=== PATIENT | female | born 1955 | race Caucasian/White ===

== ENCOUNTER 2016-09-23 19:33 | Emergency (ER) | payer MEDICARE, MEDICAID ==
--- NOTE | 2016-09-23 20:00 | RAD ---
INDICATION: Right shoulder pain COMPARISON: None TECHNIQUE: Routine frontal and Y views were obtained. FINDINGS: There is osteopenia. There is AC joint osteoarthritis. The glenohumeral joint is intact. The soft tissues are normal. IMPRESSION: OSTEOPENIA. AC JOINT OSTEOARTHRITIS
--- NOTE | 2016-09-23 20:23 | ED ---
I, Oh,Fabio, scribed for Ajay Garcia MD on 09/23/16 at 1954 . Upper Extremity Pain - HPI Summary HPI Summary: This 61 y/o female presents to ED via ambulance for acute on chronic right shoulder pain since today. She states that she has been over-exerting herself doing "push-ups". Pt states that palpation makes it worse and brings pain up to 10/10. PMHx is significant for PE, morbid obesity, JUAN with CPAP use, COPD, hypothyroidism, HTN, HLD, asthma, restless legs syndrome, and goiter. She is wheelchair bound and supports herself in her household with help from her daughter. - History of Current Complaint Chief Complaint: EDShouldJennifer Stated Complaint: R SHOULDER PAIN Time Seen by Provider: 09/23/16 19:36 Hx Obtained From: Patient, Medical Records Mechanism Of Injury: Unknown Onset/Duration: Started Hours Ago, Still Present Timing: Constant Severity Initially: Moderate Severity Currently: Moderate Pain Location: Shoulder - right Aggravating Factor(s): Movement, Other - palpation Alleviating Factor(s): Nothing Associated Signs & Symptoms: Positive: Negative - Allergies/Home Medications Allergies/Adverse Reactions: Allergies Allergy/AdvReac Type Severity Reaction Status Date / Time Erythromycin Allergy Rash Verified 08/26/14 14:21 Penicillins [PCN] Allergy Rash Verified 08/26/14 14:21 PMH/Surg Hx/FS Hx/Imm Hx Endocrine/Hematology History: Reports: Hx Thyroid Disease Respiratory History: Reports: Hx Asthma Infectious Disease History: Denies: Traveled Outside the [place] in Last 30 Days - Family History Known Family History: Positive: Other - Positive for RA. Father of PNA. - Social History Alcohol Use: Occasionally Hx Substance Use: No Substance Use Type: Reports: None Hx Tobacco Use: Yes Smoking Status (MU): Current Some Day Smoker Review of Systems Positive: Cough - productive cough with white sputum production Positive: Other - right shoulder pain All Other Systems Reviewed And Are Negative: Yes Physical Exam Triage Information Reviewed: Yes Vital Signs Reviewed: Yes Appearance: Positive: Pain Distress - MINIMAL DISCOMFORT, Obese - MORBIDLY OBESE Skin: Positive: Warm ENT: Positive: Hearing grossly normal Respiratory/Lung Sounds: Positive: Breath Sounds Present Musculoskeletal: Positive: Strength/ROM Intact - PAIN WITH MOVEMENT Neurological: Positive: Sensory/Motor Intact Psychiatric: Positive: Affect/Mood Appropriate Diagnostics - Laboratory Lab Statement: Any lab studies that have been ordered have been reviewed, and results considered in the medical decision making process. - Radiology Right Shoulder Xray Interpretation: Positive (See Comments) - OSTEOPENIA. AC JOINT OSTEOARTHRITIS Radiology Interpretation Completed By: Radiologist Re-Evaluation - Re-Evaluation First Eval Re-Evaluation Time: 20:22 Comment: MD in room to update pt on X-ray imaging results and plan of care involving discharge. Pt states that she is wheelchair bound and would need [employer] transportation in order to reach her home. Course/Dx - Diagnoses Provider Diagnoses: Shoulder sprain Discharge - Discharge Plan Condition: Stable Disposition: HOME Patient Education Materials: Shoulder Pain (ED) Referrals: [facility] [place] [facility]FERR[facility] [Outside] - 2 Days The documentation as recorded by the Robert hernandez Soohyun accurately reflects the service I personally performed and the decisions made by me, Ajay Garcia MD.
[2016-09-23 22:53] VITALS: BP 113/64
== END 2016-09-23 22:57 | disposition home or self-care (01) ==
LOC: ED 19:33
DX: S43.401A Unspecified sprain of right shoulder joint, initial encounter (principal); F17.200 Nicotine dependence, unspecified, uncomplicated; X50.3XXA Overexertion from repetitive movements, initial encounter; Y93.B2 Activity, push-ups, pull-ups, sit-ups; Y92.9 Unspecified place or not applicable; E66.01 Morbid (severe) obesity due to excess calories; Z86.711 Personal history of pulmonary embolism; J44.9 Chronic obstructive pulmonary disease, unspecified; I10 Essential (primary) hypertension; E78.5 Hyperlipidemia, unspecified; J45.909 Unspecified asthma, uncomplicated; G25.81 Restless legs syndrome; Z99.3 Dependence on wheelchair; M85.80 Other specified disorders of bone density and structure, unspecified site; Z68.43 Body mass index [BMI] 50.0-59.9, adult

== ENCOUNTER 2016-10-29 22:27 | Observation (INO) | payer MEDICARE, MEDICAID ==
--- NOTE | 2016-10-29 23:06 | ED ---
oBwen Mays Benjamin, scribed for Ajay Garcia MD on 10/29/16 at 2246 . Dizziness - HPI Summary HPI Summary: 61yo female c/o feeling dizzy, weak, and SOB tonight. Pt was unable to get up after using the toilet. Pt uses Oxygen at home. Current everyday smoker. Hx includes thyroid problems and asthma. - History Of Current Complaint Chief Complaint: EDWeakness Stated Complaint: WEAKNESS/LEG PAIN Time Seen by Provider: 10/29/16 22:35 Hx Obtained From: Patient Onset/Duration: Resolved Timing: Constant Severity Initially: Mild Severity Currently: None Character: Dizzy Aggravating Factor(s): Nothing Alleviating Factor(s): Nothing Associated Signs And Symptoms: Positive: SOB, Other: - weakness - Allergies/Home Medications Allergies/Adverse Reactions: Allergies Allergy/AdvReac Type Severity Reaction Status Date / Time Erythromycin Allergy Rash Verified 10/30/16 00:12 Penicillins [PCN] Allergy Rash Verified 10/30/16 00:12 Home Medications: Home Medications Albuterol HFA INHALER* [Ventolin HFA Inhaler*] 1 puff INH BID 10/30/16 [History Confirmed 10/30/16] Benzonatate CAP* [Tessalon 100 MG CAP*] 100 mg PO TID PRN 10/30/16 [History Confirmed 10/30/16] Levothyroxine TAB* [Synthroid TAB*] 100 mcg PO DAILY 10/30/16 [History Confirmed 10/30/16] Loperamide CAP* [Imodium CAP*] 2 mg PO Q8HR PRN 10/30/16 [History Confirmed ] Potassium Chlor TAB* [Klor Con ER TAB*] 20 meq PO BID 10/30/16 [History Confirmed 10/30/16] Sertraline HCl [Zoloft] 75 mg PO DAILY 10/30/16 [History Confirmed 10/30/16] oxyCODONE/Acetamin 5/325 MG* [Percocet 5/325 TAB*] 1 tab PO Q4H PRN 10/30/16 [ History Confirmed 10/30/16] PMH/Surg Hx/FS Hx/Imm Hx Endocrine/Hematology History: Reports: Hx Thyroid Disease Respiratory History: Reports: Hx Asthma Infectious Disease History: Denies: Traveled Outside the [place] in Last 30 Days - Family History Known Family History: Positive: Other - Positive for RA. Father of PNA. - Social History Occupation: Disabled Lives: [facility] Alcohol Use: Occasionally Hx Substance Use: No Substance Use Type: Reports: None Hx Tobacco Use: Yes Smoking Status (MU): Current Some Day Smoker Review of Systems Constitutional: Negative Eyes: Negative ENT: Negative Cardiovascular: Negative Positive: Shortness Of Breath Gastrointestinal: Negative Genitourinary: Negative Musculoskeletal: Negative Skin: Negative Neurological: Other - dizziness Positive: Weakness Psychological: Normal All Other Systems Reviewed And Are Negative: Yes Physical Exam Triage Information Reviewed: Yes Vital Signs On Initial Exam: Initial Vitals Temp Pulse Resp BP Pulse Ox 97 F 91 16 122/55 100 10/29/16 22:35 10/29/16 22:35 10/29/16 22:35 10/29/16 22:35 10/29/16 22:35 Vital Signs Reviewed: Yes Appearance: Positive: No Pain Distress, Obese - morbidlyt Skin: Positive: Warm Eyes: Positive: LA ENT: Positive: Hearing grossly normal Neck: Positive: Supple Respiratory/Lung Sounds: Positive: Breath Sounds Present, Decreased Breath Sounds Cardiovascular: Positive: RRR Abdomen Description: Positive: Nontender, Soft Bowel Sounds: Positive: Present Neurological: Positive: Alert, Oriented to Person Place, Time Psychiatric: Positive: Affect/Mood Appropriate Diagnostics - Vital Signs Vital Signs Temp Pulse Resp BP Pulse Ox 10/29/16 22:35 97 F 91 16 122/55 100 - Laboratory Result Diagrams: 10/29/16 23:24 10/29/16 23:24 Lab Statement: Any lab studies that have been ordered have been reviewed, and results considered in the medical decision making process. Dizzy Course/Dx - Diagnoses Provider Diagnoses: UTI (urinary tract infection) - Provider Notifications Discussed Care Of Patient with: Dr. Davis (hospitalist) @0002 Instructed by Provider To: Admit As Inpatient Discharge - Discharge Plan Condition: Fair Disposition: ADMITTED TO [facility] documentation as recorded by the Bowen hernandez Benjamin accurately reflects the service I personally performed and the decisions made by me, Ajay Garcia MD.
--- NOTE | 2016-10-29 23:26 | RAD ---
INDICATION: Shortness of breath. COMPARISON: Chest x-ray dated August 17, 2012 TECHNIQUE: Single AP portable view of the chest was obtained. FINDINGS: Image quality is compromised due to the relative inferiority of a portable chest x-ray. Similar the previous chest x-ray there is mild to moderate cardiomegaly. The pulmonary vasculature is indistinct and engorged. There are patchy densities overlying the bilateral central lungs. There is bilateral costophrenic angle blunting. Visualized bones are normal for the patient's age. IMPRESSION: Radiographic findings are most consistent with exacerbation of congestive heart failure resulting in pulmonary edema and small pleural effusions..
[2016-10-29 23:36] LABS: Hematocrit 34 % (35-47); Hemoglobin 10.6 g/dl (12.0-16.0); Mean Corpuscular HGB Conc 32 g/dl (31-36); Mean Corpuscular Hemoglobin 29 pg (27-31); Mean Corpuscular Volume 91 fL (80-97); Mean Platelet Volume 8 um3 (7.4-10.4); Red Blood Count 3.69 10^6/ul (4.0-5.4); Red Cell Distribution Width 17 % (10.5-15); White Blood Count 16.3 10^3/ul (3.5-10.8)
[2016-10-29 23:37] LABS: Urine Bacteria 1+ (Absent); Urine Bilirubin Negative (Negative); Urine Glucose Negative (Negative); Urine Nitrite Positive (Negative)
[2016-10-29 23:54] LABS: Albumin 2.9 g/dL (3.2-5.2); BUN/Creatinine Ratio 9.3 (8-20); Calcium 8.7 mg/dL (8.6-10.3); EGFR African American 85.7 (>60); EGFR Non-African American 66.6 (>60); Globulin 5.4 g/dL (2-4); Potassium 3.5 mmol/L (3.5-5.0); Total Bilirubin 0.6 mg/dL (0.2-1.0); Total Protein 8.3 g/dL (6.4-8.9)
[2016-10-30] MEDS ORDERED: Levofloxacin 500 MG IVPREMIX(* 500 MG/100 ML BAG IVPB ONE (00:02)
--- NOTE | 2016-10-30 00:43 | HP ---
H&P (Free Text) History and Physical: PCP: Raeann Payton MD Date/Time of Evaluation: 0045 CC: generalized weakness HPI: Mrs Harris is a 61YO super morbidly obese female HX COPD, HTN, hypothyroidism who presents reporting dry cough over the last few days without F /C, phlegm production, or SOB. Today she did have some N/V x1. She went to the restroom for a BM and while there developed N/T in B legs associated with generalized weakness and an inability to stand for which she activated her Life Alert. Vitals are stable, WBCs 16k 85% neutrophils. UA is positive for UTI. CXR is read as most consistent w/ CHF. PMedHx HX pulmonary embolism IBS, diarrhea dominant COPD asthma, mild intermittent mild intellectual disability HTN HLD hypothyroidism chronic anemia JUAN not on CPAP restless leg syndrome OA depression Ambulatory Orders Albuterol HFA INHALER* [Ventolin HFA Inhaler*] 1 puff INH BID 10/30/16 Benzonatate CAP* [Tessalon 100 MG CAP*] 100 mg PO TID PRN 10/30/16 Levothyroxine TAB* [Synthroid TAB*] 100 mcg PO DAILY 10/30/16 Loperamide CAP* [Imodium CAP*] 2 mg PO Q8HR PRN 10/30/16 Potassium Chlor TAB* [Klor Con ER TAB*] 20 meq PO BID 10/30/16 Sertraline HCl [Zoloft] 75 mg PO DAILY 10/30/16 oxyCODONE/Acetamin 5/325 MG* [Percocet 5/325 TAB*] 1 tab PO Q4H PRN 10/30/16 Allergies Erythromycin Allergy (Verified 10/30/16 00:12) Rash Penicillins [PCN] Allergy (Verified 10/30/16 00:12) Rash PSurgHx denies SocHx: former smoker, minimal alcohol, no recreational drugs; lives with her daughter; full code status FamHx: negative for CAD, CVA, & cancer ROS: as above, otherwise reviewed and all were negative Constitutional: NAD, normally developed, super morbidly obese white female vitals: Vital Signs Temp 36.1 C 10/29/16 22:35 Pulse 81 10/29/16 23:59 Resp 22 10/29/16 23:59 BP 122/55 10/29/16 22:35 Pulse Ox 98 10/29/16 23:59 Intake & Output 10/29/16 10/29/16 10/30/16 11:59 23:59 11:59 Weight 170.097 kg HEENM: atraumatic; sclera/conjunctiva: non-icteric/clear; hearing: clinically intact; oropharynx: clear, mucosa Neck: soft tissue: non-tender; thyroid: normal Pulmonary: clear to auscultation bilaterally, good aeration, no accessory muscle use CV: RR/RR, normal S1S2, no carotid bruit, no jugular venous distention, 2+ B DP/ PT, 3+ edema Abdominal: soft, non-distended, non-tender, no rebound/guarding/rigidity, normoactive bowel sounds, no hepatosplenomegaly or masses, no costovertebral angle tenderness Musculoskeletal: general: grossly intact; gait: non-ambulatory Integumental: mild erythema (chronic appearing) BLE without warmth, tenderness, or open wound Psychiatric orientation: AA&O to PPS affect: calm mood: cooperative eye contact: fair to good content: reliable responses: simple insight: fair Testing: Lab Results 10/29/16 10/29/16 10/29/16 Range/Units 23:14 23:24 23:24 WBC 16.3 H (3.5-10.8) 10^3/ul RBC 3.69 L (4.0-5.4) 10^6/ul Hgb 10.6 L (12.0-16.0) g/dl Hct 34 L (35-47) % MCV 91 (80-97) fL MCH 29 (27-31) pg MCHC 32 (31-36) g/dl RDW 17 H (10.5-15) % Plt Count 294 (150-450) 10^3/ul MPV 8 (7.4-10.4) um3 Neut % (Auto) 85.8 H (38-83) % Lymph % (Auto) 7.2 L (25-47) % [place] % (Auto) 5.5 (1-9) % Eos % (Auto) 1.0 (0-6) % Baso % (Auto) 0.5 (0-2) % Absolute Neuts (auto) 14.0 H (1.5-7.7) 10^3/ul Absolute Lymphs (auto) 1.2 (1.0-4.8) 10^3/ul Absolute Monos (auto) 0.9 H (0-0.8) 10^3/ul Absolute Eos (auto) 0.2 (0-0.6) 10^3/ul Absolute Basos (auto) 0.1 (0-0.2) 10^3/ul Absolute Nucleated RBC 0.01 10^3/ul Nucleated RBC % 0.1 Sodium 134 (133-145) mmol/L Potassium 3.5 (3.5-5.0) mmol/L Chloride 102 (101-111) mmol/L Carbon Dioxide 26 (22-32) mmol/L Anion Gap 6 (2-11) mmol/L BUN 8 (6-24) mg/dL Creatinine 0.86 (0.51-0.95) mg/dL Est GFR ( Amer) 85.7 (>60) Est GFR (Non-Af Amer) 66.6 (>60) BUN/Creatinine Ratio 9.3 (8-20) Glucose 120 H (70-100) mg/dL Calcium 8.7 (8.6-10.3) mg/dL Total Bilirubin 0.60 (0.2-1.0) mg/dL AST 21 (13-39) U/L ALT 7 (7-52) U/L Alkaline Phosphatase 81 (34-104) U/L B-Natriuretic Peptide ( - 100) pg/mL Total Protein 8.3 (6.4-8.9) g/dL Albumin 2.9 L (3.2-5.2) g/dL Globulin 5.4 H (2-4) g/dL Albumin/Globulin Ratio 0.5 L (1-3) Urine Color Yellow Urine Appearance Cloudy Urine pH 7.0 (5-9) Ur Specific [place] 1.011 (1.010-1.030) Urine Protein 1+(30 mg/dl) H (Negative) Urine Ketones Negative (Negative) Urine Blood 1+ H (Negative) Urine Nitrate Positive H (Negative) Urine Bilirubin Negative (Negative) Urine Urobilinogen Negative (Negative) Ur Leukocyte Esterase Trace H (Negative) Urine WBC (Auto) 1+(6-10/hpf) H (Absent) Urine RBC (Auto) 1+(3-5/hpf) H (Absent) Ur Squamous Epith Cells Present H (Absent) Amorphous Crystals Present H (Absent) Urine Bacteria 1+ H (Absent) Urine Glucose Negative (Negative) 10/29/16 Range/Units 23:24 WBC (3.5-10.8) 10^3/ul RBC (4.0-5.4) 10^6/ul Hgb (12.0-16.0) g/dl Hct (35-47) % MCV (80-97) fL MCH (27-31) pg MCHC (31-36) g/dl RDW (10.5-15) % Plt Count (150-450) 10^3/ul MPV (7.4-10.4) um3 Neut % (Auto) (38-83) % Lymph % (Auto) (25-47) % [place] % (Auto) (1-9) % Eos % (Auto) (0-6) % Baso % (Auto) (0-2) % Absolute Neuts (auto) (1.5-7.7) 10^3/ul Absolute Lymphs (auto) (1.0-4.8) 10^3/ul Absolute Monos (auto) (0-0.8) 10^3/ul Absolute Eos (auto) (0-0.6) 10^3/ul Absolute Basos (auto) (0-0.2) 10^3/ul Absolute Nucleated RBC 10^3/ul Nucleated RBC % Sodium (133-145) mmol/L Potassium (3.5-5.0) mmol/L Chloride (101-111) mmol/L Carbon Dioxide (22-32) mmol/L Anion Gap (2-11) mmol/L BUN (6-24) mg/dL Creatinine (0.51-0.95) mg/dL Est GFR ( Amer) (>60) Est GFR (Non-Af Amer) (>60) BUN/Creatinine Ratio (8-20) Glucose (70-100) mg/dL Calcium (8.6-10.3) mg/dL Total Bilirubin (0.2-1.0) mg/dL AST (13-39) U/L ALT (7-52) U/L Alkaline Phosphatase (34-104) U/L B-Natriuretic Peptide 77 ( - 100) pg/mL Total Protein (6.4-8.9) g/dL Albumin (3.2-5.2) g/dL Globulin (2-4) g/dL Albumin/Globulin Ratio (1-3) Urine Color Urine Appearance Urine pH (5-9) Ur Specific [place] (1.010-1.030) Urine Protein (Negative) Urine Ketones (Negative) Urine Blood (Negative) Urine Nitrate (Negative) Urine Bilirubin (Negative) Urine Urobilinogen (Negative) Ur Leukocyte Esterase (Negative) Urine WBC (Auto) (Absent) Urine RBC (Auto) (Absent) Ur Squamous Epith Cells (Absent) Amorphous Crystals (Absent) Urine Bacteria (Absent) Urine Glucose (Negative) CXR, personally reviewed: IMPRESSION: Radiographic findings are most consistent with exacerbation of congestive heart failure resulting in pulmonary edema and small pleural effusions. Impression: 61F presenting with generalized weakness & finding of UTI w/ leukocytosis DIAGNOSIS & PLAN Primary UTI w/ generalized weakness : PT evaluation : IV levofloxacin : blood & urine CX : supportive care Secondary HX pulmonary embolism : SCDs & heparin SQ IBS, diarrhea dominant : continue loperamide PRN COPD : albuterol nebs PRN : mometasone/formoterol : tiotropium : incentive spirometry asthma, mild intermittent : albuterol nebs PRN HTN : heart healthy diet, monitor HLD : heart healthy diet hypothyroidism : continue levothyroxine JUAN : previously on CPAP, attempt to restart w/ auto : will need follow up outpatient sleep study : consider pulmonology consult in AM depression : continue sertraline Admission Rational: observation for initiation of ABX for UTI DVTp: SCDs & heparin SQ Code Status: full HCP: daughter,
[2016-10-30] MEDS ORDERED: Albuterol 2.5 MG/3 ML NEB.SOL* (0.083%) INH PRN (01:10)
[2016-10-30] MEDS ORDERED: Acetaminophen TAB* 325 MG PO PRN (01:10)
[2016-10-30] MEDS ORDERED: CMCS - Melatonin (NF) 3 MG TAB PO PRN (01:11)
[2016-10-30] MEDS ORDERED: Ondansetron INJ* 2 MG/ML VIAL IV PRN (01:11)
[2016-10-30] MEDS ORDERED: Loperamide CAP* 2 MG PO PRN (01:12)
[2016-10-30] MEDS ORDERED: NS 0.9% 1000 ML* 1,000 ML IV SCH (01:15)
[2016-10-30 04:10] LABS: Hematocrit 32 % (35-47); Hemoglobin 10.3 g/dl (12.0-16.0); Mean Corpuscular HGB Conc 32 g/dl (31-36); Mean Corpuscular Hemoglobin 29 pg (27-31); Mean Corpuscular Volume 90 fL (80-97); Mean Platelet Volume 8 um3 (7.4-10.4); Red Blood Count 3.59 10^6/ul (4.0-5.4); Red Cell Distribution Width 18 % (10.5-15); White Blood Count 13.4 10^3/ul (3.5-10.8)
[2016-10-30] MEDS ORDERED: Omeprazole CAP* 20 MG PO SCH (06:00)
[2016-10-30] MEDS ORDERED: Levothyroxine TAB* 100 MCG TAB PO SCH (06:00)
[2016-10-30] MEDS ORDERED: Spiriva Inhaler DEVICE* 1 EACH DEVICE ONE (09:00)
[2016-10-30] MEDS ORDERED: Mometasone/Formoter 200/5 MDI INH SCH (09:00)
[2016-10-30] MEDS ORDERED: Sertraline* 50 MG TAB PO SCH (09:00)
[2016-10-30] MEDS ORDERED: Tiotropium CAP.INH* CAP.INH/18 MCG INH SCH (09:00)
[2016-10-30 12:22] VITALS: BP 122/67
[2016-10-31] MEDS ORDERED: Levofloxacin 500 MG IVPREMIX(* 500 MG/100 ML BAG IVPB SCH
--- NOTE | 2016-10-31 02:32 | DS ---
DISCHARGE SUMMARY: DATE OF ADMISSION: 10/30/16 DATE OF DISCHARGE: 10/30/16 PRIMARY CARE PROVIDER: Dr. Fabiana Payton. DISCHARGING PROVIDER: JAZMYNE Blum SUPERVISING PHYSICIAN: Dr. Kina Barros* (dictated by JAZMYNE Blum). PRIMARY DISCHARGE DIAGNOSES: 1. Urinary tract infection. 2. Weakness. 3. Nonproductive cough - perhaps related to chronic obstructive pulmonary disease. SECONDARY DISCHARGE DIAGNOSES: 1. Morbid obesity with a BMI of 67. 2. Chronic obstructive pulmonary disease. 3. Hypertension. 4. Hypothyroidism. 5. History of pulmonary embolism. 6. Irritable bowel syndrome, diarrheal type. 7. Obstructive sleep apnea, noncompliant with CPAP. DISCHARGE MEDICATIONS: 1. Albuterol inhaler 1 puff inhaled twice daily as needed for cough or shortness of breath. 2. Flovent 2 puffs inhaled twice daily. 3. Gabapentin 300 mg capsule, 1 to 2 capsules p.o. at bedtime. 4. Levothyroxine 100 mcg p.o. daily. 5. Imodium 2 mg p.o. q.8 hours as needed for diarrhea. 6. Topical nystatin applied 3 times daily to affected area. 7. Potassium chloride 20 mEq p.o. twice daily. 8. Zoloft 75 mg p.o. daily. 9. Bactrim DS 1 tablet p.o. twice daily x3 days. 10. Spiriva 1 puff inhaled daily. 11. Percocet 1 tablet 5/325 one tablet p.o. q.4 hours as needed for pain. Medication changes: 1. Start nystatin powder. 2. Bactrim x3 days. HOSPITAL IMAGING: Chest x-ray shows perhaps some mild interstitial edema and small pleural effusions, but appears to be improved when compared to prior films and is somewhat limited due to her body habitus. HOSPITAL COURSE: This is a 61-year-old female with morbid obesity, COPD, hypertension, hypothyroidism, irritable bowel syndrome, and obstructive sleep apnea, who presented to the emergency department with complaints of weakness. She states that she was in her usual state of health up until last night when she was preparing to go bed, she subsequently transferred into the bathroom and while sitting on the toilet, suddenly became shaky and weak and felt somewhat short of breath. The ambulance was called and she was transported to the emergency room for evaluation. The patient was afebrile upon reaching the emergency department, remainder of vitals was within normal limits. Initial labs demonstrated leukocytosis with a white blood cell count of 16,300. The remainder of labs was unremarkable. Urinalysis was suggestive of a urinary tract infection, positive for nitrites, leuk esterase, and white blood cells. The patient was subsequently admitted and empirically started on Levaquin for urinary tract infection. Following morning, the patient reported feeling significantly better and was back to her baseline in terms of strength. She denied abdominal pain, dysuria, hematuria, or frequency. At baseline, she spends majority of her time in a wheelchair and is able to transfer independently and the patient was able to demonstrate those skills and felt quite confident in her transfer prior to discharge. The patient has been complaining of a nonproductive cough for the last couple of weeks and has been started on inhaler therapies by her primary care provider. Review of pharmacy records indicate that she has been started on Flovent and Spiriva. She denies any significant improvement with her cough, but denies associated shortness of breath or other advancing symptoms. She does have chronic lower extremity edema, but states that this does not appear to be worse than usual. DISPOSITION AND FOLLOWUP PLAN: The patient is being discharged to home where she lives with her daughter and boyfriend. Recommend 3 days of oral antibiotics for treatments of uncomplicated urinary tract infection. The patient is encouraged to resume her usual home medications including her inhaled therapies. Recommend following up with her primary care provider in approximately 1 week. JAZMYNE BLUM CC: Dr. Fabiana Payton* [id number]/[facility] #: [id number] HUMAIRA
[2016-10-31] MEDS ORDERED: Heparin VIAL(*) 5000 UNITS/ML VIAL (FIVE THOUSAND) SUBCUT SCH (06:00)
== END 2016-10-30 12:20 | disposition home or self-care (01) ==
LOC: ED 22:27 → MEDTELE 10-30 00:26
PROVIDERS: ADMIT Hospitalist; ATTEND Internal Medicine
DX: N39.0 Urinary tract infection, site not specified (principal); R53.1 Weakness; R05 Cough; G47.33 Obstructive sleep apnea (adult) (pediatric); E66.01 Morbid (severe) obesity due to excess calories; Z68.44 Body mass index [BMI] 60.0-69.9, adult; J44.9 Chronic obstructive pulmonary disease, unspecified; I10 Essential (primary) hypertension; E03.9 Hypothyroidism, unspecified; K58.0 Irritable bowel syndrome with diarrhea; Z86.711 Personal history of pulmonary embolism; Z79.899 Other long term (current) drug therapy; G25.81 Restless legs syndrome; F70 Mild intellectual disabilities; F32.9 Major depressive disorder, single episode, unspecified; Z87.891 Personal history of nicotine dependence; I45.10 Unspecified right bundle-branch block; R06.02 Shortness of breath
CPT/HCPCS: 36415; 71010; 80053; 81003; 81015; 83880; 85025; 85027; 87040; 87077; 87086; 87186; 87641; 94640; 96360; 96361; 99284; A9270-GY; G0378; G8978-GP-CN; G8979-GP-CN; G8980-GP-CN; J1956

== ENCOUNTER 2016-12-29 09:49 | Emergency (ER) | payer MEDICARE, MEDICAID ==
[2016-12-29] MEDS ORDERED: NS 0.9% 1000 ML* 1,000 ML IV ONE (10:19)
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
[2016-12-29 16:06] VITALS: BP 125/59
== END 2016-12-29 16:07 | disposition home or self-care (01) ==
LOC: ED 09:49
DX: R53.1 Weakness (principal); E07.9 Disorder of thyroid, unspecified; J44.9 Chronic obstructive pulmonary disease, unspecified; M25.569 Pain in unspecified knee; G89.29 Other chronic pain; Z88.0 Allergy status to penicillin; Z87.891 Personal history of nicotine dependence
CPT/HCPCS: 99282

== ENCOUNTER → 2016-12-30 08:55 | Emergency (ER) | payer MEDICARE, MEDICAID ==
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
[2016-12-30 18:07] VITALS: BP 125/51
[2016-12-30 18:16] LABS: Urine Bacteria 1+ (Absent); Urine Bilirubin Negative (Negative); Urine Glucose Negative (Negative); Urine Nitrite Negative (Negative)
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
== END | disposition home or self-care (01) ==
LOC: ED 08:55
DX: R53.1 Weakness (principal); Z91.81 History of falling; E07.9 Disorder of thyroid, unspecified; J44.9 Chronic obstructive pulmonary disease, unspecified; Z90.49 Acquired absence of other specified parts of digestive tract; G47.30 Sleep apnea, unspecified; Z87.891 Personal history of nicotine dependence; Z88.1 Allergy status to other antibiotic agents; Z88.0 Allergy status to penicillin
CPT/HCPCS: 81003; 81015; 87077; 87086; 87186; 99283

== ENCOUNTER 2017-07-09 18:37 | Inpatient (IN) | payer MEDICARE, MEDICAID ==
--- NOTE | 2017-07-09 20:02 | RAD ---
INDICATION: Sepsis. COMPARISON: Comparison is made with prior chest x-ray studies from June 21, 2011 and October 29, 2016. TECHNIQUE: A portable view of the chest was obtained. FINDINGS: The heart appears mildly enlarged and unchanged. There is prominence of the interstitial markings with more ill-defined densities in both mid and lower lung palomo. This is in a similar distribution to the prior study although appears more prominent. No pleural effusion is seen. IMPRESSION: BILATERAL INFILTRATES SOME OF WHICH APPEARS CHRONIC WITH POSSIBLE SUPERIMPOSED ACUTE PROCESS.
[2017-07-09 20:08] LABS: ABS Basophils 0 10^3/ul (0-0.2); ABS Eosinophils 0 10^3/ul (0-0.6); ABS Lymphocytes 0.4 10^3/ul (1.0-4.8); ABS Monocytes 0.8 10^3/ul (0-0.8); ABS Neutrophils 19.8 10^3/ul (1.5-7.7); ABS Nucleated RBC 0 10^3/ul; Eosinophil % 0.1 % (0-6); Hematocrit 27 % (35-47); Hemoglobin 8.7 g/dl (12.0-16.0); Lymphocyte % 1.8 % (25-47); Mean Corpuscular HGB Conc 32 g/dl (31-36); Mean Corpuscular Hemoglobin 28 pg (27-31); Mean Corpuscular Volume 87 fL (80-97); Mean Platelet Volume 8 um3 (7.4-10.4); Nucleated Red Blood Cells % 0.2; Platelet Count 256 10^3/ul (150-450); Red Blood Count 3.13 10^6/ul (4.0-5.4); Red Cell Distribution Width 19 % (10.5-15)
[2017-07-09 20:21] LABS: EGFR Non-African American 39.5 (>60)
[2017-07-09 20:28] LABS: INR 1.25 (0.77-1.02)
[2017-07-09] MEDS ORDERED: Levofloxacin 750 MG IVPREMIX(* 750 MG/150 ML BAG IVPB ONE (21:00)
[2017-07-09] MEDS ORDERED: Furosemide IV* 10 MG/ML 2 ML VIAL (20 MG) IV ONE (21:53)
[2017-07-09] MEDS ORDERED: NS 0.9% 500 ML* 500 ML IV ONE (23:24)
[2017-07-10 00:09] LABS: Urine Appearance Cloudy; Urine Blood 3+ (Negative); Urine Ketones Negative (Negative); Urine Protein 2+(100 mg/dL) (Negative); Urine Specific Gravity 1.012 (1.010-1.030); Urine Urobilinogen Negative (Negative)
[2017-07-10] MEDS: Heparin VIAL(*) 5000 UNITS/ML VIAL (FIVE THOUSAND) SUBCUT SCH ×4 (00:15→21:47)
--- NOTE | 2017-07-10 00:20 | HP ---
ADMISSION HISTORY AND PHYSICAL: DATE OF ADMISSION: 07/09/17 PRIMARY CARE PHYSICIAN: Dr. Fabiana Payton. ADMITTING AND ATTENDING PHYSICIAN: Dr. Elizabeth Moore.* (DICTATED BY FAWN JAIN NP) CHIEF COMPLAINT: Shortness of breath. HISTORY OF PRESENT ILLNESS: This is a 62-year-old female with a chief complaint of shortness of breath that started yesterday. The patient states she has had increasing cough, chills, and diarrhea but denies any sore throat. Has chronic bilateral leg edema with wounds at baseline. Had VNS in the home at one point but no longer. Has not been in to see Dr. Payton in "a while".The patient states that she has had some bouts of incontinence and rectal bleeding that Dr. Payton wanted to send her for a colonoscopy, she has history of IBS with diarrhea. She did have chills, but no fever. Denies any nasal congestion and denies any productive sputum. The patient denies that she was around any sick contacts or travel. She is primarily wheelchair bound due to morbid obesity. PAST MEDICAL HISTORY: Significant for: 1. Asthma. 2. COPD. 3. Hypothyroidism. 4. Morbid obesity. 5. Sleep apnea. 6. Also per the record, it states there was a history of suspected MRSA infection, although it does not have a location of that infection. 7. IBS PAST SURGICAL HISTORY: Significant for and cholecystectomy. FAMILY HISTORY: Significant for father dying of pneumonia, otherwise no further family history is noted. SOCIAL HISTORY: The patient lives at home with her daughter, granddaughter, and multiple other family members. She is retired. REVIEW OF SYSTEMS: The patient is alert, no acute distress. The patient states she is clinically short of breath. She does have a cough which is unproductive. She has diarrhea, but she also states that she has had IBS in the past and she has not had chronic diarrhea for some time. She has bilateral lower extremity edema, which she said is worse. She denies any chest pain. Denies any nausea or vomiting. She does have chills. Denies any further constitutional complaints. PHYSICAL EXAMINATION GENERAL: The patient is morbidly obese, but she is lying in bed with no acute pain or distress noted. VITAL SIGNS: Currently, blood pressure 102/52, heart rate 95, temperature 100.4 , oxygen saturation 97% on 5 L nasal cannula, respiratory rate is 22. HEENT: The patient is atraumatic, normocephalic. PERRLA. Anicteric sclerae. She is edentulous with very dry oral mucosa. NECK: Supple. No thyromegaly appreciated. LUNGS: There is a bilateral inspiratory and expiratory wheeze; however, due to body habitus, I cannot discern if she actually has crackles or rales at the bases. CARDIOVASCULAR: S1, S2 are present. No murmurs, gallops, or rubs noted. ABDOMEN: Morbidly obese. She has multiple wounds in between the large body folds, which are being treated with nystatin. MUSCULOSKELETAL: She has very weak pulses, difficult to palpate on the lower extremities secondary to her edema and venous stasis. She does have sensory intact per her own report. She is wheelchair bound. NEUROLOGIC: She is intact. She is alert and oriented x3. There is a report in the chart that she is somewhat developmentally delayed; however, she is appropriate and answers all questions appropriately. DIAGNOSTIC STUDIES/LAB DATA: WBCs 21.0, RBCs 3.13, hemoglobin 8.7, hematocrit 27, platelets 256. Sodium 138, potassium 3.7, chloride 104, CO2 27, BUN 13, creatinine 1.35, GFR 39.5, glucose 122, lactic acid 3.5, calcium 8.2. AST 45, ALT 15, alk phos 83. Troponin 0.05. CRP 52.12. BNP 353. Albumin 2.5. Rapid flu A and B are both negative. EKG shows a right bundle-branch block, not much difference from her last EKG reported. Chest x-ray shows bilateral pleural effusions; however, it appears that the pleural effusions are chronic. She does appear to have pulmonary congestion. IMPRESSION: This is a 62-year-old female patient, morbidly obese with a history of chronic obstructive pulmonary disease and likely from previous report some diastolic heart failure that may be undiagnosed, who presented to the emergency department with complaint of shortness of breath, found to have bilateral pleural effusions and cellulitis bilaterally of the lower extremities with some nonhealing wounds likely related to venous stasis and obesity. PLAN: The patient has been admitted to telemetry service. She has received one dose of Levaquin in the ER. She has allergies to ERYTHROMYCIN and PENICILLIN. She has been placed on clindamycin to cover her for her soft tissue infection. I am thinking that her leukocytosis and chills and other symptoms are more related to the cellulitis of her legs rather than an overt pneumonia at this time. However, she will be treated for both. Clinically, she does appear dry. She has gotten some IV fluids even though she is slightly fluid overloaded. I did give her one small dose of Lasix to assist with her breathing. Ordered a Taylor catheter. We will recheck her lactic acid in the morning. Recheck another troponin to see if that is trending down, although I suspect that is demand ischemia in the setting of her shortness of breath. We will continue her inhalers from home and her medications from home, currently her albuterol, her vitamin B12, fluticasone inhaler, gabapentin 300 mg at bedtime, levothyroxine 100 mcg daily, her nystatin cream 2 times a day as needed , and her Spiriva and tramadol as needed. I have also added Tylenol for fever, her Levaquin, her clindamycin, and DuoNebs q.6 hours. DVT prophylaxis, she will be placed on heparin subcu. She is a full code. Her healthcare proxy is her daughter, whose name is also Lyndsay. We tried to call Lyndsay, she did not answer the phone, but she states that Lyndsay is her decision maker in the event that she does not have capacity. The rest of the patient's course will be determined by further diagnostics, laboratories and any other input from other providers as warranted during this admission. We will continue to watch patient closely. We expect her admission to be longer than 2 days. FAWN JAIN, DORINDA [id number]/[facility] #: [id number] HUMAIRA
[2017-07-10 00:42] LABS: Urine Color Red
[2017-07-10] MEDS: Clindamycin 600 MG IVPREMIX(* 600 MG/50 ML SDV IV SCH ×3 (01:49→17:52)
--- NOTE | 2017-07-10 03:24 | PN ---
Progress Note - Progress Note Date of Service: 07/10/17 Note: Nurse spoke with patient about goals of care and patient is requesting a palliative care consult.
[2017-07-10] MEDS: Albuterol/Ipratropium NEB.SOL* Albuterol 2.5 MG/Ipratropium 0.5 MG 3 ML INH SCH ×5 (04:01→19:30)
[2017-07-10 06:03] LABS: ABS Basophils 0.1 10^3/ul (0-0.2); ABS Eosinophils 0.1 10^3/ul (0-0.6); ABS Lymphocytes 1.5 10^3/ul (1.0-4.8); ABS Monocytes 1.5 10^3/ul (0-0.8); ABS Neutrophils 18.5 10^3/ul (1.5-7.7); ABS Nucleated RBC 0 10^3/ul; Eosinophil % 0.3 % (0-6); Hematocrit 26 % (35-47); Lymphocyte % 6.8 % (25-47); Mean Corpuscular HGB Conc 32 g/dl (31-36); Mean Corpuscular Hemoglobin 28 pg (27-31); Mean Corpuscular Volume 89 fL (80-97); Mean Platelet Volume 8 um3 (7.4-10.4); Nucleated Red Blood Cells % 0; Platelet Count 207 10^3/ul (150-450); Red Blood Count 2.88 10^6/ul (4.0-5.4); Red Cell Distribution Width 20 % (10.5-15); White Blood Count 21.7 10^3/ul (3.5-10.8)
[2017-07-10] MEDS: Tiotropium CAP.INH* CAP.INH/18 MCG (USE ORDER SET !) INH SCH (07:35)
[2017-07-10] MEDS: Levothyroxine TAB* 100 MCG TAB PO SCH (07:47)
[2017-07-10] MEDS ORDERED: Spiriva Inhaler DEVICE* 1 EACH DEVICE INH ONE ×2 (09:00)
[2017-07-10] MEDS: Lactobacillus Acidophilu (GG)* 1 CAP CAP PO SCH (09:29)
[2017-07-10] MEDS: Cyanocobalamin TAB* 500 MCG PO SCH (09:29)
[2017-07-10] MEDS: Nystatin CREAM* 15 GM TUBE TOPICAL SCH ×2 (09:29→20:05)
[2017-07-10] MEDS: traMADol TAB* 50 MG PO SCH ×2 (09:30→20:04)
[2017-07-10] MEDS: Triamcinolone 0.025% OINT * 15 GM TUBE TOPICAL SCH ×2 (09:30→20:04)
[2017-07-10] MEDS ORDERED: Atropine SYRINGE* 0.1 MG/ML 10 ML SYRINGE (1 MG) ONE (10:04)
--- NOTE | 2017-07-10 16:36 | PN ---
Subjective Date of Service: 07/10/17 Interval History: Patient seen and examined at bedside. Denies fever, chills, shortness of breath , chest discomfort, N/V/D. Pt states that she has LE edema and redness at baseline. She also reports baseline yeast rash to her skin. Pt states that she is feeling better and would like to go home. Tele: Sinus rhythm, rate 70-80's. Family History: Unchanged from Admission Social History: Unchanged from Admission Past Medical History: Unchanged from Admission Objective Active Medications: Albuterol (Ventolin Hfa Inhaler*) 1 puff INH BID PRN Reason: SHORTNESS OF BREATH Albuterol/Ipratropium (Duoneb (Albuterol 2.5 Mg/Ipratropium 0.5 Mg)) 1 neb INH RT.[id number] AWAKE [facility] Cyanocobalamin (Vitamin B12 Tab*) 1,000 mcg PO DAILY [facility] Gabapentin (Neurontin Cap(*)) 300 mg PO BEDTIME [facility] Heparin Sodium (Porcine) (Heparin Vial(*)) 5,000 units SUBCUT Q8HR [facility] Clindamycin HCl/Dextrose (Cleocin 600 Mg Ivpremix(*) Sdv) 600 mg in 50 mls @ 100 mls/hr IV Q8H [facility] Lactobacillus Rhamnosus (Culturelle*) 1 cap PO DAILY [facility] Levothyroxine Sodium (Synthroid Tab*) 100 mcg PO 0600 [facility] Mometasone Furoate (Asmanex 220 Mcg Mdi *) 2 puff INH BEDTIME [facility] Nystatin (Nystatin Cream*) 1 applic TOPICAL BID [facility] Tiotropium Tiona (Spiriva Cap.Inh*) 1 cap INH 0900 [facility] Tramadol HCl (Ultram*) 50 mg PO BID [facility] Triamcinolone Acetonide (Triamcinolone 0.025% Oint *) 1 applic TOPICAL BID [facility] Vital Signs - 8 hr 07/10/17 07/10/17 07/10/17 09:30 11:41 11:50 Temperature 98.1 F Pulse Rate 76 Respiratory 18 16 24 Rate Blood Pressure 80/41 (mmHg) O2 Sat by Pulse 100 Oximetry 07/10/17 07/10/17 07/10/17 13:08 13:50 15:02 Temperature 98.4 F Pulse Rate 80 79 Respiratory 18 18 Rate Blood Pressure 90/60 91/44 (mmHg) O2 Sat by Pulse 98 96 Oximetry Oxygen Devices in Use Now: Nasal Cannula - 3L Appearance: NAD, laying in bed Ears/Nose/Mouth/Throat: Mucous Membranes Moist Respiratory: Symmetrical Chest Expansion and Respiratory Effort, Clear to Auscultation - , diminished Cardiovascular: NL Sounds; No Murmurs; No JVD, RRR Abdominal: NL Sounds; No Tenderness; No Distention - Abdomen morbidly obese Extremities: - - Bilateral LE edema Skin: - - Wounds to bilateral LE. Erythema to left LE. Pt also notes to have redness in abdominal folds Neurological: Alert and Oriented x 3 Lines/Tubes/Other Access: Clean, Dry and Intact Peripheral IV - site benign Nutrition: Taking PO's Result Diagrams: 07/11/17 06:54 07/11/17 06:54 Microbiology and Other Data: Microbiology 07/10/17 01:30 Skin and Soft Tissue MRSA/MSSA (PCR - Final Leg Left Mrsa Negative S.aureus Positive Gram Stain - Final Wound Culture - Preliminary Staphylococcus Aureus 07/10/17 01:30 Stool Gross Appearance - Final Stool 07/10/17 01:30 Skin and Soft Tissue MRSA/MSSA (PCR - Final Leg Right Mrsa Negative S.aureus Positive Gram Stain - Final 07/10/17 01:30 Skin and Soft Tissue MRSA/MSSA (PCR - Final Abdomen Mrsa Negative S.aureus Positive Gram Stain - Final Assess/Plan/Problems-Billing Assessment: Ms. Harris is a 62 yo female with PMH asthma, COPD, hypothyroidism, morbid obesity, sleep apnea, possible DHF who presented to the emergency room with complaints of shortness of breath. - Patient Problems (1) Cellulitis Code(s): L03.90 - CELLULITIS, UNSPECIFIED SNOMED Code(s): 703481754 Comment: - Leukocytosis and low grade fever - With lactic acidosis on admission, now resolved - Wound cultures with Staph aureus (both legs and ABD) - ID consult, pending - Continue clindamycin (2) Hypotension Comment: - Asymptomatic - SBP 80-100's - Will give gentle IVFs overnight (3) Shortness of breath Code(s): R06.02 - SHORTNESS OF BREATH SNOMED Code(s): 824829563 Comment: - Resolved - Suspect she may have a componet of diastolic HF - Pleural effusions appear chronic - Unable to recieve lasix due to hypotension (4) KATHERINE (acute kidney injury) Code(s): N17.9 - ACUTE KIDNEY FAILURE, UNSPECIFIED SNOMED Code(s): 24627132 Comment: - Creatinine continues to elevate - Will check FeNA - Will give gentle hydration overnight (5) Elevated troponin Code(s): R74.8 - ABNORMAL LEVELS OF OTHER SERUM ENZYMES SNOMED Code(s): 919713241 Comment: - Denies chest pain - Troponin flat at 0.05 - Suspect secondary to demand ischemia (6) Non-healing wound of lower extremity Current Visit: Yes Code(s): S81.809A - UNSPECIFIED OPEN WOUND, UNSPECIFIED LOWER LEG, INIT ENCNTR SNOMED Code(s): 83786420 Comment: - Multiple wounds - Wound cultures with Staph aureus (both legs and ABD) - Wound clinic consult, input appreciated (7) COPD (chronic obstructive pulmonary disease) Code(s): J44.9 - CHRONIC OBSTRUCTIVE PULMONARY DISEASE, UNSPECIFIED SNOMED Code(s): 31653142 Comment: - No signs of acute exacerbation at this time - Continue spiriva, asmanex and albuterol PRN (8) Hypothyroidism Code(s): E03.9 - HYPOTHYROIDISM, UNSPECIFIED SNOMED Code(s): 93070605 Comment: - TSH 9.82 03/2017 - Will recheck TSH - Continue levothyroxine (9) Sleep apnea Code(s): G47.30 - SLEEP APNEA, UNSPECIFIED SNOMED Code(s): 67858738 (10) Morbid obesity Code(s): E66.01 - MORBID (SEVERE) OBESITY DUE TO EXCESS CALORIES SNOMED Code(s ): 118485828 Comment: - BMI ~ 69 (11) DVT prophylaxis Code(s): YYT5880 - SNOMED Code(s): 467320443 Comment: - Heparin SQ (12) Full code status Code(s): Z78.9 - OTHER SPECIFIED HEALTH STATUS SNOMED Code(s): 543170312 Status and Disposition: Inpatient. Discharge to home when medically stable.
[2017-07-10] MEDS: Mometasone 220 MCG MDI INH SCH (19:25)
[2017-07-10] MEDS: Albuterol HFA INHALER* 8 gm MDI INH PRN (19:29)
[2017-07-10] MEDS: Gabapentin CAP(*) 300 MG PO SCH (20:03)
[2017-07-10] MEDS: guaiFENesin LIQ* 100 MG/5 ML UDC PO PRN (21:46)
[2017-07-10] MEDS: NS 0.9% 1000 ML* 1,000 ML IV SCH (23:04)
[2017-07-11] MEDS: Albuterol/Ipratropium NEB.SOL* Albuterol 2.5 MG/Ipratropium 0.5 MG 3 ML INH SCH ×2 (01:10→07:17)
[2017-07-11] MEDS: Clindamycin 600 MG IVPREMIX(* 600 MG/50 ML SDV IV SCH (01:43)
[2017-07-11] MEDS: Levothyroxine TAB* 100 MCG TAB PO SCH (05:51)
[2017-07-11] MEDS: Heparin VIAL(*) 5000 UNITS/ML VIAL (FIVE THOUSAND) SUBCUT SCH ×3 (05:51→20:32)
[2017-07-11] MEDS: guaiFENesin LIQ* 100 MG/5 ML UDC PO PRN ×3 (06:29→21:24)
[2017-07-11 07:12] LABS: ABS Basophils 0.1 10^3/ul (0-0.2); ABS Eosinophils 0.4 10^3/ul (0-0.6); ABS Lymphocytes 1.3 10^3/ul (1.0-4.8); ABS Monocytes 1.4 10^3/ul (0-0.8); ABS Nucleated RBC 0 10^3/ul; Eosinophil % 2.5 % (0-6); Hematocrit 25 % (35-47); Hemoglobin 8.1 g/dl (12.0-16.0); Lymphocyte % 8.2 % (25-47); Mean Corpuscular HGB Conc 32 g/dl (31-36); Mean Corpuscular Hemoglobin 28 pg (27-31); Mean Corpuscular Volume 89 fL (80-97); Mean Platelet Volume 8 um3 (7.4-10.4); Nucleated Red Blood Cells % 0; Platelet Count 190 10^3/ul (150-450); Red Blood Count 2.86 10^6/ul (4.0-5.4); Red Cell Distribution Width 19 % (10.5-15); White Blood Count 16.2 10^3/ul (3.5-10.8)
[2017-07-11] MEDS: Tiotropium CAP.INH* CAP.INH/18 MCG (USE ORDER SET !) INH SCH (07:16)
[2017-07-11 07:20] LABS: EGFR Non-African American 31.5 (>60)
[2017-07-11] MEDS: Lactobacillus Acidophilu (GG)* 1 CAP CAP PO SCH (10:13)
[2017-07-11] MEDS: traMADol TAB* 50 MG PO SCH ×2 (10:13→20:31)
[2017-07-11] MEDS: Nystatin CREAM* 15 GM TUBE TOPICAL SCH ×2 (10:13→20:30)
[2017-07-11] MEDS: Cyanocobalamin TAB* 500 MCG PO SCH (10:13)
[2017-07-11] MEDS: Clindamycin CAP* 150 MG PO SCH ×3 (10:13→20:26)
[2017-07-11] MEDS: Triamcinolone 0.025% OINT * 15 GM TUBE TOPICAL SCH ×2 (10:14→20:32)
--- NOTE | 2017-07-11 10:43 | CONS ---
CONSULTATION REPORT: DATE OF CONSULT: 07/11/17 REQUESTING PROVIDER: Enid López NP CONSULTING SERVICE: Infectious Disease. REASON FOR CONSULT: Acute hypoxemic respiratory failure, lower extremity edema. IMPRESSION: 1. Acute hypoxemic respiratory failure. The x-ray looks like pulmonary edema. It is read as bilateral infiltrates. She has rales on exam. I do not think there is a pneumonia. 2. Bilateral venous stasis changes. She does have some eschar and culture of the eschar grew Staphylococcus aureus. Her erythema is much improved since being here, which may be just from keeping her legs elevated, edema treatment, or antibiotics. 3. Leukocytosis, improving. 4. Morbid obesity. RECOMMENDATION: Stop IV clindamycin. We will change it to oral clindamycin to complete a 7-day course. HISTORY OF PRESENT ILLNESS: This is a 62-year-old woman with morbid obesity, sleep apnea, venous insufficiency, admitted with acute hypoxemic respiratory failure. She was sent by her family by ambulance. She refused to come the first time around. By the time she finally came, her oxygen saturation was apparently in the 80s in the ambulance, had improved with supplementation up into the high 90s. She is on 4 L now, down from 4.5 by the time she got here. She had a chest x-ray that was reported as bilateral infiltrates. She has had no fever here. CRP is slightly elevated at 50. Her procalcitonin was 60. Her TSH was 6. Her lactate was 3.5, it is down to 1.1 now. Blood cultures are negative. Urinalysis showed blood and leukocyte esterase. Influenza PCR negative. She has had some diarrhea for a couple days and that culture is pending. She had swabs of both legs and abdomen, which are both growing Staph aureus. PAST MEDICAL HISTORY: 1. Morbid obesity. 2. Obstructive sleep apnea. 3. COPD. 4. Hypothyroidism. 5. Irritable bowel syndrome. 6. Status post . 7. Status post cholecystectomy. MEDICATIONS: 1. Albuterol. 2. Clindamycin 600 mg every 8 hours. 3. Vitamin B12. 4. Gabapentin. 5. Guaifenesin. 6. Heparin subcutaneous injection. 7. Lactobacillus. 8. Levothyroxine. 9. Spiriva. 10. Triamcinolone topical treatment. ALLERGIES: PENICILLIN and ERYTHROMYCIN, cause unknown reaction. FAMILY HISTORY: Father of pneumonia. SOCIAL HISTORY: She lives with her daughter. She is retired. REVIEW OF SYSTEMS: A 14-point review of systems was negative except as noted above. PHYSICAL EXAM: Vital Signs: Temperature is 37, heart rate 80, respiratory rate 20, blood pressure 125/60, oxygen saturation 96% on 4 L. In general, she is awake, not in distress. Neurologic: She is oriented x3. Follows all commands. HEENT: There is no conjunctival hemorrhage. Oropharynx is without lesions. Neck is supple without nuchal rigidity. Lymph Nodes: There is no inguinal, axillary, or epitrochlear lymphadenopathy. Heart has regular rate and rhythm with-out murmurs, rubs, or gallops. Lungs have rales at the bases bilaterally without wheeze or rhonchi. Abdomen is obese. Bowel sounds present. Skin: There is no rash or erythema including the lower extremities where there is nonpitting edema. The pannus and anterior lower extremities have eschar with excoriation. Musculoskeletal: There is no spine tenderness to palpation. LABORATORY DATA: White blood cell count is 16, hemoglobin 8, platelets 190. Creatinine 1.6. Please see impressions and recommendations as outlined above. Thanks for asking me to see Ms. Harris in consultation. [id number]/[facility] #: [id number] HUMAIRA
--- NOTE | 2017-07-11 11:17 | RAD ---
Indication: Acute kidney injury. Real-time sonography of the kidneys was performed. The right kidney measures 12.5 x 5.7 x 6.8 cm. Left kidney measures 13 x 6.2 x 5.2 cm. No hydronephrosis is noted in either kidney. Doppler interrogation demonstrates blood flow in the kidneys bilaterally. The study is limited due to body habitus. IMPRESSION: No hydronephrosis of either kidney.
[2017-07-11] MEDS ORDERED: Albuterol/Ipratropium NEB.SOL* Albuterol 2.5 MG/Ipratropium 0.5 MG 3 ML INH PRN (12:14)
--- NOTE | 2017-07-11 14:34 | PN ---
Subjective Date of Service: 07/11/17 Interval History: Pt is feeling well. She states repetitively that she wants to go home. She has not gotten out of bed. She has not had a BM since arriving to the hospital. Family History: Unchanged from Admission Social History: Unchanged from Admission Past Medical History: Unchanged from Admission Objective Active Medications: Albuterol (Ventolin Hfa Inhaler*) 1 puff INH BID PRN PRN Reason: SHORTNESS OF BREATH Last Admin: 07/10/17 19:29 Dose: 1 puff Albuterol/Ipratropium (Duoneb (Albuterol 2.5 Mg/Ipratropium 0.5 Mg)) 1 neb INH Q4H PRN PRN Reason: SOB/WHEEZING Clindamycin HCl (Cleocin Cap*) 300 mg PO TID [facility] Last Admin: 07/11/17 14:01 Dose: 300 mg Cyanocobalamin (Vitamin B12 Tab*) 1,000 mcg PO DAILY [facility] Last Admin: 07/11/17 10:13 Dose: 1,000 mcg Gabapentin (Neurontin Cap(*)) 300 mg PO BEDTIME [facility] Last Admin: 07/10/17 20:03 Dose: 300 mg Guaifenesin (Robitussin*) 5 ml PO Q6H PRN PRN Reason: COUGH Last Admin: 07/11/17 06:29 Dose: 5 ml Heparin Sodium (Porcine) (Heparin Vial(*)) 5,000 units SUBCUT Q8HR [facility] Last Admin: 07/11/17 14:00 Dose: Not Given Sodium Chloride (Ns 0.9% 1000 Ml*) 1,000 mls @ 75 mls/hr IV PER RATE [facility] Last Admin: 07/10/17 23:04 Dose: 75 mls/hr Lactobacillus Rhamnosus (Culturelle*) 1 cap PO DAILY [facility] Last Admin: 07/11/17 10:13 Dose: 1 cap Levothyroxine Sodium (Synthroid Tab*) 112 mcg PO DAILY@0600 [facility] Mometasone Furoate (Asmanex 220 Mcg Mdi *) 2 puff INH BEDTIME [facility] Last Admin: 07/10/17 19:25 Dose: 2 puff Nystatin (Nystatin Cream*) 1 applic TOPICAL BID [facility] Last Admin: 07/11/17 10:13 Dose: 1 applic Tiotropium Warner (Spiriva Cap.Inh*) 1 cap INH 0900 [facility] Last Admin: 07/11/17 07:16 Dose: 1 cap Tramadol HCl (Ultram*) 50 mg PO BID [facility] Last Admin: 07/11/17 10:13 Dose: 50 mg Triamcinolone Acetonide (Triamcinolone 0.025% Oint *) 1 applic TOPICAL BID [facility] Last Admin: 07/11/17 10:14 Dose: 1 applic Vital Signs - 8 hr 07/11/17 07/11/17 07/11/17 07:36 08:00 10:13 Temperature 99.1 F Pulse Rate 83 Respiratory 20 20 20 Rate Blood Pressure 124/59 (mmHg) O2 Sat by Pulse 97 96 Oximetry 07/11/17 07/11/17 11:43 13:05 Temperature 98.4 F Pulse Rate 75 Respiratory 20 20 Rate Blood Pressure 127/52 (mmHg) O2 Sat by Pulse 98 Oximetry Oxygen Devices in Use Now: Nasal Cannula - 3L-98% Appearance: Middle aged super morbidly obese female lying in bed, NAD Eyes: No Scleral Icterus Ears/Nose/Mouth/Throat: Mucous Membranes Moist Respiratory: Symmetrical Chest Expansion and Respiratory Effort, Clear to Auscultation - anteriorly Cardiovascular: NL Sounds; No Murmurs; No JVD, RRR, - - marked edema to B/L LE Abdominal: NL Sounds; No Tenderness; No Distention Extremities: No Clubbing, Cyanosis Skin: No Nodules or Sclerosis Neurological: Alert and Oriented x 3 Result Diagrams: 07/11/17 06:54 07/11/17 06:54 Microbiology and Other Data: Microbiology 07/10/17 01:30 Skin and Soft Tissue MRSA/MSSA (PCR - Final Leg Left Mrsa Negative S.aureus Positive Gram Stain - Final Wound Culture - Preliminary Staphylococcus Aureus 07/10/17 01:30 Stool Gross Appearance - Final Stool 07/10/17 01:30 Skin and Soft Tissue MRSA/MSSA (PCR - Final Leg Right Mrsa Negative S.aureus Positive Gram Stain - Final 07/10/17 01:30 Skin and Soft Tissue MRSA/MSSA (PCR - Final Abdomen Mrsa Negative S.aureus Positive Gram Stain - Final Assess/Plan/Problems-Billing Ms. Harris is a 62 yo female with PMH asthma, COPD, hypothyroidism, morbid obesity, sleep apnea, possible DHF who presented to the emergency room with complaints of shortness of breath. - Patient Problems (1) Shortness of breath Current Visit: Yes Status: Acute Code(s): R06.02 - SHORTNESS OF BREATH SNOMED Code(s): 843550358 Comment: Dyspnea has resolved. She remains on O2 but her saturations are quite good. Will try to wean off O2 and use only with sleep. (2) Elevated serum creatinine Current Visit: Yes Status: Acute Code(s): R79.89 - OTHER SPECIFIED ABNORMAL FINDINGS OF BLOOD CHEMISTRY SNOMED Code(s): 337504551 Comment: The patient's creatinine has been increasing during this hospitalization. ? secondary to hypotension and poor perfusion. Continue IVF through tonight. Repeat labs tomorrow. No hydronephrosis on US. (3) Cellulitis Current Visit: Yes Status: Acute Code(s): L03.90 - CELLULITIS, UNSPECIFIED SNOMED Code(s): 995181440 Comment: There is no significant erythema to either LE. Will continue clindamycin. Wound culture is grown MSSA. No further treatment recommended by ID outside of continuing clindamycin for 7 more days. (4) Elevated troponin Current Visit: Yes Status: Acute Code(s): R74.8 - ABNORMAL LEVELS OF OTHER SERUM ENZYMES SNOMED Code(s): 804837065 Comment: Likely secondary to demand ischemia. No further work up at this time. (5) COPD (chronic obstructive pulmonary disease) Current Visit: No Status: Chronic Code(s): J44.9 - CHRONIC OBSTRUCTIVE PULMONARY DISEASE, UNSPECIFIED SNOMED Code(s): 77912477 Comment: No signs of acute exacerbation at this time. Continue spiriva, asmanex and albuterol PRN. (6) Hypothyroidism Current Visit: Yes Status: Chronic Code(s): E03.9 - HYPOTHYROIDISM, UNSPECIFIED SNOMED Code(s): 19600633 Comment: TSH improved some since last check. Increase synthroid to 112mcg daily. (7) Morbid obesity Current Visit: Yes Status: Chronic Code(s): E66.01 - MORBID (SEVERE) OBESITY DUE TO EXCESS CALORIES SNOMED Code(s): 226722136 Comment: Recommend diet changes. (8) DVT prophylaxis Current Visit: Yes Status: Acute Code(s): HBN5230 - SNOMED Code(s): 692723502 Comment: Heparin SQ (9) Full code status Current Visit: Yes Status: Acute Code(s): Z78.9 - OTHER SPECIFIED HEALTH STATUS SNOMED Code(s): 124498358 Status and Disposition: Inpatient. Discharge to home when medically stable.
--- NOTE | 2017-07-11 16:04 | ED ---
Michael Mays Gabriel, scribed for Ac Zarate MD on 07/09/17 at 1908 . Shortness of Breath - HPI Summary HPI Summary: This patient is a 62 year old F BIBA to [facility] with a chief complaint of SOB that began yesterday. Patient reports cough, chills, diarrhea, intermittent vaginal bleeding, and LE edema. Patient denies nasal congestion, urinary symptoms, rhinorrhea, and sore throat. - History of Current Complaint Chief Complaint: EDShortnessOfBreath Time Seen by Provider: 07/09/17 18:54 Hx Obtained From: Patient Onset/Duration: Lasting Days - 1, Still Present Timing: Constant Current Severity: Moderate Dyspnea At: Rest Associated Signs & Symptoms: Cough (Nonproductive), Chills, Edema - Allergy/Home Medications Allergies/Adverse Reactions: Allergies Allergy/AdvReac Type Severity Reaction Status Date / Time erythromycin base Allergy Mild Rash Verified 07/11/17 11:32 Penicillins Allergy Mild Rash Verified 07/11/17 11:32 PMH/Surg Hx/FS Hx/Imm Hx Endocrine/Hematology History: Reports: Hx Thyroid Disease Respiratory History: Reports: Hx Asthma, Hx Chronic Obstructive Pulmonary Disease (COPD), Hx Sleep Apnea Sensory History: Denies: Hx Contacts or Glasses, Hx Hearing Aid Opthamlomology History: Denies: Hx Contacts or Glasses EENT History: Denies: Hx Deafness, Hx Hearing Problem - Surgical History Surgery Procedure, Year, and Place: Gallbladder, C sections Infectious Disease History: Yes Infectious Disease History: Reports: Hx of Known/Suspected MRSA Denies: Traveled Outside the [place] in Last 30 Days - Family History Known Family History: Positive: Other - Positive for RA. Father of PNA. Negative: Renal Disease, Respiratory Disease, Seizure Disorder - Social History Occupation: Unemployed Lives: Dormitory/Roommates Alcohol Use: Rare Hx Substance Use: No Substance Use Type: Reports: None Hx Tobacco Use: Yes Smoking Status (MU): Former Smoker Review of Systems Positive: Chills ENT: Negative - nasal congestion Negative: Sore Throat, Nasal Discharge Positive: Shortness Of Breath, Cough Positive: Diarrhea Positive: other - vaginal bleeding . Negative: no symptoms reported Positive: Edema All Other Systems Reviewed And Are Negative: Yes Physical Exam - Summary Physical Exam Summary: Appearance: The patient is morbidly obese in no acute distress and in no acute pain. Skin: The skin is warm and dry and skin color reflects adequate perfusion. HEENT: The head is normocephalic and atraumatic. The pupils are equal and reactive. The conjunctivae are clear and without drainage. Nares are patent and without drainage. Mouth reveals moist mucous membranes and the throat is without erythema and exudate. The external ears are intact. The ear canals are patent and without drainage. The tympanic membranes are intact. Neck: the neck is supple with full range of motion and non-tender. There are no carotid bruits. There is no neck vein distension. Respiratory: Chest is non-tender. Lungs are clear to auscultation and breath sounds are symmetrical and equal. Cardiovascular: Heart is regular rate and rhythm. There is no murmur or rub auscultated. Abdomen: The abdomen is soft and non-tender. There are normal bowel sounds heard in all four quadrants and there is no organomegaly palpated. Musculoskeletal: There is no back tenderness noted. Extremities are non-tender with full range of motion. There is good capillary refill. There is peripheral edema with chronic venous stasis changes in bilateral LE Neurological: Patient is alert and oriented to person, place and time. The patient has symmetrical motor strength in all four extremities. Cranial nerves are grossly intact. Deep tendon reflexes are symmetrical and equal in all four extremities. Psychiatric: The patient has an appropriate affect and does not exhibit any anxiety or depression. Triage Information Reviewed: Yes Vital Signs On Initial Exam: Initial Vitals Temp Pulse Resp BP Pulse Ox 99.7 F 96 26 99/54 98 07/09/17 18:38 07/09/17 18:38 07/09/17 18:38 07/09/17 18:38 07/09/17 18:38 Vital Signs Reviewed: Yes Diagnostics - Vital Signs Vital Signs Temp Pulse Resp BP Pulse Ox 07/09/17 18:43 96 24 98 07/09/17 18:38 99.7 F 96 26 99/54 98 - Laboratory Lab Results: Lab Results 07/09/17 07/09/17 07/09/17 Range/Units 19:40 19:48 19:48 WBC 21.0 H (3.5-10.8) 10^3/ul RBC 3.13 L (4.0-5.4) 10^6/ul Hgb 8.7 L (12.0-16.0) g/dl Hct 27 L (35-47) % MCV 87 (80-97) fL MCH 28 (27-31) pg MCHC 32 (31-36) g/dl RDW 19 H (10.5-15) % Plt Count 256 (150-450) 10^3/ul MPV 8 (7.4-10.4) um3 Neut % (Auto) 94.2 H (38-83) % Lymph % (Auto) 1.8 L (25-47) % [place] % (Auto) 3.8 (1-9) % Eos % (Auto) 0.1 (0-6) % Baso % (Auto) 0.1 (0-2) % Absolute Neuts (auto) 19.8 H (1.5-7.7) 10^3/ul Absolute Lymphs (auto) 0.4 L (1.0-4.8) 10^3/ul Absolute Monos (auto) 0.8 (0-0.8) 10^3/ul Absolute Eos (auto) 0 (0-0.6) 10^3/ul Absolute Basos (auto) 0 (0-0.2) 10^3/ul Absolute Nucleated RBC 0 10^3/ul Nucleated RBC % 0.2 INR (Anticoag Therapy) 1.25 H (0.77-1.02) APTT 32.4 (26.0-36.3) seconds Sodium (133-145) mmol/L Potassium (3.5-5.0) mmol/L Chloride (101-111) mmol/L Carbon Dioxide (22-32) mmol/L Anion Gap (2-11) mmol/L BUN (6-24) mg/dL Creatinine (0.51-0.95) mg/dL Est GFR ( Amer) (>60) Est GFR (Non-Af Amer) (>60) BUN/Creatinine Ratio (8-20) Glucose (70-100) mg/dL Lactic Acid (0.5-2.0) mmol/L Calcium (8.6-10.3) mg/dL Total Bilirubin (0.2-1.0) mg/dL AST (13-39) U/L ALT (7-52) U/L Alkaline Phosphatase (34-104) U/L Troponin I (<0.04) ng/mL C-Reactive Protein (< 5.00) mg/L B-Natriuretic Peptide ( - 100) pg/mL Total Protein (6.4-8.9) g/dL Albumin (3.2-5.2) g/dL Globulin (2-4) g/dL Albumin/Globulin Ratio (1-3) Influenza A (Rapid) Negative (Negative) Influenza B (Rapid) Negative (Negative) 07/09/17 07/09/17 07/09/17 Range/Units 19:48 19:48 19:48 WBC (3.5-10.8) 10^3/ul RBC (4.0-5.4) 10^6/ul Hgb (12.0-16.0) g/dl Hct (35-47) % MCV (80-97) fL MCH (27-31) pg MCHC (31-36) g/dl RDW (10.5-15) % Plt Count (150-450) 10^3/ul MPV (7.4-10.4) um3 Neut % (Auto) (38-83) % Lymph % (Auto) (25-47) % [place] % (Auto) (1-9) % Eos % (Auto) (0-6) % Baso % (Auto) (0-2) % Absolute Neuts (auto) (1.5-7.7) 10^3/ul Absolute Lymphs (auto) (1.0-4.8) 10^3/ul Absolute Monos (auto) (0-0.8) 10^3/ul Absolute Eos (auto) (0-0.6) 10^3/ul Absolute Basos (auto) (0-0.2) 10^3/ul Absolute Nucleated RBC 10^3/ul Nucleated RBC % INR (Anticoag Therapy) (0.77-1.02) APTT (26.0-36.3) seconds Sodium 138 (133-145) mmol/L Potassium 3.7 (3.5-5.0) mmol/L Chloride 104 (101-111) mmol/L Carbon Dioxide 27 (22-32) mmol/L Anion Gap 7 (2-11) mmol/L BUN 13 (6-24) mg/dL Creatinine 1.35 H (0.51-0.95) mg/dL Est GFR ( Amer) 50.8 (>60) Est GFR (Non-Af Amer) 39.5 (>60) BUN/Creatinine Ratio 9.6 (8-20) Glucose 122 H (70-100) mg/dL Lactic Acid 3.5 H* (0.5-2.0) mmol/L Calcium 8.2 L (8.6-10.3) mg/dL Total Bilirubin 0.60 (0.2-1.0) mg/dL AST 45 H (13-39) U/L ALT 15 (7-52) U/L Alkaline Phosphatase 83 (34-104) U/L Troponin I 0.05 H* (<0.04) ng/mL C-Reactive Protein 52.12 H (< 5.00) mg/L B-Natriuretic Peptide 353 H ( - 100) pg/mL Total Protein 7.9 (6.4-8.9) g/dL Albumin 2.5 L (3.2-5.2) g/dL Globulin 5.4 H (2-4) g/dL Albumin/Globulin Ratio 0.5 L (1-3) Influenza A (Rapid) (Negative) Influenza B (Rapid) (Negative) Result Diagrams: 07/11/17 06:54 07/11/17 06:54 Lab Statement: Any lab studies that have been ordered have been reviewed, and results considered in the medical decision making process. - Radiology CXR Radiology Interpretation Completed By: Radiologist - BILATERAL INFILTRATES SOME OF WHICH APPEARS CHRONIC WITH POSSIBLE SUPERIMPOSED ACUTE PROCESS. ED physician has reviewed this radiology report. - EKG 191 Cardiac Rate: NL EKG Rhythm: Sinus Rhythm - at 95 BPM EKG Interpretation: RBBB. non specific lateral changes Course/Dx - Course Course Of Treatment: Ms. Harris is a morbidly obese woman who came in for fatigue and cough and fever. She was found to have pneumonia and will need to be admitted. She has extreme morbidity and multiple areas of skin breakdown. - Diagnoses Provider Diagnoses: PNA (pneumonia), Sepsis - Physician Notifications Discussed Care of Patient With: Elizabeth Moore Time Discussed With Above Provider: 21:10 Instructed by Provider To: Admit As Inpatient Discharge - Discharge Plan Condition: Fair Disposition: ADMITTED TO [facility] The documentation as recorded by the Michael hernandez Gabriel accurately reflects the service I personally performed and the decisions made by me, Ac Zarate MD.
[2017-07-11] MEDS: NS 0.9% 1000 ML* 1,000 ML IV SCH (17:50)
[2017-07-11] MEDS: Mometasone 220 MCG MDI INH SCH (20:14)
[2017-07-11] MEDS: Gabapentin CAP(*) 300 MG PO SCH (20:27)
[2017-07-12] MEDS: guaiFENesin LIQ* 100 MG/5 ML UDC PO PRN ×3 (03:30→20:52)
[2017-07-12] MEDS: Levothyroxine TAB* 112 MCG TAB PO SCH (05:02)
[2017-07-12] MEDS: Heparin VIAL(*) 5000 UNITS/ML VIAL (FIVE THOUSAND) SUBCUT SCH ×3 (05:04→20:21)
[2017-07-12 07:36] LABS: EGFR Non-African American 32.5 (>60)
[2017-07-12 07:39] LABS: Hematocrit 26 % (35-47); Hemoglobin 8.2 g/dl (12.0-16.0); Mean Corpuscular HGB Conc 31 g/dl (31-36); Mean Corpuscular Hemoglobin 28 pg (27-31); Mean Corpuscular Volume 89 fL (80-97); Mean Platelet Volume 8 um3 (7.4-10.4); Platelet Count 183 10^3/ul (150-450); Red Blood Count 2.96 10^6/ul (4.0-5.4); Red Cell Distribution Width 19 % (10.5-15); White Blood Count 12.1 10^3/ul (3.5-10.8)
[2017-07-12] MEDS: Lactobacillus Acidophilu (GG)* 1 CAP CAP PO SCH (08:07)
[2017-07-12] MEDS: Cyanocobalamin TAB* 500 MCG PO SCH (08:08)
[2017-07-12] MEDS: traMADol TAB* 50 MG PO SCH ×2 (08:08→20:21)
[2017-07-12] MEDS: Triamcinolone 0.025% OINT * 15 GM TUBE TOPICAL SCH ×2 (08:08→20:22)
[2017-07-12] MEDS: Clindamycin CAP* 150 MG PO SCH ×3 (08:08→20:20)
[2017-07-12] MEDS: Nystatin CREAM* 15 GM TUBE TOPICAL SCH ×2 (08:09→20:22)
[2017-07-12] MEDS: Albuterol HFA INHALER* 8 gm MDI INH PRN ×2 (11:19→21:28)
[2017-07-12] MEDS: Tiotropium CAP.INH* CAP.INH/18 MCG (USE ORDER SET !) INH SCH (11:19)
--- NOTE | 2017-07-12 15:39 | PN ---
Subjective Date of Service: 07/12/17 Interval History: "I want to go home." She can't reasonably discuss the difficulties she would face if she went home today. Family History: Unchanged from Admission Social History: Unchanged from Admission Past Medical History: Unchanged from Admission Objective Active Medications: Albuterol (Ventolin Hfa Inhaler*) 1 puff INH BID PRN PRN Reason: SHORTNESS OF BREATH Last Admin: 07/12/17 11:19 Dose: 1 puff Albuterol/Ipratropium (Duoneb (Albuterol 2.5 Mg/Ipratropium 0.5 Mg)) 1 neb INH Q4H PRN PRN Reason: SOB/WHEEZING Clindamycin HCl (Cleocin Cap*) 300 mg PO TID [facility] Last Admin: 07/12/17 14:27 Dose: 300 mg Cyanocobalamin (Vitamin B12 Tab*) 1,000 mcg PO DAILY [facility] Last Admin: 07/12/17 08:08 Dose: 1,000 mcg Gabapentin (Neurontin Cap(*)) 300 mg PO BEDTIME [facility] Last Admin: 07/11/17 20:27 Dose: 300 mg Guaifenesin (Robitussin*) 5 ml PO Q6H PRN PRN Reason: COUGH Last Admin: 07/12/17 11:52 Dose: 5 ml Heparin Sodium (Porcine) (Heparin Vial(*)) 5,000 units SUBCUT Q8HR [facility] Last Admin: 07/12/17 14:27 Dose: 5,000 units Lactobacillus Rhamnosus (Culturelle*) 1 cap PO DAILY [facility] Last Admin: 07/12/17 08:07 Dose: 1 cap Levothyroxine Sodium (Synthroid Tab*) 112 mcg PO DAILY@0600 [facility] Last Admin: 07/12/17 05:02 Dose: 112 mcg Mometasone Furoate (Asmanex 220 Mcg Mdi *) 2 puff INH BEDTIME [facility] Last Admin: 07/11/17 20:14 Dose: 2 puff Nystatin (Nystatin Cream*) 1 applic TOPICAL BID [facility] Last Admin: 07/12/17 08:09 Dose: 1 applic Tiotropium [place] (Spiriva Cap.Inh*) 1 cap INH 0900 [facility] Last Admin: 07/12/17 11:19 Dose: 1 cap Tramadol HCl (Ultram*) 50 mg PO BID [facility] Last Admin: 07/12/17 08:08 Dose: 50 mg Triamcinolone Acetonide (Triamcinolone 0.025% Oint *) 1 applic TOPICAL BID DIMITRIOS Last Admin: 07/12/17 08:08 Dose: 1 applic Vital Signs - 8 hr 07/12/17 07/12/17 07/12/17 08:00 08:08 08:15 Temperature 99.0 F Pulse Rate 72 Respiratory 20 20 16 Rate Blood Pressure 117/64 (mmHg) O2 Sat by Pulse 97 Oximetry 07/12/17 10:53 Temperature Pulse Rate Respiratory 20 Rate Blood Pressure (mmHg) O2 Sat by Pulse Oximetry Oxygen Devices in Use Now: Nasal Cannula Appearance: Alert, partly up in bed. In fair spirits. Looks comfortable. Eyes: No Scleral Icterus Neck: NL Appearance and Movements; NL JVP, No Thyroid Enlargement, Masses Respiratory: Symmetrical Chest Expansion and Respiratory Effort, Clear to Auscultation, Clear to Percussion Cardiovascular: NL Sounds; No Murmurs; No JVD, RRR, No Edema, - Extremities: No Clubbing, Cyanosis, - - TR to 1+ edema BL. Mild residual cellulitis, nearly resolved. Neurological: Alert and Oriented x 3, NL Sensation Result Diagrams: 07/12/17 07:07 07/12/17 07:07 Additional Lab and Data: Lab Results 07/09/17 07/09/17 07/09/17 Range/Units 19:40 19:48 19:48 WBC 21.0 H (3.5-10.8) 10^3/ul RBC 3.13 L (4.0-5.4) 10^6/ul Hgb 8.7 L (12.0-16.0) g/dl Hct 27 L (35-47) % MCV 87 (80-97) fL MCH 28 (27-31) pg MCHC 32 (31-36) g/dl RDW 19 H (10.5-15) % Plt Count 256 (150-450) 10^3/ul MPV 8 (7.4-10.4) um3 Neut % (Auto) 94.2 H (38-83) % Lymph % (Auto) 1.8 L (25-47) % [place] % (Auto) 3.8 (1-9) % Eos % (Auto) 0.1 (0-6) % Baso % (Auto) 0.1 (0-2) % Absolute Neuts (auto) 19.8 H (1.5-7.7) 10^3/ul Absolute Lymphs (auto) 0.4 L (1.0-4.8) 10^3/ul Absolute Monos (auto) 0.8 (0-0.8) 10^3/ul Absolute Eos (auto) 0 (0-0.6) 10^3/ul Absolute Basos (auto) 0 (0-0.2) 10^3/ul Absolute Nucleated RBC 0 10^3/ul Nucleated RBC % 0.2 INR (Anticoag Therapy) 1.25 H (0.77-1.02) APTT 32.4 (26.0-36.3) seconds Sodium (133-145) mmol/L Potassium (3.5-5.0) mmol/L Chloride (101-111) mmol/L Carbon Dioxide (22-32) mmol/L Anion Gap (2-11) mmol/L BUN (6-24) mg/dL Creatinine (0.51-0.95) mg/dL Est GFR ( Amer) (>60) Est GFR (Non-Af Amer) (>60) BUN/Creatinine Ratio (8-20) Glucose (70-100) mg/dL Lactic Acid (0.5-2.0) mmol/L Calcium (8.6-10.3) mg/dL Total Bilirubin (0.2-1.0) mg/dL AST (13-39) U/L ALT (7-52) U/L Alkaline Phosphatase (34-104) U/L Troponin I (<0.04) ng/mL C-Reactive Protein (< 5.00) mg/L B-Natriuretic Peptide ( - 100) pg/mL Total Protein (6.4-8.9) g/dL Albumin (3.2-5.2) g/dL Globulin (2-4) g/dL Albumin/Globulin Ratio (1-3) Influenza A (Rapid) Negative (Negative) Influenza B (Rapid) Negative (Negative) 07/09/17 07/09/17 07/09/17 Range/Units 19:48 19:48 19:48 WBC (3.5-10.8) 10^3/ul RBC (4.0-5.4) 10^6/ul Hgb (12.0-16.0) g/dl Hct (35-47) % MCV (80-97) fL MCH (27-31) pg MCHC (31-36) g/dl RDW (10.5-15) % Plt Count (150-450) 10^3/ul MPV (7.4-10.4) um3 Neut % (Auto) (38-83) % Lymph % (Auto) (25-47) % [place] % (Auto) (1-9) % Eos % (Auto) (0-6) % Baso % (Auto) (0-2) % Absolute Neuts (auto) (1.5-7.7) 10^3/ul Absolute Lymphs (auto) (1.0-4.8) 10^3/ul Absolute Monos (auto) (0-0.8) 10^3/ul Absolute Eos (auto) (0-0.6) 10^3/ul Absolute Basos (auto) (0-0.2) 10^3/ul Absolute Nucleated RBC 10^3/ul Nucleated RBC % INR (Anticoag Therapy) (0.77-1.02) APTT (26.0-36.3) seconds Sodium 138 (133-145) mmol/L Potassium 3.7 (3.5-5.0) mmol/L Chloride 104 (101-111) mmol/L Carbon Dioxide 27 (22-32) mmol/L Anion Gap 7 (2-11) mmol/L BUN 13 (6-24) mg/dL Creatinine 1.35 H (0.51-0.95) mg/dL Est GFR ( Amer) 50.8 (>60) Est GFR (Non-Af Amer) 39.5 (>60) BUN/Creatinine Ratio 9.6 (8-20) Glucose 122 H (70-100) mg/dL Lactic Acid 3.5 H* (0.5-2.0) mmol/L Calcium 8.2 L (8.6-10.3) mg/dL Total Bilirubin 0.60 (0.2-1.0) mg/dL AST 45 H (13-39) U/L ALT 15 (7-52) U/L Alkaline Phosphatase 83 (34-104) U/L Troponin I 0.05 H* (<0.04) ng/mL C-Reactive Protein 52.12 H (< 5.00) mg/L B-Natriuretic Peptide 353 H ( - 100) pg/mL Total Protein 7.9 (6.4-8.9) g/dL Albumin 2.5 L (3.2-5.2) g/dL Globulin 5.4 H (2-4) g/dL Albumin/Globulin Ratio 0.5 L (1-3) Influenza A (Rapid) (Negative) Influenza B (Rapid) (Negative) Microbiology and Other Data: Microbiology 07/10/17 01:30 Skin and Soft Tissue MRSA/MSSA (PCR - Final Leg Left Mrsa Negative S.aureus Positive Gram Stain - Final Wound Culture - Preliminary Staphylococcus Aureus 07/10/17 01:30 Stool Gross Appearance - Final Stool 07/10/17 01:30 Skin and Soft Tissue MRSA/MSSA (PCR - Final Leg Right Mrsa Negative S.aureus Positive Gram Stain - Final 07/10/17 01:30 Skin and Soft Tissue MRSA/MSSA (PCR - Final Abdomen Mrsa Negative S.aureus Positive Gram Stain - Final Assess/Plan/Problems-Billing Ms. Harris is a 62 yo female with PMH asthma, COPD, hypothyroidism, morbid obesity, sleep apnea, possible DHF who presented to the emergency room with complaints of shortness of breath. - Patient Problems (1) KATHERINE (acute kidney injury) Current Visit: Yes Status: Acute Code(s): N17.9 - ACUTE KIDNEY FAILURE, UNSPECIFIED SNOMED Code(s): 65937401 Comment: Stable. (2) Hypothyroidism Current Visit: Yes Status: Chronic Code(s): E03.9 - HYPOTHYROIDISM, UNSPECIFIED SNOMED Code(s): 93976868 Comment: Continue ncreased dose of synthroid 112mcg daily. (3) Cellulitis Current Visit: Yes Status: Acute Code(s): L03.90 - CELLULITIS, UNSPECIFIED SNOMED Code(s): 288628933 Comment: Last day of clindamycin is 07/16/17. (4) Morbid obesity Current Visit: Yes Status: Chronic Code(s): E66.01 - MORBID (SEVERE) OBESITY DUE TO EXCESS CALORIES SNOMED Code(s): 150399459 Comment: BMI 63.5. (5) COPD (chronic obstructive pulmonary disease) Current Visit: No Status: Chronic Code(s): J44.9 - CHRONIC OBSTRUCTIVE PULMONARY DISEASE, UNSPECIFIED SNOMED Code(s): 65139353 Comment: No signs of acute exacerbation at this time. Continue spiriva, asmanex and albuterol PRN. Status and Disposition: Inpatient. Discharge to home when medically stable.
[2017-07-12] MEDS: Gabapentin CAP(*) 300 MG PO SCH (20:20)
[2017-07-12] MEDS: Mometasone 220 MCG MDI INH SCH (21:29)
[2017-07-13] MEDS: Heparin VIAL(*) 5000 UNITS/ML VIAL (FIVE THOUSAND) SUBCUT SCH ×3 (04:57→20:05)
[2017-07-13] MEDS: Levothyroxine TAB* 112 MCG TAB PO SCH (04:58)
[2017-07-13] MEDS: Tiotropium CAP.INH* CAP.INH/18 MCG (USE ORDER SET !) INH SCH (07:42)
[2017-07-13] MEDS: Albuterol HFA INHALER* 8 gm MDI INH PRN (07:42)
[2017-07-13] MEDS: Lactobacillus Acidophilu (GG)* 1 CAP CAP PO SCH (09:26)
[2017-07-13] MEDS: Nystatin CREAM* 15 GM TUBE TOPICAL SCH ×2 (09:26→20:05)
[2017-07-13] MEDS: Triamcinolone 0.025% OINT * 15 GM TUBE TOPICAL SCH ×2 (09:26→20:05)
[2017-07-13] MEDS: traMADol TAB* 50 MG PO SCH ×2 (09:26→19:58)
[2017-07-13] MEDS: Cyanocobalamin TAB* 500 MCG PO SCH (09:26)
[2017-07-13] MEDS: Clindamycin CAP* 150 MG PO SCH ×3 (09:26→19:58)
--- NOTE | 2017-07-13 09:31 | PN ---
Subjective Date of Service: 07/13/17 Interval History: "I want to go home." No medical c/o. Family History: Unchanged from Admission Social History: Unchanged from Admission Past Medical History: Unchanged from Admission Objective Active Medications: Albuterol (Ventolin Hfa Inhaler*) 1 puff INH BID PRN PRN Reason: SHORTNESS OF BREATH Last Admin: 07/13/17 07:42 Dose: 1 puff Albuterol/Ipratropium (Duoneb (Albuterol 2.5 Mg/Ipratropium 0.5 Mg)) 1 neb INH Q4H PRN PRN Reason: SOB/WHEEZING Clindamycin HCl (Cleocin Cap*) 300 mg PO TID [facility] Last Admin: 07/12/17 20:20 Dose: 300 mg Cyanocobalamin (Vitamin B12 Tab*) 1,000 mcg PO DAILY [facility] Last Admin: 07/12/17 08:08 Dose: 1,000 mcg Gabapentin (Neurontin Cap(*)) 300 mg PO BEDTIME [facility] Last Admin: 07/12/17 20:20 Dose: 300 mg Guaifenesin (Robitussin*) 5 ml PO Q6H PRN PRN Reason: COUGH Last Admin: 07/12/17 20:52 Dose: 5 ml Heparin Sodium (Porcine) (Heparin Vial(*)) 5,000 units SUBCUT Q8HR [facility] Last Admin: 07/13/17 04:57 Dose: 5,000 units Lactobacillus Rhamnosus (Culturelle*) 1 cap PO DAILY [facility] Last Admin: 07/12/17 08:07 Dose: 1 cap Levothyroxine Sodium (Synthroid Tab*) 112 mcg PO DAILY@0600 [facility] Last Admin: 07/13/17 04:58 Dose: 112 mcg Mometasone Furoate (Asmanex 220 Mcg Mdi *) 2 puff INH BEDTIME [facility] Last Admin: 07/12/17 21:29 Dose: 2 puff Nystatin (Nystatin Cream*) 1 applic TOPICAL BID [facility] Last Admin: 07/12/17 20:22 Dose: 1 applic Tiotropium [place] (Spiriva Cap.Inh*) 1 cap INH 0900 [facility] Last Admin: 07/13/17 07:42 Dose: 1 cap Tramadol HCl (Ultram*) 50 mg PO BID [facility] Last Admin: 07/12/17 20:21 Dose: 50 mg Triamcinolone Acetonide (Triamcinolone 0.025% Oint *) 1 applic TOPICAL BID [facility] Last Admin: 07/12/17 20:22 Dose: 1 applic Vital Signs - 8 hr 07/13/17 07:44 Pulse Rate 82 Respiratory 18 Rate O2 Sat by Pulse 98 Oximetry Oxygen Devices in Use Now: Nasal Cannula Appearance: Alert, supine in bed. In fair spirits. Looks comfortable. Eyes: No Scleral Icterus Extremities: No Clubbing, Cyanosis, - - Tr edema BL Skin: No Nodules or Sclerosis, - - Superficial 2 x 4 cm ulcer L upper medial thigh Neurological: NL Sensation - COYLE. No tremor. Poor insight. Result Diagrams: 07/12/17 07:07 07/12/17 07:07 Additional Lab and Data: Lab Results 07/09/17 07/09/17 07/09/17 Range/Units 19:40 19:48 19:48 WBC 21.0 H (3.5-10.8) 10^3/ul RBC 3.13 L (4.0-5.4) 10^6/ul Hgb 8.7 L (12.0-16.0) g/dl Hct 27 L (35-47) % MCV 87 (80-97) fL MCH 28 (27-31) pg MCHC 32 (31-36) g/dl RDW 19 H (10.5-15) % Plt Count 256 (150-450) 10^3/ul MPV 8 (7.4-10.4) um3 Neut % (Auto) 94.2 H (38-83) % Lymph % (Auto) 1.8 L (25-47) % [place] % (Auto) 3.8 (1-9) % Eos % (Auto) 0.1 (0-6) % Baso % (Auto) 0.1 (0-2) % Absolute Neuts (auto) 19.8 H (1.5-7.7) 10^3/ul Absolute Lymphs (auto) 0.4 L (1.0-4.8) 10^3/ul Absolute Monos (auto) 0.8 (0-0.8) 10^3/ul Absolute Eos (auto) 0 (0-0.6) 10^3/ul Absolute Basos (auto) 0 (0-0.2) 10^3/ul Absolute Nucleated RBC 0 10^3/ul Nucleated RBC % 0.2 INR (Anticoag Therapy) 1.25 H (0.77-1.02) APTT 32.4 (26.0-36.3) seconds Sodium (133-145) mmol/L Potassium (3.5-5.0) mmol/L Chloride (101-111) mmol/L Carbon Dioxide (22-32) mmol/L Anion Gap (2-11) mmol/L BUN (6-24) mg/dL Creatinine (0.51-0.95) mg/dL Est GFR ( Amer) (>60) Est GFR (Non-Af Amer) (>60) BUN/Creatinine Ratio (8-20) Glucose (70-100) mg/dL Lactic Acid (0.5-2.0) mmol/L Calcium (8.6-10.3) mg/dL Total Bilirubin (0.2-1.0) mg/dL AST (13-39) U/L ALT (7-52) U/L Alkaline Phosphatase (34-104) U/L Troponin I (<0.04) ng/mL C-Reactive Protein (< 5.00) mg/L B-Natriuretic Peptide ( - 100) pg/mL Total Protein (6.4-8.9) g/dL Albumin (3.2-5.2) g/dL Globulin (2-4) g/dL Albumin/Globulin Ratio (1-3) Influenza A (Rapid) Negative (Negative) Influenza B (Rapid) Negative (Negative) 07/09/17 07/09/17 07/09/17 Range/Units 19:48 19:48 19:48 WBC (3.5-10.8) 10^3/ul RBC (4.0-5.4) 10^6/ul Hgb (12.0-16.0) g/dl Hct (35-47) % MCV (80-97) fL MCH (27-31) pg MCHC (31-36) g/dl RDW (10.5-15) % Plt Count (150-450) 10^3/ul MPV (7.4-10.4) um3 Neut % (Auto) (38-83) % Lymph % (Auto) (25-47) % [place] % (Auto) (1-9) % Eos % (Auto) (0-6) % Baso % (Auto) (0-2) % Absolute Neuts (auto) (1.5-7.7) 10^3/ul Absolute Lymphs (auto) (1.0-4.8) 10^3/ul Absolute Monos (auto) (0-0.8) 10^3/ul Absolute Eos (auto) (0-0.6) 10^3/ul Absolute Basos (auto) (0-0.2) 10^3/ul Absolute Nucleated RBC 10^3/ul Nucleated RBC % INR (Anticoag Therapy) (0.77-1.02) APTT (26.0-36.3) seconds Sodium 138 (133-145) mmol/L Potassium 3.7 (3.5-5.0) mmol/L Chloride 104 (101-111) mmol/L Carbon Dioxide 27 (22-32) mmol/L Anion Gap 7 (2-11) mmol/L BUN 13 (6-24) mg/dL Creatinine 1.35 H (0.51-0.95) mg/dL Est GFR ( Amer) 50.8 (>60) Est GFR (Non-Af Amer) 39.5 (>60) BUN/Creatinine Ratio 9.6 (8-20) Glucose 122 H (70-100) mg/dL Lactic Acid 3.5 H* (0.5-2.0) mmol/L Calcium 8.2 L (8.6-10.3) mg/dL Total Bilirubin 0.60 (0.2-1.0) mg/dL AST 45 H (13-39) U/L ALT 15 (7-52) U/L Alkaline Phosphatase 83 (34-104) U/L Troponin I 0.05 H* (<0.04) ng/mL C-Reactive Protein 52.12 H (< 5.00) mg/L B-Natriuretic Peptide 353 H ( - 100) pg/mL Total Protein 7.9 (6.4-8.9) g/dL Albumin 2.5 L (3.2-5.2) g/dL Globulin 5.4 H (2-4) g/dL Albumin/Globulin Ratio 0.5 L (1-3) Influenza A (Rapid) (Negative) Influenza B (Rapid) (Negative) Microbiology and Other Data: Microbiology 07/10/17 01:30 Skin and Soft Tissue MRSA/MSSA (PCR - Final Leg Left Mrsa Negative S.aureus Positive Gram Stain - Final Wound Culture - Preliminary Staphylococcus Aureus 07/10/17 01:30 Stool Gross Appearance - Final Stool 07/10/17 01:30 Skin and Soft Tissue MRSA/MSSA (PCR - Final Leg Right Mrsa Negative S.aureus Positive Gram Stain - Final 07/10/17 01:30 Skin and Soft Tissue MRSA/MSSA (PCR - Final Abdomen Mrsa Negative S.aureus Positive Gram Stain - Final Assess/Plan/Problems-Billing Ms. Harris is a 62 yo female with PMH asthma, COPD, hypothyroidism, morbid obesity, sleep apnea, possible DHF who presented to the emergency room with complaints of shortness of breath. - Patient Problems (1) KATHERINE (acute kidney injury) Current Visit: Yes Status: Acute Code(s): N17.9 - ACUTE KIDNEY FAILURE, UNSPECIFIED SNOMED Code(s): 40777016 Comment: Stable. (2) Hypothyroidism Current Visit: Yes Status: Chronic Code(s): E03.9 - HYPOTHYROIDISM, UNSPECIFIED SNOMED Code(s): 38012737 Comment: Continue increased dose of synthroid 112 mcg daily. (3) Cellulitis Current Visit: Yes Status: Acute Code(s): L03.90 - CELLULITIS, UNSPECIFIED SNOMED Code(s): 241373031 Comment: Last day of clindamycin is 07/16/17. (4) Morbid obesity Current Visit: Yes Status: Chronic Code(s): E66.01 - MORBID (SEVERE) OBESITY DUE TO EXCESS CALORIES SNOMED Code(s): 068966469 Comment: BMI 63.5. (5) COPD (chronic obstructive pulmonary disease) Current Visit: No Status: Chronic Code(s): J44.9 - CHRONIC OBSTRUCTIVE PULMONARY DISEASE, UNSPECIFIED SNOMED Code(s): 14148590 Comment: No signs of acute exacerbation at this time. Continue spiriva, asmanex and albuterol PRN. I spoke with her daughter Lyndsay on the phone 2/-- the patient uses an O2 concentrator while sleeping. (6) Skin breakdown Current Visit: Yes Status: Acute Code(s): L90.9 - ATROPHIC DISORDER OF SKIN , UNSPECIFIED SNOMED Code(s): 890795873 Comment: Due to or exacerbated by urinary incontinence. Pt requires 2-3 people to transfer her in a Jose E, 3 people to turn her in bed. Taylor ordered as I don't think that in practice her skin will heal without it. Status and Disposition: Inpatient. Discharge to home when medically stable.
[2017-07-13] MEDS: guaiFENesin LIQ* 100 MG/5 ML UDC PO PRN (12:53)
[2017-07-13] MEDS: Gabapentin CAP(*) 300 MG PO SCH (19:58)
[2017-07-13] MEDS: Mometasone 220 MCG MDI INH SCH (21:21)
[2017-07-14] MEDS: Levothyroxine TAB* 112 MCG TAB PO SCH (05:23)
[2017-07-14] MEDS: Heparin VIAL(*) 5000 UNITS/ML VIAL (FIVE THOUSAND) SUBCUT SCH ×3 (05:23→21:12)
[2017-07-14 06:38] LABS: EGFR Non-African American 37.9 (>60)
[2017-07-14 06:56] LABS: ABS Basophils 0.1 10^3/ul (0-0.2); ABS Eosinophils 0.5 10^3/ul (0-0.6); ABS Lymphocytes 1.3 10^3/ul (1.0-4.8); ABS Monocytes 0.9 10^3/ul (0-0.8); ABS Neutrophils 7.7 10^3/ul (1.5-7.7); ABS Nucleated RBC 0 10^3/ul; Eosinophil % 4.7 % (0-6); Hematocrit 27 % (35-47); Hemoglobin 8.6 g/dl (12.0-16.0); Lymphocyte % 12.5 % (25-47); Mean Corpuscular HGB Conc 32 g/dl (31-36); Mean Corpuscular Hemoglobin 29 pg (27-31); Mean Corpuscular Volume 88 fL (80-97); Mean Platelet Volume 9 um3 (7.4-10.4); Nucleated Red Blood Cells % 0; Platelet Count 179 10^3/ul (150-450); Red Blood Count 3.02 10^6/ul (4.0-5.4); Red Cell Distribution Width 19 % (10.5-15); White Blood Count 10.5 10^3/ul (3.5-10.8)
[2017-07-14] MEDS: traMADol TAB* 50 MG PO SCH ×2 (08:18→21:12)
[2017-07-14] MEDS: Lactobacillus Acidophilu (GG)* 1 CAP CAP PO SCH (08:18)
[2017-07-14] MEDS: Triamcinolone 0.025% OINT * 15 GM TUBE TOPICAL SCH ×2 (08:19→21:14)
[2017-07-14] MEDS: Cyanocobalamin TAB* 500 MCG PO SCH (08:19)
[2017-07-14] MEDS: Nystatin CREAM* 15 GM TUBE TOPICAL SCH ×2 (08:19→21:14)
[2017-07-14] MEDS: Clindamycin CAP* 150 MG PO SCH ×3 (08:19→21:12)
[2017-07-14] MEDS: guaiFENesin LIQ* 100 MG/5 ML UDC PO PRN (10:30)
[2017-07-14] MEDS: Tiotropium CAP.INH* CAP.INH/18 MCG (USE ORDER SET !) INH SCH (10:48)
--- NOTE | 2017-07-14 15:14 | CONSULT ---
Identification - Patient Identification Reason for Psychiatric Consultation: Other - [place] to make informed medical decisions -: Patient is a 62 year old, F admitted on 07/09/17. - MHU Identification Employment Status: Disabled Hx Psychiatric Hospitalization: No Prior Psychiatric Diagnosis: None Arrived to Hospital Via: Seen in Hospitalist Service History - Objective HPI: 62 year-old female with no psychiatric antecedents who is seen in consultation to assess her capacity to make informed medical decisions, including refusing SNF placement despite frequent frequent health crises that have led to hospital admissions (falls, pneumonia etc). The patient is morbidly obese, she reports using a wheelchair at home. She minimizes her difficulties at home, asserts that she "takes care" of her granddaughter at home. I spoke to the patient's 57 -year-old son's Suhas Hudson (with the patient permission). He relates that her mother's condition is progressively deteriorating and that he has moved in to help her sister care for her, but that her daily needs are more they can handle. ROS: Patient denies symptoms of depression, radha, psychosis, anxiety. she denies previous suicide attempt, passive wish or current suicidal ideation. FAMILY HISTORY: Significant for father dying of pneumonia, otherwise no further family history is noted. SOCIAL HISTORY: The patient lives at home with her adult daughter, daughter's BF, granddaughter, and adult son recently moving in to help. She attended school until 7th grade when she had to drop out to take care siblings. She had 3 children, one daughter is . She has worked in the distant past, cleaning in a cafeteria. She is medically disabled. Past Medical History: PAST MEDICAL HISTORY: Significant for: 1. Asthma. 2. COPD. 3. Hypothyroidism. 4. Morbid obesity. 5. Sleep apnea. 6. Also per the record, it states there was a history of suspected MRSA infection, although it does not have a location of that infection. 7. IBS. . PAST SURGICAL HISTORY: Significant for and cholecystectomy. Lab Results: Laboratory Tests 07/09/17 07/10/17 07/10/17 23:20 00:29 00:29 WBC RBC Hgb Hct MCV MCH MCHC RDW Plt Count MPV Neut % (Auto) Lymph % (Auto) [place] % (Auto) Eos % (Auto) Baso % (Auto) Absolute Neuts (auto) Absolute Lymphs (auto) Absolute Monos (auto) Absolute Eos (auto) Absolute Basos (auto) Absolute Nucleated RBC Nucleated RBC % Sodium Potassium Chloride Carbon Dioxide Anion Gap BUN Creatinine Est GFR ( Amer) Est GFR (Non-Af Amer) BUN/Creatinine Ratio Glucose Lactic Acid 2.4 H* Calcium Total Bilirubin AST ALT Alkaline Phosphatase Troponin I 0.05 H* C-Reactive Protein B-Natriuretic Peptide Total Protein Albumin Globulin Albumin/Globulin Ratio Procalcitonin TSH Urine Color Red A Urine Appearance Cloudy Urine pH 6.0 Ur Specific [place] 1.012 Urine Protein 2+(100 mg/dl) H Urine Ketones Negative Urine Blood 3+ H Urine Nitrate Negative Urine Bilirubin Negative Urine Urobilinogen Negative Ur Leukocyte Esterase 1+ H Urine WBC (Auto) 3+(>20/hpf) H Urine RBC (Auto) 3+(>10/hpf) H Urine Bacteria Absent Ur Random Creatinine Ur Random Sodium Urine Glucose Negative 07/10/17 07/10/17 07/10/17 00:31 05:53 05:53 WBC 21.7 H RBC 2.88 L Hgb 8.0 L Hct 26 L MCV 89 MCH 28 MCHC 32 RDW 20 H Plt Count 207 MPV 8 Neut % (Auto) 85.4 H Lymph % (Auto) 6.8 L [place] % (Auto) 7.0 Eos % (Auto) 0.3 Baso % (Auto) 0.5 Absolute Neuts (auto) 18.5 H Absolute Lymphs (auto) 1.5 Absolute Monos (auto) 1.5 H Absolute Eos (auto) 0.1 Absolute Basos (auto) 0.1 Absolute Nucleated RBC 0 Nucleated RBC % 0 Sodium 137 Potassium 4.2 Chloride 106 Carbon Dioxide 29 Anion Gap 2 BUN 17 Creatinine 1.50 H Est GFR ( Amer) 45.0 Est GFR (Non-Af Amer) 35.0 BUN/Creatinine Ratio 11.3 Glucose 88 Lactic Acid Calcium 7.9 L Total Bilirubin 0.60 AST 42 H ALT 14 Alkaline Phosphatase 70 Troponin I 0.05 H* C-Reactive Protein B-Natriuretic Peptide Total Protein 7.6 Albumin 2.4 L Globulin 5.2 H Albumin/Globulin Ratio 0.5 L Procalcitonin 59.8 H TSH Urine Color Urine Appearance Urine pH Ur Specific [place] Urine Protein Urine Ketones Urine Blood Urine Nitrate Urine Bilirubin Urine Urobilinogen Ur Leukocyte Esterase Urine WBC (Auto) Urine RBC (Auto) Urine Bacteria Ur Random Creatinine Ur Random Sodium Urine Glucose 07/10/17 07/10/17 07/11/17 05:53 05:53 00:57 WBC RBC Hgb Hct MCV MCH MCHC RDW Plt Count MPV Neut % (Auto) Lymph % (Auto) [place] % (Auto) Eos % (Auto) Baso % (Auto) Absolute Neuts (auto) Absolute Lymphs (auto) Absolute Monos (auto) Absolute Eos (auto) Absolute Basos (auto) Absolute Nucleated RBC Nucleated RBC % Sodium Potassium Chloride Carbon Dioxide Anion Gap BUN Creatinine Est GFR ( Amer) Est GFR (Non-Af Amer) BUN/Creatinine Ratio Glucose Lactic Acid 1.1 Calcium Total Bilirubin AST ALT Alkaline Phosphatase Troponin I C-Reactive Protein B-Natriuretic Peptide 461 H Total Protein Albumin Globulin Albumin/Globulin Ratio Procalcitonin TSH Urine Color Urine Appearance Urine pH Ur Specific [place] Urine Protein Urine Ketones Urine Blood Urine Nitrate Urine Bilirubin Urine Urobilinogen Ur Leukocyte Esterase Urine WBC (Auto) Urine RBC (Auto) Urine Bacteria Ur Random Creatinine 107.80 Ur Random Sodium 62 Urine Glucose 07/11/17 07/11/17 07/12/17 06:54 06:54 07:07 WBC 16.2 H 12.1 H RBC 2.86 L 2.96 L Hgb 8.1 L 8.2 L Hct 25 L 26 L MCV 89 89 MCH 28 28 MCHC 32 31 RDW 19 H 19 H Plt Count 190 183 MPV 8 8 Neut % (Auto) 79.9 Lymph % (Auto) 8.2 L [place] % (Auto) 8.8 Eos % (Auto) 2.5 Baso % (Auto) 0.6 Absolute Neuts (auto) 13.0 H Absolute Lymphs (auto) 1.3 Absolute Monos (auto) 1.4 H Absolute Eos (auto) 0.4 Absolute Basos (auto) 0.1 Absolute Nucleated RBC 0 Nucleated RBC % 0 Sodium 134 Potassium 4.6 Chloride 103 Carbon Dioxide 29 Anion Gap 2 BUN 21 Creatinine 1.64 H Est GFR ( Amer) 40.6 Est GFR (Non-Af Amer) 31.5 BUN/Creatinine Ratio 12.8 Glucose 103 H Lactic Acid Calcium 8.1 L Total Bilirubin AST ALT Alkaline Phosphatase Troponin I C-Reactive Protein B-Natriuretic Peptide Total Protein Albumin Globulin Albumin/Globulin Ratio Procalcitonin TSH 6.65 H Urine Color Urine Appearance Urine pH Ur Specific [place] Urine Protein Urine Ketones Urine Blood Urine Nitrate Urine Bilirubin Urine Urobilinogen Ur Leukocyte Esterase Urine WBC (Auto) Urine RBC (Auto) Urine Bacteria Ur Random Creatinine Ur Random Sodium Urine Glucose 07/12/17 07/14/17 07/14/17 07:07 06:12 06:13 WBC 10.5 RBC 3.02 L Hgb 8.6 L Hct 27 L MCV 88 MCH 29 MCHC 32 RDW 19 H Plt Count 179 MPV 9 Neut % (Auto) 73.4 Lymph % (Auto) 12.5 L [place] % (Auto) 8.5 Eos % (Auto) 4.7 Baso % (Auto) 0.9 Absolute Neuts (auto) 7.7 Absolute Lymphs (auto) 1.3 Absolute Monos (auto) 0.9 H Absolute Eos (auto) 0.5 Absolute Basos (auto) 0.1 Absolute Nucleated RBC 0 Nucleated RBC % 0 Sodium 133 134 Potassium 4.8 4.4 Chloride 103 101 Carbon Dioxide 31 34 H Anion Gap BUN 20 20 Creatinine 1.60 H 1.40 H Est GFR ( Amer) 41.7 48.7 Est GFR (Non-Af Amer) 32.5 37.9 BUN/Creatinine Ratio 12.5 14.3 Glucose 104 H 87 Lactic Acid Calcium 8.4 L 8.5 L Total Bilirubin AST ALT Alkaline Phosphatase Troponin I C-Reactive Protein 52.54 H B-Natriuretic Peptide Total Protein Albumin Globulin Albumin/Globulin Ratio Procalcitonin TSH Urine Color Urine Appearance Urine pH Ur Specific [place] Urine Protein Urine Ketones Urine Blood Urine Nitrate Urine Bilirubin Urine Urobilinogen Ur Leukocyte Esterase Urine WBC (Auto) Urine RBC (Auto) Urine Bacteria Ur Random Creatinine Ur Random Sodium Urine Glucose Exam Appearance: Other - Morbildly obese, bed-bound Hygiene: Normal Grooming: Disheveled Psychomotor Activities: Normal Exhibits Abnormal Movement: No Attitude and Relatedness: Superficially Cooperative Eye Contact: Fair - Speech Quality: Unpressured Latencies: Normal Quantity: Appropriate Patient's Decription of Mood: "Okay" Observed Affect: Non-labile Affect Consistent with: Euthymia Patient's Thought Process: Coherent, Goal Directed Thought Content: No Passive Wish, No Suicidal Planning, No Homicidal Ideation, No Paranoid Ideation Experiencing Hallucinations: No, Sensorium is Clear Level of Consciousness: Alert Orientation: Yes Intact Impulse Control: Intact Insight and Judgement: Poor Impression - Impression Clinical Impression: This patient does not impress as having mental capacity to make informed medical decisions, including refusing SNF placement. She shows poor understanding of her health issues and probable outcomes if she does not get more care that her family can provide. Inpatient DSM-IV Dx: None Merits Inpatient Hospitalization: No Plan - Treatment Plan Treatment Plan: Case discussed with Dr. Bazzi. I thanked him for the opportunity to consult. 60 min. of clinical time spent on this consult. Continued Medication Management: Continue Outpt Medication Medications: Current Medications Albuterol (Ventolin Hfa Inhaler*) 1 puff INH BID PRN PRN Reason: SHORTNESS OF BREATH Last Admin: 07/13/17 07:42 Dose: 1 puff Albuterol/Ipratropium (Duoneb (Albuterol 2.5 Mg/Ipratropium 0.5 Mg)) 1 neb INH Q4H PRN PRN Reason: SOB/WHEEZING Clindamycin HCl (Cleocin Cap*) 300 mg PO TID [facility] Last Admin: 07/14/17 13:56 Dose: 300 mg Cyanocobalamin (Vitamin B12 Tab*) 1,000 mcg PO DAILY [facility] Last Admin: 07/14/17 08:19 Dose: 1,000 mcg Gabapentin (Neurontin Cap(*)) 300 mg PO BEDTIME [facility] Last Admin: 07/13/17 19:58 Dose: 300 mg Guaifenesin (Robitussin*) 5 ml PO Q6H PRN PRN Reason: COUGH Last Admin: 07/14/17 10:30 Dose: 5 ml Heparin Sodium (Porcine) (Heparin Vial(*)) 5,000 units SUBCUT Q8HR [facility] Last Admin: 07/14/17 13:57 Dose: 5,000 units Lactobacillus Rhamnosus (Culturelle*) 1 cap PO DAILY [facility] Last Admin: 07/14/17 08:18 Dose: 1 cap Levothyroxine Sodium (Synthroid Tab*) 112 mcg PO DAILY@0600 [facility] Last Admin: 07/14/17 05:23 Dose: 112 mcg Mometasone Furoate (Asmanex 220 Mcg Mdi *) 2 puff INH BEDTIME [facility] Last Admin: 07/13/17 21:21 Dose: Not Given Nystatin (Nystatin Cream*) 1 applic TOPICAL BID [facility] Last Admin: 07/14/17 08:19 Dose: 1 applic Tiotropium [place] (Spiriva Cap.Inh*) 1 cap INH 0900 [facility] Last Admin: 07/14/17 10:48 Dose: Not Given Tramadol HCl (Ultram*) 50 mg PO BID [facility] Last Admin: 07/14/17 08:18 Dose: 50 mg Triamcinolone Acetonide (Triamcinolone 0.025% Oint *) 1 applic TOPICAL BID [facility] Last Admin: 07/14/17 08:19 Dose: 1 applic - Discharge Plan Discharge Plan: Consider Longer Term Tx Outpatient Program: SNF
--- NOTE | 2017-07-14 16:18 | PN ---
Subjective Date of Service: 07/14/17 Interval History: C/O pain R lateral thigh where she says the Jose E pressed on her. Family History: Unchanged from Admission Social History: Unchanged from Admission Past Medical History: Unchanged from Admission Objective Active Medications: Albuterol (Ventolin Hfa Inhaler*) 1 puff INH BID PRN PRN Reason: SHORTNESS OF BREATH Last Admin: 07/13/17 07:42 Dose: 1 puff Albuterol/Ipratropium (Duoneb (Albuterol 2.5 Mg/Ipratropium 0.5 Mg)) 1 neb INH Q4H PRN PRN Reason: SOB/WHEEZING Clindamycin HCl (Cleocin Cap*) 300 mg PO TID [facility] Last Admin: 07/14/17 13:56 Dose: 300 mg Cyanocobalamin (Vitamin B12 Tab*) 1,000 mcg PO DAILY [facility] Last Admin: 07/14/17 08:19 Dose: 1,000 mcg Gabapentin (Neurontin Cap(*)) 300 mg PO BEDTIME [facility] Last Admin: 07/13/17 19:58 Dose: 300 mg Guaifenesin (Robitussin*) 5 ml PO Q6H PRN PRN Reason: COUGH Last Admin: 07/14/17 10:30 Dose: 5 ml Heparin Sodium (Porcine) (Heparin Vial(*)) 5,000 units SUBCUT Q8HR [facility] Last Admin: 07/14/17 13:57 Dose: 5,000 units Lactobacillus Rhamnosus (Culturelle*) 1 cap PO DAILY [facility] Last Admin: 07/14/17 08:18 Dose: 1 cap Levothyroxine Sodium (Synthroid Tab*) 112 mcg PO DAILY@0600 [facility] Last Admin: 07/14/17 05:23 Dose: 112 mcg Mometasone Furoate (Asmanex 220 Mcg Mdi *) 2 puff INH BEDTIME [facility] Last Admin: 07/13/17 21:21 Dose: Not Given Nystatin (Nystatin Cream*) 1 applic TOPICAL BID [facility] Last Admin: 07/14/17 08:19 Dose: 1 applic Tiotropium [place] (Spiriva Cap.Inh*) 1 cap INH 0900 [facility] Last Admin: 07/14/17 10:48 Dose: Not Given Tramadol HCl (Ultram*) 50 mg PO BID [facility] Last Admin: 07/14/17 08:18 Dose: 50 mg Triamcinolone Acetonide (Triamcinolone 0.025% Oint *) 1 applic TOPICAL BID [facility] Last Admin: 07/14/17 08:19 Dose: 1 applic Vital Signs - 8 hr 07/14/17 07/14/17 07/14/17 08:18 08:56 13:52 Temperature 98.3 F Pulse Rate 72 Respiratory 20 20 20 Rate Blood Pressure 143/58 (mmHg) O2 Sat by Pulse 94 Oximetry Oxygen Devices in Use Now: Nasal Cannula Appearance: Alert, partly up in bed. Neutral affect, looks comfortable. Eyes: No Scleral Icterus Skin: No Nodules or Sclerosis, - - R lateral thigh several punctate red areas, sl pink around them, consistent with minor trauma. Neurological: NL Sensation - States "I'm going home". Poor insight. Result Diagrams: 07/14/17 06:12 07/14/17 06:13 Additional Lab and Data: Lab Results 07/09/17 07/09/17 07/09/17 Range/Units 19:40 19:48 19:48 WBC 21.0 H (3.5-10.8) 10^3/ul RBC 3.13 L (4.0-5.4) 10^6/ul Hgb 8.7 L (12.0-16.0) g/dl Hct 27 L (35-47) % MCV 87 (80-97) fL MCH 28 (27-31) pg MCHC 32 (31-36) g/dl RDW 19 H (10.5-15) % Plt Count 256 (150-450) 10^3/ul MPV 8 (7.4-10.4) um3 Neut % (Auto) 94.2 H (38-83) % Lymph % (Auto) 1.8 L (25-47) % [place] % (Auto) 3.8 (1-9) % Eos % (Auto) 0.1 (0-6) % Baso % (Auto) 0.1 (0-2) % Absolute Neuts (auto) 19.8 H (1.5-7.7) 10^3/ul Absolute Lymphs (auto) 0.4 L (1.0-4.8) 10^3/ul Absolute Monos (auto) 0.8 (0-0.8) 10^3/ul Absolute Eos (auto) 0 (0-0.6) 10^3/ul Absolute Basos (auto) 0 (0-0.2) 10^3/ul Absolute Nucleated RBC 0 10^3/ul Nucleated RBC % 0.2 INR (Anticoag Therapy) 1.25 H (0.77-1.02) APTT 32.4 (26.0-36.3) seconds Sodium (133-145) mmol/L Potassium (3.5-5.0) mmol/L Chloride (101-111) mmol/L Carbon Dioxide (22-32) mmol/L Anion Gap (2-11) mmol/L BUN (6-24) mg/dL Creatinine (0.51-0.95) mg/dL Est GFR ( Amer) (>60) Est GFR (Non-Af Amer) (>60) BUN/Creatinine Ratio (8-20) Glucose (70-100) mg/dL Lactic Acid (0.5-2.0) mmol/L Calcium (8.6-10.3) mg/dL Total Bilirubin (0.2-1.0) mg/dL AST (13-39) U/L ALT (7-52) U/L Alkaline Phosphatase (34-104) U/L Troponin I (<0.04) ng/mL C-Reactive Protein (< 5.00) mg/L B-Natriuretic Peptide ( - 100) pg/mL Total Protein (6.4-8.9) g/dL Albumin (3.2-5.2) g/dL Globulin (2-4) g/dL Albumin/Globulin Ratio (1-3) Influenza A (Rapid) Negative (Negative) Influenza B (Rapid) Negative (Negative) 07/09/17 07/09/17 07/09/17 Range/Units 19:48 19:48 19:48 WBC (3.5-10.8) 10^3/ul RBC (4.0-5.4) 10^6/ul Hgb (12.0-16.0) g/dl Hct (35-47) % MCV (80-97) fL MCH (27-31) pg MCHC (31-36) g/dl RDW (10.5-15) % Plt Count (150-450) 10^3/ul MPV (7.4-10.4) um3 Neut % (Auto) (38-83) % Lymph % (Auto) (25-47) % [place] % (Auto) (1-9) % Eos % (Auto) (0-6) % Baso % (Auto) (0-2) % Absolute Neuts (auto) (1.5-7.7) 10^3/ul Absolute Lymphs (auto) (1.0-4.8) 10^3/ul Absolute Monos (auto) (0-0.8) 10^3/ul Absolute Eos (auto) (0-0.6) 10^3/ul Absolute Basos (auto) (0-0.2) 10^3/ul Absolute Nucleated RBC 10^3/ul Nucleated RBC % INR (Anticoag Therapy) (0.77-1.02) APTT (26.0-36.3) seconds Sodium 138 (133-145) mmol/L Potassium 3.7 (3.5-5.0) mmol/L Chloride 104 (101-111) mmol/L Carbon Dioxide 27 (22-32) mmol/L Anion Gap 7 (2-11) mmol/L BUN 13 (6-24) mg/dL Creatinine 1.35 H (0.51-0.95) mg/dL Est GFR ( Amer) 50.8 (>60) Est GFR (Non-Af Amer) 39.5 (>60) BUN/Creatinine Ratio 9.6 (8-20) Glucose 122 H (70-100) mg/dL Lactic Acid 3.5 H* (0.5-2.0) mmol/L Calcium 8.2 L (8.6-10.3) mg/dL Total Bilirubin 0.60 (0.2-1.0) mg/dL AST 45 H (13-39) U/L ALT 15 (7-52) U/L Alkaline Phosphatase 83 (34-104) U/L Troponin I 0.05 H* (<0.04) ng/mL C-Reactive Protein 52.12 H (< 5.00) mg/L B-Natriuretic Peptide 353 H ( - 100) pg/mL Total Protein 7.9 (6.4-8.9) g/dL Albumin 2.5 L (3.2-5.2) g/dL Globulin 5.4 H (2-4) g/dL Albumin/Globulin Ratio 0.5 L (1-3) Influenza A (Rapid) (Negative) Influenza B (Rapid) (Negative) Microbiology and Other Data: Microbiology 07/10/17 01:30 Skin and Soft Tissue MRSA/MSSA (PCR - Final Leg Left Mrsa Negative S.aureus Positive Gram Stain - Final Wound Culture - Preliminary Staphylococcus Aureus 07/10/17 01:30 Stool Gross Appearance - Final Stool 07/10/17 01:30 Skin and Soft Tissue MRSA/MSSA (PCR - Final Leg Right Mrsa Negative S.aureus Positive Gram Stain - Final 07/10/17 01:30 Skin and Soft Tissue MRSA/MSSA (PCR - Final Abdomen Mrsa Negative S.aureus Positive Gram Stain - Final Assess/Plan/Problems-Billing Ms. Harris is a 62 yo female with PMH asthma, COPD, hypothyroidism, morbid obesity, sleep apnea, possible DHF who presented to the emergency room with complaints of shortness of breath. - Patient Problems (1) KATHERINE (acute kidney injury) Current Visit: Yes Status: Acute Code(s): N17.9 - ACUTE KIDNEY FAILURE, UNSPECIFIED SNOMED Code(s): 57607914 Comment: Creatinine 1.40 on 07/14/17. (2) Hypothyroidism Current Visit: Yes Status: Chronic Code(s): E03.9 - HYPOTHYROIDISM, UNSPECIFIED SNOMED Code(s): 02426125 Comment: Continue increased dose of synthroid 112 mcg daily. Repeat TSH in 2 -3 weeks. (3) Cellulitis Current Visit: Yes Status: Acute Code(s): L03.90 - CELLULITIS, UNSPECIFIED SNOMED Code(s): 458979541 Comment: Last day of clindamycin is 07/16/17. (4) Morbid obesity Current Visit: Yes Status: Chronic Code(s): E66.01 - MORBID (SEVERE) OBESITY DUE TO EXCESS CALORIES SNOMED Code(s): 084742576 Comment: BMI 63.5. (5) COPD (chronic obstructive pulmonary disease) Current Visit: No Status: Chronic Code(s): J44.9 - CHRONIC OBSTRUCTIVE PULMONARY DISEASE, UNSPECIFIED SNOMED Code(s): 75651872 Comment: No signs of acute exacerbation at this time. Continue spiriva, asmanex and albuterol PRN. I spoke with her daughter Lyndsay on the phone 2/4-- the patient uses an O2 concentrator while sleeping. (6) Skin breakdown Current Visit: Yes Status: Acute Code(s): L90.9 - ATROPHIC DISORDER OF SKIN , UNSPECIFIED SNOMED Code(s): 075457111 Comment: Due to or exacerbated by urinary incontinence. Pt requires 2-3 people to transfer her in a Jose E, 3 people to turn her in bed. Taylor ordered as I don't think that in practice her skin will heal without it. (7) Anemia Current Visit: Yes Status: Acute Code(s): D64.9 - ANEMIA, UNSPECIFIED SNOMED Code(s): 499222087 Comment: H&H stable during this admission, may be her new baseline. Likely ACD. Status and Disposition: Inpatient. Discharge to home when medically stable.
[2017-07-14] MEDS: Mometasone 220 MCG MDI INH SCH (19:48)
[2017-07-14] MEDS: Gabapentin CAP(*) 300 MG PO SCH (21:11)
[2017-07-15] MEDS: Levothyroxine TAB* 112 MCG TAB PO SCH (05:47)
[2017-07-15] MEDS: Heparin VIAL(*) 5000 UNITS/ML VIAL (FIVE THOUSAND) SUBCUT SCH ×3 (05:47→20:38)
[2017-07-15] MEDS: Cyanocobalamin TAB* 500 MCG PO SCH (08:53)
[2017-07-15] MEDS: Clindamycin CAP* 150 MG PO SCH ×3 (08:53→20:29)
[2017-07-15] MEDS: Lactobacillus Acidophilu (GG)* 1 CAP CAP PO SCH (08:53)
[2017-07-15] MEDS: traMADol TAB* 50 MG PO SCH ×2 (08:53→20:30)
[2017-07-15] MEDS: Triamcinolone 0.025% OINT * 15 GM TUBE TOPICAL SCH ×2 (08:54→20:34)
[2017-07-15] MEDS: Tiotropium CAP.INH* CAP.INH/18 MCG (USE ORDER SET !) INH SCH (08:54)
[2017-07-15] MEDS: Nystatin CREAM* 15 GM TUBE TOPICAL SCH ×2 (08:54→20:34)
--- NOTE | 2017-07-15 10:10 | CONSULT ---
Palliative / Hospice Consult Ordering Provider: Elizabeth Moore - Subjective Code Status: DNR Advance Directives Location: In Chart MOLST Part A Completed: Yes - DNR MOLST Part E Completed:: Yes - DNI, DNH, CC only - History or Present Illness History or Present Illness: This 62 year old woman presented to the ED after a day of dyspnea, with WBC 21K , elevated troponins, anemia, and KATHERINE. She says she has "had emphysema since age 17" and also has JUAN, using O2 only at night, and has not seen a boiler repair supervisor or had PFTs done, and has never used CPAP. She has had one prior hospitlaization this past year (2016), in September, after a fall, although she has had ER visits.She has probably diastolic CHF along with her RAD and COPD, and has LE cellulitis that warranted IV antibiotics. She also has hypothyroidism and urinary incontinence. Her TSH was elevated on this admission. She has been living at home with her daughter, who is employed by [employer] as an aid for her mother, and that is her only employment. The patient herself has been medically disabled for many years. She has been wheelchair bound for some time now, although she says she is able to transfer independently to a wheelchair from her bed. She wants to be discharged to home, but yesterday had a psychiatric evaluation that deemed her incompetent to understand her medical situation adequately to make the decision to return home instead of being discharged to a SNF. She continues to have some renal compromise, with BUN/Creatinine 20/1.4, and eGFR of 37.9. She tells me she would not want dialysis of her kidneys were to worsen. She denies complaints of p[ain or SOB at present, and her only complaint is that she has not yet been discharged to home. Her last day of IV Clindamycin is today. She has a normochromic normocytic anemia that appears to be chronic, and her nutritional status is poor with an albumin of 2.5. Lab Values: Laboratory Last Values WBC 10.5 10^3/ul (3.5-10.8) 07/14/17 06:12 RBC 3.02 10^6/ul (4.0-5.4) L 07/14/17 06:12 Hgb 8.6 g/dl (12.0-16.0) L 07/14/17 06:12 Hct 27 % (35-47) L 07/14/17 06:12 MCV 88 fL (80-97) 07/14/17 06:12 MCH 29 pg (27-31) 07/14/17 06:12 MCHC 32 g/dl (31-36) 07/14/17 06:12 RDW 19 % (10.5-15) H 07/14/17 06:12 Plt Count 179 10^3/ul (150-450) 07/14/17 06:12 MPV 9 um3 (7.4-10.4) 07/14/17 06:12 Neut % (Auto) 73.4 % (38-83) 07/14/17 06:12 Lymph % (Auto) 12.5 % (25-47) L 07/14/17 06:12 [place] % (Auto) 8.5 % (1-9) 07/14/17 06:12 Eos % (Auto) 4.7 % (0-6) 07/14/17 06:12 Baso % (Auto) 0.9 % (0-2) 07/14/17 06:12 Absolute Neuts (auto) 7.7 10^3/ul (1.5-7.7) 07/14/17 06:12 Absolute Lymphs (auto) 1.3 10^3/ul (1.0-4.8) 07/14/17 06:12 Absolute Monos (auto) 0.9 10^3/ul (0-0.8) H 07/14/17 06:12 Absolute Eos (auto) 0.5 10^3/ul (0-0.6) 07/14/17 06:12 Absolute Basos (auto) 0.1 10^3/ul (0-0.2) 07/14/17 06:12 Absolute Nucleated RBC 0 10^3/ul 07/14/17 06:12 Nucleated RBC % 0 07/14/17 06:12 INR (Anticoag Therapy) 1.25 (0.77-1.02) H 07/09/17 19:48 APTT 32.4 seconds (26.0-36.3) 07/09/17 19:48 Sodium 134 mmol/L (133-145) 07/14/17 06:13 Potassium 4.4 mmol/L (3.5-5.0) 07/14/17 06:13 Chloride 101 mmol/L (101-111) 07/14/17 06:13 Carbon Dioxide 34 mmol/L (22-32) H 07/14/17 06:13 Anion Gap 2 mmol/L (2-11) 07/11/17 06:54 BUN 20 mg/dL (6-24) 07/14/17 06:13 Creatinine 1.40 mg/dL (0.51-0.95) H 07/14/17 06:13 Est GFR ( Amer) 48.7 (>60) 07/14/17 06:13 Est GFR (Non-Af Amer) 37.9 (>60) 07/14/17 06:13 BUN/Creatinine Ratio 14.3 (8-20) 07/14/17 06:13 Glucose 87 mg/dL (70-100) 07/14/17 06:13 Lactic Acid 1.1 mmol/L (0.5-2.0) 07/10/17 05:53 Calcium 8.5 mg/dL (8.6-10.3) L 07/14/17 06:13 Total Bilirubin 0.60 mg/dL (0.2-1.0) 07/10/17 05:53 AST 42 U/L (13-39) H 07/10/17 05:53 ALT 14 U/L (7-52) 07/10/17 05:53 Alkaline Phosphatase 70 U/L (34-104) 07/10/17 05:53 Troponin I 0.05 ng/mL (<0.04) H* 07/10/17 05:53 C-Reactive Protein 52.54 mg/L (< 5.00) H 07/14/17 06:13 B-Natriuretic Peptide 461 pg/mL (-100) H 07/10/17 05:53 Total Protein 7.6 g/dL (6.4-8.9) 07/10/17 05:53 Albumin 2.4 g/dL (3.2-5.2) L 07/10/17 05:53 Globulin 5.2 g/dL (2-4) H 07/10/17 05:53 Albumin/Globulin Ratio 0.5 (1-3) L 07/10/17 05:53 Procalcitonin 59.8 ng/mL (<0.6) H 07/10/17 00:31 TSH 6.65 mcIU/mL (0.34-5.60) H 07/11/17 06:54 Urine Color Red A 07/09/17 23:20 Urine Appearance Cloudy 07/09/17 23:20 Urine pH 6.0 (5-9) 07/09/17 23:20 Ur Specific [place] 1.012 (1.010-1.030) 07/09/17 23:20 Urine Protein 2+(100 mg/dl) (Negative) H 07/09/17 23:20 Urine Ketones Negative (Negative) 07/09/17 23:20 Urine Blood 3+ (Negative) H 07/09/17 23:20 Urine Nitrate Negative (Negative) 07/09/17 23:20 Urine Bilirubin Negative (Negative) 07/09/17 23:20 Urine Urobilinogen Negative (Negative) 07/09/17 23:20 Ur Leukocyte Esterase 1+ (Negative) H 07/09/17 23:20 Urine WBC (Auto) 3+(>20/hpf) (Absent) H 07/09/17 23:20 Urine RBC (Auto) 3+(>10/hpf) (Absent) H 07/09/17 23:20 Urine Bacteria Absent (Absent) 07/09/17 23:20 Ur Random Creatinine 107.80 mg/dL 07/11/17 00:57 Ur Random Sodium 62 mmol/L 07/11/17 00:57 Urine Glucose Negative (Negative) 07/09/17 23:20 Influenza A (Rapid) Negative (Negative) 07/09/17 19:40 Influenza B (Rapid) Negative (Negative) 07/09/17 19:40 - Objective Active Medications: Albuterol (Ventolin Hfa Inhaler*) 1 puff INH BID PRN PRN Reason: SHORTNESS OF BREATH Last Admin: 07/13/17 07:42 Dose: 1 puff Albuterol/Ipratropium (Duoneb (Albuterol 2.5 Mg/Ipratropium 0.5 Mg)) 1 neb INH Q4H PRN PRN Reason: SOB/WHEEZING Clindamycin HCl (Cleocin Cap*) 300 mg PO TID DIMITRIOS Last Admin: 07/15/17 08:53 Dose: 300 mg Cyanocobalamin (Vitamin B12 Tab*) 1,000 mcg PO DAILY [facility] Last Admin: 07/15/17 08:53 Dose: 1,000 mcg Gabapentin (Neurontin Cap(*)) 300 mg PO BEDTIME [facility] Last Admin: 07/14/17 21:11 Dose: 300 mg Guaifenesin (Robitussin*) 5 ml PO Q6H PRN PRN Reason: COUGH Last Admin: 07/14/17 10:30 Dose: 5 ml Heparin Sodium (Porcine) (Heparin Vial(*)) 5,000 units SUBCUT Q8HR [facility] Last Admin: 07/15/17 05:47 Dose: 5,000 units Lactobacillus Rhamnosus (Culturelle*) 1 cap PO DAILY [facility] Last Admin: 07/15/17 08:53 Dose: 1 cap Levothyroxine Sodium (Synthroid Tab*) 112 mcg PO DAILY@0600 [facility] Last Admin: 07/15/17 05:47 Dose: 112 mcg Mometasone Furoate (Asmanex 220 Mcg Mdi *) 2 puff INH BEDTIME [facility] Last Admin: 07/14/17 19:48 Dose: 2 puff Nystatin (Nystatin Cream*) 1 applic TOPICAL BID [facility] Last Admin: 07/15/17 08:54 Dose: 1 applic Tiotropium [place] (Spiriva Cap.Inh*) 1 cap INH 0900 [facility] Last Admin: 07/15/17 08:54 Dose: Not Given Tramadol HCl (Ultram*) 50 mg PO BID [facility] Last Admin: 07/15/17 08:53 Dose: 50 mg Triamcinolone Acetonide (Triamcinolone 0.025% Oint *) 1 applic TOPICAL BID [facility] Last Admin: 07/15/17 08:54 Dose: 1 applic Vital Signs: Vital Signs: Temp Pulse Resp BP Pulse Ox 99.0 F 69 18 127/68 98 07/15/17 08:46 07/15/17 08:46 07/15/17 08:59 07/15/17 08:46 07/15/17 08:46 Patient Weight: Weight 355 lb 14.4 oz Intake and Output: Intake & Output 07/13/17 07/14/17 07/15/17 07/16/17 06:59 06:59 06:59 06:59 Intake Total 700 540 90 120 Output Total 1025 1575 Balance 700 485 -1485 120 Weight 362 lb 12.8 oz 375 lb 9.6 oz 355 lb 14.4 oz Intake: Oral 700 540 90 120 Output: Urine 0 0 [place] 1025 1575 Other: Estimated Void Medium # Bowel Movements 1 0 0 Estimated Stool Amount Small # Voids 2 0 ADLs: Meal Record Start: 07/09/17 22: 13 Freq: DAILY@0900,1400,1800 Status: Active Protocol: Document 07/10/17 09:11 [id number] (Rec: 07/10/17 09:12 [id number] TELE-C07) Document 07/10/17 14:00 IPM1732 (Rec: 07/10/17 14:20 MEV0117 TELE-C01) Document 07/10/17 18:00 BEF1165 (Rec: 07/10/17 22:49 VSN0835 TELE-C06) Document 07/11/17 09:00 [id number] (Rec: 07/11/17 15:32 [id number] TELE-C03) Document 07/11/17 14:00 JBK6047 (Rec: 07/11/17 15:31 DGN0584 TELE-C03) Document 07/11/17 18:00 GCF6390 (Rec: 07/11/17 23:13 ZBT2193 TELE-C03) Document 07/12/17 09:00 [id number] (Rec: 07/12/17 14:40 RBI6588 HOSP-C11) Document 07/12/17 14:00 KJC5868 (Rec: 07/12/17 16:40 ZTU9524 TELE-C08) Document 07/12/17 18:00 SRK9429 (Rec: 07/12/17 22:41 DQT5692 TELE-C08) Document 07/13/17 09:00 EOH4785 (Rec: 07/13/17 14:36 DYT5640 TELE-C01) Document 07/13/17 14:00 DSC2423 (Rec: 07/13/17 14:38 XRB3366 TELE-C01) Document 07/13/17 18:00 IPH8045 (Rec: 07/13/17 18:34 EJI1594 TELE-C08) Document 07/14/17 09:00 GBI3083 (Rec: 07/14/17 15:27 TOH5105 TELE-C01) Document 07/14/17 14:00 IJP4930 (Rec: 07/14/17 15:28 EJY8594 TELE-C01) Document 07/14/17 18:00 HDL2837 (Rec: 07/14/17 19:27 DPG8725 MED-C09) Document 07/15/17 09:00 EVY4745 (Rec: 07/15/17 09:40 [id number] MED-C11) Intake and Output Start: 07/09/17 22: 13 Freq: DAILY@0600,1400,2200 Status: Active Protocol: Document 07/10/17 05:49 [id number] (Rec: 07/10/17 05:50 [id number] TELE-C33) Document 07/10/17 22:00 OQX5575 (Rec: 07/10/17 22:51 HLW5436 TELE-C06) Document 07/11/17 05:43 ZNK6324 (Rec: 07/11/17 05:44 TNN1289 TELE-C33) Document 07/11/17 14:00 ZLD2929 (Rec: 07/11/17 15:31 FYZ7487 TELE-C03) Document 07/11/17 22:00 VOD8217 (Rec: 07/11/17 23:14 WZY7151 TELE-C03) Document 07/12/17 05:20 OKT4179 (Rec: 07/12/17 05:21 WUQ5275 TELE-C13) Document 07/12/17 14:00 PWM1481 (Rec: 07/12/17 15:11 XMH1299 TELE-C08) Document 07/12/17 22:00 UAO9015 (Rec: 07/12/17 22:43 SKJ4527 TELE-C08) Document 07/13/17 05:51 HMZ4320 (Rec: 07/13/17 05:53 GBP2221 TELE-C34) Document 07/13/17 05:53 UAV0169 (Rec: 07/13/17 05:53 [id number] TELE-C13) Document 07/13/17 14:00 QVP8314 (Rec: 07/13/17 14:38 EMW6470 TELE-C01) Document 07/13/17 22:00 WFN6829 (Rec: 07/13/17 22:36 PXK8880 TELE-C08) Document 07/14/17 06:00 PUF2878 (Rec: 07/14/17 06:56 YAI5573 TELE-C03) Document 07/14/17 14:00 WJC6671 (Rec: 07/14/17 15:28 [id number] TELE-C01) Document 07/14/17 22:00 JSL4104 (Rec: 07/14/17 22:52 SOC2706 MED-C09) Document 07/15/17 05:09 KPH6143 (Rec: 07/15/17 05:10 [id number] MEDL-C01) General Impression: Morbidly obese woman in NAD supine in bed. Head: Symmetrical Eyes: No Scleral Icterus Ears/Nose/Mouth/Throat: Mucous Membranes Moist Neck: NL Appearance and Movements; NL JVP, No Thyroid Enlargement, Masses Cardiovascular: NL Sounds; No Murmurs; No JVD, RRR, No Edema Respiratory: Symmetrical Chest Expansion and Respiratory Effort Abdominal: NL Sounds; No Tenderness; No Distention Extremities: No Clubbing, Cyanosis, - - Tr edema BL Neurological: Alert and Oriented x 3, NL Sensation - Assessment Assessment: This 62 year old woman has multiple comorbidities on top of malnutrition, but she wants to live at home where her daughter is employed as a Medicaid aid to care for her. I see from the chart that the patient's children have expressed difficulty with the care burden, and I wanted to speak with them directly about their wishes, since the patient is so determined to return home. Unfortunately the daughter Lyndsay's number ([phone]) is persistently busy, and the ptaient can not remember her son's cell phone number. If they are willing to care for their mother at home, she would be eligible for hospice services at home in light of her MOLST wishes specifying comfort measures only, her multiple medical problems associated with morbid obesity, and her poor nutritional status. I will continue to try to contact the patient's daughter for further discharge planning efforts. Thanks for requesting the consult. - Plan Consult Plan (MU): Hospice - Time On Unit Date of Evaluation: 07/15/17 Hospice Consult Time in: 09:15 Hospice Consult Time Out: 10:15 Hospice Consult Time Total: 60 > 50% of Time Spend In Counseling or Coordinating Care: Yes
--- NOTE | 2017-07-15 17:02 | PN ---
Subjective Date of Service: 07/15/17 Interval History: No overnight events. Feels fine today, wants to go home. No chest pain, sob, leg pain, fevers. Family History: Unchanged from Admission Social History: Unchanged from Admission Past Medical History: Unchanged from Admission Objective Active Medications: Albuterol (Ventolin Hfa Inhaler*) 1 puff INH BID PRN PRN Reason: SHORTNESS OF BREATH Last Admin: 07/13/17 07:42 Dose: 1 puff Albuterol/Ipratropium (Duoneb (Albuterol 2.5 Mg/Ipratropium 0.5 Mg)) 1 neb INH Q4H PRN PRN Reason: SOB/WHEEZING Clindamycin HCl (Cleocin Cap*) 300 mg PO TID [facility] Last Admin: 07/15/17 13:08 Dose: 300 mg Cyanocobalamin (Vitamin B12 Tab*) 1,000 mcg PO DAILY [facility] Last Admin: 07/15/17 08:53 Dose: 1,000 mcg Gabapentin (Neurontin Cap(*)) 300 mg PO BEDTIME [facility] Last Admin: 07/14/17 21:11 Dose: 300 mg Guaifenesin (Robitussin*) 5 ml PO Q6H PRN PRN Reason: COUGH Last Admin: 07/14/17 10:30 Dose: 5 ml Heparin Sodium (Porcine) (Heparin Vial(*)) 5,000 units SUBCUT Q8HR [facility] Last Admin: 07/15/17 13:08 Dose: Not Given Lactobacillus Rhamnosus (Culturelle*) 1 cap PO DAILY [facility] Last Admin: 07/15/17 08:53 Dose: 1 cap Levothyroxine Sodium (Synthroid Tab*) 112 mcg PO DAILY@0600 [facility] Last Admin: 07/15/17 05:47 Dose: 112 mcg Mometasone Furoate (Asmanex 220 Mcg Mdi *) 2 puff INH BEDTIME [facility] Last Admin: 07/14/17 19:48 Dose: 2 puff Nystatin (Nystatin Cream*) 1 applic TOPICAL BID [facility] Last Admin: 07/15/17 08:54 Dose: 1 applic Tiotropium [place] (Spiriva Cap.Inh*) 1 cap INH 0900 [facility] Last Admin: 07/15/17 08:54 Dose: Not Given Tramadol HCl (Ultram*) 50 mg PO BID [facility] Last Admin: 07/15/17 08:53 Dose: 50 mg Triamcinolone Acetonide (Triamcinolone 0.025% Oint *) 1 applic TOPICAL BID [facility] Last Admin: 07/15/17 08:54 Dose: 1 applic Vital Signs - 8 hr 07/15/17 07/15/17 07/15/17 08:59 10:06 11:40 Temperature 98.1 F Pulse Rate 69 Respiratory 18 18 16 Rate Blood Pressure 118/47 (mmHg) O2 Sat by Pulse 97 Oximetry 07/15/17 15:08 Temperature 98.8 F Pulse Rate 73 Respiratory 20 Rate Blood Pressure 155/62 (mmHg) O2 Sat by Pulse 98 Oximetry Oxygen Devices in Use Now: Nasal Cannula Appearance: obese, lying in bed Eyes: No Scleral Icterus Ears/Nose/Mouth/Throat: NL Teeth, Lips, Gums Neck: NL Appearance and Movements; NL JVP Respiratory: Symmetrical Chest Expansion and Respiratory Effort, - - distant breath sounds, unable to sit forward for me to listen posteriorly Cardiovascular: NL Sounds; No Murmurs; No JVD Abdominal: NL Sounds; No Tenderness; No Distention Lymphatic: No Cervical Adenopathy Extremities: - - nonpitting edema Skin: - - chronic venous stasis changes Result Diagrams: 07/14/17 06:12 07/14/17 06:13 Additional Lab and Data: Lab Results 07/09/17 07/09/17 07/09/17 Range/Units 19:40 19:48 19:48 WBC 21.0 H (3.5-10.8) 10^3/ul RBC 3.13 L (4.0-5.4) 10^6/ul Hgb 8.7 L (12.0-16.0) g/dl Hct 27 L (35-47) % MCV 87 (80-97) fL MCH 28 (27-31) pg MCHC 32 (31-36) g/dl RDW 19 H (10.5-15) % Plt Count 256 (150-450) 10^3/ul MPV 8 (7.4-10.4) um3 Neut % (Auto) 94.2 H (38-83) % Lymph % (Auto) 1.8 L (25-47) % [place] % (Auto) 3.8 (1-9) % Eos % (Auto) 0.1 (0-6) % Baso % (Auto) 0.1 (0-2) % Absolute Neuts (auto) 19.8 H (1.5-7.7) 10^3/ul Absolute Lymphs (auto) 0.4 L (1.0-4.8) 10^3/ul Absolute Monos (auto) 0.8 (0-0.8) 10^3/ul Absolute Eos (auto) 0 (0-0.6) 10^3/ul Absolute Basos (auto) 0 (0-0.2) 10^3/ul Absolute Nucleated RBC 0 10^3/ul Nucleated RBC % 0.2 INR (Anticoag Therapy) 1.25 H (0.77-1.02) APTT 32.4 (26.0-36.3) seconds Sodium (133-145) mmol/L Potassium (3.5-5.0) mmol/L Chloride (101-111) mmol/L Carbon Dioxide (22-32) mmol/L Anion Gap (2-11) mmol/L BUN (6-24) mg/dL Creatinine (0.51-0.95) mg/dL Est GFR ( Amer) (>60) Est GFR (Non-Af Amer) (>60) BUN/Creatinine Ratio (8-20) Glucose (70-100) mg/dL Lactic Acid (0.5-2.0) mmol/L Calcium (8.6-10.3) mg/dL Total Bilirubin (0.2-1.0) mg/dL AST (13-39) U/L ALT (7-52) U/L Alkaline Phosphatase (34-104) U/L Troponin I (<0.04) ng/mL C-Reactive Protein (< 5.00) mg/L B-Natriuretic Peptide ( - 100) pg/mL Total Protein (6.4-8.9) g/dL Albumin (3.2-5.2) g/dL Globulin (2-4) g/dL Albumin/Globulin Ratio (1-3) Influenza A (Rapid) Negative (Negative) Influenza B (Rapid) Negative (Negative) 07/09/17 07/09/17 07/09/17 Range/Units 19:48 19:48 19:48 WBC (3.5-10.8) 10^3/ul RBC (4.0-5.4) 10^6/ul Hgb (12.0-16.0) g/dl Hct (35-47) % MCV (80-97) fL MCH (27-31) pg MCHC (31-36) g/dl RDW (10.5-15) % Plt Count (150-450) 10^3/ul MPV (7.4-10.4) um3 Neut % (Auto) (38-83) % Lymph % (Auto) (25-47) % [place] % (Auto) (1-9) % Eos % (Auto) (0-6) % Baso % (Auto) (0-2) % Absolute Neuts (auto) (1.5-7.7) 10^3/ul Absolute Lymphs (auto) (1.0-4.8) 10^3/ul Absolute Monos (auto) (0-0.8) 10^3/ul Absolute Eos (auto) (0-0.6) 10^3/ul Absolute Basos (auto) (0-0.2) 10^3/ul Absolute Nucleated RBC 10^3/ul Nucleated RBC % INR (Anticoag Therapy) (0.77-1.02) APTT (26.0-36.3) seconds Sodium 138 (133-145) mmol/L Potassium 3.7 (3.5-5.0) mmol/L Chloride 104 (101-111) mmol/L Carbon Dioxide 27 (22-32) mmol/L Anion Gap 7 (2-11) mmol/L BUN 13 (6-24) mg/dL Creatinine 1.35 H (0.51-0.95) mg/dL Est GFR ( Amer) 50.8 (>60) Est GFR (Non-Af Amer) 39.5 (>60) BUN/Creatinine Ratio 9.6 (8-20) Glucose 122 H (70-100) mg/dL Lactic Acid 3.5 H* (0.5-2.0) mmol/L Calcium 8.2 L (8.6-10.3) mg/dL Total Bilirubin 0.60 (0.2-1.0) mg/dL AST 45 H (13-39) U/L ALT 15 (7-52) U/L Alkaline Phosphatase 83 (34-104) U/L Troponin I 0.05 H* (<0.04) ng/mL C-Reactive Protein 52.12 H (< 5.00) mg/L B-Natriuretic Peptide 353 H ( - 100) pg/mL Total Protein 7.9 (6.4-8.9) g/dL Albumin 2.5 L (3.2-5.2) g/dL Globulin 5.4 H (2-4) g/dL Albumin/Globulin Ratio 0.5 L (1-3) Influenza A (Rapid) (Negative) Influenza B (Rapid) (Negative) Microbiology and Other Data: Microbiology 07/10/17 01:30 Skin and Soft Tissue MRSA/MSSA (PCR - Final Leg Left Mrsa Negative S.aureus Positive Gram Stain - Final Wound Culture - Preliminary Staphylococcus Aureus 07/10/17 01:30 Stool Gross Appearance - Final Stool 07/10/17 01:30 Skin and Soft Tissue MRSA/MSSA (PCR - Final Leg Right Mrsa Negative S.aureus Positive Gram Stain - Final 07/10/17 01:30 Skin and Soft Tissue MRSA/MSSA (PCR - Final Abdomen Mrsa Negative S.aureus Positive Gram Stain - Final Assess/Plan/Problems-Billing Ms. Harris is a 62 yo female with PMH asthma, COPD, hypothyroidism, morbid obesity, sleep apnea, possible DHF who presented to the emergency room with complaints of shortness of breath. - Patient Problems (1) Acute diastolic (congestive) heart failure Current Visit: Yes Status: Acute Code(s): I50.31 - ACUTE DIASTOLIC ( CONGESTIVE) HEART FAILURE SNOMED Code(s): 282856027 Comment: She is now off diuretics and appears euvolemic. Need to reassess need for diuretics upon discharge. (2) KATHERINE (acute kidney injury) Current Visit: Yes Status: Acute Code(s): N17.9 - ACUTE KIDNEY FAILURE, UNSPECIFIED SNOMED Code(s): 41582680 Comment: resolving off diuresis. (3) Cellulitis Current Visit: Yes Status: Acute Code(s): L03.90 - CELLULITIS, UNSPECIFIED SNOMED Code(s): 548998845 Comment: Last day of clindamycin is 07/16/17. (4) Morbid obesity Current Visit: Yes Status: Chronic Code(s): E66.01 - MORBID (SEVERE) OBESITY DUE TO EXCESS CALORIES SNOMED Code(s): 573538451 Comment: BMI 63.5. (5) COPD (chronic obstructive pulmonary disease) Current Visit: No Status: Chronic Code(s): J44.9 - CHRONIC OBSTRUCTIVE PULMONARY DISEASE, UNSPECIFIED SNOMED Code(s): 35286382 Comment: No signs of acute exacerbation at this time. Continue spiriva, asmanex and albuterol PRN. Status and Disposition: plan for home hospice tomorrow
[2017-07-15] MEDS: Mometasone 220 MCG MDI INH SCH (20:11)
[2017-07-15] MEDS: Gabapentin CAP(*) 300 MG PO SCH (20:30)
[2017-07-16] MEDS: Heparin VIAL(*) 5000 UNITS/ML VIAL (FIVE THOUSAND) SUBCUT SCH ×3 (06:03→22:08)
[2017-07-16] MEDS: Levothyroxine TAB* 112 MCG TAB PO SCH (06:03)
[2017-07-16] MEDS: Lactobacillus Acidophilu (GG)* 1 CAP CAP PO SCH (09:28)
[2017-07-16] MEDS: traMADol TAB* 50 MG PO SCH ×2 (09:28→22:09)
[2017-07-16] MEDS: Cyanocobalamin TAB* 500 MCG PO SCH (09:29)
[2017-07-16] MEDS: Clindamycin CAP* 150 MG PO SCH ×3 (09:29→22:08)
[2017-07-16] MEDS: Triamcinolone 0.025% OINT * 15 GM TUBE TOPICAL SCH ×2 (09:29→22:10)
[2017-07-16] MEDS: Nystatin CREAM* 15 GM TUBE TOPICAL SCH ×2 (09:29→22:10)
[2017-07-16] MEDS: Tiotropium CAP.INH* CAP.INH/18 MCG (USE ORDER SET !) INH SCH (14:14)
--- NOTE | 2017-07-16 15:13 | PN ---
Subjective Date of Service: 07/16/17 Interval History: feels good, anxious to go home. no complaints. Family History: Unchanged from Admission Social History: Unchanged from Admission Past Medical History: Unchanged from Admission Objective Active Medications: Albuterol (Ventolin Hfa Inhaler*) 1 puff INH BID PRN PRN Reason: SHORTNESS OF BREATH Last Admin: 07/13/17 07:42 Dose: 1 puff Albuterol/Ipratropium (Duoneb (Albuterol 2.5 Mg/Ipratropium 0.5 Mg)) 1 neb INH Q4H PRN PRN Reason: SOB/WHEEZING Clindamycin HCl (Cleocin Cap*) 300 mg PO TID [facility] Last Admin: 07/16/17 09:29 Dose: 300 mg Cyanocobalamin (Vitamin B12 Tab*) 1,000 mcg PO DAILY [facility] Last Admin: 07/16/17 09:29 Dose: 1,000 mcg Gabapentin (Neurontin Cap(*)) 300 mg PO BEDTIME [facility] Last Admin: 07/15/17 20:30 Dose: 300 mg Guaifenesin (Robitussin*) 5 ml PO Q6H PRN PRN Reason: COUGH Last Admin: 07/14/17 10:30 Dose: 5 ml Heparin Sodium (Porcine) (Heparin Vial(*)) 5,000 units SUBCUT Q8HR [facility] Last Admin: 07/16/17 06:03 Dose: 5,000 units Lactobacillus Rhamnosus (Culturelle*) 1 cap PO DAILY [facility] Last Admin: 07/16/17 09:28 Dose: 1 cap Levothyroxine Sodium (Synthroid Tab*) 112 mcg PO DAILY@0600 [facility] Last Admin: 07/16/17 06:03 Dose: 112 mcg Mometasone Furoate (Asmanex 220 Mcg Mdi *) 2 puff INH BEDTIME [facility] Last Admin: 07/15/17 20:11 Dose: 2 puff Nystatin (Nystatin Cream*) 1 applic TOPICAL BID [facility] Last Admin: 07/16/17 09:29 Dose: 1 applic Tiotropium Perry (Spiriva Cap.Inh*) 1 cap INH 0900 [facility] Last Admin: 07/16/17 14:14 Dose: Not Given Tramadol HCl (Ultram*) 50 mg PO BID [facility] Last Admin: 07/16/17 09:28 Dose: 50 mg Triamcinolone Acetonide (Triamcinolone 0.025% Oint *) 1 applic TOPICAL BID D[facility]OS Last Admin: 07/16/17 09:29 Dose: 1 applic Vital Signs - 8 hr 07/16/17 07/16/17 07/16/17 08:00 08:32 08:51 Temperature 98.5 F Pulse Rate Respiratory 18 16 Rate Blood Pressure 140/63 (mmHg) O2 Sat by Pulse 96 97 96 Oximetry 07/16/17 07/16/17 09:28 11:13 Temperature 99.0 F Pulse Rate 73 Respiratory 18 16 Rate Blood Pressure 131/63 (mmHg) O2 Sat by Pulse 94 Oximetry Oxygen Devices in Use Now: Nasal Cannula Appearance: obese, comfortable Eyes: No Scleral Icterus Ears/Nose/Mouth/Throat: NL Teeth, Lips, Gums Neck: NL Appearance and Movements; NL JVP Respiratory: Symmetrical Chest Expansion and Respiratory Effort Cardiovascular: NL Sounds; No Murmurs; No JVD Abdominal: NL Sounds; No Tenderness; No Distention Lymphatic: No Cervical Adenopathy Extremities: - - chronic venous stasis skin changes, some erythema L>R, improving Neurological: Alert and Oriented x 3 Result Diagrams: 07/14/17 06:12 07/14/17 06:13 Additional Lab and Data: Lab Results 07/09/17 07/09/17 07/09/17 Range/Units 19:40 19:48 19:48 WBC 21.0 H (3.5-10.8) 10^3/ul RBC 3.13 L (4.0-5.4) 10^6/ul Hgb 8.7 L (12.0-16.0) g/dl Hct 27 L (35-47) % MCV 87 (80-97) fL MCH 28 (27-31) pg MCHC 32 (31-36) g/dl RDW 19 H (10.5-15) % Plt Count 256 (150-450) 10^3/ul MPV 8 (7.4-10.4) um3 Neut % (Auto) 94.2 H (38-83) % Lymph % (Auto) 1.8 L (25-47) % Roosevelt % (Auto) 3.8 (1-9) % Eos % (Auto) 0.1 (0-6) % Baso % (Auto) 0.1 (0-2) % Absolute Neuts (auto) 19.8 H (1.5-7.7) 10^3/ul Absolute Lymphs (auto) 0.4 L (1.0-4.8) 10^3/ul Absolute Monos (auto) 0.8 (0-0.8) 10^3/ul Absolute Eos (auto) 0 (0-0.6) 10^3/ul Absolute Basos (auto) 0 (0-0.2) 10^3/ul Absolute Nucleated RBC 0 10^3/ul Nucleated RBC % 0.2 INR (Anticoag Therapy) 1.25 H (0.77-1.02) APTT 32.4 (26.0-36.3) seconds Sodium (133-145) mmol/L Potassium (3.5-5.0) mmol/L Chloride (101-111) mmol/L Carbon Dioxide (22-32) mmol/L Anion Gap (2-11) mmol/L BUN (6-24) mg/dL Creatinine (0.51-0.95) mg/dL Est GFR ( Amer) (>60) Est GFR (Non-Af Amer) (>60) BUN/Creatinine Ratio (8-20) Glucose (70-100) mg/dL Lactic Acid (0.5-2.0) mmol/L Calcium (8.6-10.3) mg/dL Total Bilirubin (0.2-1.0) mg/dL AST (13-39) U/L ALT (7-52) U/L Alkaline Phosphatase (34-104) U/L Troponin I (<0.04) ng/mL C-Reactive Protein (< 5.00) mg/L B-Natriuretic Peptide ( - 100) pg/mL Total Protein (6.4-8.9) g/dL Albumin (3.2-5.2) g/dL Globulin (2-4) g/dL Albumin/Globulin Ratio (1-3) Influenza A (Rapid) Negative (Negative) Influenza B (Rapid) Negative (Negative) 07/09/17 07/09/17 07/09/17 Range/Units 19:48 19:48 19:48 WBC (3.5-10.8) 10^3/ul RBC (4.0-5.4) 10^6/ul Hgb (12.0-16.0) g/dl Hct (35-47) % MCV (80-97) fL MCH (27-31) pg MCHC (31-36) g/dl RDW (10.5-15) % Plt Count (150-450) 10^3/ul MPV (7.4-10.4) um3 Neut % (Auto) (38-83) % Lymph % (Auto) (25-47) % Roosevelt % (Auto) (1-9) % Eos % (Auto) (0-6) % Baso % (Auto) (0-2) % Absolute Neuts (auto) (1.5-7.7) 10^3/ul Absolute Lymphs (auto) (1.0-4.8) 10^3/ul Absolute Monos (auto) (0-0.8) 10^3/ul Absolute Eos (auto) (0-0.6) 10^3/ul Absolute Basos (auto) (0-0.2) 10^3/ul Absolute Nucleated RBC 10^3/ul Nucleated RBC % INR (Anticoag Therapy) (0.77-1.02) APTT (26.0-36.3) seconds Sodium 138 (133-145) mmol/L Potassium 3.7 (3.5-5.0) mmol/L Chloride 104 (101-111) mmol/L Carbon Dioxide 27 (22-32) mmol/L Anion Gap 7 (2-11) mmol/L BUN 13 (6-24) mg/dL Creatinine 1.35 H (0.51-0.95) mg/dL Est GFR ( Amer) 50.8 (>60) Est GFR (Non-Af Amer) 39.5 (>60) BUN/Creatinine Ratio 9.6 (8-20) Glucose 122 H (70-100) mg/dL Lactic Acid 3.5 H* (0.5-2.0) mmol/L Calcium 8.2 L (8.6-10.3) mg/dL Total Bilirubin 0.60 (0.2-1.0) mg/dL AST 45 H (13-39) U/L ALT 15 (7-52) U/L Alkaline Phosphatase 83 (34-104) U/L Troponin I 0.05 H* (<0.04) ng/mL C-Reactive Protein 52.12 H (< 5.00) mg/L B-Natriuretic Peptide 353 H ( - 100) pg/mL Total Protein 7.9 (6.4-8.9) g/dL Albumin 2.5 L (3.2-5.2) g/dL Globulin 5.4 H (2-4) g/dL Albumin/Globulin Ratio 0.5 L (1-3) Influenza A (Rapid) (Negative) Influenza B (Rapid) (Negative) Microbiology and Other Data: Microbiology 07/10/17 01:30 Skin and Soft Tissue MRSA/MSSA (PCR - Final Leg Left Mrsa Negative S.aureus Positive Gram Stain - Final Wound Culture - Preliminary Staphylococcus Aureus 07/10/17 01:30 Stool Gross Appearance - Final Stool 07/10/17 01:30 Skin and Soft Tissue MRSA/MSSA (PCR - Final Leg Right Mrsa Negative S.aureus Positive Gram Stain - Final 07/10/17 01:30 Skin and Soft Tissue MRSA/MSSA (PCR - Final Abdomen Mrsa Negative S.aureus Positive Gram Stain - Final Assess/Plan/Problems-Billing Ms. Harris is a 62 yo female with PMH asthma, COPD, hypothyroidism, morbid obesity, sleep apnea, possible DHF who presented to the emergency room with complaints of shortness of breath. - Patient Problems (1) Acute diastolic (congestive) heart failure Current Visit: Yes Status: Acute Code(s): I50.31 - ACUTE DIASTOLIC ( CONGESTIVE) HEART FAILURE SNOMED Code(s): 719812972 Comment: She is euvolemic after iv diuresis. Plan to start home dose of lasix tomorrow. (2) KATHERINE (acute kidney injury) Current Visit: Yes Status: Acute Code(s): N17.9 - ACUTE KIDNEY FAILURE, UNSPECIFIED SNOMED Code(s): 90613699 Comment: resolved. (3) Cellulitis Current Visit: Yes Status: Acute Code(s): L03.90 - CELLULITIS, UNSPECIFIED SNOMED Code(s): 146055673 Comment: Tomorrow is the last day of clindamycin (07/17/17) for 7 days total. (4) Morbid obesity Current Visit: Yes Status: Chronic Code(s): E66.01 - MORBID (SEVERE) OBESITY DUE TO EXCESS CALORIES SNOMED Code(s): 846479749 Comment: BMI 63.5. (5) COPD (chronic obstructive pulmonary disease) Current Visit: No Status: Chronic Code(s): J44.9 - CHRONIC OBSTRUCTIVE PULMONARY DISEASE, UNSPECIFIED SNOMED Code(s): 56333857 Comment: No signs of acute exacerbation at this time. Continue spiriva, asmanex and albuterol PRN. Status and Disposition: plan for home hospice tomorrow--was unable to go today due to weather conditions
[2017-07-16] MEDS: Mometasone 220 MCG MDI INH SCH (20:14)
[2017-07-16] MEDS: Gabapentin CAP(*) 300 MG PO SCH (22:09)
[2017-07-17] MEDS: Heparin VIAL(*) 5000 UNITS/ML VIAL (FIVE THOUSAND) SUBCUT SCH (04:40)
[2017-07-17 04:52] VITALS: BP 122/58
[2017-07-17] MEDS: Levothyroxine TAB* 112 MCG TAB PO SCH (05:42)
[2017-07-17] MEDS: Lactobacillus Acidophilu (GG)* 1 CAP CAP PO SCH (08:00)
[2017-07-17] MEDS: guaiFENesin LIQ* 100 MG/5 ML UDC PO PRN (08:00)
[2017-07-17] MEDS: Nystatin CREAM* 15 GM TUBE TOPICAL SCH (08:00)
[2017-07-17] MEDS: Clindamycin CAP* 150 MG PO SCH (08:00)
[2017-07-17] MEDS: Cyanocobalamin TAB* 500 MCG PO SCH (08:00)
[2017-07-17] MEDS: traMADol TAB* 50 MG PO SCH (08:01)
[2017-07-17] MEDS: Triamcinolone 0.025% OINT * 15 GM TUBE TOPICAL SCH (08:01)
[2017-07-17] MEDS ORDERED: Furosemide TAB* 20 MG PO SCH (09:00)
--- NOTE | 2017-07-19 05:59 | DS ---
DISCHARGE SUMMARY: DATE OF ADMISSION: 07/09/17 DATE OF DISCHARGE: 07/17/17 PRINCIPAL DISCHARGE DIAGNOSIS: Acute decompensated heart failure and left lower extremity cellulitis. SECONDARY DISCHARGE DIAGNOSES: 1. Obstructive sleep apnea/obesity hypoventilation syndrome. 2. Morbid obesity. 3. Chronic obstructive pulmonary disease. 4. Hypothyroidism. 5. Irritable bowel syndrome. DISCHARGE MEDICATIONS: 1. Vitamin B12 1000 mcg daily. 2. Tramadol 60 mg b.i.d. 3. Spiriva 1 cap inhale daily. 4. Gabapentin 300 mg q.h.s. 5. Flovent 1 puff b.i.d. 6. Levothyroxine 100 mcg daily. 7. Albuterol 1 puff b.i.d. p.r.n. HOSPITAL COURSE: 1. Left lower extremity cellulitis. She has severe bilateral lower extremity chronic venous stasis changes, however, at admission, her left lower extremity was noted to be erythematous with warmth and she has leukocytosis to 21,000 at admission. This was thought to be the etiology of her SIRS criteria. She was started on clindamycin at admission and was continued with marked improvement in her left lower extremity. She completed a 7-day course of clindamycin and at the time of discharge, her left lower extremity erythema has resolved. 2. Acute on chronic hypoxic respiratory failure, likely secondary to volume overload. She had been on a low-dose diuretic, but expressed dietary nonadherence. Her chest x-ray showed pulmonary edema, so she received IV diuresis during this admission with improvement in her baseline oxygen requirement which is 2 L nocturnally. 3. COPD. There was no evidence of exacerbation on this admission. She was continued on Spiriva, Flovent, and p.r.n. albuterol. 4. Disposition: During this admission, discussion was held about her decision making capacity, so she was evaluated by Psychiatry who believed her not to have capacity to refuse assisted facility at discharge. However, she was also evaluated by Dr. Marin, who discussed hospice with her to which she was agreeable. She spoke with her daughter, Lyndsay with her primary cold meat cook who is currently employed as a planning specialist cold meat cook for [employer]. She agreed that she could take her back home with hospice services and provide for her there instead of her going to a assisted facility. This was agreed upon by all parties. So, Ms. Harris was discharged to home with hospice on 07/17/17. [id number]/[facility] #: [id number] HUMAIRA
== END 2017-07-17 08:45 | disposition hospice, home (50) | DRG 602 ==
LOC: ED 18:37 → MEDTELE 21:48 → MED 07-14 17:11
PROVIDERS: ADMIT Nurse Practitioner Adult Health; ATTEND Internal Medicine
DX: L03.116 Cellulitis of left lower limb (principal); J96.01 Acute respiratory failure with hypoxia; J96.21 Acute and chronic respiratory failure with hypoxia; I50.33 Acute on chronic diastolic (congestive) heart failure; I95.9 Hypotension, unspecified; E87.2 Acidosis; E46 Unspecified protein-calorie malnutrition; E66.2 Morbid (severe) obesity with alveolar hypoventilation; Z68.44 Body mass index [BMI] 60.0-69.9, adult; Z99.81 Dependence on supplemental oxygen; B95.61 Methicillin susceptible Staphylococcus aureus infection as the cause of diseases classified elsewhere; D64.9 Anemia, unspecified; Z82.61 Family history of arthritis; E03.9 Hypothyroidism, unspecified; K58.9 Irritable bowel syndrome, unspecified; I87.8 Other specified disorders of veins; I45.10 Unspecified right bundle-branch block; Z66 Do not resuscitate; R32 Unspecified urinary incontinence; R74.8 Abnormal levels of other serum enzymes; N18.9 Chronic kidney disease, unspecified; J43.9 Emphysema, unspecified; Z88.1 Allergy status to other antibiotic agents; Z88.0 Allergy status to penicillin; Z86.14 Personal history of Methicillin resistant Staphylococcus aureus infection; Z56.0 Unemployment, unspecified; Z87.891 Personal history of nicotine dependence; Z99.3 Dependence on wheelchair; Z90.49 Acquired absence of other specified parts of digestive tract; Z91.11 Patient's noncompliance with dietary regimen
CPT/HCPCS: 36415; 71045; 76775; 80048; 80053; 81003; 81015; 82570; 83605; 83880; 84145; 84300; 84443; 84484; 85025; 85027; 85610; 85730; 86140; 87040; 87045; 87046; 87070; 87076; 87077; 87086; 87106; 87186; 87205; 87502; 87640; 87641; 87899; 93005; 94640; 94760; 99285; A9270-GY; J0461; J1644

== ENCOUNTER 2017-09-17 16:55 | Inpatient (IN) | payer MEDICAID, MEDICARE, OTHER ==
[2017-09-17] MEDS ORDERED: Clindamycin 900 MG IVPREMIX(* 900 MG/50 ML SDV IV ONE (17:37)
[2017-09-17] MEDS ORDERED: NS 0.9% 1000 ML* 1,000 ML IV ONE (17:37)
[2017-09-17 18:05] LABS: ABS Basophils 0.1 10^3/ul (0-0.2); ABS Eosinophils 0.3 10^3/ul (0-0.6); ABS Lymphocytes 1.1 10^3/ul (1.0-4.8); ABS Monocytes 0.7 10^3/ul (0-0.8); ABS Neutrophils 12.9 10^3/ul (1.5-7.7); ABS Nucleated RBC 0 10^3/ul; Eosinophil % 2.2 % (0-6); Hematocrit 25 % (35-47); Hemoglobin 7.9 g/dl (12.0-16.0); Lymphocyte % 7.2 % (25-47); Mean Corpuscular HGB Conc 31 g/dl (31-36); Mean Corpuscular Hemoglobin 29 pg (27-31); Mean Corpuscular Volume 93 fL (80-97); Nucleated Red Blood Cells % 0.1; Platelet Count 400 10^3/ul (150-450); Red Blood Count 2.71 10^6/ul (4.0-5.4); Red Cell Distribution Width 20 % (10.5-15); White Blood Count 15.2 10^3/ul (3.5-10.8)
[2017-09-17 18:14] LABS: INR 1.29 (0.77-1.02)
--- NOTE | 2017-09-17 19:01 | RAD ---
INDICATION: Suprapubic pannus cellulitis. COMPARISON: January 09, 2009 TECHNIQUE: Multidetector CT images were obtained from the lung bases to the ischial tuberosities. Evaluation of the viscera is limited without IV contrast. Multiplanar reformation. REPORT: Obese body habitus limits image quality. Visualized inferior thorax is remarkable for cardiomegaly and interstitial pulmonary fibrosis with subpleural honeycombing with worsening compared with the 2009 exam. Negative for pleural effusions. Post cholecystectomy. No gross abnormality of the unenhanced liver. Atrophic pancreas without suspicious finding. 17.5 cm enlarged spleen significantly increased in size over the prior exam. No compelling CT abnormality of the upper GI, small bowel, or infra cecal appendix. Unremarkable colon with moderate retained stool. Trace ascites. Infiltrative edema at the RIGHT upper quadrant abdominal fat including at the postcholecystectomy gallbladder fossa and Morison's pouch. No loculated peritoneal abscess collection evident. Negative for free peritoneal air or significant hernias. Unremarkable adrenal glands. Negative for hydronephrosis, conspicuous stones, or focal renal lesions. Unremarkable nondilated ureters. Catheterized decompressed urinary bladder limiting assessment without gross abnormality. Unremarkable anteverted uterus and adnexal regions. Top normal 1 cm short axis retrocaval lymph node below level of the renal vessels without significant change. Negative for lymphadenopathy. Negative for aortoiliac aneurysm. Largely decompressed IVC indicating lower volume state. Extensive infiltrative edema at the RIGHT mons pubis with associated subcutaneous edema extending to a packed wound at the RIGHT anterior groin. No loculated abscess collection evident. Negative for suspicious osseous lesions. IMPRESSION: 1. Cardiomegaly and pulmonary fibrosis. 2. Infiltrative edema at the RIGHT upper quadrant abdominal fat including at the postcholecystectomy gallbladder fossa and Morison's pouch. No loculated peritoneal abscess collection evident. The edema may be secondary to CT occult duodenitis or pancreatitis. Correlate with clinical and laboratory assessment. 3. Extensive infiltrative edema at the RIGHT mons pubis with associated subcutaneous edema extending to a packed wound at the RIGHT anterior groin. No loculated abscess collection evident.
--- NOTE | 2017-09-17 19:17 | RAD ---
Indication: Suprapubic cellulitis. Comparison: CT abdomen of the same date and July 09, 2017 chest radiograph. Technique: Sitting AP chest 1837 hours Report: Moderately severe coarsened interstitial markings without change with honeycombing evident CT consistent with pulmonary fibrosis. The appearance is without significant change compared with the July 09, 2017 chest radiograph. Negative for pleural effusion or pneumothorax. Cardiomegaly. Ill-defined central pulmonary vasculature. Unremarkable mediastinal contours. IMPRESSION: 1. Interstitial pulmonary fibrosis. 2. Potential pulmonary vascular congestion and interstitial edema.
[2017-09-17 20:34] LABS: Urine Appearance Cloudy; Urine Blood 2+ (Negative); Urine Color Yellow; Urine Ketones Negative (Negative); Urine Protein 1+(30 mg/dL) (Negative); Urine Specific Gravity 1.014 (1.010-1.030); Urine Urobilinogen Negative (Negative)
--- NOTE | 2017-09-17 21:44 | ED ---
Tej Mays Thomas, scribed for Anand Gautam MD on 09/17/17 at 1759 . Skin Complaint - HPI Summary HPI Summary: The patient is a 62 year old female with a history of COPD in hospice care. She presents today because in her suprapubic pannus, there is purulent drainage, erythema, and skin breakdown. - History of Current Complaint Chief Complaint: EDRashSkinAbscess Time Seen by Provider: 09/17/17 17:17 Stated Complaint: POSSIBLE INFECTION Hx Obtained From: Patient Onset/Duration: Still Present Timing: Constant Onset Severity: Severe Pain Intensity: 8 Pain Scale Used: 0-10 Numeric Skin Location: Other: - suprapubic pannus Character: Pain Alleviating Symptom(s): Nothing Associated Signs & Symptoms: Negative - fever Related History: Other: - Hx COPD on hospice care - Additional Pertinent History Primary Care Physician: DANIELLE - Allergy/Home Medications Allergies/Adverse Reactions: Allergies Allergy/AdvReac Type Severity Reaction Status Date / Time erythromycin base Allergy Mild Rash Verified 07/11/17 11:32 Penicillins Allergy Mild Rash Verified 07/11/17 11:32 Home Medications: Home Medications Albuterol HFA INHALER* [Ventolin HFA Inhaler*] 2 puff INH Q4H PRN 09/17/17 [ History Confirmed 09/17/17] Fluconazole 150 MG (NF) [Diflucan 150 mg (NF)] 150 mg PO WEEKLY 09/17/17 [ History Confirmed 09/17/17] Fluticasone HFA 220 mcg(NF) [Flovent HFA 220 Mcg(NF)] 1 puff INH BID 09/17/17 [ History Confirmed 09/17/17] Gabapentin CAP(*) [Neurontin 300 CAP(*)] 600 mg PO DAILY 09/17/17 [History Confirmed 09/17/17] Levothyroxine TAB* [Synthroid TAB*] 100 mcg PO DAILY 09/17/17 [History Confirmed 09/17/17] Loperamide CAP* [Imodium CAP*] 2 mg PO Q4H PRN MDD 4 caps 09/17/17 [History Confirmed 09/17/17] Morphine Sulfate [Morphine Sulfate ER] 15 mg PO BID PRN 09/17/17 [History Confirmed 09/17/17] Sulfamethox/Trimethoprim DS* [Bactrim DS 800/160 TAB*] 1 tab PO BID 09/17/17 [ History Confirmed 09/17/17] PMH/Surg Hx/FS Hx/Imm Hx Endocrine/Hematology History: Reports: Hx Thyroid Disease Respiratory History: Reports: Hx Asthma, Hx Chronic Obstructive Pulmonary Disease (COPD), Hx Sleep Apnea Sensory History: Denies: Hx Contacts or Glasses, Hx Deafness, Hx Hearing Aid, Hx Hearing Problem Opthamlomology History: Denies: Hx Contacts or Glasses - Surgical History Surgery Procedure, Year, and Place: Gallbladder, C sections Infectious Disease History: Yes Infectious Disease History: Reports: Hx of Known/Suspected MRSA Denies: Traveled Outside the [place] in Last 30 Days - Family History Known Family History: Positive: Other - Positive for RA. Father of PNA. Negative: Renal Disease, Respiratory Disease, Seizure Disorder - Social History Alcohol Use: Rare Hx Substance Use: No Substance Use Type: Reports: None Hx Tobacco Use: Yes Smoking Status (MU): Former Smoker Review of Systems Negative: Fever Positive: Other - Drainage, erythema, and skin breakdown to suprapubic pannus All Other Systems Reviewed And Are Negative: Yes Physical Exam - Summary Physical Exam Summary: General: No pain distress. She is quiet but responsive to voice. Skin: In her suprapubic pannus, there is purulent drainage, erythema, and skin breakdown. Head: normal Eyes: EOMI, LA ENT: normal Neck: supple, nontender Respiratory: CTA, breath sounds present Cardiovascular: RRR Abdomen: soft, nontender Bowel: present Musculoskeletal: normal, strength/ROM intact Neurological: normal, sensory/motor intact, A&O x3 Psychological: She is quiet but responsive to voice. Triage Information Reviewed: Yes Vital Signs On Initial Exam: Initial Vitals Temp Pulse Resp BP Pulse Ox 97.9 F 81 14 85/72 94 09/17/17 17:11 09/17/17 17:11 09/17/17 17:11 09/17/17 17:11 09/17/17 17:11 Vital Signs Reviewed: Yes Diagnostics - Vital Signs Vital Signs Temp Pulse Resp BP Pulse Ox 09/17/17 17:11 97.9 F 81 14 85/72 94 - Laboratory Lab Results: Lab Results 09/17/17 09/17/17 09/17/17 Range/Units 17:55 17:55 17:55 WBC 15.2 H (3.5-10.8) 10^3/ul RBC 2.71 L (4.0-5.4) 10^6/ul Hgb 7.9 L (12.0-16.0) g/dl Hct 25 L (35-47) % MCV 93 (80-97) fL MCH 29 (27-31) pg MCHC 31 (31-36) g/dl RDW 20 H (10.5-15) % Plt Count 400 (150-450) 10^3/ul MPV 7.0 L (7.4-10.4) um3 Neut % (Auto) 85.1 H (38-83) % Lymph % (Auto) 7.2 L (25-47) % [place] % (Auto) 4.8 (0-7) % Eos % (Auto) 2.2 (0-6) % Baso % (Auto) 0.7 (0-2) % Absolute Neuts (auto) 12.9 H (1.5-7.7) 10^3/ul Absolute Lymphs (auto) 1.1 (1.0-4.8) 10^3/ul Absolute Monos (auto) 0.7 (0-0.8) 10^3/ul Absolute Eos (auto) 0.3 (0-0.6) 10^3/ul Absolute Basos (auto) 0.1 (0-0.2) 10^3/ul Absolute Nucleated RBC 0 10^3/ul Nucleated RBC % 0.1 INR (Anticoag Therapy) 1.29 H (0.77-1.02) APTT 33.5 (26.0-36.3) seconds Sodium 136 L (139-145) mmol/L Potassium 5.4 H (3.5-5.0) mmol/L Chloride 101 (101-111) mmol/L Carbon Dioxide 33 H (22-32) mmol/L Anion Gap 2 (2-11) mmol/L BUN 37 H (6-24) mg/dL Creatinine 1.10 H (0.51-0.95) mg/dL Est GFR ( Amer) 64.3 (>60) Est GFR (Non-Af Amer) 50.0 (>60) BUN/Creatinine Ratio 33.6 H (8-20) Glucose 95 (70-100) mg/dL Lactic Acid (0.5-2.0) mmol/L Calcium 8.5 L (8.6-10.3) mg/dL Total Bilirubin 0.30 (0.2-1.0) mg/dL AST 44 H (13-39) U/L ALT 19 (7-52) U/L Alkaline Phosphatase 93 (34-104) U/L Troponin I 0.06 H* (<0.04) ng/mL C-Reactive Protein 161.81 H (< 5.00) mg/L B-Natriuretic Peptide ( - 100) pg/mL Total Protein 9.6 H (6.4-8.9) g/dL Albumin 2.1 L (3.2-5.2) g/dL Globulin 7.5 H (2-4) g/dL Albumin/Globulin Ratio 0.3 L (1-3) Lipase 11 (11.0-82.0) U/L Procalcitonin (<0.6) ng/mL Urine Color Urine Appearance Urine pH (5-9) Ur Specific [place] (1.010-1.030) Urine Protein (Negative) Urine Ketones (Negative) Urine Blood (Negative) Urine Nitrate (Negative) Urine Bilirubin (Negative) Urine Urobilinogen (Negative) Ur Leukocyte Esterase (Negative) Urine WBC (Auto) (Absent) Urine RBC (Auto) (Absent) Amorphous Crystals (Absent) Urine Bacteria (Absent) Hyaline Casts (Absent) Granular Casts (Absent) Urine Glucose (Negative) 09/17/17 09/17/17 09/17/17 Range/Units 17:55 17:55 17:55 WBC (3.5-10.8) 10^3/ul RBC (4.0-5.4) 10^6/ul Hgb (12.0-16.0) g/dl Hct (35-47) % MCV (80-97) fL MCH (27-31) pg MCHC (31-36) g/dl RDW (10.5-15) % Plt Count (150-450) 10^3/ul MPV (7.4-10.4) um3 Neut % (Auto) (38-83) % Lymph % (Auto) (25-47) % [place] % (Auto) (0-7) % Eos % (Auto) (0-6) % Baso % (Auto) (0-2) % Absolute Neuts (auto) (1.5-7.7) 10^3/ul Absolute Lymphs (auto) (1.0-4.8) 10^3/ul Absolute Monos (auto) (0-0.8) 10^3/ul Absolute Eos (auto) (0-0.6) 10^3/ul Absolute Basos (auto) (0-0.2) 10^3/ul Absolute Nucleated RBC 10^3/ul Nucleated RBC % INR (Anticoag Therapy) (0.77-1.02) APTT (26.0-36.3) seconds Sodium (139-145) mmol/L Potassium (3.5-5.0) mmol/L Chloride (101-111) mmol/L Carbon Dioxide (22-32) mmol/L Anion Gap (2-11) mmol/L BUN (6-24) mg/dL Creatinine (0.51-0.95) mg/dL Est GFR ( Amer) (>60) Est GFR (Non-Af Amer) (>60) BUN/Creatinine Ratio (8-20) Glucose (70-100) mg/dL Lactic Acid 1.2 (0.5-2.0) mmol/L Calcium (8.6-10.3) mg/dL Total Bilirubin (0.2-1.0) mg/dL AST (13-39) U/L ALT (7-52) U/L Alkaline Phosphatase (34-104) U/L Troponin I (<0.04) ng/mL C-Reactive Protein (< 5.00) mg/L B-Natriuretic Peptide 332 H ( - 100) pg/mL Total Protein (6.4-8.9) g/dL Albumin (3.2-5.2) g/dL Globulin (2-4) g/dL Albumin/Globulin Ratio (1-3) Lipase (11.0-82.0) U/L Procalcitonin 0.4 (<0.6) ng/mL Urine Color Urine Appearance Urine pH (5-9) Ur Specific [place] (1.010-1.030) Urine Protein (Negative) Urine Ketones (Negative) Urine Blood (Negative) Urine Nitrate (Negative) Urine Bilirubin (Negative) Urine Urobilinogen (Negative) Ur Leukocyte Esterase (Negative) Urine WBC (Auto) (Absent) Urine RBC (Auto) (Absent) Amorphous Crystals (Absent) Urine Bacteria (Absent) Hyaline Casts (Absent) Granular Casts (Absent) Urine Glucose (Negative) 09/17/17 Range/Units 19:00 WBC (3.5-10.8) 10^3/ul RBC (4.0-5.4) 10^6/ul Hgb (12.0-16.0) g/dl Hct (35-47) % MCV (80-97) fL MCH (27-31) pg MCHC (31-36) g/dl RDW (10.5-15) % Plt Count (150-450) 10^3/ul MPV (7.4-10.4) um3 Neut % (Auto) (38-83) % Lymph % (Auto) (25-47) % [place] % (Auto) (0-7) % Eos % (Auto) (0-6) % Baso % (Auto) (0-2) % Absolute Neuts (auto) (1.5-7.7) 10^3/ul Absolute Lymphs (auto) (1.0-4.8) 10^3/ul Absolute Monos (auto) (0-0.8) 10^3/ul Absolute Eos (auto) (0-0.6) 10^3/ul Absolute Basos (auto) (0-0.2) 10^3/ul Absolute Nucleated RBC 10^3/ul Nucleated RBC % INR (Anticoag Therapy) (0.77-1.02) APTT (26.0-36.3) seconds Sodium (139-145) mmol/L Potassium (3.5-5.0) mmol/L Chloride (101-111) mmol/L Carbon Dioxide (22-32) mmol/L Anion Gap (2-11) mmol/L BUN (6-24) mg/dL Creatinine (0.51-0.95) mg/dL Est GFR ( Amer) (>60) Est GFR (Non-Af Amer) (>60) BUN/Creatinine Ratio (8-20) Glucose (70-100) mg/dL Lactic Acid (0.5-2.0) mmol/L Calcium (8.6-10.3) mg/dL Total Bilirubin (0.2-1.0) mg/dL AST (13-39) U/L ALT (7-52) U/L Alkaline Phosphatase (34-104) U/L Troponin I (<0.04) ng/mL C-Reactive Protein (< 5.00) mg/L B-Natriuretic Peptide ( - 100) pg/mL Total Protein (6.4-8.9) g/dL Albumin (3.2-5.2) g/dL Globulin (2-4) g/dL Albumin/Globulin Ratio (1-3) Lipase (11.0-82.0) U/L Procalcitonin (<0.6) ng/mL Urine Color Yellow Urine Appearance Cloudy Urine pH 5.0 (5-9) Ur Specific [place] 1.014 (1.010-1.030) Urine Protein 1+(30 mg/dl) A (Negative) Urine Ketones Negative (Negative) Urine Blood 2+ A (Negative) Urine Nitrate Positive A (Negative) Urine Bilirubin Negative (Negative) Urine Urobilinogen Negative (Negative) Ur Leukocyte Esterase Negative (Negative) Urine WBC (Auto) 2+(11-20/hpf) A (Absent) Urine RBC (Auto) 3+(>10/hpf) A (Absent) Amorphous Crystals Present A (Absent) Urine Bacteria 3+ A (Absent) Hyaline Casts Present A (Absent) Granular Casts Present A (Absent) Urine Glucose Negative (Negative) Result Diagrams: 09/17/17 17:55 09/17/17 17:55 Lab Statement: Any lab studies that have been ordered have been reviewed, and results considered in the medical decision making process. - Radiology CXR Xray Interpretation: Positive (See Comments) - IMPRESSION: 1. Interstitial pulmonary fibrosis. 2. Potential pulmonary vascular congestion and interstitial edema. Dr. Gautam has reviewed this report. Radiology Interpretation Completed By: Radiologist - CT CT Abd/Pel W/O CT Interpretation: Positive (See Comments) - IMPRESSION: 1. Cardiomegaly and pulmonary fibrosis. 2. Infiltrative edema at the RIGHT upper quadrant abdominal fat including at the postcholecystectomy gallbladder fossa and Morison 's pouch. No loculated peritoneal abscess collection evident. The edema may be secondary to CT occult duodenitis or pancreatitis. Correlate with clinical and laboratory assessment. 3. Extensive infiltrative edema at the RIGHT mons pubis with associated subcutaneous edema extending to a packed wound at the RIGHT anterior groin. No loculated abscess collection evident. Dr. Gautam has reviewed this report. CT Interpretation Completed By: Radiologist - EKG 17:47 Cardiac Rate: NL EKG Rhythm: Sinus Rhythm - at 83 BPM Ectopy: None EKG Interpretation: RBBB. LAFB. Left ventricular hypertrophy. Course/Dx - Course Course Of Treatment: ADMIT HOSPITALIST GUARDED. Assessment/Plan: Medications reviewed. Allergies noted. - Diagnoses Provider Diagnoses: Sepsis, Panniculitis - Physician Notifications Discussed Care Of Patient With: Raul Davis Time Discussed With Above Provider: 20:04 Instructed by Provider To: Admit As Inpatient - Critical Care Time Critical Care Time: 30-74 min Discharge - Sign-Out/Discharge Documenting (check all that apply): Discharge - Discharge Plan Condition: Guarded Disposition: ADMITTED TO [facility] - Billing Disposition and Condition Condition: GUARDED Disposition: [facility] [place] The documentation as recorded by the Tej hernandez Thomas accurately reflects the service I personally performed and the decisions made by , Anand Gautam MD.
--- NOTE | 2017-09-17 23:54 | HP ---
H&P (Free Text) History and Physical: PCP: Raeann Payton MD Date/Time: 09/17/20172009 CC: lethargy HPI: Mrs Harris is a 62YO super morbidly obese female HX COPD, hypothyroidism & JUAN who per ED nursing is on hospice. Upon my evaluation, Mrs Harris is lethargic and unable to provide much history beyond current status and even for this requires recurrent stimulation. This information is therefore obtained via ED staff and the available medical record. She was brought in by ambulance for reportedly for increased lethargy with work up revealing a large open wound in the RLQ fold of her pannus which appears to have previously undergone I&D/ debridement. It is draining a moderate amount of highly malodorous purulent material. PMedHx CHF chronic hypoxic respiratory failure COPD/asthma hypothyroidism obesity hypoventilation syndrome/JUAN super morbid obesity BLE venous stasis IBS Ambulatory Orders Albuterol HFA INHALER* [Ventolin HFA Inhaler*] 2 puff INH Q4H PRN 09/17/17 Fluconazole 150 MG (NF) [Diflucan 150 mg (NF)] 150 mg PO WEEKLY 09/17/17 Fluticasone HFA 220 mcg(NF) [Flovent HFA 220 Mcg(NF)] 1 puff INH BID 09/17/17 Gabapentin CAP(*) [Neurontin 300 CAP(*)] 600 mg PO DAILY 09/17/17 Levothyroxine TAB* [Synthroid TAB*] 100 mcg PO DAILY 09/17/17 Loperamide CAP* [Imodium CAP*] 2 mg PO Q4H PRN MDD 4 caps 09/17/17 Morphine Sulfate [Morphine Sulfate ER] 15 mg PO BID PRN 09/17/17 Sulfamethox/Trimethoprim DS* [Bactrim DS 800/160 TAB*] 1 tab PO BID 09/17/17 Allergies erythromycin base Allergy (Mild, Verified 07/11/17 11:32) Rash Penicillins Allergy (Mild, Verified 07/11/17 11:32) Rash PSurgHx cholecystectomy section SocHx: former smoker, rare alcohol, no HX recreational drugs; lives with family ; on hospice; DNR/I code status FamHx: unobtainable ROS: as above, otherwise reviewed and all were negative vitals: Vital Signs Temp 36.9 C 09/17/17 23:00 Pulse 76 09/17/17 23:00 Resp 16 09/17/17 23:00 BP 103/45 09/17/17 23:00 Pulse Ox 100 09/17/17 23:00 Intake & Output 09/17/17 09/17/17 09/18/17 11:59 23:59 11:59 Intake Total 2099 Balance 2099 Weight 189.012 kg Intake: IV Fluids 1050 IVPB 1050 Constitutional: NAD, normally developed, super morbidly obese white female appearing much older than her recorded age HEENM: atraumatic; sclera/conjunctiva: anicteric/clear; hearing: unable to reliable assess; oropharynx: clear, mucosa tacky Neck: soft tissue: no nuchal rigidity; thyroid: non-tender Pulmonary: diminished bilaterally, fair to poor aeration, no accessory muscle use CV: RR/RR, normal S1S2, no carotid bruit, no jugular venous distention, 1+ B DP/ PT, 2-3+ BLE edema Abdominal: soft, non-distended, non-tender, no rebound/guarding/rigidity, normoactive bowel sounds, no hepatosplenomegaly or masses, no costovertebral angle tenderness Musculoskeletal: general: grossly intact, non-tender to palpation Integumental: RLQ sub-pannus open wound with mild surrounding erythema and intertrigo draining a moderate amount of malodorous purulence Psychiatric orientation: somnolent, oriented to person only affect: somnolent mood: acquiescent eye contact: poor content: minimal memory: unable to assess responses: slowed insight: poor Testing: Lab Results 09/17/17 09/17/17 09/17/17 Range/Units 17:55 17:55 17:55 WBC 15.2 H (3.5-10.8) 10^3/ul RBC 2.71 L (4.0-5.4) 10^6/ul Hgb 7.9 L (12.0-16.0) g/dl Hct 25 L (35-47) % MCV 93 (80-97) fL MCH 29 (27-31) pg MCHC 31 (31-36) g/dl RDW 20 H (10.5-15) % Plt Count 400 (150-450) 10^3/ul MPV 7.0 L (7.4-10.4) um3 Neut % (Auto) 85.1 H (38-83) % Lymph % (Auto) 7.2 L (25-47) % [place] % (Auto) 4.8 (0-7) % Eos % (Auto) 2.2 (0-6) % Baso % (Auto) 0.7 (0-2) % Absolute Neuts (auto) 12.9 H (1.5-7.7) 10^3/ul Absolute Lymphs (auto) 1.1 (1.0-4.8) 10^3/ul Absolute Monos (auto) 0.7 (0-0.8) 10^3/ul Absolute Eos (auto) 0.3 (0-0.6) 10^3/ul Absolute Basos (auto) 0.1 (0-0.2) 10^3/ul Absolute Nucleated RBC 0 10^3/ul Nucleated RBC % 0.1 INR (Anticoag Therapy) 1.29 H (0.77-1.02) APTT 33.5 (26.0-36.3) seconds Sodium 136 L (139-145) mmol/L Potassium 5.4 H (3.5-5.0) mmol/L Chloride 101 (101-111) mmol/L Carbon Dioxide 33 H (22-32) mmol/L Anion Gap 2 (2-11) mmol/L BUN 37 H (6-24) mg/dL Creatinine 1.10 H (0.51-0.95) mg/dL Est GFR ( Amer) 64.3 (>60) Est GFR (Non-Af Amer) 50.0 (>60) BUN/Creatinine Ratio 33.6 H (8-20) Glucose 95 (70-100) mg/dL Lactic Acid (0.5-2.0) mmol/L Calcium 8.5 L (8.6-10.3) mg/dL Total Bilirubin 0.30 (0.2-1.0) mg/dL AST 44 H (13-39) U/L ALT 19 (7-52) U/L Alkaline Phosphatase 93 (34-104) U/L Troponin I 0.06 H* (<0.04) ng/mL C-Reactive Protein 161.81 H (< 5.00) mg/L B-Natriuretic Peptide ( - 100) pg/mL Total Protein 9.6 H (6.4-8.9) g/dL Albumin 2.1 L (3.2-5.2) g/dL Globulin 7.5 H (2-4) g/dL Albumin/Globulin Ratio 0.3 L (1-3) Lipase 11 (11.0-82.0) U/L Procalcitonin (<0.6) ng/mL Urine Color Urine Appearance Urine pH (5-9) Ur Specific [place] (1.010-1.030) Urine Protein (Negative) Urine Ketones (Negative) Urine Blood (Negative) Urine Nitrate (Negative) Urine Bilirubin (Negative) Urine Urobilinogen (Negative) Ur Leukocyte Esterase (Negative) Urine WBC (Auto) (Absent) Urine RBC (Auto) (Absent) Amorphous Crystals (Absent) Urine Bacteria (Absent) Hyaline Casts (Absent) Granular Casts (Absent) Urine Glucose (Negative) 09/17/17 09/17/17 09/17/17 Range/Units 17:55 17:55 17:55 WBC (3.5-10.8) 10^3/ul RBC (4.0-5.4) 10^6/ul Hgb (12.0-16.0) g/dl Hct (35-47) % MCV (80-97) fL MCH (27-31) pg MCHC (31-36) g/dl RDW (10.5-15) % Plt Count (150-450) 10^3/ul MPV (7.4-10.4) um3 Neut % (Auto) (38-83) % Lymph % (Auto) (25-47) % [place] % (Auto) (0-7) % Eos % (Auto) (0-6) % Baso % (Auto) (0-2) % Absolute Neuts (auto) (1.5-7.7) 10^3/ul Absolute Lymphs (auto) (1.0-4.8) 10^3/ul Absolute Monos (auto) (0-0.8) 10^3/ul Absolute Eos (auto) (0-0.6) 10^3/ul Absolute Basos (auto) (0-0.2) 10^3/ul Absolute Nucleated RBC 10^3/ul Nucleated RBC % INR (Anticoag Therapy) (0.77-1.02) APTT (26.0-36.3) seconds Sodium (139-145) mmol/L Potassium (3.5-5.0) mmol/L Chloride (101-111) mmol/L Carbon Dioxide (22-32) mmol/L Anion Gap (2-11) mmol/L BUN (6-24) mg/dL Creatinine (0.51-0.95) mg/dL Est GFR ( Amer) (>60) Est GFR (Non-Af Amer) (>60) BUN/Creatinine Ratio (8-20) Glucose (70-100) mg/dL Lactic Acid 1.2 (0.5-2.0) mmol/L Calcium (8.6-10.3) mg/dL Total Bilirubin (0.2-1.0) mg/dL AST (13-39) U/L ALT (7-52) U/L Alkaline Phosphatase (34-104) U/L Troponin I (<0.04) ng/mL C-Reactive Protein (< 5.00) mg/L B-Natriuretic Peptide 332 H ( - 100) pg/mL Total Protein (6.4-8.9) g/dL Albumin (3.2-5.2) g/dL Globulin (2-4) g/dL Albumin/Globulin Ratio (1-3) Lipase (11.0-82.0) U/L Procalcitonin 0.4 (<0.6) ng/mL Urine Color Urine Appearance Urine pH (5-9) Ur Specific [place] (1.010-1.030) Urine Protein (Negative) Urine Ketones (Negative) Urine Blood (Negative) Urine Nitrate (Negative) Urine Bilirubin (Negative) Urine Urobilinogen (Negative) Ur Leukocyte Esterase (Negative) Urine WBC (Auto) (Absent) Urine RBC (Auto) (Absent) Amorphous Crystals (Absent) Urine Bacteria (Absent) Hyaline Casts (Absent) Granular Casts (Absent) Urine Glucose (Negative) 09/17/17 Range/Units 19:00 WBC (3.5-10.8) 10^3/ul RBC (4.0-5.4) 10^6/ul Hgb (12.0-16.0) g/dl Hct (35-47) % MCV (80-97) fL MCH (27-31) pg MCHC (31-36) g/dl RDW (10.5-15) % Plt Count (150-450) 10^3/ul MPV (7.4-10.4) um3 Neut % (Auto) (38-83) % Lymph % (Auto) (25-47) % [place] % (Auto) (0-7) % Eos % (Auto) (0-6) % Baso % (Auto) (0-2) % Absolute Neuts (auto) (1.5-7.7) 10^3/ul Absolute Lymphs (auto) (1.0-4.8) 10^3/ul Absolute Monos (auto) (0-0.8) 10^3/ul Absolute Eos (auto) (0-0.6) 10^3/ul Absolute Basos (auto) (0-0.2) 10^3/ul Absolute Nucleated RBC 10^3/ul Nucleated RBC % INR (Anticoag Therapy) (0.77-1.02) APTT (26.0-36.3) seconds Sodium (139-145) mmol/L Potassium (3.5-5.0) mmol/L Chloride (101-111) mmol/L Carbon Dioxide (22-32) mmol/L Anion Gap (2-11) mmol/L BUN (6-24) mg/dL Creatinine (0.51-0.95) mg/dL Est GFR ( Amer) (>60) Est GFR (Non-Af Amer) (>60) BUN/Creatinine Ratio (8-20) Glucose (70-100) mg/dL Lactic Acid (0.5-2.0) mmol/L Calcium (8.6-10.3) mg/dL Total Bilirubin (0.2-1.0) mg/dL AST (13-39) U/L ALT (7-52) U/L Alkaline Phosphatase (34-104) U/L Troponin I (<0.04) ng/mL C-Reactive Protein (< 5.00) mg/L B-Natriuretic Peptide ( - 100) pg/mL Total Protein (6.4-8.9) g/dL Albumin (3.2-5.2) g/dL Globulin (2-4) g/dL Albumin/Globulin Ratio (1-3) Lipase (11.0-82.0) U/L Procalcitonin (<0.6) ng/mL Urine Color Yellow Urine Appearance Cloudy Urine pH 5.0 (5-9) Ur Specific [place] 1.014 (1.010-1.030) Urine Protein 1+(30 mg/dl) A (Negative) Urine Ketones Negative (Negative) Urine Blood 2+ A (Negative) Urine Nitrate Positive A (Negative) Urine Bilirubin Negative (Negative) Urine Urobilinogen Negative (Negative) Ur Leukocyte Esterase Negative (Negative) Urine WBC (Auto) 2+(11-20/hpf) A (Absent) Urine RBC (Auto) 3+(>10/hpf) A (Absent) Amorphous Crystals Present A (Absent) Urine Bacteria 3+ A (Absent) Hyaline Casts Present A (Absent) Granular Casts Present A (Absent) Urine Glucose Negative (Negative) ECG, personally reviewed: sinus RBBB rate 86, no ischemia CXR, personally reviewed: IMPRESSION: 1. Interstitial pulmonary fibrosis. 2. Potential pulmonary vascular congestion and interstitial edema. CT abd/pel WO, personally reviewed: IMPRESSION: 1. Cardiomegaly and pulmonary fibrosis. 2. Infiltrative edema at the RIGHT upper quadrant abdominal fat including at the post- cholecystectomy gallbladder fossa and Morison's pouch. No loculated peritoneal abscess collection evident. The edema may be secondary to CT occult duodenitis or pancreatitis. Correlate with clinical and laboratory assessment. 3. Extensive infiltrative edema at the RIGHT mons pubis with associated subcutaneous edema extending to a packed wound at the RIGHT anterior groin. No loculated abscess collection evident. Impression: 62F Hospice patient HX COPD, CHF, JUAN/obesity hypoventilation syndrome presents via EMS for increased lethargy found to have large malodorous purulent draining wound RLQ sub-pannus DIAGNOSIS & PLAN Primary RLQ sub-pannus cellulitis/draining wound : IV clindamycin : IVFs, cautiously given recent CHF : blood CX : supportive care elevated troponin, likely demand ischemia : telemetry : trend ethics : Hospice patient, palliative consult Secondary CHF : low sodium diet, if able to resume PO chronic hypoxic respiratory failure COPD/asthma : continue albuterol & fluticasone : supplemental oxygen hypothyroidism : continue levothyroxine Admission Rational: inpatient for cellulitis DVTp: SCDs & heparin SQ Code Status: DNR/I HCP: daughterLyndsay
[2017-09-18] MEDS ORDERED: Acetaminophen SUPP* 650 MG SUPP PR PRN (00:36)
[2017-09-18] MEDS ORDERED: Albuterol 2.5 MG/3 ML NEB.SOL* (0.083%) INH PRN (00:36)
[2017-09-18] MEDS ORDERED: Ondansetron INJ* 2 MG/ML VIAL IV PRN (00:56)
[2017-09-18] MEDS: Ciprofloxacin IV(*) 400 MG in D5W 250 ML BAG* 160 ML IVPB SCH ×2 (02:42→13:38)
[2017-09-18] MEDS: NS 0.9% 1000 ML* 1,000 ML IV SCH (02:43)
[2017-09-18] MEDS: Heparin VIAL(*) 5000 UNITS/ML VIAL (FIVE THOUSAND) SUBCUT SCH ×4 (02:51→20:45)
[2017-09-18 03:02] LABS: INR 1.33 (0.77-1.02)
[2017-09-18 03:04] LABS: ABS Basophils 0.1 10^3/ul (0-0.2); ABS Eosinophils 0.3 10^3/ul (0-0.6); ABS Monocytes 0.8 10^3/ul (0-0.8); ABS Neutrophils 11.5 10^3/ul (1.5-7.7); ABS Nucleated RBC 0.1 10^3/ul; Hematocrit 24 % (35-47); Hemoglobin 7.4 g/dl (12.0-16.0); Lymphocyte % 7.6 % (25-47); Mean Corpuscular HGB Conc 31 g/dl (31-36); Mean Corpuscular Hemoglobin 29 pg (27-31); Mean Corpuscular Volume 94 fL (80-97); Mean Platelet Volume 7.1 um3 (7.4-10.4); Nucleated Red Blood Cells % 0.4; Platelet Count 344 10^3/ul (150-450); Red Blood Count 2.55 10^6/ul (4.0-5.4); Red Cell Distribution Width 21 % (10.5-15); White Blood Count 13.7 10^3/ul (3.5-10.8)
[2017-09-18] MEDS: Clindamycin 600 MG IVPREMIX(* 600 MG/50 ML SDV IV SCH ×2 (04:01→12:30)
[2017-09-18] MEDS: Levothyroxine TAB* 100 MCG TAB PO SCH (05:31)
[2017-09-18 05:57] LABS: ABS Basophils 0.1 10^3/ul (0-0.2); ABS Eosinophils 0.2 10^3/ul (0-0.6); ABS Lymphocytes 0.9 10^3/ul (1.0-4.8); ABS Monocytes 0.7 10^3/ul (0-0.8); ABS Neutrophils 11.7 10^3/ul (1.5-7.7); ABS Nucleated RBC 0.1 10^3/ul; Eosinophil % 1.8 % (0-6); Hematocrit 22 % (35-47); Hemoglobin 6.7 g/dl (12.0-16.0); Lymphocyte % 6.3 % (25-47); Mean Corpuscular HGB Conc 31 g/dl (31-36); Mean Corpuscular Hemoglobin 29 pg (27-31); Mean Corpuscular Volume 93 fL (80-97); Nucleated Red Blood Cells % 0.6; Platelet Count 325 10^3/ul (150-450); Red Blood Count 2.32 10^6/ul (4.0-5.4); Red Cell Distribution Width 20 % (10.5-15); White Blood Count 13.7 10^3/ul (3.5-10.8)
[2017-09-18] MEDS ORDERED: Fluconazole 100 MG TAB* TAB PO SCH (09:00)
[2017-09-18] MEDS: Gabapentin CAP(*) 300 MG PO SCH (10:44)
[2017-09-18] MEDS: Pantoprazole IV* 40 MG IV SCH (10:47)
--- NOTE | 2017-09-18 10:52 | PN ---
Progress Note - Progress Note Date of Service: 09/18/17 Note: History on this patient was called in to the ER yesterday twice, by a hospice nurse and by me. The patient was brought at the request of her daughter because of her pubic and inguinal cellulitis with tunneling infection and purulent drainage. Gram stain and culture obtained 09/16/17 revealed gram positive cocci and diplococci as well as gram negatives, and preliminary culture results reveal pseudomonas aeruginosa. The patient has been placed on Bactrim by her PCP , Dr. Payton, the day prior to admission. 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 It is the impression of the hospice staff working with this patient that her daughter is not able to provide adequate care at home for her complex health issues. During her last admission she was deemed to lack capacity to determine her disposition after discharge, because the patient insisted on going home. We recommend that after this admission the patient be placed in a SNF setting, with continued hospice services. Please call if I can be of any further assistance. [phone].
[2017-09-18] MEDS ORDERED: Piperacillin/Tazobac ADVAN(*) 3.375 GM in NS 0.9% 100 ML* 100 ML IVPB SCH (16:00)
[2017-09-18] MEDS ORDERED: ZOSYN 3.375 GM x ONE DOSE over 30 miuntes IVPB ×2 (16:00)
--- NOTE | 2017-09-18 17:46 | PN ---
Subjective Date of Service: 09/18/17 Interval History: Patient was seen and examined at bedside. This is a 62 y/o female who has been bedridden for an extended period of time due to super morbid obesity. She has been under Hospice care at home since July due to end stage COPD. Poor historian, no clear idea when her "belly infection" started. Reports feeling better, denies any c/o. Family History: Unchanged from Admission Social History: Unchanged from Admission Past Medical History: Unchanged from Admission Objective Active Medications: Acetaminophen (Tylenol Supp*) 650 mg MA Q6H PRN PRN Reason: FEVER/PAIN Albuterol (Ventolin 2.5 Mg/3 Ml Neb.Henrietta*) 2.5 mg INH Q2H PRN PRN Reason: SOB/WHEEZING Fluconazole (Diflucan 100 Mg Tab*) 150 mg PO WEEKLY@0900 [facility] Last Admin: 09/18/17 10:47 Dose: 150 mg Gabapentin (Neurontin Cap(*)) 600 mg PO DAILY [facility] Last Admin: 09/18/17 10:44 Dose: 600 mg Heparin Sodium (Porcine) (Heparin Vial(*)) 5,000 units SUBCUT Q8HR [facility] Last Admin: 09/18/17 13:38 Dose: Not Given Sodium Chloride (Ns 0.9% 1000 Ml*) 1,000 mls @ 50 mls/hr IV PER RATE [facility] Last Admin: 09/18/17 02:43 Dose: 50 mls/hr Piperacillin Sod/Tazobactam (Sod 13.5 gm/ Sodium Chloride) 500 mls @ 20.833 mls /hr IVPB Q24H [facility] Levothyroxine Sodium (Synthroid Tab*) 100 mcg PO DAILY@0600 [facility] Last Admin: 09/18/17 05:31 Dose: 100 mcg Mometasone Furoate (Asmanex 220 Mcg Mdi *) 2 puff INH QPM [facility] Morphine Sulfate (Ms Contin(*)) 15 mg PO BID PRN PRN Reason: PAIN Nystatin (Nystatin Top Powder*) 1 applic TOPICAL BID [facility] Ondansetron HCl (Zofran Inj*) 4 mg IV Q6H PRN PRN Reason: NAUSEA Pantoprazole Sodium (Protonix Iv*) 40 mg IV DAILY [facility] Last Admin: 09/18/17 10:47 Dose: 40 mg Vital Signs - 8 hr 09/18/17 09/18/17 10:44 14:26 Temperature 97.6 F Pulse Rate 72 Respiratory 14 14 Rate Blood Pressure 90/53 (mmHg) O2 Sat by Pulse 99 Oximetry Oxygen Devices in Use Now: Nasal Cannula Appearance: Moorbidly obese, laying on her bed, appears comfortable and in NAD. Eyes: No Scleral Icterus, PERRLA Ears/Nose/Mouth/Throat: Mucous Membranes Moist Neck: NL Appearance and Movements; NL JVP, Trachea Midline Respiratory: Symmetrical Chest Expansion and Respiratory Effort, - - Breath sounds are difficult to assess due to body habitus and inability to sit up. Cardiovascular: NL Sounds; No Murmurs; No JVD, RRR Abdominal: - - Exam revealed a massive abdominal pannus with chronic deep pigmentaion and thick skin. Pannus elevated revealing a large open wound with foul smelling purulent discharge from multiple openings over right inguinal line and suprapubic area. Large area of cellulitis noted. Wound measures approx 5x7 cm, with no undermining noted. Wound packed with wet to dry Kerlex, covered with multiple ABDs. Areas under breasts with erythema noted, no open wounds or discharge. Extremities: - - Bilateral lower extermities edema noted Neurological: - - Alert and oriented x3, although somnolent at times Lines/Tubes/Other Access: Clean, Dry and Intact Taylor, Clean, Dry and Intact Peripheral IV Result Diagrams: 09/18/17 05:30 09/18/17 05:30 Additional Lab and Data: Lab Results 09/17/17 09/17/17 09/17/17 Range/Units 17:55 17:55 17:55 WBC 15.2 H (3.5-10.8) 10^3/ul RBC 2.71 L (4.0-5.4) 10^6/ul Hgb 7.9 L (12.0-16.0) g/dl Hct 25 L (35-47) % MCV 93 (80-97) fL MCH 29 (27-31) pg MCHC 31 (31-36) g/dl RDW 20 H (10.5-15) % Plt Count 400 (150-450) 10^3/ul MPV 7.0 L (7.4-10.4) um3 Neut % (Auto) 85.1 H (38-83) % Lymph % (Auto) 7.2 L (25-47) % Wheeler % (Auto) 4.8 (0-7) % Eos % (Auto) 2.2 (0-6) % Baso % (Auto) 0.7 (0-2) % Absolute Neuts (auto) 12.9 H (1.5-7.7) 10^3/ul Absolute Lymphs (auto) 1.1 (1.0-4.8) 10^3/ul Absolute Monos (auto) 0.7 (0-0.8) 10^3/ul Absolute Eos (auto) 0.3 (0-0.6) 10^3/ul Absolute Basos (auto) 0.1 (0-0.2) 10^3/ul Absolute Nucleated RBC 0 10^3/ul Nucleated RBC % 0.1 INR (Anticoag Therapy) 1.29 H (0.77-1.02) APTT 33.5 (26.0-36.3) seconds Sodium 136 L (139-145) mmol/L Potassium 5.4 H (3.5-5.0) mmol/L Chloride 101 (101-111) mmol/L Carbon Dioxide 33 H (22-32) mmol/L Anion Gap 2 (2-11) mmol/L BUN 37 H (6-24) mg/dL Creatinine 1.10 H (0.51-0.95) mg/dL Est GFR ( Amer) 64.3 (>60) Est GFR (Non-Af Amer) 50.0 (>60) BUN/Creatinine Ratio 33.6 H (8-20) Glucose 95 (70-100) mg/dL Lactic Acid (0.5-2.0) mmol/L Calcium 8.5 L (8.6-10.3) mg/dL Total Bilirubin 0.30 (0.2-1.0) mg/dL AST 44 H (13-39) U/L ALT 19 (7-52) U/L Alkaline Phosphatase 93 (34-104) U/L Troponin I 0.06 H* (<0.04) ng/mL C-Reactive Protein 161.81 H (< 5.00) mg/L B-Natriuretic Peptide ( - 100) pg/mL Total Protein 9.6 H (6.4-8.9) g/dL Albumin 2.1 L (3.2-5.2) g/dL Globulin 7.5 H (2-4) g/dL Albumin/Globulin Ratio 0.3 L (1-3) Lipase 11 (11.0-82.0) U/L Procalcitonin (<0.6) ng/mL Urine Color Urine Appearance Urine pH (5-9) Ur Specific Roscoe (1.010-1.030) Urine Protein (Negative) Urine Ketones (Negative) Urine Blood (Negative) Urine Nitrate (Negative) Urine Bilirubin (Negative) Urine Urobilinogen (Negative) Ur Leukocyte Esterase (Negative) Urine WBC (Auto) (Absent) Urine RBC (Auto) (Absent) Amorphous Crystals (Absent) Urine Bacteria (Absent) Hyaline Casts (Absent) Granular Casts (Absent) Urine Glucose (Negative) 09/17/17 09/17/17 09/17/17 Range/Units 17:55 17:55 17:55 WBC (3.5-10.8) 10^3/ul RBC (4.0-5.4) 10^6/ul Hgb (12.0-16.0) g/dl Hct (35-47) % MCV (80-97) fL MCH (27-31) pg MCHC (31-36) g/dl RDW (10.5-15) % Plt Count (150-450) 10^3/ul MPV (7.4-10.4) um3 Neut % (Auto) (38-83) % Lymph % (Auto) (25-47) % Wheeler % (Auto) (0-7) % Eos % (Auto) (0-6) % Baso % (Auto) (0-2) % Absolute Neuts (auto) (1.5-7.7) 10^3/ul Absolute Lymphs (auto) (1.0-4.8) 10^3/ul Absolute Monos (auto) (0-0.8) 10^3/ul Absolute Eos (auto) (0-0.6) 10^3/ul Absolute Basos (auto) (0-0.2) 10^3/ul Absolute Nucleated RBC 10^3/ul Nucleated RBC % INR (Anticoag Therapy) (0.77-1.02) APTT (26.0-36.3) seconds Sodium (139-145) mmol/L Potassium (3.5-5.0) mmol/L Chloride (101-111) mmol/L Carbon Dioxide (22-32) mmol/L Anion Gap (2-11) mmol/L BUN (6-24) mg/dL Creatinine (0.51-0.95) mg/dL Est GFR ( Amer) (>60) Est GFR (Non-Af Amer) (>60) BUN/Creatinine Ratio (8-20) Glucose (70-100) mg/dL Lactic Acid 1.2 (0.5-2.0) mmol/L Calcium (8.6-10.3) mg/dL Total Bilirubin (0.2-1.0) mg/dL AST (13-39) U/L ALT (7-52) U/L Alkaline Phosphatase (34-104) U/L Troponin I (<0.04) ng/mL C-Reactive Protein (< 5.00) mg/L B-Natriuretic Peptide 332 H ( - 100) pg/mL Total Protein (6.4-8.9) g/dL Albumin (3.2-5.2) g/dL Globulin (2-4) g/dL Albumin/Globulin Ratio (1-3) Lipase (11.0-82.0) U/L Procalcitonin 0.4 (<0.6) ng/mL Urine Color Urine Appearance Urine pH (5-9) Ur Specific Roscoe (1.010-1.030) Urine Protein (Negative) Urine Ketones (Negative) Urine Blood (Negative) Urine Nitrate (Negative) Urine Bilirubin (Negative) Urine Urobilinogen (Negative) Ur Leukocyte Esterase (Negative) Urine WBC (Auto) (Absent) Urine RBC (Auto) (Absent) Amorphous Crystals (Absent) Urine Bacteria (Absent) Hyaline Casts (Absent) Granular Casts (Absent) Urine Glucose (Negative) 09/17/17 Range/Units 19:00 WBC (3.5-10.8) 10^3/ul RBC (4.0-5.4) 10^6/ul Hgb (12.0-16.0) g/dl Hct (35-47) % MCV (80-97) fL MCH (27-31) pg MCHC (31-36) g/dl RDW (10.5-15) % Plt Count (150-450) 10^3/ul MPV (7.4-10.4) um3 Neut % (Auto) (38-83) % Lymph % (Auto) (25-47) % Wheeler % (Auto) (0-7) % Eos % (Auto) (0-6) % Baso % (Auto) (0-2) % Absolute Neuts (auto) (1.5-7.7) 10^3/ul Absolute Lymphs (auto) (1.0-4.8) 10^3/ul Absolute Monos (auto) (0-0.8) 10^3/ul Absolute Eos (auto) (0-0.6) 10^3/ul Absolute Basos (auto) (0-0.2) 10^3/ul Absolute Nucleated RBC 10^3/ul Nucleated RBC % INR (Anticoag Therapy) (0.77-1.02) APTT (26.0-36.3) seconds Sodium (139-145) mmol/L Potassium (3.5-5.0) mmol/L Chloride (101-111) mmol/L Carbon Dioxide (22-32) mmol/L Anion Gap (2-11) mmol/L BUN (6-24) mg/dL Creatinine (0.51-0.95) mg/dL Est GFR ( Amer) (>60) Est GFR (Non-Af Amer) (>60) BUN/Creatinine Ratio (8-20) Glucose (70-100) mg/dL Lactic Acid (0.5-2.0) mmol/L Calcium (8.6-10.3) mg/dL Total Bilirubin (0.2-1.0) mg/dL AST (13-39) U/L ALT (7-52) U/L Alkaline Phosphatase (34-104) U/L Troponin I (<0.04) ng/mL C-Reactive Protein (< 5.00) mg/L B-Natriuretic Peptide ( - 100) pg/mL Total Protein (6.4-8.9) g/dL Albumin (3.2-5.2) g/dL Globulin (2-4) g/dL Albumin/Globulin Ratio (1-3) Lipase (11.0-82.0) U/L Procalcitonin (<0.6) ng/mL Urine Color Yellow Urine Appearance Cloudy Urine pH 5.0 (5-9) Ur Specific Roscoe 1.014 (1.010-1.030) Urine Protein 1+(30 mg/dl) A (Negative) Urine Ketones Negative (Negative) Urine Blood 2+ A (Negative) Urine Nitrate Positive A (Negative) Urine Bilirubin Negative (Negative) Urine Urobilinogen Negative (Negative) Ur Leukocyte Esterase Negative (Negative) Urine WBC (Auto) 2+(11-20/hpf) A (Absent) Urine RBC (Auto) 3+(>10/hpf) A (Absent) Amorphous Crystals Present A (Absent) Urine Bacteria 3+ A (Absent) Hyaline Casts Present A (Absent) Granular Casts Present A (Absent) Urine Glucose Negative (Negative) Microbiology and Other Data: Microbiology 09/18/17 01:06 Nasal Screen MRSA (PCR)(PARMJIT) - Final Nasal Mrsa Not Detected Diagnostic Imaging: Patient Name: CHERI WHITMORE Medical Record#: [id number] Ordering Physician: Anand Gautam MD Acct.#: [id number] : 1955 Age: 62 Sex: F Location: EMERGENCY DEPARTMENT Exam Date: 09/17/17 1886 ADM Status: [facility] ER Order Information: CT ABD/PEL W/O Accession Number: [id number] CPT: 02346 INDICATION: Suprapubic pannus cellulitis. COMPARISON: January 09, 2009 IMPRESSION: 1. Cardiomegaly and pulmonary fibrosis. 2. Infiltrative edema at the RIGHT upper quadrant abdominal fat including at the postcholecystectomy gallbladder fossa and Morison's pouch. No loculated peritoneal abscess collection evident. The edema may be secondary to CT occult duodenitis or pancreatitis. Correlate with clinical and laboratory assessment. 3. Extensive infiltrative edema at the RIGHT mons pubis with associated subcutaneous edema extending to a packed wound at the RIGHT anterior groin. No loculated abscess collection evident. Patient Name: CHERI WHITMORE Medical Record#: [id number] Ordering Physician: Anand Gautam MD Acct.#: [id number] : 1955 Age: 62 Sex: F Location: EMERGENCY DEPARTMENT Exam Date: 09/17/17 1735 ADM Status: REG ER Order Information: CHEST AP PORTABLE Accession Number: [id number] CPT: 00364 Indication: Suprapubic cellulitis. IMPRESSION: 1. Interstitial pulmonary fibrosis. 2. Potential pulmonary vascular congestion and interstitial edema. EKG Data: EKG INTERPRETATION ECG Report Patient Name CHERI WHITMORE Birthdate 1955 Sex F Order Number [id number] Date of ECG 09/17/2017 17:47:55 Interpretation Sinus rhythm.normal P axis, V-rate 60- 99 RBBB and LAFB.QRSd >120mS, axis(-40,240) Left ventricular hypertrophy.multiple voltage criteria - ABNORMAL ECG - ECG NEEDS E-SIGNING Please go to [email or web address] website to view the EKG image Assess/Plan/Problems-Billing Assessment: A 62 y/o female with multiple medical issues, including end stage COPD for which she has been on Hospice care at home since 07/2017, who was admitted from ED with RLQ pannus cellulitis and open wound infection. - Patient Problems (1) Abdominal wall cellulitis Current Visit: Yes Status: Acute Comment: - Cultures reviewed from 09/16/17, psuedomonas isolated sensitive to Zosyn - Changed IV antibiotics for adequate coverage - Wound care, will change dressing on a daily basis, or as needed if soiled or saturated. - I suspect possible hydradenitis suppurativa as a predisposing factor to her infection - Infected wound secondary to abscess that spontaneously opened with active purulent draiange. - Patient with end stage COPD, on Hospice care, not a surgical candidate for debridement - Discussed with daughter, will arrange for a meeting with her and social economist. (2) Pannus, abdominal Current Visit: Yes Status: Acute Comment: - Chronic problem, now with cellulitis and infected open wound - Again, not a surgical candidate - Will continue conservative measures (3) Acute diastolic (congestive) heart failure Current Visit: No Status: Chronic Comment: Stable (4) Elevated troponin Current Visit: No Comment: - Likely secondary to demand ischemia. No further work up at this time. (5) COPD (chronic obstructive pulmonary disease) Current Visit: No Comment: - No signs of acute exacerbation at this time. - Continue her inhalers (6) Morbid obesity Current Visit: Yes Comment: BMI 63.5. Supportive care. (7) Sleep apnea Current Visit: No Comment: C-PAP (8) Hypothyroidism Current Visit: No Status: Chronic Code(s): E03.9 - HYPOTHYROIDISM, UNSPECIFIED SNOMED Code(s): 88573276 Comment: Continue Levothyroxine (9) Respiratory failure with hypoxia Current Visit: Yes Status: Acute Code(s): J96.91 - RESPIRATORY FAILURE, UNSPECIFIED WITH HYPOXIA SNOMED Code(s): 03155368300834817 Comment: - End stage COPD, on Hospice care. - Palliative care note reviewed, recommendations appreciated. - Will discusse with social economist - Plan for SNF placement with Hospice care. Patient no longer can be cared for at home. (10) DVT prophylaxis Current Visit: No Status: Acute Code(s): VOP6379 - SNOMED Code(s): 225473466 Comment: Heparin SQ (11) DNR (do not resuscitate) Current Visit: Yes Status: Acute Status and Disposition: Inpatient for antibiotics and wound care. Patient is not a candidate for surgical debridement. Based on her current health status, it will be difficult to achieve complete resolution of her current infection. SNF placement with Hospice care once bed available.
[2017-09-18] MEDS: Mometasone 220 MCG MDI INH SCH (19:44)
[2017-09-18] MEDS: Piperacillin/Tazobactam 13.5 GM IV 24 hour continuous infusion IVPB SCH ×2 (20:43)
[2017-09-18] MEDS: Nystatin TOP POWDER* 15 GM BTL TOPICAL SCH (20:44)
[2017-09-19] MEDS: NS 0.9% 1000 ML* 1,000 ML IV SCH ×2 (00:33→21:19)
[2017-09-19] MEDS ORDERED: Ciprofloxacin 400MG IVPREMIX(* 400 MG/200 ML BAG IVPB SCH (02:00)
[2017-09-19] MEDS: Levothyroxine TAB* 100 MCG TAB PO SCH (05:08)
[2017-09-19] MEDS: Heparin VIAL(*) 5000 UNITS/ML VIAL (FIVE THOUSAND) SUBCUT SCH ×3 (05:19→21:19)
[2017-09-19] MEDS: Gabapentin CAP(*) 300 MG PO SCH (08:23)
[2017-09-19] MEDS: Nystatin TOP POWDER* 15 GM BTL TOPICAL SCH ×2 (08:24→21:26)
[2017-09-19] MEDS: Pantoprazole IV* 40 MG IV SCH (08:24)
[2017-09-19] MEDS: Morphine TAB Extended Release (*) 15 MG TAB.ER PO PRN (16:07)
--- NOTE | 2017-09-19 16:40 | PN ---
Subjective Date of Service: 09/19/17 Interval History: Patient seen and examined at bedside. She is more verbal today, denies any complaints. Daughter was present earlier this morning. Had a long discussion daughter with social and palliative services also present in room. Family History: Unchanged from Admission Social History: Unchanged from Admission Past Medical History: Unchanged from Admission Objective Active Medications: Acetaminophen (Tylenol Supp*) 650 mg [place] Q6H PRN PRN Reason: FEVER/PAIN Albuterol (Ventolin 2.5 Mg/3 Ml Neb.Henrietta*) 2.5 mg INH Q2H PRN PRN Reason: SOB/WHEEZING Fluconazole (Diflucan 100 Mg Tab*) 150 mg PO WEEKLY@0900 [facility] Last Admin: 09/18/17 10:47 Dose: 150 mg Gabapentin (Neurontin Cap(*)) 600 mg PO DAILY [facility] Last Admin: 09/19/17 08:23 Dose: 600 mg Heparin Sodium (Porcine) (Heparin Vial(*)) 5,000 units SUBCUT Q8HR [facility] Last Admin: 09/19/17 13:04 Dose: Not Given Sodium Chloride (Ns 0.9% 1000 Ml*) 1,000 mls @ 50 mls/hr IV PER RATE [facility] Last Admin: 09/19/17 00:33 Dose: 50 mls/hr Piperacillin Sod/Tazobactam (Sod 13.5 gm/ Sodium Chloride) 500 mls @ 20.833 mls /hr IVPB Q24H [facility] Last Admin: 09/18/17 20:43 Dose: 20.833 mls/hr Levothyroxine Sodium (Synthroid Tab*) 100 mcg PO DAILY@0600 [facility] Last Admin: 09/19/17 05:08 Dose: 100 mcg Mometasone Furoate (Asmanex 220 Mcg Mdi *) 2 puff INH QPM [facility] Last Admin: 09/18/17 19:44 Dose: 2 puff Morphine Sulfate (Ms Contin(*)) 15 mg PO BID PRN PRN Reason: PAIN Last Admin: 09/19/17 16:07 Dose: 15 mg Nystatin (Nystatin Top Powder*) 1 applic TOPICAL BID [facility] Last Admin: 09/19/17 08:24 Dose: 1 applic Ondansetron HCl (Zofran Inj*) 4 mg IV Q6H PRN PRN Reason: NAUSEA Pantoprazole Sodium (Protonix Iv*) 40 mg IV DAILY [facility] Last Admin: 09/19/17 08:24 Dose: 40 mg Vital Signs - 8 hr 09/19/17 09/19/17 09/19/17 11:35 11:50 16:07 Temperature 97.4 F Pulse Rate 64 Respiratory 18 16 16 Rate Blood Pressure 98/47 (mmHg) O2 Sat by Pulse 100 Oximetry Oxygen Devices in Use Now: Nasal Cannula Appearance: Appears comfortable, laying in bed, in NAD. Eyes: No Scleral Icterus, PERRLA Ears/Nose/Mouth/Throat: Mucous Membranes Moist Neck: NL Appearance and Movements; NL JVP, Trachea Midline Respiratory: Symmetrical Chest Expansion and Respiratory Effort, Clear to Auscultation Cardiovascular: NL Sounds; No Murmurs; No JVD, RRR Abdominal: - - Exam unchanged from yesterday. Massive pannus elevated revealing a better looking wound, with some early granulation tissue at the base. Still with some malodorus purulent drainage noted. Packing changed, dressing applied. Extremities: - - Marked bilateral lower extremities edema, unchanged. Neurological: - - More alert today, oriented to self only. Lines/Tubes/Other Access: Clean, Dry and Intact [place], Clean, Dry and Intact Peripheral IV Nutrition: Taking PO's Result Diagrams: 09/18/17 05:30 09/18/17 05:30 Additional Lab and Data: Lab Results 09/17/17 09/17/17 09/17/17 Range/Units 17:55 17:55 17:55 WBC 15.2 H (3.5-10.8) 10^3/ul RBC 2.71 L (4.0-5.4) 10^6/ul Hgb 7.9 L (12.0-16.0) g/dl Hct 25 L (35-47) % MCV 93 (80-97) fL MCH 29 (27-31) pg MCHC 31 (31-36) g/dl RDW 20 H (10.5-15) % Plt Count 400 (150-450) 10^3/ul MPV 7.0 L (7.4-10.4) um3 Neut % (Auto) 85.1 H (38-83) % Lymph % (Auto) 7.2 L (25-47) % [place] % (Auto) 4.8 (0-7) % Eos % (Auto) 2.2 (0-6) % Baso % (Auto) 0.7 (0-2) % Absolute Neuts (auto) 12.9 H (1.5-7.7) 10^3/ul Absolute Lymphs (auto) 1.1 (1.0-4.8) 10^3/ul Absolute Monos (auto) 0.7 (0-0.8) 10^3/ul Absolute Eos (auto) 0.3 (0-0.6) 10^3/ul Absolute Basos (auto) 0.1 (0-0.2) 10^3/ul Absolute Nucleated RBC 0 10^3/ul Nucleated RBC % 0.1 INR (Anticoag Therapy) 1.29 H (0.77-1.02) APTT 33.5 (26.0-36.3) seconds Sodium 136 L (139-145) mmol/L Potassium 5.4 H (3.5-5.0) mmol/L Chloride 101 (101-111) mmol/L Carbon Dioxide 33 H (22-32) mmol/L Anion Gap 2 (2-11) mmol/L BUN 37 H (6-24) mg/dL Creatinine 1.10 H (0.51-0.95) mg/dL Est GFR ( Amer) 64.3 (>60) Est GFR (Non-Af Amer) 50.0 (>60) BUN/Creatinine Ratio 33.6 H (8-20) Glucose 95 (70-100) mg/dL Lactic Acid (0.5-2.0) mmol/L Calcium 8.5 L (8.6-10.3) mg/dL Total Bilirubin 0.30 (0.2-1.0) mg/dL AST 44 H (13-39) U/L ALT 19 (7-52) U/L Alkaline Phosphatase 93 (34-104) U/L Troponin I 0.06 H* (<0.04) ng/mL C-Reactive Protein 161.81 H (< 5.00) mg/L B-Natriuretic Peptide ( - 100) pg/mL Total Protein 9.6 H (6.4-8.9) g/dL Albumin 2.1 L (3.2-5.2) g/dL Globulin 7.5 H (2-4) g/dL Albumin/Globulin Ratio 0.3 L (1-3) Lipase 11 (11.0-82.0) U/L Procalcitonin (<0.6) ng/mL Urine Color Urine Appearance Urine pH (5-9) Ur Specific [place] (1.010-1.030) Urine Protein (Negative) Urine Ketones (Negative) Urine Blood (Negative) Urine Nitrate (Negative) Urine Bilirubin (Negative) Urine Urobilinogen (Negative) Ur Leukocyte Esterase (Negative) Urine WBC (Auto) (Absent) Urine RBC (Auto) (Absent) Amorphous Crystals (Absent) Urine Bacteria (Absent) Hyaline Casts (Absent) Granular Casts (Absent) Urine Glucose (Negative) 09/17/17 09/17/17 09/17/17 Range/Units 17:55 17:55 17:55 WBC (3.5-10.8) 10^3/ul RBC (4.0-5.4) 10^6/ul Hgb (12.0-16.0) g/dl Hct (35-47) % MCV (80-97) fL MCH (27-31) pg MCHC (31-36) g/dl RDW (10.5-15) % Plt Count (150-450) 10^3/ul MPV (7.4-10.4) um3 Neut % (Auto) (38-83) % Lymph % (Auto) (25-47) % [place] % (Auto) (0-7) % Eos % (Auto) (0-6) % Baso % (Auto) (0-2) % Absolute Neuts (auto) (1.5-7.7) 10^3/ul Absolute Lymphs (auto) (1.0-4.8) 10^3/ul Absolute Monos (auto) (0-0.8) 10^3/ul Absolute Eos (auto) (0-0.6) 10^3/ul Absolute Basos (auto) (0-0.2) 10^3/ul Absolute Nucleated RBC 10^3/ul Nucleated RBC % INR (Anticoag Therapy) (0.77-1.02) APTT (26.0-36.3) seconds Sodium (139-145) mmol/L Potassium (3.5-5.0) mmol/L Chloride (101-111) mmol/L Carbon Dioxide (22-32) mmol/L Anion Gap (2-11) mmol/L BUN (6-24) mg/dL Creatinine (0.51-0.95) mg/dL Est GFR ( Amer) (>60) Est GFR (Non-Af Amer) (>60) BUN/Creatinine Ratio (8-20) Glucose (70-100) mg/dL Lactic Acid 1.2 (0.5-2.0) mmol/L Calcium (8.6-10.3) mg/dL Total Bilirubin (0.2-1.0) mg/dL AST (13-39) U/L ALT (7-52) U/L Alkaline Phosphatase (34-104) U/L Troponin I (<0.04) ng/mL C-Reactive Protein (< 5.00) mg/L B-Natriuretic Peptide 332 H ( - 100) pg/mL Total Protein (6.4-8.9) g/dL Albumin (3.2-5.2) g/dL Globulin (2-4) g/dL Albumin/Globulin Ratio (1-3) Lipase (11.0-82.0) U/L Procalcitonin 0.4 (<0.6) ng/mL Urine Color Urine Appearance Urine pH (5-9) Ur Specific [place] (1.010-1.030) Urine Protein (Negative) Urine Ketones (Negative) Urine Blood (Negative) Urine Nitrate (Negative) Urine Bilirubin (Negative) Urine Urobilinogen (Negative) Ur Leukocyte Esterase (Negative) Urine WBC (Auto) (Absent) Urine RBC (Auto) (Absent) Amorphous Crystals (Absent) Urine Bacteria (Absent) Hyaline Casts (Absent) Granular Casts (Absent) Urine Glucose (Negative) 09/17/17 Range/Units 19:00 WBC (3.5-10.8) 10^3/ul RBC (4.0-5.4) 10^6/ul Hgb (12.0-16.0) g/dl Hct (35-47) % MCV (80-97) fL MCH (27-31) pg MCHC (31-36) g/dl RDW (10.5-15) % Plt Count (150-450) 10^3/ul MPV (7.4-10.4) um3 Neut % (Auto) (38-83) % Lymph % (Auto) (25-47) % [place] % (Auto) (0-7) % Eos % (Auto) (0-6) % Baso % (Auto) (0-2) % Absolute Neuts (auto) (1.5-7.7) 10^3/ul Absolute Lymphs (auto) (1.0-4.8) 10^3/ul Absolute Monos (auto) (0-0.8) 10^3/ul Absolute Eos (auto) (0-0.6) 10^3/ul Absolute Basos (auto) (0-0.2) 10^3/ul Absolute Nucleated RBC 10^3/ul Nucleated RBC % INR (Anticoag Therapy) (0.77-1.02) APTT (26.0-36.3) seconds Sodium (139-145) mmol/L Potassium (3.5-5.0) mmol/L Chloride (101-111) mmol/L Carbon Dioxide (22-32) mmol/L Anion Gap (2-11) mmol/L BUN (6-24) mg/dL Creatinine (0.51-0.95) mg/dL Est GFR ( Amer) (>60) Est GFR (Non-Af Amer) (>60) BUN/Creatinine Ratio (8-20) Glucose (70-100) mg/dL Lactic Acid (0.5-2.0) mmol/L Calcium (8.6-10.3) mg/dL Total Bilirubin (0.2-1.0) mg/dL AST (13-39) U/L ALT (7-52) U/L Alkaline Phosphatase (34-104) U/L Troponin I (<0.04) ng/mL C-Reactive Protein (< 5.00) mg/L B-Natriuretic Peptide ( - 100) pg/mL Total Protein (6.4-8.9) g/dL Albumin (3.2-5.2) g/dL Globulin (2-4) g/dL Albumin/Globulin Ratio (1-3) Lipase (11.0-82.0) U/L Procalcitonin (<0.6) ng/mL Urine Color Yellow Urine Appearance Cloudy Urine pH 5.0 (5-9) Ur Specific [place] 1.014 (1.010-1.030) Urine Protein 1+(30 mg/dl) A (Negative) Urine Ketones Negative (Negative) Urine Blood 2+ A (Negative) Urine Nitrate Positive A (Negative) Urine Bilirubin Negative (Negative) Urine Urobilinogen Negative (Negative) Ur Leukocyte Esterase Negative (Negative) Urine WBC (Auto) 2+(11-20/hpf) A (Absent) Urine RBC (Auto) 3+(>10/hpf) A (Absent) Amorphous Crystals Present A (Absent) Urine Bacteria 3+ A (Absent) Hyaline Casts Present A (Absent) Granular Casts Present A (Absent) Urine Glucose Negative (Negative) Microbiology and Other Data: Microbiology 09/18/17 01:06 Nasal Screen MRSA (PCR)(PARMJIT) - Final Nasal Mrsa Not Detected Diagnostic Imaging: Patient Name: CHERI WHITMORE Medical Record#: [id number] Ordering Physician: Anand Gautam MD Acct.#: [id number] : 1955 Age: 62 Sex: F Location: EMERGENCY DEPARTMENT Exam Date: 09/17/171736 ADM Status: REG ER Order Information: CT ABD/PEL W/O Accession Number: [id number] CPT: 60302 INDICATION: Suprapubic pannus cellulitis. COMPARISON: January 09, 2009 IMPRESSION: 1. Cardiomegaly and pulmonary fibrosis. 2. Infiltrative edema at the RIGHT upper quadrant abdominal fat including at the postcholecystectomy gallbladder fossa and Morison's pouch. No loculated peritoneal abscess collection evident. The edema may be secondary to CT occult duodenitis or pancreatitis. Correlate with clinical and laboratory assessment. 3. Extensive infiltrative edema at the RIGHT mons pubis with associated subcutaneous edema extending to a packed wound at the RIGHT anterior groin. No loculated abscess collection evident. Patient Name: CHERI WHITMORE Medical Record#: [id number] Ordering Physician: Anand Gautam MD Acct.#: [id number] : 1955 Age: 62 Sex: F Location: EMERGENCY DEPARTMENT Exam Date: 09/17/171734 ADM Status: REG ER Order Information: CHEST AP PORTABLE Accession Number: [id number] CPT: 49070 Indication: Suprapubic cellulitis. IMPRESSION: 1. Interstitial pulmonary fibrosis. 2. Potential pulmonary vascular congestion and interstitial edema. EKG Data: EKG INTERPRETATION ECG Report Patient Name CHERI WHITMORE Birthdate 1955 Sex F Order Number [id number] Date of ECG 09/17/2017 17:47:55 Interpretation Sinus rhythm.normal P axis, V-rate 60- 99 RBBB and LAFB.QRSd >120mS, axis(-40,240) Left ventricular hypertrophy.multiple voltage criteria - ABNORMAL ECG - ECG NEEDS E-SIGNING Please go to [email or web address] [email or web address] website to view the EKG image Assess/Plan/Problems-Billing Assessment: A 62 y/o female with multiple medical issues, including end stage COPD for which she has been on Hospice care at home since 07/2017, who was admitted from ED with RLQ pannus cellulitis and open wound infection. - Patient Problems (1) Abdominal wall cellulitis Current Visit: Yes Status: Acute Comment: - Cultures reviewed from 09/16/17, psuedomonas isolated sensitive to Zosyn - Changed IV antibiotics for adequate coverage - Wound care, will change dressing on a daily basis, some improvement with wound drainage noted today. - I suspect possible hydradenitis suppurativa as a predisposing factor to her infection - Infected wound secondary to abscess that spontaneously opened with active purulent draiange. - Patient with end stage COPD, on Hospice care, not a surgical candidate for debridement - Discussed with daughter, Patient is in need of skilled care for wound dressing changes and positioning in bed. Giving her morbid obesity, no local assisted facility are able to accommodate her. emergency services professional and palliative care team will be searching for placement. (2) Pannus, abdominal Current Visit: Yes Status: Acute Comment: - Chronic problem, now with cellulitis and infected open wound - Again, not a surgical candidate - Will continue conservative measures (3) Acute diastolic (congestive) heart failure Current Visit: No Status: Chronic Comment: Stable (4) Elevated troponin Current Visit: No Comment: - Likely secondary to demand ischemia. No further work up at this time. (5) COPD (chronic obstructive pulmonary disease) Current Visit: No Comment: - No signs of acute exacerbation at this time. - Continue her inhalers (6) Morbid obesity Current Visit: Yes Comment: BMI 63.5. Supportive care. (7) Sleep apnea Current Visit: No Comment: C-PAP (8) Hypothyroidism Current Visit: No Status: Chronic Code(s): E03.9 - HYPOTHYROIDISM, UNSPECIFIED SNOMED Code(s): 56441284 Comment: Continue Levothyroxine (9) Respiratory failure with hypoxia Current Visit: Yes Status: Acute Code(s): J96.91 - RESPIRATORY FAILURE, UNSPECIFIED WITH HYPOXIA SNOMED Code(s): 32992777372279573 Comment: - End stage COPD, on Hospice care. - Palliative care note reviewed, recommendations appreciated. - Will discusse with transition social worker - Plan for SNF placement with Hospice care. Patient no longer can be cared for at home. Now with her excessive body weight, no local SNF can accept patient. Search is under way for placement. Daughter aware and agreed to plans. (10) DVT prophylaxis Current Visit: No Status: Acute Code(s): BUL0018 - SNOMED Code(s): 729986641 Comment: - Heparin SQ - Patient continues to refuse her heparin shots (11) DNR (do not resuscitate) Current Visit: Yes Status: Acute Status and Disposition: Inpatient for antibiotics and wound care. Patient is not a candidate for surgical debridement. Based on her current health status, it will be difficult to achieve complete resolution of her current infection. SNF placement with Hospice care once bed available.
[2017-09-19] MEDS: Mometasone 220 MCG MDI INH SCH (20:14)
[2017-09-19] MEDS ORDERED: diPHENhydraMINE PO* 25 MG PO PRN (21:50)
[2017-09-19] MEDS: Piperacillin/Tazobactam 13.5 GM IV 24 hour continuous infusion IVPB SCH ×2 (21:52)
[2017-09-19] MEDS: oxyCODONE TAB* 5 MG TAB PO PRN (22:00)
[2017-09-20] MEDS: oxyCODONE TAB* 5 MG TAB PO PRN ×5 (02:45→21:05)
[2017-09-20] MEDS: Levothyroxine TAB* 100 MCG TAB PO SCH (05:44)
[2017-09-20] MEDS: Heparin VIAL(*) 5000 UNITS/ML VIAL (FIVE THOUSAND) SUBCUT SCH ×3 (06:03→21:07)
[2017-09-20] MEDS: Gabapentin CAP(*) 300 MG PO SCH (09:42)
[2017-09-20] MEDS: Nystatin TOP POWDER* 15 GM BTL TOPICAL SCH ×2 (09:45→21:07)
[2017-09-20] MEDS: Pantoprazole IV* 40 MG IV SCH (09:45)
--- NOTE | 2017-09-20 11:26 | PN ---
Subjective Date of Service: 09/20/17 Interval History: patient reports she feels better today. she had a BM today for the first time in days. Reports "okay appetite". Denies any pain or discomfort. Denies fever or chills. Offers no complaints. Family History: Unchanged from Admission Social History: Unchanged from Admission Past Medical History: Unchanged from Admission Objective Active Medications: Acetaminophen (Tylenol Supp*) 650 mg [place] Q6H PRN PRN Reason: FEVER/PAIN Albuterol (Ventolin 2.5 Mg/3 Ml Neb.Henrietta*) 2.5 mg INH Q2H PRN PRN Reason: SOB/WHEEZING Diphenhydramine HCl (Benadryl Po*) 25 mg PO Q6H PRN PRN Reason: ITCHING Last Admin: 09/19/17 22:01 Dose: 25 mg Fluconazole (Diflucan 100 Mg Tab*) 150 mg PO WEEKLY@0900 [facility] Last Admin: 09/18/17 10:47 Dose: 150 mg Gabapentin (Neurontin Cap(*)) 600 mg PO DAILY [facility] Last Admin: 09/20/17 09:42 Dose: 600 mg Heparin Sodium (Porcine) (Heparin Vial(*)) 5,000 units SUBCUT Q8HR [facility] Last Admin: 09/20/17 06:03 Dose: Not Given Sodium Chloride (Ns 0.9% 1000 Ml*) 1,000 mls @ 50 mls/hr IV PER RATE [facility] Last Admin: 09/19/17 21:19 Dose: 50 mls/hr Piperacillin Sod/Tazobactam (Sod 13.5 gm/ Sodium Chloride) 500 mls @ 20.833 mls /hr IVPB Q24H [facility] Last Admin: 09/19/17 21:52 Dose: 20.833 mls/hr Levothyroxine Sodium (Synthroid Tab*) 100 mcg PO DAILY@0600 [facility] Last Admin: 09/20/17 05:44 Dose: 100 mcg Mometasone Furoate (Asmanex 220 Mcg Mdi *) 2 puff INH QPM [facility] Last Admin: 09/19/17 20:14 Dose: 2 puff Morphine Sulfate (Ms Contin(*)) 15 mg PO BID PRN PRN Reason: PAIN Last Admin: 09/19/17 16:07 Dose: 15 mg Nystatin (Nystatin Top Powder*) 1 applic TOPICAL BID [facility] Last Admin: 09/20/17 09:45 Dose: Not Given Ondansetron HCl (Zofran Inj*) 4 mg IV Q6H PRN PRN Reason: NAUSEA Oxycodone HCl (Roxycodone Tab*) 2.5 mg PO Q4H PRN PRN Reason: PAIN Last Admin: 09/20/17 11:13 Dose: 2.5 mg Pantoprazole Sodium (Protonix Iv*) 40 mg IV DAILY [facility] Last Admin: 09/20/17 09:45 Dose: 40 mg Vital Signs - 8 hr 09/20/17 09/20/17 09/20/17 03:58 06:52 06:53 Temperature 98.9 F Pulse Rate 73 Respiratory 20 20 20 Rate Blood Pressure 114/52 (mmHg) O2 Sat by Pulse 96 Oximetry 09/20/17 09/20/17 09/20/17 07:19 07:34 07:38 Temperature 97.8 F Pulse Rate 68 Respiratory 20 20 Rate Blood Pressure 93/35 (mmHg) O2 Sat by Pulse 97 96 Oximetry 09/20/17 09/20/17 09:42 11:13 Temperature Pulse Rate Respiratory 14 14 Rate Blood Pressure (mmHg) O2 Sat by Pulse Oximetry Oxygen Devices in Use Now: Nasal Cannula Appearance: morbidly obese female laying in bed A+O x3 in NAD Eyes: No Scleral Icterus, PERRLA Ears/Nose/Mouth/Throat: NL Teeth, Lips, Gums, Mucous Membranes Moist Neck: NL Appearance and Movements; NL JVP Respiratory: Symmetrical Chest Expansion and Respiratory Effort, Clear to Auscultation Cardiovascular: NL Sounds; No Murmurs; No JVD, RRR Abdominal: - - morbidly obese - CD+I dressing under pannus (just changed by nurse) Extremities: No Clubbing, Cyanosis Neurological: Alert and Oriented x 3, NL Sensation Lines/Tubes/Other Access: Clean, Dry and Intact Peripheral IV Nutrition: Taking PO's Result Diagrams: 09/18/17 05:30 09/18/17 05:30 Additional Lab and Data: Lab Results Microbiology and Other Data: Microbiology 09/18/17 01:06 Nasal Screen MRSA (PCR)(PARMJIT) - Final Nasal Mrsa Not Detected Diagnostic Imaging: Patient Name: CHERI WHITMORE Medical Record#: [id number] Ordering Physician: Anand Gautam MD Acct.#: [id number] : 1955 Age: 62 Sex: F Location: EMERGENCY DEPARTMENT Exam Date: 09/17/171736 ADM Status: REG ER Order Information: CT ABD/PEL W/O Accession Number: [id number] CPT: 88579 INDICATION: Suprapubic pannus cellulitis. COMPARISON: January 09, 2009 IMPRESSION: 1. Cardiomegaly and pulmonary fibrosis. 2. Infiltrative edema at the RIGHT upper quadrant abdominal fat including at the postcholecystectomy gallbladder fossa and Morison's pouch. No loculated peritoneal abscess collection evident. The edema may be secondary to CT occult duodenitis or pancreatitis. Correlate with clinical and laboratory assessment. 3. Extensive infiltrative edema at the RIGHT mons pubis with associated subcutaneous edema extending to a packed wound at the RIGHT anterior groin. No loculated abscess collection evident. Patient Name: CHERI WHITMORE Medical Record#: [id number] Ordering Physician: Anand Gautam MD Acct.#: [id number] : 1955 Age: 62 Sex: F Location: EMERGENCY DEPARTMENT Exam Date: 09/17/171734 ADM Status: REG ER Order Information: CHEST AP PORTABLE Accession Number: [id number] CPT: 77292 Indication: Suprapubic cellulitis. IMPRESSION: 1. Interstitial pulmonary fibrosis. 2. Potential pulmonary vascular congestion and interstitial edema. EKG Data: EKG INTERPRETATION ECG Report Patient Name CHERI WHITMORE Birthdate 1955 Sex F Order Number [id number] Date of ECG 09/17/2017 17:47:55 Interpretation Sinus rhythm.normal P axis, V-rate 60- 99 RBBB and LAFB.QRSd >120mS, axis(-40,240) Left ventricular hypertrophy.multiple voltage criteria - ABNORMAL ECG - ECG NEEDS E-SIGNING Please go to [facility] [place] website to view the EKG image Assess/Plan/Problems-Billing Assessment: A 62 y/o female with multiple medical issues, including end stage COPD for which she has been on Hospice care at home since 07/2017, who was admitted from ED with RLQ pannus cellulitis and open wound infection. - Patient Problems (1) Abdominal wall cellulitis Comment: - Cultures reviewed from 09/16/17, pseudomonas isolated sensitive to Zosyn - Wound care, will change dressing on a daily basis - Possible hydradenitis suppurativa as a predisposing factor to her infection - Infected wound secondary to abscess that spontaneously opened with active purulent drainage. - Patient with end stage COPD, on Hospice care, not a surgical candidate for debridement - Discussed with daughter, Patient is in need of skilled care for wound dressing changes and positioning in bed. Giving her morbid obesity, no local [facility] facility are able to accommodate her. patient financial services manager and palliative care team will be searching for placement. - plan to continue Iv abx at this time - Pain management (2) Respiratory failure with hypoxia Comment: - End stage COPD, on Hospice care. - Palliative care note reviewed, recommendations appreciated. - electrical cad designer/Social work following - Plan for SNF placement with Hospice care. Patient no longer can be cared for at home. Now with her excessive body weight, no local SNF can accept patient. Search is under way for placement. Daughter aware and agreed to plans. (3) Pannus, abdominal Comment: - Chronic problem, now with cellulitis and infected open wound - Again, not a surgical candidate - Will continue conservative measures (4) Anemia Comment: - Hx of iron deficiency anemia - It appears she has been drifted down the 2 last years. - Will obtain stool for occult blood - Suspect some anemia is dilutional from IV fluids. - On Hospice, no aggressive tx. She is asymptomatic (5) Hypothyroidism Comment: Continue Levothyroxine (6) DNR (do not resuscitate) Status and Disposition: Inpatient for antibiotics and wound care. Patient is not a candidate for surgical debridement. Based on her current health status, it will be difficult to achieve complete resolution of her current infection. SNF placement with Hospice care once bed available.
[2017-09-20] MEDS: NS 0.9% 1000 ML* 1,000 ML IV SCH (18:55)
[2017-09-20] MEDS: Mometasone 220 MCG MDI INH SCH (19:53)
[2017-09-20] MEDS: Piperacillin/Tazobactam 13.5 GM IV 24 hour continuous infusion IVPB SCH ×2 (21:04)
[2017-09-20] MEDS: Morphine TAB Extended Release (*) 15 MG TAB.ER PO PRN (21:05)
[2017-09-21 05:26] LABS: ABS Basophils 0.1 10^3/ul (0-0.2); ABS Eosinophils 0.4 10^3/ul (0-0.6); ABS Lymphocytes 1.6 10^3/ul (1.0-4.8); ABS Monocytes 0.6 10^3/ul (0-0.8); ABS Neutrophils 7.3 10^3/ul (1.5-7.7); ABS Nucleated RBC 0 10^3/ul; Eosinophil % 4.2 % (0-6); Hematocrit 21 % (35-47); Hemoglobin 6.5 g/dl (12.0-16.0); Lymphocyte % 16.2 % (25-47); Mean Corpuscular HGB Conc 32 g/dl (31-36); Mean Corpuscular Hemoglobin 30 pg (27-31); Mean Corpuscular Volume 94 fL (80-97); Mean Platelet Volume 7.1 um3 (7.4-10.4); Nucleated Red Blood Cells % 0; Platelet Count 244 10^3/ul (150-450); Red Blood Count 2.19 10^6/ul (4.0-5.4); Red Cell Distribution Width 21 % (10.5-15); White Blood Count 10.1 10^3/ul (3.5-10.8)
[2017-09-21] MEDS: Levothyroxine TAB* 100 MCG TAB PO SCH (05:33)
[2017-09-21] MEDS: oxyCODONE TAB* 5 MG TAB PO PRN ×3 (05:33→21:02)
[2017-09-21] MEDS: Heparin VIAL(*) 5000 UNITS/ML VIAL (FIVE THOUSAND) SUBCUT SCH ×3 (05:34→22:10)
[2017-09-21] MEDS: Morphine TAB Extended Release (*) 15 MG TAB.ER PO PRN ×2 (08:40→21:01)
[2017-09-21] MEDS: Gabapentin CAP(*) 300 MG PO SCH (08:41)
[2017-09-21] MEDS: Pantoprazole IV* 40 MG IV SCH (08:41)
[2017-09-21] MEDS: Nystatin TOP POWDER* 15 GM BTL TOPICAL SCH ×2 (08:41→21:03)
[2017-09-21] MEDS: NS 0.9% 1000 ML* 1,000 ML IV SCH (18:03)
[2017-09-21] MEDS: Mometasone 220 MCG MDI INH SCH (19:58)
[2017-09-21] MEDS: Piperacillin/Tazobactam 13.5 GM IV 24 hour continuous infusion IVPB SCH ×2 (21:01)
--- NOTE | 2017-09-21 21:25 | PN ---
Subjective Date of Service: 09/21/17 Interval History: patient reports she feels better today and offers no complaints. Denies pain. No fever or chills. Reports good appetite. No N/V/D. Family History: Unchanged from Admission Social History: Unchanged from Admission Past Medical History: Unchanged from Admission Objective Active Medications: Acetaminophen (Tylenol Supp*) 650 mg NE Q6H PRN PRN Reason: FEVER/PAIN Albuterol (Ventolin 2.5 Mg/3 Ml Neb.Henrietta*) 2.5 mg INH Q2H PRN PRN Reason: SOB/WHEEZING Diphenhydramine HCl (Benadryl Po*) 25 mg PO Q6H PRN PRN Reason: ITCHING Last Admin: 09/19/17 22:01 Dose: 25 mg Fluconazole (Diflucan 100 Mg Tab*) 150 mg PO WEEKLY@0900 [facility] Last Admin: 09/18/17 10:47 Dose: 150 mg Gabapentin (Neurontin Cap(*)) 600 mg PO DAILY [facility] Last Admin: 09/21/17 08:41 Dose: 600 mg Heparin Sodium (Porcine) (Heparin Vial(*)) 5,000 units SUBCUT Q8HR [facility] Last Admin: 09/21/17 12:58 Dose: Not Given Sodium Chloride (Ns 0.9% 1000 Ml*) 1,000 mls @ 50 mls/hr IV PER RATE [facility] Last Admin: 09/21/17 18:03 Dose: 50 mls/hr Piperacillin Sod/Tazobactam (Sod 13.5 gm/ Sodium Chloride) 500 mls @ 20.833 mls /hr IVPB Q24H [facility] Last Admin: 09/21/17 21:01 Dose: 20.833 mls/hr Levothyroxine Sodium (Synthroid Tab*) 100 mcg PO DAILY@0600 [facility] Last Admin: 09/21/17 05:33 Dose: 100 mcg Mometasone Furoate (Asmanex 220 Mcg Mdi *) 2 puff INH QPM [facility] Last Admin: 09/21/17 19:58 Dose: 2 puff Morphine Sulfate (Ms Contin(*)) 15 mg PO BID PRN PRN Reason: PAIN Last Admin: 09/21/17 21:01 Dose: 15 mg Nystatin (Nystatin Top Powder*) 1 applic TOPICAL BID [facility] Last Admin: 09/21/17 21:03 Dose: 1 applic Ondansetron HCl (Zofran Inj*) 4 mg IV Q6H PRN PRN Reason: NAUSEA Oxycodone HCl (Roxycodone Tab*) 2.5 mg PO Q4H PRN PRN Reason: PAIN Last Admin: 09/21/17 21:02 Dose: 2.5 mg Pantoprazole Sodium (Protonix Iv*) 40 mg IV DAILY [facility] Last Admin: 09/21/17 08:41 Dose: 40 mg Vital Signs - 8 hr 09/21/17 09/21/17 09/21/17 15:36 16:00 16:36 Temperature 98.4 F Pulse Rate 69 Respiratory 16 16 Rate Blood Pressure 136/47 (mmHg) O2 Sat by Pulse 96 96 Oximetry 09/21/17 09/21/17 09/21/17 19:59 20:00 21:01 Temperature Pulse Rate 69 Respiratory 16 18 Rate Blood Pressure (mmHg) O2 Sat by Pulse 96 96 Oximetry 09/21/17 21:02 Temperature Pulse Rate Respiratory 18 Rate Blood Pressure (mmHg) O2 Sat by Pulse Oximetry Oxygen Devices in Use Now: Nasal Cannula Appearance: morbidly obese female A+O x3 in NAD Eyes: No Scleral Icterus, PERRLA Ears/Nose/Mouth/Throat: Mucous Membranes Moist Neck: NL Appearance and Movements; NL JVP Respiratory: Symmetrical Chest Expansion and Respiratory Effort, Clear to Auscultation Cardiovascular: NL Sounds; No Murmurs; No JVD, RRR Abdominal: NL Sounds; No Tenderness; No Distention, - - Obese Extremities: No Clubbing, Cyanosis Skin: - - packed wound under pannus on right - just changed per nursing - no drainage noted. Neurological: Alert and Oriented x 3, NL Sensation, - Lines/Tubes/Other Access: Clean, Dry and Intact Peripheral IV Nutrition: Taking PO's Result Diagrams: 09/21/17 05:09 09/18/17 05:30 Additional Lab and Data: Lab Results Microbiology and Other Data: Microbiology 09/18/17 01:06 Nasal Screen MRSA (PCR)(PARMJIT) - Final Nasal Mrsa Not Detected Diagnostic Imaging: Patient Name: CHERI WHITMORE Medical Record#: [id number] Ordering Physician: Anand Gautam MD Acct.#: [id number] : 1955 Age: 62 Sex: F Location: EMERGENCY DEPARTMENT Exam Date: 09/17/171736 ADM Status: REG ER Order Information: CT ABD/PEL W/O Accession Number: [id number] CPT: 22687 INDICATION: Suprapubic pannus cellulitis. COMPARISON: January 09, 2009 IMPRESSION: 1. Cardiomegaly and pulmonary fibrosis. 2. Infiltrative edema at the RIGHT upper quadrant abdominal fat including at the postcholecystectomy gallbladder fossa and Morison's pouch. No loculated peritoneal abscess collection evident. The edema may be secondary to CT occult duodenitis or pancreatitis. Correlate with clinical and laboratory assessment. 3. Extensive infiltrative edema at the RIGHT mons pubis with associated subcutaneous edema extending to a packed wound at the RIGHT anterior groin. No loculated abscess collection evident. Patient Name: CHERI WHITMORE Medical Record#: [id number] Ordering Physician: Anand Gautam MD Acct.#: [id number] : 1955 Age: 62 Sex: F Location: EMERGENCY DEPARTMENT Exam Date: 09/17/171734 ADM Status: REG ER Order Information: CHEST AP PORTABLE Accession Number: [id number] CPT: 13824 Indication: Suprapubic cellulitis. IMPRESSION: 1. Interstitial pulmonary fibrosis. 2. Potential pulmonary vascular congestion and interstitial edema. EKG Data: EKG INTERPRETATION ECG Report Patient Name CHERI WHITMORE Birthdate 1955 Sex F Order Number [id number] Date of ECG 09/17/2017 17:47:55 Interpretation Sinus rhythm.normal P axis, V-rate 60- 99 RBBB and LAFB.QRSd >120mS, axis(-40,240) Left ventricular hypertrophy.multiple voltage criteria - ABNORMAL ECG - ECG NEEDS E-SIGNING Please go to [email or web address] website to view the EKG image Assess/Plan/Problems-Billing Assessment: A 62 y/o female with multiple medical issues, including end stage COPD for which she has been on Hospice care at home since 07/2017, who was admitted from ED with RLQ pannus cellulitis and open wound infection. - Patient Problems (1) Abdominal wall cellulitis Comment: - Cultures reviewed from 09/16/17, pseudomonas isolated sensitive to Zosyn - Wound care, will change dressing on a daily basis - Possible hydradenitis suppurativa as a predisposing factor to her infection - Infected wound secondary to abscess that spontaneously opened with active purulent drainage. - Patient with end stage COPD, on Hospice care, not a surgical candidate for debridement - Discussed with daughter, Patient is in need of skilled care for wound dressing changes and positioning in bed. Giving her morbid obesity, no local fdc facility are able to accommodate her. career services director and palliative care team will be searching for placement. - plan to continue Iv abx at this time - Pain management (2) Respiratory failure with hypoxia Comment: - End stage COPD, on Hospice care. - Palliative care note reviewed, recommendations appreciated. - substation operator/Social work following - Plan for SNF placement with Hospice care. Patient no longer can be cared for at home. Now with her excessive body weight, no local SNF can accept patient. Search is under way for placement. Daughter aware and agreed to plans. (3) Pannus, abdominal Comment: - Chronic problem, now with cellulitis and infected open wound - Again, not a surgical candidate - Will continue conservative measures (4) Anemia Comment: - Hx of iron deficiency anemia - It appears she has been drifted down the 2 last years. - Will obtain stool for occult blood - Suspect some anemia is dilutional from IV fluids. - On Hospice, no aggressive tx. She is asymptomatic (5) Hypothyroidism Comment: Continue Levothyroxine (6) DNR (do not resuscitate) Status and Disposition: Inpatient for antibiotics and wound care. Patient is not a candidate for surgical debridement. Based on her current health status, it will be difficult to achieve complete resolution of her current infection. SNF placement with Hospice care once bed available.
[2017-09-22] MEDS: oxyCODONE TAB* 5 MG TAB PO PRN ×2 (01:37→21:53)
[2017-09-22] MEDS: Levothyroxine TAB* 100 MCG TAB PO SCH (05:47)
[2017-09-22] MEDS: Heparin VIAL(*) 5000 UNITS/ML VIAL (FIVE THOUSAND) SUBCUT SCH ×3 (05:54→21:53)
[2017-09-22] MEDS: Gabapentin CAP(*) 300 MG PO SCH (09:09)
[2017-09-22] MEDS: Pantoprazole IV* 40 MG IV SCH (09:10)
[2017-09-22] MEDS: Nystatin TOP POWDER* 15 GM BTL TOPICAL SCH ×2 (11:12→20:17)
[2017-09-22] MEDS: Morphine TAB Extended Release (*) 15 MG TAB.ER PO PRN (11:14)
--- NOTE | 2017-09-22 13:06 | PN ---
Subjective Date of Service: 09/22/17 Interval History: Patient seen and examined. Resting comfortably. No acute overnight events. Remains oxygen dependent. No complaints. Family History: Unchanged from Admission Social History: Unchanged from Admission Past Medical History: Unchanged from Admission Objective Active Medications: Acetaminophen (Tylenol Supp*) 650 mg HI Q6H PRN PRN Reason: FEVER/PAIN Albuterol (Ventolin 2.5 Mg/3 Ml Neb.Henrietta*) 2.5 mg INH Q2H PRN PRN Reason: SOB/WHEEZING Diphenhydramine HCl (Benadryl Po*) 25 mg PO Q6H PRN PRN Reason: ITCHING Last Admin: 09/19/17 22:01 Dose: 25 mg Fluconazole (Diflucan 100 Mg Tab*) 150 mg PO WEEKLY@0900 [facility] Last Admin: 09/18/17 10:47 Dose: 150 mg Gabapentin (Neurontin Cap(*)) 600 mg PO DAILY [facility] Last Admin: 09/22/17 09:09 Dose: 600 mg Heparin Sodium (Porcine) (Heparin Vial(*)) 5,000 units SUBCUT Q8HR [facility] Last Admin: 09/22/17 05:54 Dose: Not Given Sodium Chloride (Ns 0.9% 1000 Ml*) 1,000 mls @ 50 mls/hr IV PER RATE [facility] Last Admin: 09/21/17 18:03 Dose: 50 mls/hr Piperacillin Sod/Tazobactam (Sod 13.5 gm/ Sodium Chloride) 500 mls @ 20.833 mls /hr IVPB Q24H [facility] Last Admin: 09/21/17 21:01 Dose: 20.833 mls/hr Levothyroxine Sodium (Synthroid Tab*) 100 mcg PO DAILY@0600 [facility] Last Admin: 09/22/17 05:47 Dose: 100 mcg Mometasone Furoate (Asmanex 220 Mcg Mdi *) 2 puff INH QPM [facility] Last Admin: 09/21/17 19:58 Dose: 2 puff Morphine Sulfate (Ms Contin(*)) 15 mg PO BID PRN PRN Reason: PAIN Last Admin: 09/22/17 11:14 Dose: 15 mg Nystatin (Nystatin Top Powder*) 1 applic TOPICAL BID [facility] Last Admin: 09/22/17 11:12 Dose: 1 applic Ondansetron HCl (Zofran Inj*) 4 mg IV Q6H PRN PRN Reason: NAUSEA Oxycodone HCl (Roxycodone Tab*) 2.5 mg PO Q4H PRN PRN Reason: PAIN Last Admin: 09/22/17 01:37 Dose: 2.5 mg Pantoprazole Sodium (Protonix Iv*) 40 mg IV DAILY [facility] Last Admin: 09/22/17 09:10 Dose: 40 mg Vital Signs - 8 hr 09/22/17 09/22/17 09/22/17 07:37 08:00 09:09 Temperature 97.9 F Pulse Rate 65 Respiratory 18 18 16 Rate Blood Pressure 106/38 (mmHg) O2 Sat by Pulse 98 98 Oximetry 09/22/17 09/22/17 11:14 12:04 Temperature Pulse Rate Respiratory 18 18 Rate Blood Pressure (mmHg) O2 Sat by Pulse Oximetry Oxygen Devices in Use Now: Nasal Cannula Appearance: Alert, NAD Ears/Nose/Mouth/Throat: Mucous Membranes Moist Neck: Trachea Midline Respiratory: Symmetrical Chest Expansion and Respiratory Effort, - - diminished bases Abdominal: NL Sounds; No Tenderness; No Distention - obese, packing intact Neurological: Alert and Oriented x 3, - - general weakness Nutrition: Taking PO's Result Diagrams: 09/21/17 05:09 09/18/17 05:30 Additional Lab and Data: Lab Results Microbiology and Other Data: Microbiology 09/18/17 01:06 Nasal Screen MRSA (PCR)(PARMJIT) - Final Nasal Mrsa Not Detected Diagnostic Imaging: Patient Name: CHERI WHITMORE Medical Record#: [id number] Ordering Physician: Anand Gautam MD Acct.#: [id number] : 1955 Age: 62 Sex: F Location: EMERGENCY DEPARTMENT Exam Date: 09/17/171736 ADM Status: REG ER Order Information: CT ABD/PEL W/O Accession Number: [id number] CPT: 51309 INDICATION: Suprapubic pannus cellulitis. COMPARISON: January 09, 2009 IMPRESSION: 1. Cardiomegaly and pulmonary fibrosis. 2. Infiltrative edema at the RIGHT upper quadrant abdominal fat including at the postcholecystectomy gallbladder fossa and Morison's pouch. No loculated peritoneal abscess collection evident. The edema may be secondary to CT occult duodenitis or pancreatitis. Correlate with clinical and laboratory assessment. 3. Extensive infiltrative edema at the RIGHT mons pubis with associated subcutaneous edema extending to a packed wound at the RIGHT anterior groin. No loculated abscess collection evident. Patient Name: CHERI WHITMORE Medical Record#: [id number] Ordering Physician: Anand Gautam MD Acct.#: [id number] : 1955 Age: 62 Sex: F Location: EMERGENCY DEPARTMENT Exam Date: 09/17/17 9785 ADM Status: REG ER Order Information: CHEST AP PORTABLE Accession Number: [id number] CPT: 56594 Indication: Suprapubic cellulitis. IMPRESSION: 1. Interstitial pulmonary fibrosis. 2. Potential pulmonary vascular congestion and interstitial edema. EKG Data: EKG INTERPRETATION ECG Report Patient Name CHERI WHITMORE Birthdate 1955 Sex F Order Number [id number] Date of ECG 09/17/2017 17:47:55 Interpretation Sinus rhythm.normal P axis, V-rate 60- 99 RBBB and LAFB.QRSd >120mS, axis(-40,240) Left ventricular hypertrophy.multiple voltage criteria - ABNORMAL ECG - ECG NEEDS E-SIGNING Please go to [email or web address] website to view the EKG image Assess/Plan/Problems-Billing Assessment: A 62 y/o female with multiple medical issues, including end stage COPD for which she has been on Hospice care at home since 07/2017, who was admitted from ED with RLQ pannus cellulitis and open wound infection. - Patient Problems (1) Abdominal wall cellulitis Code(s): L03.311 - CELLULITIS OF ABDOMINAL WALL SNOMED Code(s): 90965607 Comment: - Continue Zosyn per PARMJIT - Daily wound packing - Possible hydradenitis suppurativa as a predisposing factor to her infection - Improving - Patient with end stage COPD, on Hospice care, not a surgical candidate for debridement - Patient's daughter is aware of need of skilled care for wound dressing changes and positioning in bed. Given morbid obesity, having trouble finding and accepting SNF. - cloud services architect and palliative care team actively involved (2) Anemia Code(s): D64.9 - ANEMIA, UNSPECIFIED SNOMED Code(s): 192145967 Comment: - Hx of iron deficiency anemia and likely dilutional - Asymptomatic - On Hospice, no aggressive tx warranted (3) Morbid obesity Code(s): E66.01 - MORBID (SEVERE) OBESITY DUE TO EXCESS CALORIES SNOMED Code(s ): 996598693 Comment: - BMI 63.5. Supportive care. (4) Respiratory failure with hypoxia Code(s): J96.91 - RESPIRATORY FAILURE, UNSPECIFIED WITH HYPOXIA SNOMED Code(s) : 14266405432998210 Comment: - End stage COPD, on Hospice care. - Palliative care note reviewed, recommendations appreciated. - [employer]ix system administrator/Social work following - Plan for SNF placement with Hospice care. Patient no longer can be cared for at home. (5) DNR (do not resuscitate) Status and Disposition: Inpatient for antibiotics and wound care. Patient is not a candidate for surgical debridement. Based on her current health status, it will be difficult to achieve complete resolution of her current infection. SNF placement with Hospice care once bed available.
[2017-09-22] MEDS: NS 0.9% 1000 ML* 1,000 ML IV SCH (15:31)
[2017-09-22] MEDS: Mometasone 220 MCG MDI INH SCH (18:02)
[2017-09-22] MEDS: Piperacillin/Tazobactam 13.5 GM IV 24 hour continuous infusion IVPB SCH ×2 (19:57)
[2017-09-23] MEDS: oxyCODONE TAB* 5 MG TAB PO PRN (03:04)
[2017-09-23] MEDS: Levothyroxine TAB* 100 MCG TAB PO SCH (05:35)
[2017-09-23] MEDS: Heparin VIAL(*) 5000 UNITS/ML VIAL (FIVE THOUSAND) SUBCUT SCH (05:38)
[2017-09-23] MEDS: Pantoprazole IV* 40 MG IV SCH (09:43)
[2017-09-23] MEDS: Morphine TAB Extended Release (*) 15 MG TAB.ER PO PRN (09:43)
[2017-09-23] MEDS: Nystatin TOP POWDER* 15 GM BTL TOPICAL SCH (09:43)
[2017-09-23] MEDS: Gabapentin CAP(*) 300 MG PO SCH (09:43)
[2017-09-23 12:45] VITALS: BP 117/52
--- NOTE | 2017-09-23 14:05 | DS ---
AMENDED REPORT NOW INCLUDES COSIGNER DESIGNATION - ESIGNED BEFORE ADJUSTMENT CC: Dr. Payton; Dr. Marin * DISCHARGE SUMMARY: DATE OF ADMISSION: 09/17/17 DATE OF DISCHARGE: 09/23/17 PRIMARY CARE PHYSICIAN: Dr. Fabiana Payton. MY ATTENDING TODAY: Dr. Kina Barros.* (DICTATED BY FAWN JAIN NP ) ATTENDING PHYSICIAN: The patient's attending for this admission is Dr. Erich Cardenas. HOSPITAL COURSE: This is a 62-year-old super morbidly obese female, who lives at home, on hospice for her end-stage COPD, and she was becoming additionally lethargic and febrile. Daughter had the patient transferred by ambulance to the emergency department, although she was in hospice as DNR and DNH. She felt that she was having some infectious process. Upon evaluation, she has a large open wound of the right lower quadrant fold of her pannus, which had large amounts of purulent drainage and tunneling throughout the abdomen. The patient was admitted for cellulitis and nonhealing wounds of the abdominal wall. She was seen by Dr. Qi Marin given that she is on hospice; however, it was noted that this admission was not a part of the hospice diagnosis and therefore would be covered separately as medical treatment not initiating treatment for her hospice diagnosis. The patient had daily wound care. Surgery did consult on the patient; however, given her deconditioned state and high risk, it was determined that surgical debridement would not be appropriate at this time. She was empirically started on Zosyn given her history of pseudomonas in the past. She has been on Zosyn since admission and responding well. She had bedside washout and wet-to-dry dressings and packing, which she responded well to, the drainage has slowed down. Again, because the patient is on hospice, there was some discussion regarding her plan of care moving forward. Given her general deconditioning, morbid obesity, and current infection, it was determined she was not able to be cared for at home and home hospice environment. The patient remained hospitalized until appropriate snf facility could be obtained. It was determined after multiple referrals that now the patient could go to [facility]. She will be transferred today, 09/23/17. She is in stable condition. Pain is well controlled. Again, her wounds have been responding well to the dressing changes and antibiotics, and she and her daughter are in agreement with this plan. PAST MEDICAL HISTORY: Significant for end-stage COPD with chronic hypoxic respiratory failure, morbid obesity, chronic heart failure, hypothyroidism, venous stasis, and IBS. DISCHARGE DIAGNOSES: 1. Cellulitis and infection of abdominal pannus. 2. End-stage chronic obstructive pulmonary disease. 3. Heart failure. 4. Morbid obesity. 5. History of chronic obstructive pulmonary disease, asthma, and chronic respiratory failure. MEDICATIONS AT THE TIME OF DISCHARGE: Include: 1. Albuterol 2 puffs q.4 hours as needed. 2. Diflucan 150 mg p.o. weekly. 3. Augmentin 875 mg p.o. b.i.d. x14 days. 4. Fluticasone 220 mcg inhaled 2 times a day. 5. Neurontin 300 mg caplets 600 mg daily. 6. Synthroid 100 mcg daily. 7. Imodium 2 mg q.4 hours as needed. 8. Morphine sulfate 15 mg p.o. b.i.d. PHYSICAL EXAM ON THE DAY OF DISCHARGE: Vital Signs: Blood pressure 117/52, heart rate 85, respiratory rate 16, satting at 100% on 2 L nasal cannula, temperature is 98.3. HEENT: The patient is atraumatic and normocephalic. PERRLA with nonicteric sclerae. Neck is supple. No carotid bruits auscultated. Cardiovascular: S1 and S2 are present. No murmurs, gallops, or rubs noted. Rate and rhythm are regular. Lungs are greatly diminished throughout the lung palomo with bilateral expiratory wheeze at baseline. Abdomen is very obese. She has positive bowel sounds in 4 quadrants. Her wet- to-dry dressing is clean, dry, and intact. : Deferred. Musculoskeletal: She has bipedal edema. No clubbing and no cyanosis. She has diminished pedal pulses and is essentially bedbound. Neurologic: She is with no new focality. Psychiatric: She is cooperative and appropriate. LABORATORY DATA: WBC is 10.1, RBC is 2.19, hemoglobin 6.5, hematocrit 21, platelets 244. Sodium 137, potassium 5.5, chloride 105, CO2 33, BUN 35, creatinine 1.12, calcium 8.2. Troponins were negative, mildly elevated secondary to demand at 0.06 and 0.04, but negative for any acute cardiac issue. Prealbumin is less than 3. BNP was 332. DISPOSITION: The patient was discharged by ambulance in stable but guarded condition to [facility] [place]. All questions were answered. The patient understands her discharge recommendations. She will be returned to [facility] for hospice with continued wound care and antibiotics. FAWN JAIN NP [id number]/CPS #: [id number] HU[facility]
== END 2017-09-23 14:50 | DRG 603 ==
LOC: ED 16:55 → MEDTELE 20:16 → SSU 09-22 01:05
PROVIDERS: ADMIT Hospitalist; ATTEND Internal Medicine
DX: L03.311 Cellulitis of abdominal wall (principal); Z68.44 Body mass index [BMI] 60.0-69.9, adult; J96.11 Chronic respiratory failure with hypoxia; E66.2 Morbid (severe) obesity with alveolar hypoventilation; I24.8 Other forms of acute ischemic heart disease; E65 Localized adiposity; J44.9 Chronic obstructive pulmonary disease, unspecified; I50.9 Heart failure, unspecified; E03.9 Hypothyroidism, unspecified; I87.8 Other specified disorders of veins; K58.9 Irritable bowel syndrome, unspecified; Z66 Do not resuscitate; R74.8 Abnormal levels of other serum enzymes; G47.30 Sleep apnea, unspecified; Z87.891 Personal history of nicotine dependence; Z79.899 Other long term (current) drug therapy; Z88.1 Allergy status to other antibiotic agents; Z88.0 Allergy status to penicillin
CPT/HCPCS: 36415; 71045; 74176; 80048; 80053; 81003; 81015; 82565; 83605; 83690; 83880; 84134; 84145; 84484; 84520; 85025; 85610; 85730; 86140; 87040; 87070; 87076; 87077; 87086; 87185; 87186; 87205; 87640; 87641; 93005; 94640; 94760; 99285; A9270-GY; J0744; J1644; J2543

== ENCOUNTER 2019-04-28 08:26 | Inpatient (IN) | payer MEDICARE ==
[2019-04-28] MEDS ORDERED: Albuterol/Ipratropium NEB.SOL* Albuterol 2.5 MG/Ipratropium 0.5 MG 3 ML INH ONE ×3 (08:42→10:55)
[2019-04-28] MEDS ORDERED: methylPREDNISolone 125 MG* 2 ML VIAL IV ONE (08:43)
--- NOTE | 2019-04-28 08:58 | ED ---
Shortness of Breath - HPI Summary HPI Summary: 63-year-old female presents with shortness breath and cough for 3 days. She states cough has been productive. States she's been having fevers. She states that she's had increasing weight. Has history of COPD and CHF. Is on 2 L at home. She states been feeling ill. She denies any chest pain. states noticed that legs are been increase in swelling. states may have had a fever. no abdominal pain. no n/v. - History of Current Complaint Chief Complaint: EDShortnessOfBreath Time Seen by Provider: 04/28/19 08:36 - Allergy/Home Medications Allergies/Adverse Reactions: Allergies Allergy/AdvReac Type Severity Reaction Status Date / Time erythromycin base Allergy Mild Rash Verified 04/28/19 08:37 Penicillins Allergy Mild Rash Verified 04/28/19 08:37 PMH/Surg Hx/FS Hx/Imm Hx Endocrine/Hematology History: Reports: Hx Thyroid Disease Cardiovascular History: Reports: Hx Congestive Heart Failure Respiratory History: Reports: Hx Asthma, Hx Chronic Obstructive Pulmonary Disease (COPD), Hx Sleep Apnea Sensory History: Denies: Hx Contacts or Glasses, Hx Deafness, Hx Hearing Aid, Hx Hearing Problem Opthamlomology History: Denies: Hx Contacts or Glasses - Surgical History Surgery Procedure, Year, and Place: Gallbladder, C sections Infectious Disease History: No Infectious Disease History: Reports: Hx of Known/Suspected MRSA Denies: Traveled Outside the [place] in Last 30 Days - Family History Known Family History: Positive: Other - Positive for RA. Father of PNA. Negative: Renal Disease, Respiratory Disease, Seizure Disorder - Social History Alcohol Use: Rare Hx Substance Use: No Substance Use Type: Reports: None Hx Tobacco Use: Yes Smoking Status (MU): Former Smoker Review of Systems Positive: Fever Negative: Chest Pain Positive: Shortness Of Breath, Cough Negative: Abdominal Pain All Other Systems Reviewed And Are Negative: Yes Physical Exam Triage Information Reviewed: Yes Vital Signs On Initial Exam: Initial Vitals Temp Pulse Resp BP Pulse Ox 97.9 F 85 16 125/57 93 04/28/19 08:34 04/28/19 08:34 04/28/19 08:34 04/28/19 08:34 04/28/19 08:34 Vital Signs Reviewed: Yes Appearance: Positive: Well-Appearing Skin: Positive: Warm, Dry Head/Face: Positive: Normal Head/Face Inspection Eyes: Positive: Normal, Conjunctiva Clear ENT: Positive: Pharynx normal Respiratory/Lung Sounds: Positive: Breath Sounds Present, Rales, Wheezes Cardiovascular: Positive: Normal, RRR Abdomen Description: Positive: Nontender, Soft Bowel Sounds: Positive: Present Musculoskeletal: Positive: Normal Neurological: Positive: Normal Psychiatric: Positive: Normal Procedures - Sedation Patient Received Moderate/Deep Sedation with Procedure: No Diagnostics - Vital Signs Vital Signs Temp Pulse Resp BP Pulse Ox 04/28/19 08:34 97.9 F 85 16 125/57 93 - Laboratory Result Diagrams: 04/28/19 08:55 04/28/19 08:55 Lab Statement: Any lab studies that have been ordered have been reviewed, and results considered in the medical decision making process. - Radiology chest Radiology Interpretation Completed By: Radiologist Summary of Radiographic Findings: IMPRESSION: FINDINGS SUGGESTIVE OF CHRONIC INTERSTITIAL LUNG DISEASE. THE POSSIBILITY OF A SMALL SUPERIMPOSED INFILTRATE CANNOT BE RULED OUT. - EKG No standard instances Cardiac Rate: NL EKG Rhythm: Sinus Rhythm EKG Comparison: No Significant Change Summary of EKG Findings: sinus rhythm, RBBB Re-Evaluation - Re-Evaluation First Eval Re-Evaluation Time: 10:15 Change: Unchanged Comment: still wheezing Second Eval Re-Evaluation Time: 11:12 Change: Unchanged Comment: crackles heard Course/Dx - Course Course Of Treatment: 63-year-old female presents with shortness breath and cough for 3 days. She states cough has been productive. States she's been having fevers. She states that she's had increasing weight. Has history of COPD and CHF. Is on 2 L at home. She states been feeling ill. She denies any chest pain. states noticed that legs are been increase in swelling. states may have had a fever. no abdominal pain. no n/v. On exam diffuse wheezing noted. Patient is currently on 4 L of oxygen stating at 94. EKG shows sinus rhythm with RBBB that is similar to previous EKG. wbc 13. crp elevated. bnp is 264. troponin .04 which is similiar to previous. gave breathing treatment with no improvement. gave lasix, solumedrol and magnesium and minimial improvement. lungs sound like rales now. as patient continues to be short of breath will admit. spoke with dr loving who agrees to admit. - Diagnoses Differential Diagnosis/HQI/PQRI: Positive: CHF, COPD Exacerbation, Pneumonia Provider Diagnoses: COPD (chronic obstructive pulmonary disease), CHF (congestive heart failure), Shortness of breath Discharge ED - Sign-Out/Discharge Documenting (check all that apply): Patient Departure - Discharge Plan Condition: Stable Disposition: ADMITTED TO [facility] - Billing Disposition and Condition Condition: STABLE Disposition: Admitted to [facility] - Attestation Statements Provider Attestation: I was available for consultation for this patient. I did not evaluate the patient or participate in any medical decision making or disposition decisions unless I am specifically named in the chart as having consulted on the patient. If I have consulted on the patient, please see my own ED note on the patient encounter. Petros Alvarez MD
[2019-04-28 09:05] LABS: Hematocrit 38 % (35-47); Hemoglobin 12.6 g/dL (12.0-16.0); Mean Corpuscular HGB Conc 33 g/dL (31-36); Mean Corpuscular Hemoglobin 33 pg (27-31); Mean Corpuscular Volume 100 fL (80-97); Platelet Count 296 10^3/uL (150-450); Red Blood Count 3.85 10^6 /uL (3.70-4.87); Red Cell Distribution Width 17 % (10-15); White Blood Count 13.1 10^3/uL (3.5-10.8)
[2019-04-28 09:23] LABS: ALT 6 U/L (7-52); AST 21 U/L (13-39); Albumin 2.5 g/dL (3.2-5.2); Albumin/Globulin Ratio 0.4 (1-3); Alkaline Phosphatase 77 U/L (34-104); Anion Gap 4 mmol/L (2-11); BUN/Creatinine Ratio 19.3 (8-20); Blood Urea Nitrogen 16 mg/dL (6-24); C Reactive Protein 299.32 mg/L (<8.01); CO2 Carbon Dioxide 33 mmol/L (22-32); Calcium 9.1 mg/dL (8.6-10.3); Chloride 98 mmol/L (101-111); EGFR African American 83.5 (>60); Globulin 7.1 g/dL (2-4); Glucose 103 mg/dL (70-100); Magnesium 1.8 mg/dL (1.9-2.7); Potassium 4.1 mmol/L (3.5-5.0); Sodium 135 mmol/L (135-145); Total Protein 9.6 g/dL (6.4-8.9)
[2019-04-28 09:30] LABS: Troponin I 0.04 ng/mL (<0.03)
[2019-04-28] MEDS ORDERED: Magnesium Sulfate 2 GM IV* 2 GM/50 ML BAG IVPB ONE ×2 (09:30→14:27)
[2019-04-28] MEDS ORDERED: Furosemide IV* 10 MG/ML VIAL (40 MG) IV SLOW PU ONE (09:31)
[2019-04-28 10:39] LABS: ABS Basophils 0.1 10^3/ul (0-0.2); ABS Eosinophils 0.1 10^3/ul (0-0.6); Polychromasia 1+
[2019-04-28 10:40] LABS: ABS Neutrophils 10.7 10^3/ul (1.5-7.7)
[2019-04-28 11:05] LABS: Influenza A Molecular NEGATIVE (Negative); Influenza B Molecular NEGATIVE (Negative)
[2019-04-28] MEDS: Azithromycin 500 mg/250 ml NS 500 MG/250 ML BAG IVPB SCH (12:55)
[2019-04-28] MEDS ORDERED: Albuterol/Ipratropium NEB.SOL* Albuterol 2.5 MG/Ipratropium 0.5 MG 3 ML INH PRN (14:28)
--- NOTE | 2019-04-28 15:27 | HP ---
HISTORY AND PHYSICAL: DATE OF ADMISSION: 04/28/19 ADMITTING PROVIDER: Harpreet Maldonado MD PRIMARY CARE PROVIDER: Fabiana Payton MD CHIEF COMPLAINT: Shortness of breath, productive cough, fever. HISTORY OF PRESENT ILLNESS: Lyndsay Harris is a 63-year-old female with past medical history of COPD, pulmonary fibrosis/chronic interstitial lung disease, chronic hypoxic respiratory failure, morbid obesity with likely obesity hypoventilation syndrome, sleep apnea, irritable bowel syndrome, asthma. She is a poor historian, but for the last about a week she has had on and off coughing that is productive, occasional wheezing. Her daughter who she lives with was also having the same symptoms and they both thought they had pneumonia. She denies any chest pain. She had a fever of 100.8 yesterday. No chills. No lower extremity edema. No abdominal pain, diarrhea, headaches, or muscle aches. She presented to [facility] Emergency Room and was found to be having a leukocytosis of 13.1, CRP of 299, BNP of 264, troponin of 0.04. Negative influenza swab. There was concern for potential CHF exacerbation, so she was given 40 mg of IV Lasix and 125 mg of Solu- Medrol given rales on exam and was referred to the hospitalist service for admission. The patient initially refused threatening to leave against medical advice, but ultimately consented to admission. PAST MEDICAL HISTORY: Asthma; COPD; chronic interstitial lung disease or pulmonary fibrosis; hypothyroidism; morbid obesity, likely obesity hypoventilation syndrome; sleep apnea; IBS; pulmonary embolism back in 2006, on Coumadin for a year; mild mental retardation; depression; restless legs syndrome ; esophageal diverticulum; MRSA carrier status; degenerative disk disease; osteoarthritis; anxiety; insomnia. CURRENT MEDICATIONS: 1. Nystatin topical powder 1 application topical b.i.d. 2. Imodium 2 mg p.o. q.4 hours p.r.n. 3. Levothyroxine 100 mcg p.o. daily. 4. Spiriva 1 puff inhaled daily. 5. Vitamin B12 500 mcg p.o. daily. 6. Albuterol nebulizer 4 times a day p.r.n. 7. Gabapentin 300 mg p.o. b.i.d. 8. Bacitracin application topical t.i.d. 9. Robitussin 10 mL p.o. q.4 hours p.r.n. 10. Bengay topical b.i.d. 11. Ensure liquid 237 mL p.o. t.i.d. 12. Ventolin 1 to 2 puffs inhaled q.4 hours p.r.n. 13. Menthol topical b.i.d. 14. Clobetasol emollient 1 application topical b.i.d. 15. Ibuprofen 600 mg p.o. b.i.d. ALLERGIES TO MEDICATIONS: Include PENICILLINS, mild rash; TRAMADOL, unknown; ERYTHROMYCIN. FAMILY MEDICAL HISTORY: Brother of "fluid in the lungs" at age 25. SOCIAL HISTORY: The patient is a former cigarette smoker 3 packs per day for 10 years. No smoking other than infrequent marijuana. She lives with her daughter. She is DNR. Not clear that she has had any paperwork done to that effect. REVIEW OF SYSTEMS: A complete 14-point review of systems is negative except as per HPI. PHYSICAL EXAMINATION GENERAL APPEARANCE: Chronically ill-appearing. VITAL SIGNS: Temperature 97.9, heart rate in the 80s, satting between 91% and 97% on 4 L, blood pressure 125/57. HEENT: Normocephalic, atraumatic. Pupils are equal, round, and reactive to light. Extraocular motions intact. No scleral icterus. LUNGS: Have rales bilaterally anteriorly. She is currently unable to be positioned to auscultate posteriorly. CARDIOVASCULAR: Regular rate and rhythm. No murmurs, rubs, or gallops. ABDOMEN: Soft, nontender, obese. No rebound. No guarding. No Mario's sign. EXTREMITIES: Warm, well perfused. There is swelling greater on the left that is mostly nonpitting. NEURO: Kennel Operator strength intact bilaterally. Cranial nerves II through XII intact. Oriented to situation. Difficult to understand speech. DIAGNOSTIC STUDIES/LAB DATA: White count 13.1, hemoglobin 12.6, hematocrit 38 , platelets 296, band neutrophils 14.0%. Sodium 135, potassium 4.1, chloride 98 , carbon dioxide 33, BUN 16, creatinine 0.87, glucose 103, lactic acid 1.7, magnesium 1.8. Total bili 0.6, AST 21, ALT 6, alk phos 77. Troponin 0.04. CRP 299. BNP 264. Albumin 2.5. Influenza negative. Chest x-ray demonstrated chronic interstitial lung disease, possibility of a small superimposed infiltrate could not be ruled out. EKG demonstrated right bundle branch block, left anterior fascicular block, normal sinus rhythm. No ST elevations or depressions. ASSESSMENT AND PLAN: Lyndsay Harris is a 63-year-old female with morbid obesity, chronic obstructive pulmonary disease, chronic hypoxic respiratory failure, evidence of pulmonary fibrosis or interstitial lung disease, presenting with a week of productive cough, shortness of breath and a fever last night. She has elevated inflammatory markers, leukocytosis with concern for infection. Follow up the blood cultures. Adding a sputum culture. Adding on Strep pneumoniae and legionella urine antigens. Still waiting on the urinalysis and urine culture. She also has significant lower extremity edema. I suspect she is largely bedbound given her body habitus and physical deconditioning. I am going to get a duplex Doppler to rule out deep venous thrombosis. I am going to consider D-dimer or a CTA. Order physical therapy. Continue home medications of gabapentin, Robitussin, levothyroxine, Imodium, nystatin, Spiriva. She has been getting ceftriaxone and azithromycin which will continued. I will get an echocardiogram given her elevated BNP. Last echo that I could find was from 2004. Put her on telemetry. Being admitted to inpatient status. She can eat a heart-healthy diet.She is a DNR/DNI. [id number]/[facility] #: [id number] HUMAIRA
[2019-04-28] MEDS: Enoxaparin(*) 40 MG/0.4 ML SYR SUBCUT SCH ×2 (17:07→17:13)
[2019-04-28] MEDS: Nystatin TOP POWDER* 15 GM BTL TOPICAL SCH ×2 (17:15→19:50)
[2019-04-28] MEDS: GuaiFENesin DM 100 mg/10 mg in 5 ML UDC PO PRN ×2 (17:15→23:40)
[2019-04-28] MEDS: cefTRIAXone(*) 1 GM in NS 0.9% 50 ML* 50 ML IVPB SCH (19:43)
[2019-04-28] MEDS: SPIRIVA Respimat* (tiotropium) 2.5 mcg/inh Inhaler INH SCH (23:11)
[2019-04-28] MEDS: Albuterol/Ipratropium NEB.SOL* Albuterol 2.5 MG/Ipratropium 0.5 MG 3 ML INH SCH (23:11)
[2019-04-28] MEDS: Gabapentin CAP(*) 300 MG PO SCH (23:17)
[2019-04-28] MEDS: Analgesic BALM* 114 GM TOPICAL SCH (23:45)
[2019-04-28] MEDS: Mometasone/Formoter 200/5 MDI INH SCH (23:45)
[2019-04-28] MEDS: Clobetasol 0.05% OINT* 30 GM TUBE TOPICAL SCH (23:45)
[2019-04-29] MEDS: Albuterol/Ipratropium NEB.SOL* Albuterol 2.5 MG/Ipratropium 0.5 MG 3 ML INH SCH ×3 (01:56→13:37)
[2019-04-29] MEDS: Levothyroxine TAB* 100 MCG TAB PO SCH (05:57)
[2019-04-29 09:09] LABS: ABS Lymphocytes 0.7 10^3/ul (1.0-4.8); ABS Monocytes 0.6 10^3/ul (0-0.8); ABS Neutrophils 9.8 10^3/ul (1.5-7.7); Eosinophil % 0.1 %; Hematocrit 38 % (35-47); Hemoglobin 12.1 g/dL (12.0-16.0); Mean Corpuscular HGB Conc 32 g/dL (31-36); Mean Corpuscular Hemoglobin 33 pg (27-31); Mean Corpuscular Volume 101 fL (80-97); Mean Platelet Volume 7.8 fL (7.4-10.4); Nucleated Red Blood Cells % 0.1; Platelet Count 295 10^3/uL (150-450); Red Blood Count 3.73 10^6 /uL (3.70-4.87); Red Cell Distribution Width 17 % (10-15); White Blood Count 11.2 10^3/uL (3.5-10.8)
[2019-04-29 09:21] LABS: BUN/Creatinine Ratio 25.8 (8-20); Calcium 9.2 mg/dL (8.6-10.3); EGFR Non-African American 63.7 (>60); Potassium 4.3 mmol/L (3.5-5.0)
[2019-04-29] MEDS: predniSONE TAB* 20 MG PO SCH (09:25)
[2019-04-29] MEDS: Ibuprofen TAB* 600 MG PO PRN (09:25)
[2019-04-29] MEDS: Cyanocobalamin TAB* 500 MCG PO SCH (09:26)
[2019-04-29] MEDS: Gabapentin CAP(*) 300 MG PO SCH ×2 (09:26→22:09)
[2019-04-29] MEDS: SPIRIVA Respimat* (tiotropium) 2.5 mcg/inh Inhaler INH SCH (09:30)
[2019-04-29] MEDS: Mometasone/Formoter 200/5 MDI INH SCH ×2 (09:30→20:56)
[2019-04-29] MEDS ORDERED: Perflutren Lipid Microsphere* 3 ML VIAL ONE (10:20)
[2019-04-29] MEDS: Azithromycin 500 mg/250 ml NS 500 MG/250 ML BAG IVPB SCH (12:15)
--- NOTE | 2019-04-29 12:27 | ECHO ---
*[facility]* [place] [address] Fax #: [phone] Transthoracic Echocardiogram Patient: Lyndsay Harris : 1955 Study Date: 04/29/2019 Age: 63 Gender: F HR: 72 bpm Height: 61 in /154.9 cm BSA: 2.24 m^2 Weight: 299.4 lb /136.1 kg BMI: 56.7 kg/m^2 *Solid Waste Disposal Manager: Darby Chun RDCS RN *Referring Physician: * Harpreet Maldonado *Reading Physician: * Justino Farnsworth MD Indications: SOB. Congestive Heart Failure. History: Congestive heart failure. RBBB. Chronic obstructive pulmonary disease. Risk factors: Morbidly obese. Conclusions Summary: - Left ventricle: The cavity size is normal. Wall thickness is mildly increased. Systolic function is normal. The estimated ejection fraction is 55-60%. Wall motion is normal; there are no regional wall motion abnormalities except for abnormal septal motion appears related to conduction system disease. - Right ventricle: The cavity size is normal. Systolic function is mildly decreased - Left atrium: The atrium is normal in size. - Pulmonary arteries: Systolic pressure can not be accurately estimated. - No significant valvular abnormalities noted. Recommendations: No recent studies available for comparison Study data: Transthoracic echocardiogram. Procedure: Transthoracic echocardiography was performed. Image quality was adequate. The study was technically limited due to body habitus and COPD. Intravenous Definity 3 ml was administered by Ross Milton RN for image enhancement. Complete 2D, spectral Doppler, and color flow Doppler. Location: Bedside. Patient status: Inpatient. Patient room number: 416-01. Rhythm: Normal sinus rhythm. Findings Left ventricle: The cavity size is normal. Wall thickness is mildly increased. Systolic function is normal. The estimated ejection fraction is 55-60%. Wall motion is normal; there are no regional wall motion abnormalities except for abnormal septal motion appears related to conduction system disease. There is no consistent Doppler evidence of clinically significant diastolic dysfunction. Right ventricle: Not well visualized. The cavity size is normal. Systolic function is mildly decreased Left atrium: The atrium is normal in size. Right atrium: The atrium is normal in size. Mitral valve: The leaflets are mildly thickened. There is no evidence of stenosis. There is no significant regurgitation. Aortic valve: Not well visualized. The leaflets are mildly thickened. There is no evidence of stenosis. There is no significant regurgitation. Tricuspid valve: Not well visualized. There is no significant regurgitation. Pulmonic valve: Not well visualized. There is no evidence of stenosis. There is no significant regurgitation. Aorta: Aortic root: The aortic root is not dilated. Ascending aorta: The ascending aorta is not dilated. Aortic arch: The aortic arch is not visualized. Pericardium: There is no pericardial effusion. Pulmonary arteries: Not well visualized. Systolic pressure can not be accurately estimated. Systemic veins: Inferior vena cava: Not visualized. Measurements Left ventricle Value Ref Aortic valve Value Ref SHARON, LAX 3.9 cm 3.8 - 5.2 Pj diam, ED 1.9 cm ---- PW, ED, LAX (H) 1.2 cm 0.6 - 0.9 Peak v, S 1.25 m/sec ---- PW, ED (H) 1.2 cm 0.6 - 0.9 VTI, S 25.9 cm ---- E', lat pj, TDI 11.4 cm/sec >=10.0 Mean grad, S 4.0 mm Hg --- - E/e', lat pj, 6 Peak grad, S 6.0 mm Hg ---- TDI LVOT/AV, VTI ratio 0.75 ---- E', med pj, TDI (L) 5.2 cm/sec >=7.0 E/e', med pj, 14 Mitral valve Value Ref TDI Peak E 0.74 m/sec ---- E', avg, TDI 8.3 cm/sec Peak A 0.72 m/sec ---- E/e', avg, TDI 9 <=14 Decel time 239 ms --- - Peak grad, D 2.2 mm Hg ---- LVOT Value Ref Peak E/A ratio 1 ---- Peak ivan, S 1.09 m/sec VTI, S 19.3 cm Pulmonic valve Value Ref Mean grad, S 2 mm Hg Peak v, S 0.98 m/sec ---- Peak grad, S 4.0 mm Hg ---- Ventricular septum Value Ref IVS, ED (H) 1.2 cm 0.6 - 0.9 Aortic root Value Ref Root diam 3.1 cm <4.3 Right ventricle Value Ref Root max diam, ED 3.1 cm <4.3 SHARON minor ax, A4C 3.4 cm 1.9 - 3.5 mid Aortic arch Value Ref Arch diam 2.4 cm ---- Left atrium Value Ref AP dim, ES 3.10 cm 2.70 - Decending aorta Value Ref 3.80 Mac peak ivan 0.8 m/sec ---- ML dim, A4C 4.2 cm SI dim, A4C 4.8 cm Vol/bsa, ES, 1-p 22 ml/m^2 11 - 40 A4C Right atrium Value Ref ML dim, ES, A4C 4.1 cm 2.6 - 4.4 SI dim, ES, A4C 5.2 cm 3.4 - 5.3 Estimated RAP 8 mm Hg Legend: (L) and (H) pau values outside specified reference range. Prepared and electronically signed by Justino Farnsworth MD 04/29/2019 12:24
[2019-04-29] MEDS: Clobetasol 0.05% OINT* 30 GM TUBE TOPICAL SCH ×2 (13:06→22:06)
[2019-04-29] MEDS: Nystatin TOP POWDER* 15 GM BTL TOPICAL SCH ×2 (13:09→22:11)
[2019-04-29] MEDS: Analgesic BALM* 114 GM TOPICAL SCH ×2 (13:23→22:06)
[2019-04-29] MEDS ORDERED: Albuterol/Ipratropium NEB.SOL* Albuterol 2.5 MG/Ipratropium 0.5 MG 3 ML INH PRN (13:37)
--- NOTE | 2019-04-29 14:20 | PN ---
Subjective Date of Service: 04/29/19 Interval History: Ms. Harris is feeling better today. She offers no complaints. Denies SOB. Does admit to a cough, but states it is improving. Denies CP, N/V. Good appetite. She reports her baseline oxygen requirement is 2L. No concerns from nursing, though patient did have an episode of aspiration last evening when she was lying down in bed eating chicken. Family History: Unchanged from Admission Social History: Unchanged from Admission Past Medical History: Unchanged from Admission Objective Active Medications: Albuterol/Ipratropium (Duoneb (Albuterol 2.5 Mg/Ipratropium 0.5 Mg)) 1 neb INH Q2H PRN SOB/WHEEZING Albuterol/Ipratropium (Duoneb (Albuterol 2.5 Mg/Ipratropium 0.5 Mg)) 1 neb INH [id number] AWAKE PRN SOB/WHEEZING Clobetasol Propionate (Clobetasol 0.05% Oint*) 1 applic TOPICAL BID DIMITRIOS Cyanocobalamin (Vitamin B12 Tab*) 500 mcg PO DAILY DIMITRIOS Enoxaparin Sodium (Lovenox(*)) 40 mg SUBCUT Q24H DIMITRIOS Gabapentin (Neurontin Cap(*)) 300 mg PO BID DIMITRIOS Guaifenesin/Dextromethorphan (Robitussin Dm*) 10 ml PO Q4H PRN CONGESTION Azithromycin (Zithromax 500 Mg/250 Ml) 500 mg in 250 mls @ 250 mls/hr IVPB Q24H DIMITRIOS Ceftriaxone Sodium 1 gm/ (Sodium Chloride) 50 mls @ 100 mls/hr IVPB Q24H DIMITRIOS Ibuprofen (Motrin Tab*) 600 mg PO BID PRN PAIN-MODERATE/TEMP >/= 100.4 Levothyroxine Sodium (Synthroid Tab*) 100 mcg PO DAILY@0600 DIMITRIOS Loperamide HCl (Imodium Cap*) 2 mg PO Q4H PRN DIARRHEA Mometasone Furoate/Formoterol Fumar (Dulera 200/5 Mdi*) 2 puff INH BID DIMITRIOS Multi-Ingredient Liniment/Rub (Ernesto Ojeda*) 1 applic TOPICAL BID DIMITRIOS Nystatin (Nystatin Top Powder*) 1 applic TOPICAL BID DIIMTRIOS Prednisone (Deltasone Tab*) 40 mg PO DAILY DIMITRIOS Tiotropium [place] (Spiriva Respimat 2.5 Mcg) 2 puff INH DAILY DIMITRIOS Vital Signs - 8 hr 04/29/19 04/29/19 04/29/19 07:15 08:00 09:26 Temperature 97.4 F Pulse Rate 80 82 Respiratory 16 18 17 Rate Blood Pressure 136/61 (mmHg) O2 Sat by Pulse 88 91 Oximetry 04/29/19 04/29/19 11:25 12:39 Temperature 97.9 F 98.1 F Pulse Rate 72 73 Respiratory 18 Rate Blood Pressure 103/78 111/55 (mmHg) O2 Sat by Pulse 88 88 Oximetry Oxygen Devices in Use Now: Nasal Cannula - 4L Appearance: Elderly female sitting in bed in NAD Ears/Nose/Mouth/Throat: Mucous Membranes Moist Neck: NL Appearance and Movements; NL JVP, Trachea Midline Respiratory: Symmetrical Chest Expansion and Respiratory Effort, Clear to Auscultation Cardiovascular: NL Sounds; No Murmurs; No JVD Abdominal: NL Sounds; No Tenderness; No Distention Extremities: - - Moderate nonpitting BLE Neurological: - - Oriented to self and place Lines/Tubes/Other Access: Clean, Dry and Intact Peripheral IV Nutrition: Taking PO's Result Diagrams: 04/29/19 08:39 04/29/19 08:39 Assess/Plan/Problems-Billing Assessment: Ms. Harris is a 63 yo F with PMH of COPD, ILD, hypothyroidism, morbid obesity, JUAN, PE (no longer on AC), RLS, mild cognitive impairment; who presented to the ED with c/o SOB and cough and was admitted for suspected pneumonia. - Patient Problems (1) Pneumonia Code(s): J18.9 - PNEUMONIA, UNSPECIFIED ORGANISM Comment: - Presented with SOB, cough, reported fever - CXR showing ILD with possible infiltrate - Continue azithromycin, ceftriaxone (2) COPD exacerbation Code(s): J44.1 - CHRONIC OBSTRUCTIVE PULMONARY DISEASE W (ACUTE) EXACERBATION Comment: - Secondary to pneumonia - Continue prednisone, Dulera, Spiriva, nebs (3) Acute and chronic respiratory failure with hypoxia Code(s): J96.21 - ACUTE AND CHRONIC RESPIRATORY FAILURE WITH HYPOXIA Comment: - Currently requiring 4L NC to maintain sats >90% (baseline is 2L per patient) - Secondary to pneumonia - Continue prednisone (4) Lower extremity edema Code(s): R60.0 - LOCALIZED EDEMA Comment: - Unclear etiology - US unremarkable for DVT - Echo shows EF 55-60%, no diastolic dysfunction or significant valvular abnormalities - Furosemide x1 today (5) Elevated troponin Code(s): R74.8 - ABNORMAL LEVELS OF OTHER SERUM ENZYMES Comment: - Chronically elevated, at baseline (6) Chronic interstitial lung disease Code(s): J84.9 - INTERSTITIAL PULMONARY DISEASE, UNSPECIFIED Comment: - Oxygen to maintain sat >90% (7) Mild cognitive impairment Code(s): G31.84 - MILD COGNITIVE IMPAIRMENT, SO STATED Comment: - Supportive care (8) Hypothyroidism Code(s): E03.9 - HYPOTHYROIDISM, UNSPECIFIED Comment: - Continue levothyroxine (9) Morbid obesity Code(s): E66.01 - MORBID (SEVERE) OBESITY DUE TO EXCESS CALORIES Comment: - BMI 57 (10) DVT prophylaxis Comment: - Lovenox (11) Full code status Code(s): Z78.9 - OTHER SPECIFIED HEALTH STATUS Comment: Status and Disposition: Inpatient. Anticipate d/c home vs NILO when medically stable, likely 1-2 days. Attending: Julio Huerta
[2019-04-29] MEDS ORDERED: Furosemide TAB* 20 MG PO ONE (14:27)
[2019-04-29] MEDS: GuaiFENesin DM 100 mg/10 mg in 5 ML UDC PO PRN ×2 (14:53→22:13)
[2019-04-29] MEDS: Enoxaparin(*) 40 MG/0.4 ML SYR SUBCUT SCH (14:57)
[2019-04-29] MEDS: cefTRIAXone(*) 1 GM in NS 0.9% 50 ML* 50 ML IVPB SCH (15:37)
[2019-04-29 16:52] LABS: Urine Appearance Cloudy; Urine Bilirubin Negative (Negative); Urine Blood 3+ (Negative); Urine Color Yellow; Urine Glucose Negative (Negative); Urine Ketones Negative (Negative); Urine Nitrite Negative (Negative); Urine Protein 2+(100 mg/dL) (Negative); Urine Specific Gravity 1.024 (1.010-1.030); Urine Urobilinogen Negative (Negative)
[2019-04-29 16:57] LABS: Urine Bacteria Absent (Absent); Urine Red Blood Cell 1+(3-5/hpf) (Absent); Urine Squamous Epithelial Cell Present (Absent); Urine White Blood Cell Absent (Absent)
[2019-04-30] MEDS: Levothyroxine TAB* 100 MCG TAB PO SCH (05:26)
[2019-04-30] MEDS: Mometasone/Formoter 200/5 MDI INH SCH ×2 (07:59→19:39)
[2019-04-30] MEDS: SPIRIVA Respimat* (tiotropium) 2.5 mcg/inh Inhaler INH SCH (08:00)
[2019-04-30] MEDS: GuaiFENesin DM 100 mg/10 mg in 5 ML UDC PO PRN ×2 (08:19→22:43)
[2019-04-30] MEDS: predniSONE TAB* 20 MG PO SCH (08:21)
[2019-04-30] MEDS: Gabapentin CAP(*) 300 MG PO SCH ×2 (08:21→22:42)
[2019-04-30] MEDS: Cyanocobalamin TAB* 500 MCG PO SCH (08:21)
[2019-04-30] MEDS: Analgesic BALM* 114 GM TOPICAL SCH ×2 (08:22→22:43)
[2019-04-30] MEDS: Nystatin TOP POWDER* 15 GM BTL TOPICAL SCH ×2 (08:22→22:59)
[2019-04-30] MEDS: Clobetasol 0.05% OINT* 30 GM TUBE TOPICAL SCH ×2 (08:22→22:59)
[2019-04-30] MEDS: Azithromycin 500 mg/250 ml NS 500 MG/250 ML BAG IVPB SCH (13:05)
--- NOTE | 2019-04-30 14:57 | PN ---
Subjective Date of Service: 04/30/19 Interval History: Ms. Harris is feeling fine today. She offers no complaints. On my arrival she is lying at a 30 degree angle eating lunch. She states that she "always" eats lying down. Denies CP, SOB. Reports occasional cough. No concerns from nursing. Family History: Unchanged from Admission Social History: Unchanged from Admission Past Medical History: Unchanged from Admission Objective Active Medications: Albuterol/Ipratropium (Duoneb (Albuterol 2.5 Mg/Ipratropium 0.5 Mg)) 1 neb INH Q2H PRN SOB/WHEEZING Albuterol/Ipratropium (Duoneb (Albuterol 2.5 Mg/Ipratropium 0.5 Mg)) 1 neb INH [id number] AWAKE PRN SOB/WHEEZING Clobetasol Propionate (Clobetasol 0.05% Oint*) 1 applic TOPICAL BID DIMITRIOS Cyanocobalamin (Vitamin B12 Tab*) 500 mcg PO DAILY DIMITRIOS Enoxaparin Sodium (Lovenox(*)) 40 mg SUBCUT Q24H DIMITRIOS Gabapentin (Neurontin Cap(*)) 300 mg PO BID DIMITRIOS Guaifenesin/Dextromethorphan (Robitussin Dm*) 10 ml PO Q4H PRN CONGESTION Azithromycin (Zithromax 500 Mg/250 Ml) 500 mg in 250 mls @ 250 mls/hr IVPB Q24H DIMITRIOS Ceftriaxone Sodium 1 gm/ (Sodium Chloride) 50 mls @ 100 mls/hr IVPB Q24H DIMITRIOS Ibuprofen (Motrin Tab*) 600 mg PO BID PRN PAIN-MODERATE/TEMP >/= 100.4 Levothyroxine Sodium (Synthroid Tab*) 100 mcg PO DAILY@0600 DIMITRIOS Loperamide HCl (Imodium Cap*) 2 mg PO Q4H PRN DIARRHEA Mometasone Furoate/Formoterol Fumar (Dulera 200/5 Mdi*) 2 puff INH BID DIMITRIOS Multi-Ingredient Liniment/Rub (Ernesto Ojeda*) 1 applic TOPICAL BID DIMITRIOS Nystatin (Nystatin Top Powder*) 1 applic TOPICAL BID DIMITRIOS Prednisone (Deltasone Tab*) 40 mg PO DAILY DIMITRIOS Tiotropium [place] (Spiriva Respimat 2.5 Mcg) 2 puff INH DAILY [facility] Vital Signs - 8 hr 04/30/19 04/30/19 04/30/19 08:00 08:21 10:50 Respiratory 16 18 16 Rate Oxygen Devices in Use Now: None Appearance: Elderly female lying in bed in NAD Ears/Nose/Mouth/Throat: Mucous Membranes Moist Neck: NL Appearance and Movements; NL JVP, Trachea Midline Respiratory: Symmetrical Chest Expansion and Respiratory Effort, Clear to Auscultation Cardiovascular: NL Sounds; No Murmurs; No JVD, RRR Abdominal: NL Sounds; No Tenderness; No Distention Extremities: - - Moderate nonpitting BLE Neurological: - - Oriented to self and place Lines/Tubes/Other Access: Clean, Dry and Intact Peripheral IV Nutrition: Taking PO's Result Diagrams: 04/29/19 08:39 04/29/19 08:39 Assess/Plan/Problems-Billing Assessment: Ms. Harris is a 63 yo F with PMH of COPD, ILD, hypothyroidism, morbid obesity, JUAN, PE (no longer on AC), RLS, mild cognitive impairment; who presented to the ED with c/o SOB and cough and was admitted for suspected pneumonia. - Patient Problems (1) Pneumonia Code(s): J18.9 - PNEUMONIA, UNSPECIFIED ORGANISM Comment: - Presented with SOB, cough, reported fever - CXR showing ILD with possible infiltrate - Continue azithromycin, ceftriaxone (2) COPD exacerbation Code(s): J44.1 - CHRONIC OBSTRUCTIVE PULMONARY DISEASE W (ACUTE) EXACERBATION Comment: - Secondary to pneumonia - Continue prednisone, Dulera, Spiriva, nebs (3) Acute and chronic respiratory failure with hypoxia Code(s): J96.21 - ACUTE AND CHRONIC RESPIRATORY FAILURE WITH HYPOXIA Comment: - Currently requiring 3L NC to maintain sats >90% (baseline is 2L per patient) - Secondary to pneumonia - Continue prednisone (4) Lower extremity edema Code(s): R60.0 - LOCALIZED EDEMA Comment: - Unclear etiology - US unremarkable for DVT - Echo shows EF 55-60%, no diastolic dysfunction or significant valvular abnormalities - Start furosemide daily (5) Elevated troponin Code(s): R74.8 - ABNORMAL LEVELS OF OTHER SERUM ENZYMES Comment: - Chronically elevated, at baseline (6) Chronic interstitial lung disease Code(s): J84.9 - INTERSTITIAL PULMONARY DISEASE, UNSPECIFIED Comment: - Oxygen to maintain sat >90% (7) Mild cognitive impairment Code(s): G31.84 - MILD COGNITIVE IMPAIRMENT, SO STATED Comment: - Supportive care (8) Hypothyroidism Code(s): E03.9 - HYPOTHYROIDISM, UNSPECIFIED Comment: - Continue levothyroxine (9) Morbid obesity Code(s): E66.01 - MORBID (SEVERE) OBESITY DUE TO EXCESS CALORIES Comment: - BMI 57 (10) DVT prophylaxis Comment: - Lovenox (11) Full code status Code(s): Z78.9 - OTHER SPECIFIED HEALTH STATUS Comment: Status and Disposition: Inpatient. Anticipate d/c home vs NILO when medically stable. Attending: Julio Huerta
[2019-04-30] MEDS: cefTRIAXone(*) 1 GM in NS 0.9% 50 ML* 50 ML IVPB SCH (15:17)
[2019-04-30] MEDS: Furosemide TAB* 20 MG PO SCH (15:18)
[2019-04-30] MEDS: Enoxaparin(*) 40 MG/0.4 ML SYR SUBCUT SCH (15:18)
[2019-04-30] MEDS: Ibuprofen TAB* 600 MG PO PRN (22:42)
[2019-05-01] MEDS: GuaiFENesin DM 100 mg/10 mg in 5 ML UDC PO PRN (03:21)
[2019-05-01] MEDS: Levothyroxine TAB* 100 MCG TAB PO SCH (05:36)
[2019-05-01 07:04] LABS: Hematocrit 37 % (35-47); Hemoglobin 12.1 g/dL (12.0-16.0); Mean Corpuscular HGB Conc 33 g/dL (31-36); Mean Corpuscular Hemoglobin 33 pg (27-31); Mean Corpuscular Volume 101 fL (80-97); Mean Platelet Volume 7.7 fL (7.4-10.4); Platelet Count 267 10^3/uL (150-450); Red Cell Distribution Width 17 % (10-15); White Blood Count 11.8 10^3/uL (3.5-10.8)
[2019-05-01 07:17] LABS: Calcium 9.3 mg/dL (8.6-10.3); Chloride 97 mmol/L (101-111); Potassium 4.1 mmol/L (3.5-5.0); Sodium 139 mmol/L (135-145)
[2019-05-01 07:23] LABS: BUN/Creatinine Ratio 35.4 (8-20); Blood Urea Nitrogen 28 mg/dL (6-24); EGFR African American 88.4 (>60); Glucose 90 mg/dL (70-100)
[2019-05-01] MEDS: Mometasone/Formoter 200/5 MDI INH SCH (07:24)
[2019-05-01] MEDS: SPIRIVA Respimat* (tiotropium) 2.5 mcg/inh Inhaler INH SCH (07:25)
[2019-05-01 07:30] LABS: CO2 Carbon Dioxide 44 mmol/L (22-32)
[2019-05-01] MEDS: Furosemide TAB* 20 MG PO SCH (07:51)
[2019-05-01] MEDS: Gabapentin CAP(*) 300 MG PO SCH ×2 (07:51→20:31)
[2019-05-01] MEDS: Cyanocobalamin TAB* 500 MCG PO SCH (07:51)
[2019-05-01] MEDS: Azithromycin TAB* 250 MG PO SCH (07:51)
[2019-05-01] MEDS: Analgesic BALM* 114 GM TOPICAL SCH ×2 (07:51→20:31)
[2019-05-01] MEDS: predniSONE TAB* 20 MG PO SCH (07:51)
[2019-05-01] MEDS: Nystatin TOP POWDER* 15 GM BTL TOPICAL SCH ×2 (07:52→20:32)
[2019-05-01] MEDS: Clobetasol 0.05% OINT* 30 GM TUBE TOPICAL SCH ×2 (07:52→20:31)
[2019-05-01 08:59] LABS: ABS Lymphocytes 1.7 10^3/ul (1.0-4.8); ABS Monocytes 0.8 10^3/ul (0-0.8); ABS Neutrophils 9.2 10^3/ul (1.5-7.7); Eosinophil % 0.2 %; Lymphocyte % 14.1 %; Nucleated Red Blood Cells % 0.1
[2019-05-01] MEDS ORDERED: Piperacillin/Tazobac ADVAN(*) 3.375 GM in NS 0.9% 100 ML* 100 ML IVPB ONE (13:57)
[2019-05-01] MEDS ORDERED: Zosyn per Pharmacy* NOTE FOLLOW UP SCH (14:00)
[2019-05-01] MEDS ORDERED: methylPREDNISolone 125 MG* 2 ML VIAL IV ONE (14:28)
--- NOTE | 2019-05-01 15:23 | PN ---
Subjective Date of Service: 05/01/19 Interval History: Ms. Harirs is feeling fine today. She offers no complaints. She is drinking milk while lying at a 30 degree angle upon my arrival. Denies SOB. Still has an occasional nonproductive cough. Denies CP. Nursing called at 1230 to report critical pCO2. Family History: Unchanged from Admission Social History: Unchanged from Admission Past Medical History: Unchanged from Admission Objective Active Medications: Albuterol/Ipratropium (Duoneb (Albuterol 2.5 Mg/Ipratropium 0.5 Mg)) 1 neb INH Q2H PRN SOB/WHEEZING Albuterol/Ipratropium (Duoneb (Albuterol 2.5 Mg/Ipratropium 0.5 Mg)) 1 neb INH [id number] AWAKE PRN SOB/WHEEZING Azithromycin (Zithromax Tab*) 250 mg PO DAILY DIMITRIOS Clobetasol Propionate (Clobetasol 0.05% Oint*) 1 applic TOPICAL BID DIMITRIOS Cyanocobalamin (Vitamin B12 Tab*) 500 mcg PO DAILY DIMITRIOS Enoxaparin Sodium (Lovenox(*)) 40 mg SUBCUT Q24H DIMITRIOS Gabapentin (Neurontin Cap(*)) 300 mg PO BID DIMITRIOS Guaifenesin/Dextromethorphan (Robitussin Dm*) 10 ml PO Q4H PRN CONGESTION Ibuprofen (Motrin Tab*) 600 mg PO BID PRN PAIN-MODERATE/TEMP >/= 100.4 Levothyroxine Sodium (Synthroid Tab*) 100 mcg PO DAILY@0600 DIMITRIOS Loperamide HCl (Imodium Cap*) 2 mg PO Q4H PRN DIARRHEA Methylprednisolone Sodium Succinate (Solu-Medrol 40 Mg) 40 mg IV Q8H DIMITRIOS Mometasone Furoate/Formoterol Fumar (Dulera 200/5 Mdi*) 2 puff INH BID DIMITRIOS Multi-Ingredient Liniment/Rub (Ernesto Ojeda*) 1 applic TOPICAL BID DIMITRIOS Nystatin (Nystatin Top Powder*) 1 applic TOPICAL BID DIMITRIOS Tiotropium [place] (Spiriva Respimat 2.5 Mcg) 2 puff INH DAILY [facility] Vital Signs - 8 hr 05/01/19 05/01/19 05/01/19 07:51 08:00 10:20 Temperature Pulse Rate Respiratory 20 20 20 Rate Blood Pressure (mmHg) O2 Sat by Pulse Oximetry 05/01/19 11:15 Temperature 98.2 F Pulse Rate 58 Respiratory 20 Rate Blood Pressure 107/53 (mmHg) O2 Sat by Pulse 97 Oximetry Oxygen Devices in Use Now: Nasal Cannula - 4L Appearance: Elderly female lying in bed in NAD Ears/Nose/Mouth/Throat: Mucous Membranes Moist Neck: NL Appearance and Movements; NL JVP, Trachea Midline Respiratory: Symmetrical Chest Expansion and Respiratory Effort, Clear to Auscultation Cardiovascular: NL Sounds; No Murmurs; No JVD, RRR Abdominal: NL Sounds; No Tenderness; No Distention Extremities: - - Mild to moderate nonpitting BLE Neurological: - - Oriented to self and place Lines/Tubes/Other Access: Clean, Dry and Intact Peripheral IV Nutrition: Taking PO's Result Diagrams: 05/01/19 06:48 05/01/19 06:48 Assess/Plan/Problems-Billing Assessment: Ms. Harris is a 63 yo F with PMH of COPD, ILD, hypothyroidism, morbid obesity, JUAN, PE (no longer on AC), RLS, mild cognitive impairment; who presented to the ED with c/o SOB and cough and was admitted for suspected pneumonia. - Patient Problems (1) Acute and chronic respiratory failure with hypoxia Code(s): J96.21 - ACUTE AND CHRONIC RESPIRATORY FAILURE WITH HYPOXIA Comment: - Currently requiring 4L NC to maintain sats >90% (baseline is 2L per patient) - Secondary to pneumonia - ABG this morning reveals respiratory acidosis with pCO2 of 98 - Transfer to ICU for urgent BiPAP - Check CXR now and recheck ABG after 1 hr on BiPAP - Change to Solu-Medrol q8h with bolus dose now (2) Pneumonia Code(s): J18.9 - PNEUMONIA, UNSPECIFIED ORGANISM Comment: - Presented with SOB, cough, reported fever - CXR showing ILD with possible infiltrate - Continue azithromycin (day 4/5); change ceftriaxone to Zosyn to cover for possible aspiration (3) COPD exacerbation Code(s): J44.1 - CHRONIC OBSTRUCTIVE PULMONARY DISEASE W (ACUTE) EXACERBATION Comment: - Secondary to pneumonia - Continue Dulera, Spiriva, nebs (4) Lower extremity edema Code(s): R60.0 - LOCALIZED EDEMA Comment: - Unclear etiology - US unremarkable for DVT - Echo shows EF 55-60%, no diastolic dysfunction or significant valvular abnormalities - Stop furosemide now and will consider restarting once off BiPAP (5) Elevated troponin Code(s): R74.8 - ABNORMAL LEVELS OF OTHER SERUM ENZYMES Comment: - Chronically elevated, at baseline (6) Chronic interstitial lung disease Code(s): J84.9 - INTERSTITIAL PULMONARY DISEASE, UNSPECIFIED Comment: - Oxygen to maintain sat >90% (7) Mild cognitive impairment Code(s): G31.84 - MILD COGNITIVE IMPAIRMENT, SO STATED Comment: - Supportive care (8) Hypothyroidism Code(s): E03.9 - HYPOTHYROIDISM, UNSPECIFIED Comment: - Continue levothyroxine (9) Morbid obesity Code(s): E66.01 - MORBID (SEVERE) OBESITY DUE TO EXCESS CALORIES Comment: - BMI 57 (10) DVT prophylaxis Comment: - Lovenox (11) Full code status Code(s): Z78.9 - OTHER SPECIFIED HEALTH STATUS Comment: Status and Disposition: Inpatient. Transfer to ICU for BiPAP. Anticipate d/c home vs NILO when medically stable, timeframe to be determined by clinical course. Counseling and/or Coordination of Care Minutes: Critical care time: 60 minutes spent with the patient and coordinating care Attending: Julio Huerta
[2019-05-01] MEDS: Enoxaparin(*) 40 MG/0.4 ML SYR SUBCUT SCH (16:01)
[2019-05-01] MEDS: ZOSYN 3.375 GM Q8H per EXTENDED INFUSION IVPB SCH ×2 (20:31)
[2019-05-01] MEDS: methylPREDNISolone SOD 40 MG* 1 ML VIAL IV SCH (22:25)
[2019-05-02] MEDS: ZOSYN 3.375 GM Q8H per EXTENDED INFUSION IVPB SCH ×6 (04:05→22:13)
[2019-05-02] MEDS: Mometasone/Formoter 200/5 MDI INH SCH ×3 (05:29→20:17)
[2019-05-02] MEDS: Levothyroxine TAB* 100 MCG TAB PO SCH (06:11)
[2019-05-02] MEDS: methylPREDNISolone SOD 40 MG* 1 ML VIAL IV SCH ×3 (06:11→22:27)
[2019-05-02 06:40] LABS: ABS Lymphocytes 0.6 10^3/ul (1.0-4.8); ABS Monocytes 0.2 10^3/ul (0-0.8); ABS Neutrophils 5.9 10^3/ul (1.5-7.7); Eosinophil % 0.4 %; Hematocrit 47 % (35-47); Lymphocyte % 8.2 %; Mean Corpuscular HGB Conc 32 g/dL (31-36); Mean Corpuscular Hemoglobin 32 pg (27-31); Mean Corpuscular Volume 100 fL (80-97); Mean Platelet Volume 7.8 fL (7.4-10.4); Nucleated Red Blood Cells % 0.2; Platelet Count 169 10^3/uL (150-450); Red Blood Count 4.67 10^6 /uL (3.70-4.87); Red Cell Distribution Width 17 % (10-15); White Blood Count 6.7 10^3/uL (3.5-10.8)
[2019-05-02 06:54] LABS: CO2 Carbon Dioxide 37 mmol/L (22-32); Calcium 9.1 mg/dL (8.6-10.3); Chloride 96 mmol/L (101-111); Sodium 137 mmol/L (135-145)
[2019-05-02 06:59] LABS: Anion Gap 4 mmol/L (2-11); BUN/Creatinine Ratio 43.7 (8-20); Blood Urea Nitrogen 31 mg/dL (6-24); EGFR Non-African American 82.6 (>60); Glucose 122 mg/dL (70-100)
[2019-05-02] MEDS: SPIRIVA Respimat* (tiotropium) 2.5 mcg/inh Inhaler INH SCH (08:13)
[2019-05-02] MEDS: Azithromycin TAB* 250 MG PO SCH (09:44)
[2019-05-02] MEDS: Cyanocobalamin TAB* 500 MCG PO SCH (09:44)
[2019-05-02] MEDS: Gabapentin CAP(*) 300 MG PO SCH ×2 (09:44→22:27)
[2019-05-02] MEDS: Analgesic BALM* 114 GM TOPICAL SCH ×2 (09:47→22:09)
[2019-05-02] MEDS: Clobetasol 0.05% OINT* 30 GM TUBE TOPICAL SCH ×2 (09:47→22:09)
[2019-05-02] MEDS: Nystatin TOP POWDER* 15 GM BTL TOPICAL SCH ×2 (09:47→22:09)
--- NOTE | 2019-05-02 10:42 | PN ---
Subjective Date of Service: 05/02/19 Interval History: Ms. Harris is feeling fine this morning. On my exam, RT is preparing to obtain an ABG and the patient is very concerned about the size of the needle. She did not sleep well overnight and did not wear BiPAP the entire night (taken off around 0200). Denies SOB or cough. No concerns from nursing. RT was unable to obtain ABG d/t patient noncompliance. Family History: Unchanged from Admission Social History: Unchanged from Admission Past Medical History: Unchanged from Admission Objective Active Medications: Albuterol/Ipratropium (Duoneb (Albuterol 2.5 Mg/Ipratropium 0.5 Mg)) 1 neb INH Q2H PRN SOB/WHEEZING Albuterol/Ipratropium (Duoneb (Albuterol 2.5 Mg/Ipratropium 0.5 Mg)) 1 neb INH [id number] AWAKE PRN SOB/WHEEZING Clobetasol Propionate (Clobetasol 0.05% Oint*) 1 applic TOPICAL BID DIMITRIOS Cyanocobalamin (Vitamin B12 Tab*) 500 mcg PO DAILY DIMITRIOS Enoxaparin Sodium (Lovenox(*)) 40 mg SUBCUT Q24H DIMITRIOS Gabapentin (Neurontin Cap(*)) 300 mg PO BID DIMITRIOS Guaifenesin/Dextromethorphan (Robitussin Dm*) 10 ml PO Q4H PRN CONGESTION Piperacillin Sod/Tazobactam (Sod 3.375 gm/ Sodium Chloride) 100 mls @ 25 mls/ hr IVPB Q8H DIMITRIOS Ibuprofen (Motrin Tab*) 600 mg PO BID PRN PAIN-MODERATE/TEMP >/= 100.4 Levothyroxine Sodium (Synthroid Tab*) 100 mcg PO DAILY@0600 DIMITRIOS Loperamide HCl (Imodium Cap*) 2 mg PO Q4H PRN DIARRHEA Methylprednisolone Sodium Succinate (Solu-Medrol 40 Mg) 40 mg IV Q8H DIMITRIOS Mometasone Furoate/Formoterol Fumar (Dulera 200/5 Mdi*) 2 puff INH BID DIMITRIOS Multi-Ingredient Liniment/Rub (Ernesto Ojeda*) 1 applic TOPICAL BID DIMITRIOS Nystatin (Nystatin Top Powder*) 1 applic TOPICAL BID DIMITRIOS Tiotropium [place] (Spiriva Respimat 2.5 Mcg) 2 puff INH DAILY DIMITRIOS Vital Signs - 8 hr 05/02/19 05/02/19 05/02/19 03:00 03:02 04:00 Temperature 96.9 F Pulse Rate 62 Respiratory 17 20 17 Rate Blood Pressure 121/59 (mmHg) O2 Sat by Pulse 95 Oximetry 05/02/19 05/02/19 05/02/19 04:01 05:00 05:01 Temperature Pulse Rate 64 60 Respiratory 16 19 19 Rate Blood Pressure 125/64 110/55 (mmHg) O2 Sat by Pulse 96 96 Oximetry 05/02/19 05/02/19 05/02/19 05:28 06:01 07:00 Temperature Pulse Rate 60 60 Respiratory 18 20 20 Rate Blood Pressure 108/72 (mmHg) O2 Sat by Pulse 96 94 Oximetry 05/02/19 05/02/19 05/02/19 07:01 08:00 08:01 Temperature 97.1 F Pulse Rate 60 66 64 Respiratory 18 20 22 Rate Blood Pressure 134/57 121/67 (mmHg) O2 Sat by Pulse 94 97 96 Oximetry 05/02/19 05/02/19 05/02/19 09:00 09:01 10:00 Temperature Pulse Rate 64 62 65 Respiratory 22 22 24 Rate Blood Pressure 121/65 (mmHg) O2 Sat by Pulse 93 93 90 Oximetry Oxygen Devices in Use Now: Nasal Cannula - 4L Appearance: Middle-aged female lying in bed in NAD Ears/Nose/Mouth/Throat: Mucous Membranes Moist Neck: NL Appearance and Movements; NL JVP, Trachea Midline Respiratory: Symmetrical Chest Expansion and Respiratory Effort, Clear to Auscultation Cardiovascular: NL Sounds; No Murmurs; No JVD, RRR Abdominal: NL Sounds; No Tenderness; No Distention Extremities: No Edema Neurological: - - Oriented to self and place Lines/Tubes/Other Access: Clean, Dry and Intact Peripheral IV Nutrition: Taking PO's Result Diagrams: 05/02/19 06:23 05/02/19 07:57 Assess/Plan/Problems-Billing Assessment: Ms. Harris is a 63 yo F with PMH of COPD, ILD, hypothyroidism, morbid obesity, JUAN, PE (no longer on AC), RLS, mild cognitive impairment; who presented to the ED with c/o SOB and cough and was admitted for suspected pneumonia. - Patient Problems (1) Acute and chronic respiratory failure with hypoxia Code(s): J96.21 - ACUTE AND CHRONIC RESPIRATORY FAILURE WITH HYPOXIA Comment: - Currently on 4L NC (baseline is 2L per patient) - Secondary to pneumonia - ABG 05/01/19 revealed compensated respiratory acidosis with pCO2 of 98 - Transferred to ICU for BiPAP yesterday - ABG this morning improved; will transfer out of ICU - Patient will need to be on BiPAP (IPAP 18, EPAP 6) overnight and during the day [id number] - Continue Solu-Medrol (2) Pneumonia Code(s): J18.9 - PNEUMONIA, UNSPECIFIED ORGANISM Comment: - Presented with SOB, cough, reported fever - CXR showing ILD with possible infiltrate - Continue azithromycin (day 10/11), Zosyn (3) COPD exacerbation Code(s): J44.1 - CHRONIC OBSTRUCTIVE PULMONARY DISEASE W (ACUTE) EXACERBATION Comment: - Secondary to pneumonia - Continue Dulera, Spiriva, nebs (4) Lower extremity edema Code(s): R60.0 - LOCALIZED EDEMA Comment: - Unclear etiology - US unremarkable for DVT - Echo shows EF 55-60%, no diastolic dysfunction or significant valvular abnormalities - Consider restarting furosemide tomorrow (5) Elevated troponin Code(s): R74.8 - ABNORMAL LEVELS OF OTHER SERUM ENZYMES Comment: - Chronically elevated, at baseline (6) Chronic interstitial lung disease Code(s): J84.9 - INTERSTITIAL PULMONARY DISEASE, UNSPECIFIED Comment: - Oxygen to maintain sat >90% (7) Mild cognitive impairment Code(s): G31.84 - MILD COGNITIVE IMPAIRMENT, SO STATED Comment: - Supportive care (8) Hypothyroidism Code(s): E03.9 - HYPOTHYROIDISM, UNSPECIFIED Comment: - Continue levothyroxine (9) Morbid obesity Code(s): E66.01 - MORBID (SEVERE) OBESITY DUE TO EXCESS CALORIES Comment: - BMI 57 (10) DVT prophylaxis Comment: - Lovenox (11) Full code status Code(s): Z78.9 - OTHER SPECIFIED HEALTH STATUS Comment: Status and Disposition: Inpatient. Transfer out of ICU. Anticipate d/c home vs NILO when medically stable , timeframe to be determined by clinical course. Case Management has been unable to get in touch with patient's daughter. Attending: Julio Huerta
[2019-05-02] MEDS: Enoxaparin(*) 40 MG/0.4 ML SYR SUBCUT SCH (14:44)
[2019-05-03] MEDS: ZOSYN 3.375 GM Q8H per EXTENDED INFUSION IVPB SCH ×6 (03:55→20:54)
[2019-05-03 04:48] LABS: ABS Lymphocytes 0.8 10^3/ul (1.0-4.8); ABS Monocytes 0.5 10^3/ul (0-0.8); ABS Neutrophils 9.3 10^3/ul (1.5-7.7); Hematocrit 37 % (35-47); Hemoglobin 11.9 g/dL (12.0-16.0); Lymphocyte % 7.2 %; Mean Corpuscular HGB Conc 33 g/dL (31-36); Mean Corpuscular Hemoglobin 32 pg (27-31); Mean Corpuscular Volume 98 fL (80-97); Mean Platelet Volume 7.8 fL (7.4-10.4); Nucleated Red Blood Cells % 0.1; Platelet Count 224 10^3/uL (150-450); Red Blood Count 3.71 10^6 /uL (3.70-4.87); Red Cell Distribution Width 16 % (10-15); White Blood Count 10.6 10^3/uL (3.5-10.8)
[2019-05-03 05:04] LABS: Chloride 98 mmol/L (101-111); Potassium 4.6 mmol/L (3.5-5.0); Sodium 140 mmol/L (135-145)
[2019-05-03 05:10] LABS: BUN/Creatinine Ratio 47.9 (8-20); Blood Urea Nitrogen 35 mg/dL (6-24); EGFR African American 96.8 (>60); Glucose 130 mg/dL (70-100)
[2019-05-03 05:27] LABS: CO2 Carbon Dioxide 44 mmol/L (22-32)
[2019-05-03] MEDS: methylPREDNISolone SOD 40 MG* 1 ML VIAL IV SCH ×3 (06:28→20:54)
[2019-05-03] MEDS: Levothyroxine TAB* 100 MCG TAB PO SCH (06:28)
[2019-05-03] MEDS: SPIRIVA Respimat* (tiotropium) 2.5 mcg/inh Inhaler INH SCH (08:28)
[2019-05-03] MEDS: Mometasone/Formoter 200/5 MDI INH SCH ×2 (08:28→20:56)
[2019-05-03] MEDS: Cyanocobalamin TAB* 500 MCG PO SCH (10:02)
[2019-05-03] MEDS: Gabapentin CAP(*) 300 MG PO SCH ×2 (10:02→20:54)
[2019-05-03] MEDS: Analgesic BALM* 114 GM TOPICAL SCH ×2 (10:03→23:16)
[2019-05-03] MEDS: Nystatin TOP POWDER* 15 GM BTL TOPICAL SCH ×2 (10:03→23:15)
[2019-05-03] MEDS: Clobetasol 0.05% OINT* 30 GM TUBE TOPICAL SCH ×2 (10:03→23:15)
[2019-05-03] MEDS: Enoxaparin(*) 40 MG/0.4 ML SYR SUBCUT SCH (15:48)
--- NOTE | 2019-05-03 16:05 | PN ---
Subjective Date of Service: 05/03/19 Interval History: Ms. Harris is feeling better today. She offers no complaints. Does not like sleeping with the BiPAP on because it wakes her up during the night. She did use a CPAP/BiPAP in the past, but stopped using it (not entirely clear why). Denies CP or SOB. No concerns from nursing. Family History: Unchanged from Admission Social History: Unchanged from Admission Past Medical History: Unchanged from Admission Objective Active Medications: Albuterol/Ipratropium (Duoneb (Albuterol 2.5 Mg/Ipratropium 0.5 Mg)) 1 neb INH Q2H PRN SOB/WHEEZING Albuterol/Ipratropium (Duoneb (Albuterol 2.5 Mg/Ipratropium 0.5 Mg)) 1 neb INH [id number] AWAKE PRN SOB/WHEEZING Clobetasol Propionate (Clobetasol 0.05% Oint*) 1 applic TOPICAL BID DIMITRIOS Cyanocobalamin (Vitamin B12 Tab*) 500 mcg PO DAILY DIMITRIOS Enoxaparin Sodium (Lovenox(*)) 40 mg SUBCUT Q24H DIMITRIOS Gabapentin (Neurontin Cap(*)) 300 mg PO BID DIMITRIOS Guaifenesin/Dextromethorphan (Robitussin Dm*) 10 ml PO Q4H PRN CONGESTION Piperacillin Sod/Tazobactam (Sod 3.375 gm/ Sodium Chloride) 100 mls @ 25 mls/ hr IVPB Q8H DIMITRIOS Ibuprofen (Motrin Tab*) 600 mg PO BID PRN PAIN-MODERATE/TEMP >/= 100.4 Levothyroxine Sodium (Synthroid Tab*) 100 mcg PO DAILY@0600 DIMITRIOS Loperamide HCl (Imodium Cap*) 2 mg PO Q4H PRN DIARRHEA Methylprednisolone Sodium Succinate (Solu-Medrol 40 Mg) 40 mg IV Q8H DIMITRIOS Mometasone Furoate/Formoterol Fumar (Dulera 200/5 Mdi*) 2 puff INH BID DIMITRIOS Multi-Ingredient Liniment/Rub (Ernesto Ojeda*) 1 applic TOPICAL BID DIMITRIOS Nystatin (Nystatin Top Powder*) 1 applic TOPICAL BID DIMITRIOS Tiotropium [place] (Spiriva Respimat 2.5 Mcg) 2 puff INH DAILY [facility] Vital Signs - 8 hr 05/03/19 05/03/19 05/03/19 08:00 08:29 08:43 Temperature 97.1 F Pulse Rate 79 54 Respiratory 22 16 22 Rate Blood Pressure 142/53 (mmHg) O2 Sat by Pulse 94 96 Oximetry 05/03/19 05/03/19 05/03/19 10:02 12:02 12:55 Temperature 98.0 F Pulse Rate 63 Respiratory 19 18 20 Rate Blood Pressure 141/81 (mmHg) O2 Sat by Pulse 96 Oximetry Oxygen Devices in Use Now: Nasal Cannula - 4L Appearance: Middle-aged female lying in bed in NAD Ears/Nose/Mouth/Throat: Mucous Membranes Moist Neck: NL Appearance and Movements; NL JVP, Trachea Midline Respiratory: Symmetrical Chest Expansion and Respiratory Effort, Clear to Auscultation Cardiovascular: NL Sounds; No Murmurs; No JVD, RRR Abdominal: NL Sounds; No Tenderness; No Distention Extremities: - - Moderate nonpitting BLE Neurological: - - Oriented to self and place Lines/Tubes/Other Access: Clean, Dry and Intact Peripheral IV Nutrition: Taking PO's Result Diagrams: 05/03/19 04:36 05/03/19 04:36 Assess/Plan/Problems-Billing Assessment: Ms. Harris is a 63 yo F with PMH of COPD, ILD, hypothyroidism, morbid obesity, JUAN, PE (no longer on AC), RLS, mild cognitive impairment; who presented to the ED with c/o SOB and cough and was admitted for suspected pneumonia. - Patient Problems (1) Acute and chronic respiratory failure with hypoxia Code(s): J96.21 - ACUTE AND CHRONIC RESPIRATORY FAILURE WITH HYPOXIA Comment: - Currently on 4L NC (baseline is 2L per patient) - Secondary to pneumonia - ABG 05/01/19 revealed compensated respiratory acidosis with pCO2 of 98 - Patient will need to be on BiPAP (IPAP 18, EPAP 6) overnight and during the day [id number] - Continue Solu-Medrol (2) Pneumonia Code(s): J18.9 - PNEUMONIA, UNSPECIFIED ORGANISM Comment: - Presented with SOB, cough, reported fever - CXR showing ILD with possible infiltrate - Completed 5 days of azithromycin - Continue Zosyn (day 3/7) (3) COPD exacerbation Code(s): J44.1 - CHRONIC OBSTRUCTIVE PULMONARY DISEASE W (ACUTE) EXACERBATION Comment: - Secondary to pneumonia - Continue Dulera, Spiriva, nebs (4) Lower extremity edema Code(s): R60.0 - LOCALIZED EDEMA Comment: - Unclear etiology - US unremarkable for DVT - Echo shows EF 55-60%, no diastolic dysfunction or significant valvular abnormalities - Resume furosemide (5) Elevated troponin Code(s): R74.8 - ABNORMAL LEVELS OF OTHER SERUM ENZYMES Comment: - Chronically elevated, at baseline (6) Chronic interstitial lung disease Code(s): J84.9 - INTERSTITIAL PULMONARY DISEASE, UNSPECIFIED Comment: - Oxygen to maintain sat >90% (7) Mild cognitive impairment Code(s): G31.84 - MILD COGNITIVE IMPAIRMENT, SO STATED Comment: - Supportive care (8) Hypothyroidism Code(s): E03.9 - HYPOTHYROIDISM, UNSPECIFIED Comment: - Continue levothyroxine (9) Morbid obesity Code(s): E66.01 - MORBID (SEVERE) OBESITY DUE TO EXCESS CALORIES Comment: - BMI 57 (10) DVT prophylaxis Comment: - Lovenox (11) Full code status Code(s): Z78.9 - OTHER SPECIFIED HEALTH STATUS Comment: Status and Disposition: Inpatient. Anticipate d/c home vs NILO when medically stable, timeframe to be determined by clinical course. Case Management has been unable to get in touch with patient's daughter. Attending: Harpreet Maldonado
[2019-05-03] MEDS: Furosemide TAB* 20 MG PO SCH (17:42)
[2019-05-03] MEDS: GuaiFENesin DM 100 mg/10 mg in 5 ML UDC PO PRN (23:32)
[2019-05-04] MEDS: ZOSYN 3.375 GM Q8H per EXTENDED INFUSION IVPB SCH ×6 (04:19→21:25)
[2019-05-04] MEDS: methylPREDNISolone SOD 40 MG* 1 ML VIAL IV SCH (05:41)
[2019-05-04] MEDS: Levothyroxine TAB* 100 MCG TAB PO SCH (05:45)
[2019-05-04 05:53] LABS: BUN/Creatinine Ratio 52.9 (8-20); Calcium 8.9 mg/dL (8.6-10.3); EGFR African American 101.6 (>60); Potassium 4.4 mmol/L (3.5-5.0)
[2019-05-04] MEDS: Mometasone/Formoter 200/5 MDI INH SCH ×2 (07:41→20:27)
[2019-05-04] MEDS: SPIRIVA Respimat* (tiotropium) 2.5 mcg/inh Inhaler INH SCH (07:45)
[2019-05-04] MEDS: Gabapentin CAP(*) 300 MG PO SCH ×2 (10:11→21:05)
[2019-05-04] MEDS: Cyanocobalamin TAB* 500 MCG PO SCH (10:11)
[2019-05-04] MEDS: Furosemide TAB* 20 MG PO SCH (10:11)
[2019-05-04] MEDS: Nystatin TOP POWDER* 15 GM BTL TOPICAL SCH ×2 (10:21→21:05)
[2019-05-04] MEDS: Analgesic BALM* 114 GM TOPICAL SCH ×2 (10:21→21:05)
[2019-05-04] MEDS: Clobetasol 0.05% OINT* 30 GM TUBE TOPICAL SCH ×2 (10:21→21:05)
[2019-05-04] MEDS: GuaiFENesin DM 100 mg/10 mg in 5 ML UDC PO PRN ×2 (12:52→21:20)
--- NOTE | 2019-05-04 16:08 | PN ---
Subjective Date of Service: 05/04/19 Interval History: Ms. Harris is feeling well today. She offers no complaints. Upon my arrival she is laying in bed at a 30 degree angle eating breakfast. She did wear her BiPAP all night and is interested in having a unit when she returns home. Denies SOB or CP. Still has occasional cough. No concerns from nursing. Family History: Unchanged from Admission Social History: Unchanged from Admission Past Medical History: Unchanged from Admission Objective Active Medications: Albuterol/Ipratropium (Duoneb (Albuterol 2.5 Mg/Ipratropium 0.5 Mg)) 1 neb INH Q2H PRN SOB/WHEEZING Albuterol/Ipratropium (Duoneb (Albuterol 2.5 Mg/Ipratropium 0.5 Mg)) 1 neb INH [id number] AWAKE PRN SOB/WHEEZING Clobetasol Propionate (Clobetasol 0.05% Oint*) 1 applic TOPICAL BID D[facility]ITRIOS Cyanocobalamin (Vitamin B12 Tab*) 500 mcg PO DAILY [facility] Enoxaparin Sodium (Lovenox(*)) 40 mg SUBCUT Q24H [facility] Furosemide (Lasix Tab*) 20 mg PO DAILY [facility] Gabapentin (Neurontin Cap(*)) 300 mg PO BID [facility] Guaifenesin/Dextromethorphan (Robitussin Dm*) 10 ml PO Q4H PRN CONGESTION Piperacillin Sod/Tazobactam (Sod 3.375 gm/ Sodium Chloride) 100 mls @ 25 mls/ hr IVPB Q8H [facility]IT[facility] Ibuprofen (Motrin Tab*) 600 mg PO BID PRN PAIN-MODERATE/TEMP >/= 100.4 Levothyroxine Sodium (Synthroid Tab*) 100 mcg PO DAILY@0600 D[facility]ITRIOS Loperamide HCl (Imodium Cap*) 2 mg PO Q4H PRN DIARRHEA Mometasone Furoate/Formoterol Fumar (Dulera 200/5 Mdi*) 2 puff INH BID [facility]ITRI[facility] Multi-Ingredient Liniment/Rub (Ernesto Ojeda*) 1 applic TOPICAL BID [facility]ITRI[facility] Nystatin (Nystatin Top Powder*) 1 applic TOPICAL BID [facility]RI[facility] Prednisone (Deltasone Tab*) 40 mg PO DAILY D[facility]ITRI[facility] Tiotropium [place] (Spiriva Respimat 2.5 Mcg) 2 puff INH DAILY [facility] Vital Signs - 8 hr 05/04/19 05/04/19 10:11 12:15 Respiratory 18 17 Rate Oxygen Devices in Use Now: Nasal Cannula - 4L Appearance: Middle-aged female lying in bed in NAD Ears/Nose/Mouth/Throat: Mucous Membranes Moist Neck: NL Appearance and Movements; NL JVP, Trachea Midline Respiratory: Symmetrical Chest Expansion and Respiratory Effort, Clear to Auscultation Cardiovascular: NL Sounds; No Murmurs; No JVD, RRR Abdominal: NL Sounds; No Tenderness; No Distention Extremities: - - Moderate nonpitting BLE Neurological: - - Oriented to self and place Lines/Tubes/Other Access: Clean, Dry and Intact Peripheral IV Nutrition: Taking PO's Result Diagrams: 05/03/19 04:36 05/04/19 05:16 Assess/Plan/Problems-Billing Assessment: Ms. Harris is a 63 yo F with PMH of COPD, ILD, hypothyroidism, morbid obesity, JUAN, PE (no longer on AC), RLS, mild cognitive impairment; who presented to the ED with c/o SOB and cough and was admitted for suspected pneumonia. - Patient Problems (1) Acute and chronic respiratory failure with hypoxia Code(s): J96.21 - ACUTE AND CHRONIC RESPIRATORY FAILURE WITH HYPOXIA Comment: - Currently on 4L NC (baseline is 2L per patient) - Secondary to pneumonia - ABG 05/01/19 revealed compensated respiratory acidosis with pCO2 of 98 - Bicarb is remains elevated, but stable - Patient will need to be on BiPAP (IPAP 18, EPAP 6) overnight and during the day [id number] - Change Solu-Medrol to prednisone (2) Pneumonia Code(s): J18.9 - PNEUMONIA, UNSPECIFIED ORGANISM Comment: - Presented with SOB, cough, reported fever - CXR showing ILD with possible infiltrate - Completed 5 days of azithromycin - Continue Zosyn (day 4/) (3) COPD exacerbation Code(s): J44.1 - CHRONIC OBSTRUCTIVE PULMONARY DISEASE W (ACUTE) EXACERBATION Comment: - Secondary to pneumonia - Continue Dulera, Spiriva, nebs (4) Lower extremity edema Code(s): R60.0 - LOCALIZED EDEMA Comment: - Unclear etiology - US unremarkable for DVT - Echo shows EF 55-60%, no diastolic dysfunction or significant valvular abnormalities - Continue furosemide (5) Elevated troponin Code(s): R74.8 - ABNORMAL LEVELS OF OTHER SERUM ENZYMES Comment: - Chronically elevated, at baseline (6) Chronic interstitial lung disease Code(s): J84.9 - INTERSTITIAL PULMONARY DISEASE, UNSPECIFIED Comment: - Oxygen to maintain sat >90% (baseline 2L) (7) Mild cognitive impairment Code(s): G31.84 - MILD COGNITIVE IMPAIRMENT, SO STATED Comment: - Supportive care (8) Hypothyroidism Code(s): E03.9 - HYPOTHYROIDISM, UNSPECIFIED Comment: - Continue levothyroxine (9) Morbid obesity Code(s): E66.01 - MORBID (SEVERE) OBESITY DUE TO EXCESS CALORIES Comment: - BMI 58 (10) DVT prophylaxis Comment: - Lovenox (11) Full code status Code(s): Z78.9 - OTHER SPECIFIED HEALTH STATUS Comment: Status and Disposition: Inpatient. Anticipate d/c home vs NILO when medically stable. Case Management has been unable to get in touch with patient's daughter for discharge planning. Attending: Harpreet Maldonado
[2019-05-04] MEDS: Enoxaparin(*) 40 MG/0.4 ML SYR SUBCUT SCH (16:56)
--- NOTE | 2019-05-04 17:29 | CONSULT ---
Consult Consult: Consult for Medical Decision Making Capacity S: Psychiatry is asked to evaluate capacity in this 63 y.o. single, white female with a complicated medical history of extensive pulmonary disease, morbid obesity and mild intellectual delay who was admitted to the Hospitalist service on April 28 for pneumonia. The patient lives with her daughter in the [facility] in [place] and is completely bedridden, relying on a lola lift and 2-person assist for ambulating around her home. As per Hospitalist attending, Deja Peralta, Ms. Harris has a history of apathetic behavior and tends to lay in bed all day, developing decubitus ulcers in the past as a result of this tendency. The team is worried that they haven't been able to reach the patient's daughter, who resides with her, is her health care proxy and actually works for an agency as one of her home health aides. They believe that her situation warrants NILO placement, stating the risks as: further skin breakdown with infection, inability to use a medically indicated BIPAP machine and aspiration from eating/drinking in a supine position, all of which could leave to further hospitalization. Ms. Harris is refusing NILO placement, stating her preference to return home. Prior to seeing the patient I spoke with the service, who indicates that the patient has an active APS case with [facility] and that agency has deemed the apartment safe to live in. The patient has existing home health services through the [facility]. On exam the patient is laying supine with her BIPAP on. She seems surprised by the stated intention of my visit and denies that the primary team shared with her their concerns about her safety at home. "I don't want to go to a rehab. I was there a year ago. It's not for me." She insists that her daughter does a good job taking care of her at home and tells me that she has a lola lift to get her in and out of her wheelchair. I asked why she was admitted and she appropriately responds "pneumonia." When asked about the risks of going home she replies without hesitation "I could get pneumonia again." I asked leading questions about the possibility of further bed sores but she could not identify these as a risk. She insists that her daughter gets poor cell phone court assistant at [facility] and this is the likely reason for the communication breakdown. O: morbidly obese aging white female with BIPAP mask; breathing with apparent difficulty; dressed in patient gown with limited grooming; speech has slow rate with poor fluency likely due to shortness of breath; calm, cooperative and friendly; euthymic mood with anxious affect; denies SI or HI; insight and judgment fair given acceptance of assistance with ADLs; awake and alert; scores 23/30 on MMSE: losing points for facility name, floor, county, day, date and month, as well as delayed recall. A/P: Capacity: During our interaction, Ms. Harris demonstrated a reasonable understanding of her illness and was able to articulate a coherent choice. Despite her obvious cognitive deficits, which appear developmental in nature, she was able to voice the risks inherent in refusing NILO placement. She was also able to name mitigating strategies, such as home health, wheelchair and lola lift that might keep her safe in her apartment. In my judgment, she demonstrated the capacity to make an informed decision about refusing NILO placement. Capacity is subject to change in these situations and psychiatry can be re-consulted in the event of any significant changes in the patient's presentation. I have discussed my opinion with the patient and [address] [place] [id number] staff.
[2019-05-05] MEDS: ZOSYN 3.375 GM Q8H per EXTENDED INFUSION IVPB SCH ×6 (04:07→22:03)
[2019-05-05 05:47] LABS: BUN/Creatinine Ratio 48.1 (8-20); Calcium 8.6 mg/dL (8.6-10.3); EGFR African American 85.9 (>60); Potassium 4.1 mmol/L (3.5-5.0)
[2019-05-05] MEDS: Levothyroxine TAB* 100 MCG TAB PO SCH (06:12)
[2019-05-05] MEDS: Furosemide TAB* 20 MG PO SCH (08:09)
[2019-05-05] MEDS: predniSONE TAB* 20 MG PO SCH (08:09)
[2019-05-05] MEDS: Cyanocobalamin TAB* 500 MCG PO SCH (08:09)
[2019-05-05] MEDS: Gabapentin CAP(*) 300 MG PO SCH ×2 (08:09→22:04)
[2019-05-05] MEDS: SPIRIVA Respimat* (tiotropium) 2.5 mcg/inh Inhaler INH SCH (08:20)
[2019-05-05] MEDS: Mometasone/Formoter 200/5 MDI INH SCH ×2 (08:20→19:20)
[2019-05-05] MEDS: Clobetasol 0.05% OINT* 30 GM TUBE TOPICAL SCH ×2 (08:39→22:03)
[2019-05-05] MEDS: Nystatin TOP POWDER* 15 GM BTL TOPICAL SCH ×2 (08:40→22:04)
[2019-05-05] MEDS: Analgesic BALM* 114 GM TOPICAL SCH ×2 (08:40→22:03)
--- NOTE | 2019-05-05 09:45 | PN ---
Subjective Date of Service: 05/05/19 Interval History: Ms. Harris is feeling well today. She offers no complaints. She is seen coughing and reports her cough is improving. She does not have a cough at baseline. Denies SOB. She has been using the BiPAP overnight. Would like to go home. She is requesting compression stockings to take home with her. No concerns from nursing. Family History: Unchanged from Admission Social History: Unchanged from Admission Past Medical History: Unchanged from Admission Objective Active Medications: Albuterol/Ipratropium (Duoneb (Albuterol 2.5 Mg/Ipratropium 0.5 Mg)) 1 neb INH Q2H PRN SOB/WHEEZING Albuterol/Ipratropium (Duoneb (Albuterol 2.5 Mg/Ipratropium 0.5 Mg)) 1 neb INH [id number] AWAKE PRN SOB/WHEEZING Clobetasol Propionate (Clobetasol 0.05% Oint*) 1 applic TOPICAL BID DIMITRIOS Cyanocobalamin (Vitamin B12 Tab*) 500 mcg PO DAILY DIMITRIOS Enoxaparin Sodium (Lovenox(*)) 40 mg SUBCUT Q24H DIMITRIOS Furosemide (Lasix Tab*) 20 mg PO DAILY DIMITRIOS Gabapentin (Neurontin Cap(*)) 300 mg PO BID DIMITRIOS Guaifenesin/Dextromethorphan (Robitussin Dm*) 10 ml PO Q4H PRN CONGESTION Piperacillin Sod/Tazobactam (Sod 3.375 gm/ Sodium Chloride) 100 mls @ 25 mls/ hr IVPB Q8H DIMITRIOS Ibuprofen (Motrin Tab*) 600 mg PO BID PRN PAIN-MODERATE/TEMP >/= 100.4 Levothyroxine Sodium (Synthroid Tab*) 100 mcg PO DAILY@0600 DIMITRIOS Loperamide HCl (Imodium Cap*) 2 mg PO Q4H PRN DIARRHEA Mometasone Furoate/Formoterol Fumar (Dulera 200/5 Mdi*) 2 puff INH BID DIMITRIOS Multi-Ingredient Liniment/Rub (Ernesto Ojeda*) 1 applic TOPICAL BID DIMITRIOS Nystatin (Nystatin Top Powder*) 1 applic TOPICAL BID DIMITRIOS Prednisone (Deltasone Tab*) 40 mg PO DAILY DIMITRIOS Tiotropium [place] (Spiriva Respimat 2.5 Mcg) 2 puff INH DAILY [facility] Vital Signs - 8 hr 05/05/19 05/05/19 05/05/19 02:37 05:29 07:10 Temperature 97.2 F 98 F Pulse Rate 66 56 Respiratory 20 18 Rate Blood Pressure 100/64 144/45 96/46 (mmHg) O2 Sat by Pulse 98 96 Oximetry 05/05/19 05/05/19 05/05/19 07:23 08:09 08:26 Temperature Pulse Rate 63 Respiratory 17 16 Rate Blood Pressure 98/58 (mmHg) O2 Sat by Pulse 92 Oximetry Oxygen Devices in Use Now: Nasal Cannula - 2L Appearance: Middle-aged female lying in bed in NAD Ears/Nose/Mouth/Throat: Mucous Membranes Moist Neck: NL Appearance and Movements; NL JVP, Trachea Midline Respiratory: Symmetrical Chest Expansion and Respiratory Effort, Clear to Auscultation Cardiovascular: NL Sounds; No Murmurs; No JVD, RRR Abdominal: NL Sounds; No Tenderness; No Distention Extremities: - - Mild nonpitting BLE Neurological: Alert and Oriented x 3 Lines/Tubes/Other Access: Clean, Dry and Intact Peripheral IV Nutrition: Taking PO's Result Diagrams: 05/03/19 04:36 05/05/19 05:18 Assess/Plan/Problems-Billing Assessment: Ms. Harris is a 63 yo F with PMH of COPD, ILD, hypothyroidism, morbid obesity, JUAN, PE (no longer on AC), RLS, mild cognitive impairment; who presented to the ED with c/o SOB and cough and was admitted for suspected pneumonia. - Patient Problems (1) Acute and chronic respiratory failure with hypoxia Code(s): J96.21 - ACUTE AND CHRONIC RESPIRATORY FAILURE WITH HYPOXIA Comment: - Down to 2L NC which is her baseline - Acute exacerbation secondary to pneumonia; chronic respiratory failure secondary to ILD, COPD, obesity hypoventilation syndrome - ABG 05/01/19 revealed compensated respiratory acidosis with pCO2 of 98; transferred to ICU 05/01/19 - 05/02/19 for BiPAP - Bicarb is remains elevated, but stable and no evidence of respiratory distress - Patient will need to be on BiPAP overnight and during the day [id number] - Chronic respiratory failure secondary to COPD/ILD; d/t advanced nature of disease she will benefit from use of non-invasive ventilator at home to reduce the work of breathing and improve respiratory status; form has been completed to order home unit - Continue prednisone (2) Pneumonia Code(s): J18.9 - PNEUMONIA, UNSPECIFIED ORGANISM Comment: - Presented with SOB, cough, reported fever - Suspect may be d/t aspiration as patient has been seen aspirating here in the hospital and admits to frequently eating/drinking while lying in bed - CXR showing ILD with possible infiltrate - Completed 5 days of azithromycin - Continue Zosyn (day 5/7) (3) COPD exacerbation Code(s): J44.1 - CHRONIC OBSTRUCTIVE PULMONARY DISEASE W (ACUTE) EXACERBATION Comment: - Secondary to pneumonia - Continue Dulera, Spiriva, nebs, prednisone (4) Lower extremity edema Code(s): R60.0 - LOCALIZED EDEMA Comment: - Unclear etiology - US unremarkable for DVT - Echo shows EF 55-60%, no diastolic dysfunction or significant valvular abnormalities - Continue furosemide (5) Elevated troponin Code(s): R74.8 - ABNORMAL LEVELS OF OTHER SERUM ENZYMES Comment: - Chronically elevated, at baseline (6) Chronic interstitial lung disease Code(s): J84.9 - INTERSTITIAL PULMONARY DISEASE, UNSPECIFIED Comment: - Oxygen to maintain sat >90% (baseline 2L) (7) Mild cognitive impairment Code(s): G31.84 - MILD COGNITIVE IMPAIRMENT, SO STATED Comment: - Supportive care (8) Hypothyroidism Code(s): E03.9 - HYPOTHYROIDISM, UNSPECIFIED Comment: - Continue levothyroxine (9) Morbid obesity Code(s): E66.01 - MORBID (SEVERE) OBESITY DUE TO EXCESS CALORIES Comment: - BMI 58 (10) DVT prophylaxis Comment: - Lovenox (11) Full code status Code(s): Z78.9 - OTHER SPECIFIED HEALTH STATUS Comment: Status and Disposition: Inpatient. Patient is medically stable for d/c home pending delivery of noninvasive home ventilator which will hopefully be on Friday. Attending: Harpreet Maldonado
[2019-05-05] MEDS: GuaiFENesin DM 100 mg/10 mg in 5 ML UDC PO PRN ×2 (11:31→22:03)
[2019-05-05] MEDS: Loperamide CAP* 2 MG PO PRN (11:32)
[2019-05-05 13:00] LABS: Albumin 2.4 g/dL (3.4-4.7); Albumin/Globulin Ratio 0.34; Gamma Globulin 4.8 g/dL (0.6-1.6); Total Protein(PEP) 9.5 g/dL (6.3 - 7.9)
[2019-05-05] MEDS: Enoxaparin(*) 40 MG/0.4 ML SYR SUBCUT SCH (14:28)
[2019-05-06] MEDS: ZOSYN 3.375 GM Q8H per EXTENDED INFUSION IVPB SCH ×2 (04:30)
[2019-05-06] MEDS: Levothyroxine TAB* 100 MCG TAB PO SCH (05:49)
[2019-05-06 06:11] LABS: BUN/Creatinine Ratio 46.7 (8-20); Calcium 8.5 mg/dL (8.6-10.3); EGFR African American 93.8 (>60); EGFR Non-African American 77.6 (>60); Potassium 4.1 mmol/L (3.5-5.0)
[2019-05-06] MEDS: Mometasone/Formoter 200/5 MDI INH SCH ×2 (07:39→19:41)
[2019-05-06] MEDS: SPIRIVA Respimat* (tiotropium) 2.5 mcg/inh Inhaler INH SCH (07:39)
[2019-05-06] MEDS: predniSONE TAB* 20 MG PO SCH (09:30)
[2019-05-06] MEDS: Cyanocobalamin TAB* 500 MCG PO SCH (09:31)
[2019-05-06] MEDS: Furosemide TAB* 20 MG PO SCH (09:31)
[2019-05-06] MEDS: Nystatin TOP POWDER* 15 GM BTL TOPICAL SCH ×2 (09:31→21:17)
[2019-05-06] MEDS: Analgesic BALM* 114 GM TOPICAL SCH ×2 (09:31→21:17)
[2019-05-06] MEDS: Clobetasol 0.05% OINT* 30 GM TUBE TOPICAL SCH ×2 (09:31→21:18)
[2019-05-06] MEDS: Gabapentin CAP(*) 300 MG PO SCH ×2 (09:31→21:16)
[2019-05-06 10:12] LABS: Hematocrit 36 % (35-47); Mean Corpuscular HGB Conc 33 g/dL (31-36); Mean Corpuscular Hemoglobin 33 pg (27-31); Mean Corpuscular Volume 99 fL (80-97); Mean Platelet Volume 8.3 fL (7.4-10.4); Platelet Count 177 10^3/uL (150-450); Red Blood Count 3.69 10^6 /uL (3.70-4.87); Red Cell Distribution Width 17 % (10-15); White Blood Count 9.6 10^3/uL (3.5-10.8)
[2019-05-06 10:14] LABS: ABS Basophils 0.1 10^3/ul (0-0.2); ABS Eosinophils 0.1 10^3/ul (0-0.6); ABS Lymphocytes 1.8 10^3/ul (1.0-4.8); ABS Monocytes 0.6 10^3/ul (0-0.8); Eosinophil % 0.9 %; Lymphocyte % 18.9 %
--- NOTE | 2019-05-06 12:23 | PN ---
Subjective Date of Service: 05/06/19 Interval History: Patient is feeling well today. Patient has been having loose BMs, but she and her daughter state this is not uncommon for her. Patient denies abdominal pain or tenderness. Patient has a chronic unchanged cough. Patient denies fevers, CP , SOB, Dizziness, dysuria, or other pain. Patient states she wants to go home today. Family History: Unchanged from Admission Social History: Unchanged from Admission Past Medical History: Unchanged from Admission Objective Active Medications: Albuterol/Ipratropium (Duoneb (Albuterol 2.5 Mg/Ipratropium 0.5 Mg)) 1 neb INH Q2H PRN PRN Reason: SOB/WHEEZING Last Admin: 04/28/19 20:32 Dose: 1 neb Albuterol/Ipratropium (Duoneb (Albuterol 2.5 Mg/Ipratropium 0.5 Mg)) 1 neb INH [id number] AWAKE PRN PRN Reason: SOB/WHEEZING Cefuroxime Axetil (Ceftin 250 Mg Tab) 500 mg PO BID [facility] Clobetasol Propionate (Clobetasol 0.05% Oint*) 1 applic TOPICAL BID [facility] Last Admin: 05/06/19 09:31 Dose: 1 applic Cyanocobalamin (Vitamin B12 Tab*) 500 mcg PO DAILY [facility] Last Admin: 05/06/19 09:31 Dose: 500 mcg Enoxaparin Sodium (Lovenox(*)) 40 mg SUBCUT Q24H [facility] Last Admin: 05/05/19 14:28 Dose: 40 mg Furosemide (Lasix Tab*) 20 mg PO DAILY [facility] Last Admin: 05/06/19 09:31 Dose: 20 mg Gabapentin (Neurontin Cap(*)) 300 mg PO BID [facility] Last Admin: 05/06/19 09:31 Dose: 300 mg Guaifenesin/Dextromethorphan (Robitussin Dm*) 10 ml PO Q4H PRN PRN Reason: CONGESTION Last Admin: 05/05/19 22:03 Dose: 10 ml Ibuprofen (Motrin Tab*) 600 mg PO BID PRN PRN Reason: PAIN-MODERATE/TEMP >/= 100.4 Last Admin: 04/30/19 22:42 Dose: 600 mg Lactobacillus Rhamnosus (Lactobacillus Acidophilus*) 1 tab PO DAILY [facility] Levothyroxine Sodium (Synthroid Tab*) 100 mcg PO DAILY@0600 [facility] Last Admin: 05/06/19 05:49 Dose: 100 mcg Loperamide HCl (Imodium Cap*) 2 mg PO Q4H PRN PRN Reason: DIARRHEA Last Admin: 05/05/19 11:32 Dose: 2 mg Metronidazole (Flagyl Tab*) 500 mg PO BID [facility] Mometasone Furoate/Formoterol Fumar (Dulera 200/5 Mdi*) 2 puff INH BID [facility] Last Admin: 05/06/19 07:39 Dose: 2 puff Multi-Ingredient Liniment/Rub (Ernesto Ojeda*) 1 applic TOPICAL BID [facility] Last Admin: 05/06/19 09:31 Dose: 1 applic Nystatin (Nystatin Top Powder*) 1 applic TOPICAL BID [facility] Last Admin: 05/06/19 09:31 Dose: 1 applic Prednisone (Deltasone Tab*) 40 mg PO DAILY [facility] Last Admin: 05/06/19 09:30 Dose: 40 mg Tiotropium [place] (Spiriva Respimat 2.5 Mcg) 2 puff INH DAILY [facility] Last Admin: 05/06/19 07:39 Dose: 2 puff Vital Signs - 8 hr 05/06/19 05/06/19 05/06/19 07:15 07:42 09:31 Temperature 97.4 F Pulse Rate 59 56 Respiratory 17 16 20 Rate Blood Pressure 117/54 (mmHg) O2 Sat by Pulse 94 92 Oximetry Oxygen Devices in Use Now: Nasal Cannula Appearance: Patient is a 63yo female who appears stated age and is sitting in the bed in [facility]. Eyes: No Scleral Icterus, PERRLA Ears/Nose/Mouth/Throat: NL Teeth, Lips, Gums, Clear Oropharnyx, Mucous Membranes Moist Neck: NL Appearance and Movements; NL JVP, Trachea Midline Respiratory: Symmetrical Chest Expansion and Respiratory Effort, Clear to Auscultation, - - Diminished. Cardiovascular: NL Sounds; No Murmurs; No JVD, RRR, No Edema Abdominal: NL Sounds; No Tenderness; No Distention, No Hepatosplenomegaly Lymphatic: No Cervical Adenopathy Extremities: No Edema, No Clubbing, Cyanosis Skin: No Rash or Ulcers, No Nodules or Sclerosis Neurological: Alert and Oriented x 3, NL Sensation, NL Muscle Strength and Tone , - - CN II-XII intact. Result Diagrams: 05/06/19 05:20 05/06/19 05:23 Microbiology and Other Data: Microbiology 04/30/19 23:00 Gram Stain - Final Sputum Expectorated Sputum Culture - Final Normal [place] 04/28/19 09:20 Aerobic Blood Culture - Final Blood Venous No Growth Day 5 Anaerobic Blood Culture - Final No Growth Day 5 04/28/19 08:55 Aerobic Blood Culture - Final Blood Venous No Growth Day 5 Anaerobic Blood Culture - Final No Growth Day 5 04/29/19 16:35 Legionella Urinary Antigen - Final Urine Negative Legionella Antigen Streptococcus pneumoniae Ag Screen - Final Negative S. pneumo Antigen Assess/Plan/Problems-Billing Assessment: Ms. Harris is a 63 yo F with PMH of COPD, ILD, hypothyroidism, morbid obesity, JUAN, PE (no longer on AC), RLS, mild cognitive impairment; who presented to the ED with c/o SOB and cough and was admitted for suspected pneumonia. - Patient Problems (1) Pneumonia Current Visit: Yes Status: Acute Code(s): J18.9 - PNEUMONIA, UNSPECIFIED ORGANISM SNOMED Code(s): 764154926 Comment: - Presented with SOB, cough, reported fever - Suspect may be d/t aspiration as patient has been seen aspirating here in the hospital and admits to frequently eating/drinking while lying in bed - CXR showing ILD with possible infiltrate - Completed 5 days of azithromycin - Change Zosyn to Ceftin and Metronidazole (2) Acute and chronic respiratory failure with hypoxia Current Visit: Yes Status: Acute Code(s): J96.21 - ACUTE AND CHRONIC RESPIRATORY FAILURE WITH HYPOXIA SNOMED Code(s): 79263159 Comment: - Down to 2L NC which is her baseline - Acute exacerbation secondary to pneumonia; chronic respiratory failure secondary to ILD, COPD, obesity hypoventilation syndrome - ABG 05/01/19 revealed compensated respiratory acidosis with pCO2 of 98; transferred to ICU 05/01/19 - 05/02/19 for BiPAP - Bicarb is remains elevated, but stable and no evidence of respiratory distress - Patient will need to be on BiPAP overnight and during the day [id number] - Chronic respiratory failure secondary to COPD/ILD; d/t advanced nature of disease she will benefit from use of non-invasive ventilator at home to reduce the work of breathing and improve respiratory status; form has been completed to order home unit - Continue prednisone with taper - Patient is unsafe to discharge until home Ventilator is set up. (3) COPD exacerbation Current Visit: Yes Status: Acute Code(s): J44.1 - CHRONIC OBSTRUCTIVE PULMONARY DISEASE W (ACUTE) EXACERBATION SNOMED Code(s): 315722315 Comment: - Secondary to pneumonia - Continue Dulera, Spiriva, nebs, prednisone (4) Chronic interstitial lung disease Current Visit: Yes Status: Acute Code(s): J84.9 - INTERSTITIAL PULMONARY DISEASE, UNSPECIFIED SNOMED Code(s): 321230099 Comment: - Oxygen to maintain sat >90% (baseline 2L) - Aim for low 90s due to risk for CO2 retention. (5) Lower extremity edema Current Visit: Yes Status: Acute Code(s): R60.0 - LOCALIZED EDEMA SNOMED Code(s): 827343820 Comment: - Unclear etiology, likely related to pHTN from ILD, OHS, and COPD. - US unremarkable for DVT - Echo shows EF 55-60%, no diastolic dysfunction or significant valvular abnormalities - Continue furosemide (6) Mild cognitive impairment Current Visit: Yes Status: Acute Code(s): G31.84 - MILD COGNITIVE IMPAIRMENT , SO STATED SNOMED Code(s): 357886486 Comment: - Supportive care (7) Elevated troponin Current Visit: No Status: Acute Code(s): R74.8 - ABNORMAL LEVELS OF OTHER SERUM ENZYMES SNOMED Code(s): 033715828 Comment: - Chronically elevated, at baseline (8) Full code status Current Visit: No Status: Acute Code(s): Z78.9 - OTHER SPECIFIED HEALTH STATUS SNOMED Code(s): 381515602 Comment: (9) Hypothyroidism Current Visit: No Status: Chronic Code(s): E03.9 - HYPOTHYROIDISM, UNSPECIFIED SNOMED Code(s): 24571134 Comment: - Continue levothyroxine (10) Morbid obesity Current Visit: No Status: Chronic Code(s): E66.01 - MORBID (SEVERE) OBESITY DUE TO EXCESS CALORIES SNOMED Code(s): 547577271 Comment: - BMI 58 (11) DVT prophylaxis Current Visit: No Status: Acute Code(s): NHX3925 - SNOMED Code(s): 990440137 Comment: - Lovenox Status and Disposition: Inpatient. Patient is medically stable for d/c home pending delivery of noninvasive home ventilator which will hopefully be on Friday. Patient's daughter, who is her caregiver, is unwilling to take her back until she is medically optimized with BiPAP, which should be tomorrow.
[2019-05-06] MEDS: Enoxaparin(*) 40 MG/0.4 ML SYR SUBCUT SCH (15:15)
[2019-05-06] MEDS: metroNIDAZOLE TAB* 250 MG PO SCH (21:15)
[2019-05-06] MEDS: Loperamide CAP* 2 MG PO PRN (21:16)
[2019-05-06] MEDS: GuaiFENesin DM 100 mg/10 mg in 5 ML UDC PO PRN (21:18)
[2019-05-07] MEDS: Levothyroxine TAB* 100 MCG TAB PO SCH (05:24)
[2019-05-07] MEDS: Mometasone/Formoter 200/5 MDI INH SCH ×2 (07:42→20:10)
[2019-05-07] MEDS: SPIRIVA Respimat* (tiotropium) 2.5 mcg/inh Inhaler INH SCH (07:42)
[2019-05-07] MEDS: Lactobacillus Acidophilus* 1 TAB PO SCH (08:48)
[2019-05-07] MEDS: Cyanocobalamin TAB* 500 MCG PO SCH (08:48)
[2019-05-07] MEDS: Gabapentin CAP(*) 300 MG PO SCH ×2 (08:48→21:02)
[2019-05-07] MEDS: metroNIDAZOLE TAB* 250 MG PO SCH ×2 (08:48→21:02)
[2019-05-07] MEDS: predniSONE TAB* 20 MG PO SCH (08:48)
[2019-05-07] MEDS: Furosemide TAB* 20 MG PO SCH (08:50)
[2019-05-07] MEDS: Analgesic BALM* 114 GM TOPICAL SCH ×2 (08:50→21:08)
[2019-05-07] MEDS: Clobetasol 0.05% OINT* 30 GM TUBE TOPICAL SCH ×2 (09:02→21:08)
[2019-05-07] MEDS: GuaiFENesin DM 100 mg/10 mg in 5 ML UDC PO PRN ×2 (09:07→21:04)
[2019-05-07] MEDS: Loperamide CAP* 2 MG PO PRN ×2 (10:32→21:03)
[2019-05-07] MEDS: Nystatin TOP POWDER* 15 GM BTL TOPICAL SCH ×2 (10:33→21:08)
[2019-05-07] MEDS: acetaZOLAMIDE TAB* 250 MG PO SCH ×2 (10:34→21:01)
--- NOTE | 2019-05-07 14:35 | PN ---
Subjective Date of Service: 05/07/19 Interval History: Patient is feeling well today. Patient denies any dizziness, SOB, palpitations. Patient has consistent cough. Patient denies F/C, N/V, abdominal pain, diarrhea , or other pain. Patient states many times, when presented with the risks of going home, she states "I want to go home" when educated on the risks of going home, for third time patient agreed to stay. Family History: Unchanged from Admission Social History: Unchanged from Admission Past Medical History: Unchanged from Admission Objective Active Medications: Acetazolamide (Diamox Tab*) 250 mg PO BID [facility] Stop: 05/09/19 21:01 Last Admin: 05/07/19 10:34 Dose: 250 mg Albuterol/Ipratropium (Duoneb (Albuterol 2.5 Mg/Ipratropium 0.5 Mg)) 1 neb INH Q2H PRN PRN Reason: SOB/WHEEZING Last Admin: 04/28/19 20:32 Dose: 1 neb Albuterol/Ipratropium (Duoneb (Albuterol 2.5 Mg/Ipratropium 0.5 Mg)) 1 neb INH [id number] AWAKE PRN PRN Reason: SOB/WHEEZING Cefuroxime Axetil (Ceftin 250 Mg Tab) 500 mg PO BID [facility] Last Admin: 05/07/19 08:48 Dose: 500 mg Clobetasol Propionate (Clobetasol 0.05% Oint*) 1 applic TOPICAL BID [facility] Last Admin: 05/07/19 09:02 Dose: 1 applic Cyanocobalamin (Vitamin B12 Tab*) 500 mcg PO DAILY [facility] Last Admin: 05/07/19 08:48 Dose: 500 mcg Enoxaparin Sodium (Lovenox(*)) 40 mg SUBCUT Q24H [facility] Last Admin: 05/06/19 15:15 Dose: Not Given Furosemide (Lasix Tab*) 20 mg PO DAILY [facility] Last Admin: 05/07/19 08:50 Dose: 20 mg Gabapentin (Neurontin Cap(*)) 300 mg PO BID [facility] Last Admin: 05/07/19 08:48 Dose: 300 mg Guaifenesin/Dextromethorphan (Robitussin Dm*) 10 ml PO Q4H PRN PRN Reason: CONGESTION Last Admin: 05/07/19 09:07 Dose: 10 ml Ibuprofen (Motrin Tab*) 600 mg PO BID PRN PRN Reason: PAIN-MODERATE/TEMP >/= 100.4 Last Admin: 04/30/19 22:42 Dose: 600 mg Lactobacillus Rhamnosus (Lactobacillus Acidophilus*) 1 tab PO DAILY [facility] Last Admin: 05/07/19 08:48 Dose: 1 tab Levothyroxine Sodium (Synthroid Tab*) 100 mcg PO DAILY@0600 [facility] Last Admin: 05/07/19 05:24 Dose: 100 mcg Loperamide HCl (Imodium Cap*) 2 mg PO Q4H PRN PRN Reason: DIARRHEA Last Admin: 05/07/19 10:32 Dose: 2 mg Metronidazole (Flagyl Tab*) 500 mg PO BID [facility] Last Admin: 05/07/19 08:48 Dose: 500 mg Mometasone Furoate/Formoterol Fumar (Dulera 200/5 Mdi*) 2 puff INH BID [facility] Last Admin: 05/07/19 07:42 Dose: 2 puff Multi-Ingredient Liniment/Rub (Ernesto Ojeda*) 1 applic TOPICAL BID [facility] Last Admin: 05/07/19 08:50 Dose: 1 applic Nystatin (Nystatin Top Powder*) 1 applic TOPICAL BID [facility] Last Admin: 05/07/19 10:33 Dose: 1 applic Prednisone (Deltasone Tab*) 40 mg PO DAILY [facility] Last Admin: 05/07/19 08:48 Dose: 40 mg Tiotropium [place] (Spiriva Respimat 2.5 Mcg) 2 puff INH DAILY [facility] Last Admin: 05/07/19 07:42 Dose: 2 puff Vital Signs - 8 hr 05/07/19 05/07/19 05/07/19 07:44 08:00 08:48 Temperature 97.7 F Pulse Rate 62 Respiratory 24 20 20 Rate Blood Pressure 116/50 (mmHg) O2 Sat by Pulse 91 Oximetry 05/07/19 05/07/19 05/07/19 10:32 10:48 11:15 Temperature 97.9 F Pulse Rate 104 Respiratory 20 17 20 Rate Blood Pressure 104/53 (mmHg) O2 Sat by Pulse 94 Oximetry 05/07/19 12:30 Temperature Pulse Rate Respiratory 17 Rate Blood Pressure (mmHg) O2 Sat by Pulse Oximetry Oxygen Devices in Use Now: Nasal Cannula Appearance: Patient is a 63yo female who appears stated age and is sitting in the bed in [place]. Eyes: No Scleral Icterus, PERRLA Ears/Nose/Mouth/Throat: NL Teeth, Lips, Gums, Clear Oropharnyx, Mucous Membranes Moist Neck: NL Appearance and Movements; NL JVP, Trachea Midline Respiratory: Symmetrical Chest Expansion and Respiratory Effort, - - Diminished throughout. No other adventitious lung sounds. Cardiovascular: NL Sounds; No Murmurs; No JVD, RRR, - - 1+ B/L LE edema. Abdominal: NL Sounds; No Tenderness; No Distention, No Hepatosplenomegaly Lymphatic: No Cervical Adenopathy Extremities: No Clubbing, Cyanosis Skin: No Rash or Ulcers, No Nodules or Sclerosis Neurological: Alert and Oriented x 3, NL Sensation, NL Muscle Strength and Tone , - - CN II-XII intact. Result Diagrams: 05/06/19 05:20 05/06/19 05:23 Microbiology and Other Data: Microbiology 04/30/19 23:00 Gram Stain - Final Sputum Expectorated Sputum Culture - Final Normal Bouchra 04/28/19 09:20 Aerobic Blood Culture - Final Blood Venous No Growth Day 5 Anaerobic Blood Culture - Final No Growth Day 5 04/28/19 08:55 Aerobic Blood Culture - Final Blood Venous No Growth Day 5 Anaerobic Blood Culture - Final No Growth Day 5 04/29/19 16:35 Legionella Urinary Antigen - Final Urine Negative Legionella Antigen Streptococcus pneumoniae Ag Screen - Final Negative S. pneumo Antigen Assess/Plan/Problems-Billing Assessment: Ms. Harris is a 63 yo F with PMH of COPD, ILD, hypothyroidism, morbid obesity, JUAN, PE (no longer on AC), RLS, mild cognitive impairment; who presented to the ED with c/o SOB and cough and was admitted for suspected pneumonia. - Patient Problems (1) Pneumonia Current Visit: Yes Status: Acute Code(s): J18.9 - PNEUMONIA, UNSPECIFIED ORGANISM SNOMED Code(s): 582568896 Comment: - Presented with SOB, cough, reported fever - Suspect may be d/t aspiration as patient has been seen aspirating here in the hospital and admits to frequently eating/drinking while lying in bed - CXR showing ILD with possible infiltrate - Completed 5 days of azithromycin - Change Zosyn to Ceftin and Metronidazole for 2 more days. (2) Acute and chronic respiratory failure with hypoxia Current Visit: Yes Status: Acute Code(s): J96.21 - ACUTE AND CHRONIC RESPIRATORY FAILURE WITH HYPOXIA SNOMED Code(s): 96666574 Comment: - Down to 2L NC which is her baseline - Acute exacerbation secondary to pneumonia; chronic respiratory failure secondary to ILD, COPD, obesity hypoventilation syndrome - ABG 05/01/19 revealed compensated respiratory acidosis with pCO2 of 98; transferred to ICU 05/01/19 - 05/02/19 for BiPAP - Bicarb is remains elevated, but stable and no evidence of respiratory distress - Patient will need to be on BiPAP overnight and during the day [id number] - Chronic respiratory failure secondary to COPD/ILD; d/t advanced nature of disease she will benefit from use of non-invasive ventilator at home to reduce the work of breathing and improve respiratory status; form has been completed to order home unit - Continue prednisone with taper - Patient is unsafe to discharge until home Ventilator is set up. - Start Diamox for 3 days. (3) COPD exacerbation Current Visit: Yes Status: Acute Code(s): J44.1 - CHRONIC OBSTRUCTIVE PULMONARY DISEASE W (ACUTE) EXACERBATION SNOMED Code(s): 473848961 Comment: - Secondary to pneumonia - Continue Dulera, Spiriva, nebs, prednisone with taper (4) Chronic interstitial lung disease Current Visit: Yes Status: Acute Code(s): J84.9 - INTERSTITIAL PULMONARY DISEASE, UNSPECIFIED SNOMED Code(s): 713620674 Comment: - Oxygen to maintain sat >90% (baseline 2L) - Aim for low 90s due to risk for CO2 retention. (5) Lower extremity edema Current Visit: Yes Status: Acute Code(s): R60.0 - LOCALIZED EDEMA SNOMED Code(s): 304522607 Comment: - Unclear etiology, likely related to pHTN from ILD, OHS, and COPD. - US unremarkable for DVT - Echo shows EF 55-60%, no diastolic dysfunction or significant valvular abnormalities - Continue furosemide (6) Mild cognitive impairment Current Visit: Yes Status: Acute Code(s): G31.84 - MILD COGNITIVE IMPAIRMENT , SO STATED SNOMED Code(s): 235563024 Comment: - Supportive care (7) Elevated troponin Current Visit: No Status: Acute Code(s): R74.8 - ABNORMAL LEVELS OF OTHER SERUM ENZYMES SNOMED Code(s): 455215414 Comment: - Chronically elevated, at baseline (8) Hypothyroidism Current Visit: No Status: Chronic Code(s): E03.9 - HYPOTHYROIDISM, UNSPECIFIED SNOMED Code(s): 11949755 Comment: - Continue levothyroxine (9) Morbid obesity Current Visit: No Status: Chronic Code(s): E66.01 - MORBID (SEVERE) OBESITY DUE TO EXCESS CALORIES SNOMED Code(s): 733006023 Comment: - BMI 58 (10) DVT prophylaxis Current Visit: No Status: Acute Code(s): HQP4357 - SNOMED Code(s): 094814660 Comment: - Lovenox (11) Full code status Current Visit: No Status: Acute Code(s): Z78.9 - OTHER SPECIFIED HEALTH STATUS SNOMED Code(s): 071908199 Comment: Status and Disposition: Inpatient. Patient is medically stable for d/c home pending delivery of noninvasive home ventilator which will hopefully be on Friday. Patient's daughter, who is her caregiver, is unwilling to take her back until she is medically optimized with BiPAP. This cannot be arranged until Friday.
[2019-05-07] MEDS: Enoxaparin(*) 40 MG/0.4 ML SYR SUBCUT SCH (15:05)
[2019-05-08] MEDS: Levothyroxine TAB* 100 MCG TAB PO SCH (05:42)
[2019-05-08] MEDS: SPIRIVA Respimat* (tiotropium) 2.5 mcg/inh Inhaler INH SCH (08:11)
[2019-05-08] MEDS: Mometasone/Formoter 200/5 MDI INH SCH ×2 (08:11→21:25)
[2019-05-08] MEDS: acetaZOLAMIDE TAB* 250 MG PO SCH ×2 (09:05→21:11)
[2019-05-08] MEDS: Cyanocobalamin TAB* 500 MCG PO SCH (09:06)
[2019-05-08] MEDS: Lactobacillus Acidophilus* 1 TAB PO SCH (09:06)
[2019-05-08] MEDS: predniSONE TAB* 20 MG PO SCH (09:06)
[2019-05-08] MEDS: Furosemide TAB* 20 MG PO SCH (09:07)
[2019-05-08] MEDS: metroNIDAZOLE TAB* 250 MG PO SCH (09:07)
[2019-05-08] MEDS: Gabapentin CAP(*) 300 MG PO SCH ×2 (09:08→21:10)
[2019-05-08] MEDS: Analgesic BALM* 114 GM TOPICAL SCH ×2 (09:09→21:11)
[2019-05-08] MEDS: Clobetasol 0.05% OINT* 30 GM TUBE TOPICAL SCH ×2 (09:09→21:11)
[2019-05-08] MEDS: Nystatin TOP POWDER* 15 GM BTL TOPICAL SCH ×2 (09:09→21:12)
--- NOTE | 2019-05-08 13:43 | PN ---
Subjective Date of Service: 05/08/19 Interval History: Patient's only complaint is irritation in her nose from her BiPAP mask, she states that padding it more helps. Patient stated that she didn't want to wear her BiPAP tonight, but it's importance was reinforced and she is again in agreement. Patient is still having loose BMs, but states they are decreased in frequency. Family History: Unchanged from Admission Social History: Unchanged from Admission Past Medical History: Unchanged from Admission Objective Active Medications: Acetazolamide (Diamox Tab*) [address] [facility] Stop: 05/09/19 21:01 Last Admin: 05/08/19 09:05 Dose: 250 mg Albuterol/Ipratropium (Duoneb (Albuterol 2.5 Mg/Ipratropium 0.5 Mg)) 1 neb INH Q2H PRN PRN Reason: SOB/WHEEZING Last Admin: 04/28/19 20:32 Dose: 1 neb Albuterol/Ipratropium (Duoneb (Albuterol 2.5 Mg/Ipratropium 0.5 Mg)) 1 neb INH [id number] AWAKE PRN PRN Reason: SOB/WHEEZING Clobetasol Propionate (Clobetasol 0.05% Oint*) [address] [facility] Last Admin: 05/08/19 09:09 Dose: 1 applic Cyanocobalamin (Vitamin B12 Tab*) [address] [facility] Last Admin: 05/08/19 09:06 Dose: 500 mcg Enoxaparin Sodium (Lovenox(*)) [address] [facility] Last Admin: 05/07/19 15:05 Dose: Not Given Furosemide (Lasix Tab*) [address] [facility] Last Admin: 05/08/19 09:07 Dose: 20 mg Gabapentin (Neurontin Cap(*)) [address] [facility] Last Admin: 05/08/19 09:08 Dose: 300 mg Guaifenesin/Dextromethorphan (Robitussin Dm*) 10 ml PO Q4H PRN PRN Reason: CONGESTION Last Admin: 05/07/19 21:04 Dose: 10 ml Ibuprofen (Motrin Tab*) 600 mg PO BID PRN PRN Reason: PAIN-MODERATE/TEMP >/= 100.4 Last Admin: 04/30/19 22:42 Dose: 600 mg Lactobacillus Rhamnosus (Lactobacillus Acidophilus*) [address] [facility] Last Admin: 05/08/19 09:06 Dose: 1 tab Levothyroxine Sodium (Synthroid Tab*) 100 mcg PO DAILY@0600 [facility] Last Admin: 05/08/19 05:42 Dose: 100 mcg Loperamide HCl (Imodium Cap*) 2 mg PO Q4H PRN PRN Reason: DIARRHEA Last Admin: 05/07/19 21:03 Dose: 2 mg Mometasone Furoate/Formoterol Fumar (Dulera 200/5 Mdi*) [address] [facility] Last Admin: 05/08/19 08:11 Dose: 2 puff Multi-Ingredient Liniment/Rub (Ernesto Ojeda*) [address] [facility] Last Admin: 05/08/19 09:09 Dose: 1 applic Nystatin (Nystatin Top Powder*) [address] [facility] Last Admin: 05/08/19 09:09 Dose: 1 applic Prednisone (Deltasone Tab*) [address] [facility] Tiotropium [place] (Spiriva Respimat 2.5 Mcg) [address] [facility] Last Admin: 05/08/19 08:11 Dose: 2 puff Vital Signs - 8 hr 05/08/19 05/08/19 05/08/19 07:53 08:00 08:13 Temperature 97.6 F Pulse Rate 52 77 Respiratory 20 18 18 Rate Blood Pressure 107/41 (mmHg) O2 Sat by Pulse 98 92 Oximetry 05/08/19 05/08/19 09:08 11:15 Temperature 97.7 F Pulse Rate 61 Respiratory 20 18 Rate Blood Pressure 102/44 (mmHg) O2 Sat by Pulse 97 Oximetry Oxygen Devices in Use Now: Nasal Cannula Appearance: Patient is a 63yo female who appears stated age and is sitting in the bed in [facility]. Eyes: No Scleral Icterus, PERRLA Ears/Nose/Mouth/Throat: NL Teeth, Lips, Gums, Clear Oropharnyx, Mucous Membranes Moist Neck: NL Appearance and Movements; NL JVP, Trachea Midline Respiratory: Symmetrical Chest Expansion and Respiratory Effort, - - Slight Lower lobe rales. Cardiovascular: NL Sounds; No Murmurs; No JVD, RRR, No Edema Abdominal: NL Sounds; No Tenderness; No Distention, No Hepatosplenomegaly Lymphatic: No Cervical Adenopathy Extremities: No Edema, No Clubbing, Cyanosis Skin: No Rash or Ulcers, No Nodules or Sclerosis Neurological: Alert and Oriented x 3, NL Sensation, NL Muscle Strength and Tone , - - CN II-XII intact. Result Diagrams: 05/06/19 05:20 05/06/19 05:23 Microbiology and Other Data: Microbiology 04/30/19 23:00 Gram Stain - Final Sputum Expectorated Sputum Culture - Final Normal Bouchra 04/28/19 09:20 Aerobic Blood Culture - Final Blood Venous No Growth Day 5 Anaerobic Blood Culture - Final No Growth Day 5 04/28/19 08:55 Aerobic Blood Culture - Final Blood Venous No Growth Day 5 Anaerobic Blood Culture - Final No Growth Day 5 04/29/19 16:35 Legionella Urinary Antigen - Final Urine Negative Legionella Antigen Streptococcus pneumoniae Ag Screen - Final Negative S. pneumo Antigen Assess/Plan/Problems-Billing Assessment: Ms. Harris is a 63 yo F with PMH of COPD, ILD, hypothyroidism, morbid obesity, JUAN, PE (no longer on AC), RLS, mild cognitive impairment; who presented to the ED with c/o SOB and cough and was admitted for suspected pneumonia. - Patient Problems (1) Pneumonia Current Visit: Yes Status: Acute Code(s): J18.9 - PNEUMONIA, UNSPECIFIED ORGANISM SNOMED Code(s): 996507051 Comment: - Presented with SOB, cough, reported fever - Suspect may be d/t aspiration as patient has been seen aspirating here in the hospital and admits to frequently eating/drinking while lying in bed - CXR showing ILD with possible infiltrate - Completed 5 days of azithromycin - Changed Zosyn to Ceftin and Metronidazole, now completed. (2) Acute and chronic respiratory failure with hypoxia Current Visit: Yes Status: Acute Code(s): J96.21 - ACUTE AND CHRONIC RESPIRATORY FAILURE WITH HYPOXIA SNOMED Code(s): 96801189 Comment: - Down to 2L NC which is her baseline - Acute exacerbation secondary to pneumonia; chronic respiratory failure secondary to ILD, COPD, obesity hypoventilation syndrome - ABG 05/01/19 revealed compensated respiratory acidosis with pCO2 of 98; transferred to ICU 05/01/19 - 05/02/19 for BiPAP - Bicarb is remains elevated, but stable and no evidence of respiratory distress - Patient will need to be on BiPAP overnight and during the day [id number] - Chronic respiratory failure secondary to COPD/ILD; d/t advanced nature of disease she will benefit from use of non-invasive ventilator at home to reduce the work of breathing and improve respiratory status; form has been completed to order home unit - Continue prednisone with taper - Patient is unsafe to discharge until home Ventilator is set up. - Start Diamox for 3 days. (3) COPD exacerbation Current Visit: Yes Status: Acute Code(s): J44.1 - CHRONIC OBSTRUCTIVE PULMONARY DISEASE W (ACUTE) EXACERBATION SNOMED Code(s): 734254758 Comment: - Secondary to pneumonia - Continue Dulera, Spiriva, nebs, prednisone with taper, now at 20mg daily. (4) Chronic interstitial lung disease Current Visit: Yes Status: Acute Code(s): J84.9 - INTERSTITIAL PULMONARY DISEASE, UNSPECIFIED SNOMED Code(s): 987567775 Comment: - Oxygen to maintain sat >90% (baseline 2L) - Aim for low 90s due to risk for CO2 retention. (5) Lower extremity edema Current Visit: Yes Status: Acute Code(s): R60.0 - LOCALIZED EDEMA SNOMED Code(s): 370347994 Comment: - Unclear etiology, likely related to pHTN from ILD, OHS, and COPD. - US unremarkable for DVT - Echo shows EF 55-60%, no diastolic dysfunction or significant valvular abnormalities - Continue furosemide (6) Mild cognitive impairment Current Visit: Yes Status: Acute Code(s): G31.84 - MILD COGNITIVE IMPAIRMENT , SO STATED SNOMED Code(s): 024579330 Comment: - Supportive care (7) Elevated troponin Current Visit: No Status: Acute Code(s): R74.8 - ABNORMAL LEVELS OF OTHER SERUM ENZYMES SNOMED Code(s): 634795473 Comment: - Chronically elevated, at baseline (8) Hypothyroidism Current Visit: No Status: Chronic Code(s): E03.9 - HYPOTHYROIDISM, UNSPECIFIED SNOMED Code(s): 80420437 Comment: - Continue levothyroxine (9) Morbid obesity Current Visit: No Status: Chronic Code(s): E66.01 - MORBID (SEVERE) OBESITY DUE TO EXCESS CALORIES SNOMED Code(s): 226626419 Comment: - BMI 58 (10) DVT prophylaxis Current Visit: No Status: Acute Code(s): CLL5520 - SNOMED Code(s): 432615339 Comment: - [place] (11) Full code status Current Visit: No Status: Acute Code(s): Z78.9 - OTHER SPECIFIED HEALTH STATUS SNOMED Code(s): 478307353 Comment: Status and Disposition: Inpatient. Patient is medically stable for d/c home pending delivery of noninvasive home ventilator which will hopefully be on Friday. Patient's daughter, who is her caregiver, is unwilling to take her back until she is medically optimized with BiPAP. This cannot be arranged until Friday.
[2019-05-08] MEDS: GuaiFENesin DM 100 mg/10 mg in 5 ML UDC PO PRN ×2 (13:49→21:23)
[2019-05-08] MEDS: Loperamide CAP* 2 MG PO PRN (13:53)
[2019-05-08] MEDS: Enoxaparin(*) 40 MG/0.4 ML SYR SUBCUT SCH (13:54)
[2019-05-09] MEDS: Levothyroxine TAB* 100 MCG TAB PO SCH (05:24)
[2019-05-09 05:54] LABS: ABS Eosinophils 0.1 10^3/ul (0-0.6); ABS Lymphocytes 1.3 10^3/ul (1.0-4.8); ABS Monocytes 0.8 10^3/ul (0-0.8); ABS Neutrophils 10.6 10^3/ul (1.5-7.7); Eosinophil % 0.7 %; Hematocrit 36 % (35-47); Hemoglobin 11.6 g/dL (12.0-16.0); Lymphocyte % 10.3 %; Mean Corpuscular HGB Conc 32 g/dL (31-36); Mean Corpuscular Hemoglobin 32 pg (27-31); Mean Corpuscular Volume 101 fL (80-97); Platelet Count 173 10^3/uL (150-450); Red Blood Count 3.59 10^6 /uL (3.70-4.87); Red Cell Distribution Width 17 % (10-15); White Blood Count 12.8 10^3/uL (3.5-10.8)
[2019-05-09 06:10] LABS: BUN/Creatinine Ratio 38.8 (8-20); Calcium 8.5 mg/dL (8.6-10.3); EGFR African American 81.2 (>60); EGFR Non-African American 67.1 (>60); Potassium 3.8 mmol/L (3.5-5.0)
[2019-05-09] MEDS: Mometasone/Formoter 200/5 MDI INH SCH ×2 (08:09→19:42)
[2019-05-09] MEDS: SPIRIVA Respimat* (tiotropium) 2.5 mcg/inh Inhaler INH SCH (08:09)
[2019-05-09] MEDS: predniSONE TAB* 20 MG PO SCH (09:28)
[2019-05-09] MEDS: Lactobacillus Acidophilus* 1 TAB PO SCH (09:28)
[2019-05-09] MEDS: Gabapentin CAP(*) 300 MG PO SCH ×2 (09:28→22:15)
[2019-05-09] MEDS: Cyanocobalamin TAB* 500 MCG PO SCH (09:28)
[2019-05-09] MEDS: acetaZOLAMIDE TAB* 250 MG PO SCH ×2 (09:28→22:15)
[2019-05-09] MEDS: Nystatin TOP POWDER* 15 GM BTL TOPICAL SCH ×2 (09:29→22:17)
[2019-05-09] MEDS: GuaiFENesin DM 100 mg/10 mg in 5 ML UDC PO PRN ×2 (09:29→22:14)
[2019-05-09] MEDS: Furosemide TAB* 20 MG PO SCH (09:29)
[2019-05-09] MEDS: Analgesic BALM* 114 GM TOPICAL SCH ×2 (09:30→22:15)
[2019-05-09] MEDS: Clobetasol 0.05% OINT* 30 GM TUBE TOPICAL SCH ×2 (09:30→22:15)
--- NOTE | 2019-05-09 10:28 | PN ---
Subjective Date of Service: 05/09/19 Interval History: Patient is feeling well today. Patient denies CP, SOB, dizziness, abdominal pain , dysuria. Patient is annoyed by various things related to being in the hospital. Family History: Unchanged from Admission Social History: Unchanged from Admission Past Medical History: Unchanged from Admission Objective Active Medications: Acetazolamide (Diamox Tab*) 250 mg PO BID [facility] Stop: 05/09/19 21:01 Last Admin: 05/09/19 09:28 Dose: 250 mg Albuterol/Ipratropium (Duoneb (Albuterol 2.5 Mg/Ipratropium 0.5 Mg)) 1 neb INH Q2H PRN PRN Reason: SOB/WHEEZING Last Admin: 04/28/19 20:32 Dose: 1 neb Albuterol/Ipratropium (Duoneb (Albuterol 2.5 Mg/Ipratropium 0.5 Mg)) 1 neb INH [id number] AWAKE PRN PRN Reason: SOB/WHEEZING Carbamide Peroxide (Debrox 6.5% Otic*) 2 drop BOTH EARS BID [facility] Stop: 05/13/19 21:01 Clobetasol Propionate (Clobetasol 0.05% Oint*) 1 applic TOPICAL BID [facility] Last Admin: 05/09/19 09:30 Dose: 1 applic Cyanocobalamin (Vitamin B12 Tab*) 500 mcg PO DAILY [facility] Last Admin: 05/09/19 09:28 Dose: 500 mcg Enoxaparin Sodium (Lovenox(*)) 40 mg SUBCUT Q24H [facility] Last Admin: 05/08/19 13:54 Dose: Not Given Furosemide (Lasix Tab*) 20 mg PO DAILY [facility] Last Admin: 05/09/19 09:29 Dose: 20 mg Gabapentin (Neurontin Cap(*)) 300 mg PO BID [facility] Last Admin: 05/09/19 09:28 Dose: 300 mg Guaifenesin/Dextromethorphan (Robitussin Dm*) 10 ml PO Q4H PRN PRN Reason: CONGESTION Last Admin: 05/09/19 09:29 Dose: 10 ml Ibuprofen (Motrin Tab*) 600 mg PO BID PRN PRN Reason: PAIN-MODERATE/TEMP >/= 100.4 Last Admin: 04/30/19 22:42 Dose: 600 mg Lactobacillus Rhamnosus (Lactobacillus Acidophilus*) 1 tab PO DAILY [facility] Last Admin: 05/09/19 09:28 Dose: 1 tab Levothyroxine Sodium (Synthroid Tab*) 100 mcg PO DAILY@0600 [facility] Last Admin: 05/09/19 05:24 Dose: 100 mcg Loperamide HCl (Imodium Cap*) 2 mg PO Q4H PRN PRN Reason: DIARRHEA Last Admin: 05/08/19 13:53 Dose: 2 mg Mometasone Furoate/Formoterol Fumar (Dulera 200/5 Mdi*) 2 puff INH BID [facility] Last Admin: 05/09/19 08:09 Dose: Not Given Multi-Ingredient Liniment/Rub (Ernesto Ojeda*) 1 applic TOPICAL BID [facility] Last Admin: 05/09/19 09:30 Dose: 1 applic Nystatin (Nystatin Top Powder*) 1 applic TOPICAL BID [facility] Last Admin: 05/09/19 09:29 Dose: 1 applic Prednisone (Deltasone Tab*) 20 mg PO DAILY [facility] Last Admin: 05/09/19 09:28 Dose: 20 mg Tiotropium [place] (Spiriva Respimat 2.5 Mcg) 2 puff INH DAILY [facility] Last Admin: 05/09/19 08:09 Dose: Not Given Vital Signs - 8 hr 05/09/19 05/09/19 05/09/19 03:15 07:15 09:28 Temperature 98.2 F 97.3 F Pulse Rate 59 55 Respiratory 16 20 20 Rate Blood Pressure 119/51 96/45 (mmHg) O2 Sat by Pulse 89 100 Oximetry Oxygen Devices in Use Now: Nasal Cannula Appearance: Patient is a 63yo female who appears older than stated age and is sitting in the bed in [facility]. Eyes: No Scleral Icterus, PERRLA Ears/Nose/Mouth/Throat: NL Teeth, Lips, Gums, Clear Oropharnyx, Mucous Membranes Moist Neck: NL Appearance and Movements; NL JVP, Trachea Midline Respiratory: Symmetrical Chest Expansion and Respiratory Effort, Clear to Auscultation, - - Diminished. Cardiovascular: NL Sounds; No Murmurs; No JVD, RRR, - - 1+ B/L LE edema. Abdominal: NL Sounds; No Tenderness; No Distention, No Hepatosplenomegaly Lymphatic: No Cervical Adenopathy Extremities: No Clubbing, Cyanosis Skin: No Nodules or Sclerosis Neurological: Alert and Oriented x 3, NL Sensation, NL Muscle Strength and Tone , - - CN II-XII intact. Result Diagrams: 05/09/19 05:19 05/09/19 05:19 Microbiology and Other Data: Microbiology 04/30/19 23:00 Gram Stain - Final Sputum Expectorated Sputum Culture - Final Normal [place]ouch[place] 04/28/19 09:20 Aerobic Blood Culture - Final Blood Venous No Growth Day 5 Anaerobic Blood Culture - Final No Growth Day 5 04/28/19 08:55 Aerobic Blood Culture - Final Blood Venous No Growth Day 5 Anaerobic Blood Culture - Final No Growth Day 5 04/29/19 16:35 Legionella Urinary Antigen - Final Urine Negative Legionella Antigen Streptococcus pneumoniae Ag Screen - Final Negative S. pneumo Antigen Assess/Plan/Problems-Billing Assessment: Ms. Harris is a 63 yo F with PMH of COPD, ILD, hypothyroidism, morbid obesity, JUAN, PE (no longer on AC), RLS, mild cognitive impairment; who presented to the ED with c/o SOB and cough and was admitted for suspected pneumonia. - Patient Problems (1) Pneumonia Current Visit: Yes Status: Acute Code(s): J18.9 - PNEUMONIA, UNSPECIFIED ORGANISM SNOMED Code(s): 695192103 Comment: - Presented with SOB, cough, reported fever - Suspect may be d/t aspiration as patient has been seen aspirating here in the hospital and admits to frequently eating/drinking while lying in bed - CXR showing ILD with possible infiltrate - Completed 5 days of azithromycin - Changed Zosyn to Ceftin and Metronidazole, now completed. (2) Acute and chronic respiratory failure with hypoxia Current Visit: Yes Status: Acute Code(s): J96.21 - ACUTE AND CHRONIC RESPIRATORY FAILURE WITH HYPOXIA SNOMED Code(s): 20023102 Comment: - Down to 2L NC which is her baseline - Acute exacerbation secondary to pneumonia; chronic respiratory failure secondary to ILD, COPD, obesity hypoventilation syndrome - ABG 05/01/19 revealed compensated respiratory acidosis with pCO2 of 98; transferred to ICU 05/01/19 - 05/02/19 for BiPAP - Bicarb is remains elevated, but stable and no evidence of respiratory distress - Patient will need to be on BiPAP overnight and during the day [id number] - Chronic respiratory failure secondary to COPD/ILD; d/t advanced nature of disease she will benefit from use of non-invasive ventilator at home to reduce the work of breathing and improve respiratory status; form has been completed to order home unit - Continue prednisone with taper - Patient is unsafe to discharge until home Ventilator is set up. - Start Diamox for 3 days. - Bicarb level greatly improved on BMP today. (3) COPD exacerbation Current Visit: Yes Status: Acute Code(s): J44.1 - CHRONIC OBSTRUCTIVE PULMONARY DISEASE W (ACUTE) EXACERBATION SNOMED Code(s): 072844590 Comment: - Secondary to pneumonia - Continue Dulera, Spiriva, nebs, prednisone with taper, now at 20mg daily. (4) Chronic interstitial lung disease Current Visit: Yes Status: Acute Code(s): J84.9 - INTERSTITIAL PULMONARY DISEASE, UNSPECIFIED SNOMED Code(s): 217688141 Comment: - Oxygen to maintain sat >90% (baseline 2L) - Aim for low 90s due to risk for CO2 retention. (5) Lower extremity edema Current Visit: Yes Status: Acute Code(s): R60.0 - LOCALIZED EDEMA SNOMED Code(s): 304505300 Comment: - Unclear etiology, likely related to pHTN from ILD, OHS, and COPD. - US unremarkable for DVT - Echo shows EF 55-60%, no diastolic dysfunction or significant valvular abnormalities - Continue furosemide (6) Mild cognitive impairment Current Visit: Yes Status: Acute Code(s): G31.84 - MILD COGNITIVE IMPAIRMENT , SO STATED SNOMED Code(s): 622699969 Comment: - Supportive care (7) Elevated troponin Current Visit: No Status: Acute Code(s): R74.8 - ABNORMAL LEVELS OF OTHER SERUM ENZYMES SNOMED Code(s): 504331854 Comment: - Chronically elevated, at baseline (8) Hypothyroidism Current Visit: No Status: Chronic Code(s): E03.9 - HYPOTHYROIDISM, UNSPECIFIED SNOMED Code(s): 45600881 Comment: - Continue levothyroxine (9) Morbid obesity Current Visit: No Status: Chronic Code(s): E66.01 - MORBID (SEVERE) OBESITY DUE TO EXCESS CALORIES SNOMED Code(s): 729285259 Comment: - BMI 58 (10) DVT prophylaxis Current Visit: No Status: Acute Code(s): EYB9222 - SNOMED Code(s): 163464460 Comment: - Lovenox (11) Full code status Current Visit: No Status: Acute Code(s): Z78.9 - OTHER SPECIFIED HEALTH STATUS SNOMED Code(s): 749867861 Comment: Status and Disposition: Inpatient. Patient is medically stable for d/c home pending delivery of noninvasive home ventilator which will hopefully be on Friday. Patient's daughter, who is her caregiver, is unwilling to take her back until she is medically optimized with BiPAP. This cannot be arranged until Friday.
[2019-05-09] MEDS: Carbamide Peroxide 6.5% OTIC* 15 ML BTL BOTH EARS SCH ×2 (11:50→22:16)
[2019-05-09] MEDS: Enoxaparin(*) 40 MG/0.4 ML SYR SUBCUT SCH (16:26)
[2019-05-10] MEDS: Levothyroxine TAB* 100 MCG TAB PO SCH (07:23)
[2019-05-10] MEDS: SPIRIVA Respimat* (tiotropium) 2.5 mcg/inh Inhaler INH SCH (07:42)
[2019-05-10] MEDS: Mometasone/Formoter 200/5 MDI INH SCH ×2 (09:05→20:33)
[2019-05-10] MEDS: Gabapentin CAP(*) 300 MG PO SCH ×2 (09:20→21:15)
[2019-05-10] MEDS: Furosemide TAB* 20 MG PO SCH (09:20)
--- NOTE | 2019-05-10 09:20 | PN ---
Subjective Date of Service: 05/10/19 Interval History: Patient is feeling well today. Patient is very anxious to go home and is quite frustrated with the delay. Family History: Unchanged from Admission Social History: Unchanged from Admission Past Medical History: Unchanged from Admission Objective Active Medications: Albuterol/Ipratropium (Duoneb (Albuterol 2.5 Mg/Ipratropium 0.5 Mg)) 1 neb INH Q2H PRN PRN Reason: SOB/WHEEZING Last Admin: 04/28/19 20:32 Dose: 1 neb Albuterol/Ipratropium (Duoneb (Albuterol 2.5 Mg/Ipratropium 0.5 Mg)) 1 neb INH [id number] AWAKE PRN PRN Reason: SOB/WHEEZING Carbamide Peroxide (Debrox 6.5% Otic*) 2 drop BOTH EARS BID [facility] Stop: 05/13/19 21:01 Last Admin: 05/09/19 22:16 Dose: 2 drp Clobetasol Propionate (Clobetasol 0.05% Oint*) 1 applic TOPICAL BID [facility] Last Admin: 05/09/19 22:15 Dose: 1 applic Cyanocobalamin (Vitamin B12 Tab*) 500 mcg PO DAILY [facility] Last Admin: 05/09/19 09:28 Dose: 500 mcg Enoxaparin Sodium (Lovenox(*)) 40 mg SUBCUT Q24H [facility] Last Admin: 05/09/19 16:26 Dose: 40 mg Furosemide (Lasix Tab*) 20 mg PO DAILY [facility] Last Admin: 05/09/19 09:29 Dose: 20 mg Gabapentin (Neurontin Cap(*)) 300 mg PO BID [facility] Last Admin: 05/09/19 22:15 Dose: 300 mg Guaifenesin/Dextromethorphan (Robitussin Dm*) 10 ml PO Q4H PRN PRN Reason: CONGESTION Last Admin: 05/09/19 22:14 Dose: 10 ml Ibuprofen (Motrin Tab*) 600 mg PO BID PRN PRN Reason: PAIN-MODERATE/TEMP >/= 100.4 Last Admin: 04/30/19 22:42 Dose: 600 mg Lactobacillus Rhamnosus (Lactobacillus Acidophilus*) 1 tab PO DAILY [facility] Last Admin: 05/09/19 09:28 Dose: 1 tab Levothyroxine Sodium (Synthroid Tab*) 100 mcg PO DAILY@0600 [facility] Last Admin: 05/10/19 07:23 Dose: 100 mcg Loperamide HCl (Imodium Cap*) 2 mg PO Q4H PRN PRN Reason: DIARRHEA Last Admin: 05/08/19 13:53 Dose: 2 mg Mometasone Furoate/Formoterol Fumar (Dulera 200/5 Mdi*) 2 puff INH BID [facility] Last Admin: 05/10/19 09:05 Dose: 2 puff Multi-Ingredient Liniment/Rub (Ernesto Ojeda*) 1 applic TOPICAL BID [facility] Last Admin: 05/09/19 22:15 Dose: 1 applic Nystatin (Nystatin Top Powder*) 1 applic TOPICAL BID [facility] Last Admin: 05/09/19 22:17 Dose: 1 applic Prednisone (Deltasone Tab*) 20 mg PO DAILY [facility] Last Admin: 05/09/19 09:28 Dose: 20 mg Tiotropium [place] (Spiriva Respimat 2.5 Mcg) 2 puff INH DAILY [facility] Last Admin: 05/10/19 07:42 Dose: 2 puff Vital Signs - 8 hr 05/10/19 05/10/19 05/10/19 01:47 02:16 03:10 Temperature 97.0 F Pulse Rate 92 62 Respiratory 16 16 16 Rate Blood Pressure 117/45 (mmHg) O2 Sat by Pulse 96 99 Oximetry Oxygen Devices in Use Now: Nasal Cannula Appearance: Patient is a 63yo female who appears stated age and is sitting in the bed in [facility]. Eyes: No Scleral Icterus, PERRLA Ears/Nose/Mouth/Throat: NL Teeth, Lips, Gums, Clear Oropharnyx, Mucous Membranes Moist Neck: NL Appearance and Movements; NL JVP, Trachea Midline Respiratory: Symmetrical Chest Expansion and Respiratory Effort, Clear to Auscultation Cardiovascular: NL Sounds; No Murmurs; No JVD, RRR, - - 1+ B/L LE edema. Abdominal: NL Sounds; No Tenderness; No Distention, No Hepatosplenomegaly Lymphatic: No Cervical Adenopathy Extremities: No Clubbing, Cyanosis Skin: No Rash or Ulcers, No Nodules or Sclerosis Neurological: Alert and Oriented x 3, NL Sensation, NL Muscle Strength and Tone , - - CN II-XII intact. Result Diagrams: 05/09/19 05:19 05/09/19 05:19 Microbiology and Other Data: Microbiology 04/30/19 23:00 Gram Stain - Final Sputum Expectorated Sputum Culture - Final Normal Bouchra 04/28/19 09:20 Aerobic Blood Culture - Final Blood Venous No Growth Day 5 Anaerobic Blood Culture - Final No Growth Day 5 04/28/19 08:55 Aerobic Blood Culture - Final Blood Venous No Growth Day 5 Anaerobic Blood Culture - Final No Growth Day 5 04/29/19 16:35 Legionella Urinary Antigen - Final Urine Negative Legionella Antigen Streptococcus pneumoniae Ag Screen - Final Negative S. pneumo Antigen Assess/Plan/Problems-Billing Assessment: Ms. Harris is a 63 yo F with PMH of COPD, ILD, hypothyroidism, morbid obesity, JUAN, PE (no longer on AC), RLS, mild cognitive impairment; who presented to the ED with c/o SOB and cough and was admitted for suspected pneumonia. - Patient Problems (1) Pneumonia Current Visit: Yes Status: Acute Code(s): J18.9 - PNEUMONIA, UNSPECIFIED ORGANISM SNOMED Code(s): 301391431 Comment: - Presented with SOB, cough, reported fever - Suspect may be d/t aspiration as patient has been seen aspirating here in the hospital and admits to frequently eating/drinking while lying in bed - CXR showing ILD with possible infiltrate - Completed 5 days of azithromycin - Changed Zosyn to Ceftin and Metronidazole, now completed. (2) Acute and chronic respiratory failure with hypoxia Current Visit: Yes Status: Acute Code(s): J96.21 - ACUTE AND CHRONIC RESPIRATORY FAILURE WITH HYPOXIA SNOMED Code(s): 14269173 Comment: - Down to 2L NC which is her baseline - Acute exacerbation secondary to pneumonia; chronic respiratory failure secondary to ILD, COPD, obesity hypoventilation syndrome - ABG 05/01/19 revealed compensated respiratory acidosis with pCO2 of 98; transferred to ICU 05/01/19 - 05/02/19 for BiPAP - Bicarb is remains elevated, but stable and no evidence of respiratory distress - Patient will need to be on BiPAP overnight and during the day [id number] - Chronic respiratory failure secondary to COPD/ILD; d/t advanced nature of disease she will benefit from use of non-invasive ventilator at home to reduce the work of breathing and improve respiratory status; form has been completed to order home unit - BiPAP has been ineffective therapy due to critically high bicarbonate despite compliance requiring additional medical therapy with Diamox which is not sustainable manager terminal. - Continue prednisone with taper - Patient is unsafe to discharge until home Ventilator is set up. - Completed Diamox - Bicarb level greatly improved on BMP today. (3) COPD exacerbation Current Visit: Yes Status: Acute Code(s): J44.1 - CHRONIC OBSTRUCTIVE PULMONARY DISEASE W (ACUTE) EXACERBATION SNOMED Code(s): 741970043 Comment: - Secondary to pneumonia - Continue Dulera, Spiriva, nebs, prednisone with taper, now at 20mg daily. (4) Chronic interstitial lung disease Current Visit: Yes Status: Acute Code(s): J84.9 - INTERSTITIAL PULMONARY DISEASE, UNSPECIFIED SNOMED Code(s): 513059452 Comment: - Oxygen to maintain sat >90% (baseline 2L) - Aim for low 90s due to risk for CO2 retention. (5) Lower extremity edema Current Visit: Yes Status: Acute Code(s): R60.0 - LOCALIZED EDEMA SNOMED Code(s): 591692994 Comment: - Unclear etiology, likely related to pHTN from ILD, OHS, and COPD. - US unremarkable for DVT - Echo shows EF 55-60%, no diastolic dysfunction or significant valvular abnormalities - Continue furosemide (6) Mild cognitive impairment Current Visit: Yes Status: Acute Code(s): G31.84 - MILD COGNITIVE IMPAIRMENT , SO STATED SNOMED Code(s): 236877572 Comment: - Supportive care (7) Elevated troponin Current Visit: No Status: Acute Code(s): R74.8 - ABNORMAL LEVELS OF OTHER SERUM ENZYMES SNOMED Code(s): 623977398 Comment: - Chronically elevated, at baseline (8) Hypothyroidism Current Visit: No Status: Chronic Code(s): E03.9 - HYPOTHYROIDISM, UNSPECIFIED SNOMED Code(s): 95843250 Comment: - Continue levothyroxine (9) Morbid obesity Current Visit: No Status: Chronic Code(s): E66.01 - MORBID (SEVERE) OBESITY DUE TO EXCESS CALORIES SNOMED Code(s): 096447411 Comment: - BMI 58 (10) DVT prophylaxis Current Visit: No Status: Acute Code(s): XHU7071 - SNOMED Code(s): 968655337 Comment: - Lovenox (11) Full code status Current Visit: No Status: Acute Code(s): Z78.9 - OTHER SPECIFIED HEALTH STATUS SNOMED Code(s): 385398274 Comment: Status and Disposition: Inpatient. Patient is medically stable for d/c home pending arrangement for delivery of noninvasive home ventilator. Hopeful D/C today.
[2019-05-10] MEDS: Cyanocobalamin TAB* 500 MCG PO SCH (09:21)
[2019-05-10] MEDS: Carbamide Peroxide 6.5% OTIC* 15 ML BTL BOTH EARS SCH ×3 (09:22→21:18)
[2019-05-10] MEDS: Clobetasol 0.05% OINT* 30 GM TUBE TOPICAL SCH ×2 (09:22→21:17)
[2019-05-10] MEDS: Analgesic BALM* 114 GM TOPICAL SCH ×2 (09:22→21:16)
[2019-05-10] MEDS: Lactobacillus Acidophilus* 1 TAB PO SCH (09:23)
[2019-05-10] MEDS: predniSONE TAB* 20 MG PO SCH (09:23)
[2019-05-10] MEDS: Nystatin TOP POWDER* 15 GM BTL TOPICAL SCH ×2 (09:23→21:17)
[2019-05-10] MEDS: GuaiFENesin DM 100 mg/10 mg in 5 ML UDC PO PRN ×2 (09:41→21:14)
[2019-05-10] MEDS: Loperamide CAP* 2 MG PO PRN ×2 (09:41→21:16)
[2019-05-10] MEDS ORDERED: acetaZOLAMIDE TAB* 250 MG PO ONE (11:51)
[2019-05-10] MEDS: Enoxaparin(*) 40 MG/0.4 ML SYR SUBCUT SCH (13:21)
--- NOTE | 2019-05-10 21:24 | DS ---
CC: Dr. Fabiana Payton * DISCHARGE SUMMARY: DATE OF ADMISSION: 04/28/19 DATE OF DISCHARGE: 05/10/19 PRIMARY CARE PROVIDER: Dr. Fabiana Payton. MY ATTENDING WHILE IN THE HOSPITAL: Dr. Trisha Gerber.* (DICTATED BY JAZMYNE STEVENSON) PRIMARY DISCHARGE DIAGNOSES: 1. Community-acquired pneumonia. 2. Chronic obstructive pulmonary disease exacerbation. 3. Acute on chronic hypercapnic respiratory failure. SECONDARY DISCHARGE DIAGNOSES: 1. Interstitial lung disease. 2. Asthma. 3. Morbid obesity, likely obesity hypoventilation syndrome. 4. Irritable bowel syndrome. 5. History of pulmonary embolism and off of anticoagulation. 6. Developmental delay. 7. Depression. 8. Restless leg syndrome. 9. Esophageal diverticulum. 10. Degenerative disk disease. 11. Osteoarthritis. 12. Anxiety. 13. Insomnia. STUDIES DONE WHILE IN THE HOSPITAL: Venous Doppler study from 04/28/19 read as no bilateral lower extremity DVT. Transthoracic echocardiogram read as left ventricular wall thickness mildly increased. Ejection fraction 55% to 60%. Wall motion normal. Left ventricular chamber size normal. Systolic function is mildly decreased. Left atrium is normal in size. Pulmonary artery systolic pressure cannot be accurately estimated. No significant valvular abnormalities. Chest x- ray finding suggestive of chronic interstitial lung disease, possibility of small superimposed infiltrate cannot be ruled out. Chest x-ray from 05/01/19 read as interstitial edema consistent with CHF. MEDICATIONS AT DISCHARGE: 1. Levothyroxine 100 mcg p.o. daily. 2. Albuterol 1 to 2 puffs inhalation q.4 hours as needed. 3. Nystatin 1 application topical b.i.d. 4. Loperamide 2 mg p.o. q.4 hours as needed. 5. Tiotropium 1 puff inhalation daily. 6. Cyanocobalamin 100 mcg p.o. daily. 7. Albuterol 2.5 mg inhalation 2 to 4 times a day as needed. 8. Gabapentin 300 mg p.o. b.i.d. 9. Guaifenesin 10 mL p.o. q.4 hours as needed. 10. Bacitracin 1 application topical t.i.d. 11. Bengay 1 application topical b.i.d. 12. Ensure 237 mL p.o. t.i.d. 13. Menthol 1 application topical b.i.d. 14. Clobetasol emollient 1 application topical b.i.d. 15. Ibuprofen 600 mg p.o. b.i.d. as needed. 16. Furosemide 20 mg p.o. daily. 17. Lactobacillus acidophilus 1 tab p.o. daily. 18. Dulera 200/5, 2 puffs inhalation b.i.d. 19. Prednisone 20 mg p.o. daily with taper. New medications at discharge: 1. Ibuprofen. 2. Furosemide. 3. Lactobacillus. 4. Dulera. 5. Prednisone. Medications discontinued at discharge: None. HOSPITAL COURSE: This is a brief summary of the patient's presentation. For more details, please see history and physical from Dr. Harpreet Maldonado on 04/28/19. In brief, the patient is a 63-year-old female with past medical history significant for the above, who presented to the emergency department with approximately 1 week of cough, wheezing, low-grade fevers and presented to the emergency department with leukocytosis, severely elevated CRP, slightly elevated BNP and was diagnosed with presumptive COPD exacerbation and possible pneumonia, and possible CHF exacerbation. The patient was started on Lasix, antibiotics, inhalers, and steroids. The patient improved slightly initially, but was noted to eat while lying flat in bed and had several choking episodes with this possible aspiration. The patient on admission had a bicarbonate of 33 on her BMP that quickly increased to bicarbonate of 44. The patient on developed significantly worsening respiratory acidosis with pCO2 of 98 and pH of 7.26. The patient was transported further emergently to the ICU for BiPAP therapy, which was able to slowly lower her CO2 and normalize her pH. The patient was able to be transferred out of the ICU on 05/02/19 and started to maintain compliance on her BiPAP on 05/03/19, but continued at this time to have a critically elevated carbon dioxide level at 43. The patient was recommended to go to [facility] but refused and had a capacity evaluation for medical decision making capacity in which it was deemed she was capable of making her own medical decisions. The patient was tolerating her BiPAP, but again with limited results and changing her carbon dioxide level in her blood and the patient was started on Diamox on 05/07/19 for 3 days, which did well in lowering the patient's carbon dioxide level without worsening of acidosis. The patient due to the ineffectiveness of BiPAP was deemed to need a noninvasive home ventilator soon after her discharge. This was able to be arranged to be transported to her home on 05/11/19 and the patient was stable and amenable for discharge on 05/10/19 given the improvement in her bicarbonate on Diamox therapy. She would be able to go one night without her BiPAP and she was very anxious to be discharged from the hospital. DISCHARGE PLAN BY PROBLEM: 1. Acute on chronic hypoxic and hypercarbic respiratory failure due to a combination of pneumonia, COPD exacerbation, interstitial lung disease, obesity hypoventilation syndrome. The patient was treated with antibiotics, which she finished while in the hospital. The patient was treated for both the community acquired atypical and aspiration sources. The patient with this developed some diarrhea for which she was started on lactobacillus and continued on her Imodium. It was not accompanied with abdominal pain and was very unlikely to be C. diff related and decreased significantly. During her hospitalization, the patient has been stabilized on BiPAP therapy, though she additionally needed acetazolamide therapy to lower her carbon dioxide. The patient will be continued on Trilogy machine at home and will not be continued on acetazolamide due to concern for long- term side effects. The patient should have a repeat BMP outpatient and possibly a sleep study to assess her possible sleep disordered breathing. The patient will be continued on her prednisone 20 mg for 1 more day and then 10 mg for 4 days and then discontinue. The patient will have triple inhaler therapy as well as as-needed albuterol inhaler and nebulizer. The patient should follow up with a letter carrier as needed outpatient for her complex respiratory medical care. 2. Lower extremity edema: The patient's lower extremity edema is likely related to pulmonary hypertension from her multiple lung diseases. The patient had no evidence of DVT. The patient was started on low-dose Lasix while in the hospital for this as well as possible heart failure, preserved ejection fraction based on echocardiogram findings. 3. Morbid obesity: The patient is essentially bed bound at home. The patient will be arranged with visiting nurse services and physical therapy to attempt to increase her mobility and decrease the risk of immobility related complications. 4. Irritable bowel syndrome, diarrhea predominant: This is likely a combination of lactose intolerance and irritable bowel syndrome as the patient' s daughter sees a correlation between her amount of diarrhea and the amount of lactose she eats; however, the patient is very resistant to decreasing lactose in her diet. The patient will be continued on Imodium and low lactose diet should be enforced as possible. 5. History of PE: The patient had no lower extremity DVT and a low concern for PE during this hospitalization. The patient has not been anticoagulated for this. DISPOSITION: Home. DISCHARGE CONDITION: Stable. DIET: Regular unrestricted. TIME SPENT: Approximately 60 minutes were spent on the discharge of this patient, 30 of which was spent [id number] with the patient obtaining history and physical and discussing treatment plan. JAZMYNE STEVENSON [id number]/CPS #: [id number] HUMAIRA
[2019-05-11] MEDS: Levothyroxine TAB* 100 MCG TAB PO SCH (05:35)
[2019-05-11 07:52] VITALS: BP 112/53
[2019-05-11] MEDS: Lactobacillus Acidophilus* 1 TAB PO SCH (08:02)
[2019-05-11] MEDS: Gabapentin CAP(*) 300 MG PO SCH (08:03)
[2019-05-11] MEDS: predniSONE TAB* 20 MG PO SCH (08:04)
[2019-05-11] MEDS: Cyanocobalamin TAB* 500 MCG PO SCH (08:04)
[2019-05-11] MEDS: Furosemide TAB* 20 MG PO SCH (08:04)
[2019-05-11] MEDS: Analgesic BALM* 114 GM TOPICAL SCH (08:05)
[2019-05-11] MEDS: Nystatin TOP POWDER* 15 GM BTL TOPICAL SCH (08:06)
[2019-05-11] MEDS: Clobetasol 0.05% OINT* 30 GM TUBE TOPICAL SCH (08:06)
[2019-05-11] MEDS: SPIRIVA Respimat* (tiotropium) 2.5 mcg/inh Inhaler INH SCH (08:50)
[2019-05-11] MEDS: Mometasone/Formoter 200/5 MDI INH SCH (08:50)
== END 2019-05-11 09:30 | disposition home or self-care (01) | DRG 193 ==
LOC: ED 08:26 → MED 12:59 → ICU 05-01 14:28 → MED 05-02 17:43
PROVIDERS: ADMIT Internal Medicine; ATTEND Internal Medicine
PROC: 5A09357 Assistance with Respiratory Ventilation, Less than 24 Consecutive Hours, Continuous Positive Airway Pressure (ICD-10-PCS; principal; 2019-05-06)
DX: J18.9 Pneumonia, unspecified organism (principal); J96.22 Acute and chronic respiratory failure with hypercapnia; J96.21 Acute and chronic respiratory failure with hypoxia; J44.0 Chronic obstructive pulmonary disease with (acute) lower respiratory infection; J44.1 Chronic obstructive pulmonary disease with (acute) exacerbation; Z68.43 Body mass index [BMI] 50.0-59.9, adult; E87.2 Acidosis; E66.2 Morbid (severe) obesity with alveolar hypoventilation; I50.9 Heart failure, unspecified; E03.9 Hypothyroidism, unspecified; F70 Mild intellectual disabilities; M19.90 Unspecified osteoarthritis, unspecified site; F41.9 Anxiety disorder, unspecified; F32.9 Major depressive disorder, single episode, unspecified; G31.84 Mild cognitive impairment of uncertain or unknown etiology; R79.89 Other specified abnormal findings of blood chemistry; G25.81 Restless legs syndrome; I27.23 Pulmonary hypertension due to lung diseases and hypoxia; Z66 Do not resuscitate; K58.0 Irritable bowel syndrome with diarrhea; G47.00 Insomnia, unspecified; K22.5 Diverticulum of esophagus, acquired; R19.7 Diarrhea, unspecified; Z88.0 Allergy status to penicillin; Z88.1 Allergy status to other antibiotic agents; Z86.14 Personal history of Methicillin resistant Staphylococcus aureus infection; Z87.891 Personal history of nicotine dependence; Z86.711 Personal history of pulmonary embolism; Z74.01 Bed confinement status; Z79.890 Hormone replacement therapy; Z79.52 Long term (current) use of systemic steroids; Z79.899 Other long term (current) drug therapy
CPT/HCPCS: 36415; 36600; 71045; 71046; 80048; 80053; 81003; 81015; 82803; 83605; 83735; 83880; 84155; 84165; 84484; 85025; 86140; 87040; 87070; 87205; 87899; 93005; 93306; 93970; 94640; 94660; 96365; 96375; 99284; A9270-GY; C8929; G8978-GP-CM; G8979-GP-CM; G8980-GP-CM; J0456; J0696; J1650; J1940; J2543; J2920; J2930; J3475; J3535; J7512

== ENCOUNTER 2019-09-08 10:03 | Inpatient (IN) | payer MEDICARE, OTHER ==
[2019-09-08 10:36] LABS: ABS Basophils 0.1 10^3/ul (0-0.2); ABS Lymphocytes 0.9 10^3/ul (1.0-4.8); ABS Monocytes 0.7 10^3/ul (0-0.8); ABS Neutrophils 13.1 10^3/ul (1.5-7.7); ABS Nucleated RBC 0.3 10^3/ul; Eosinophil % 0.1 %; Hematocrit 39 % (35-47); Lymphocyte % 6.4 %; Mean Corpuscular HGB Conc 31 g/dL (31-36); Mean Corpuscular Hemoglobin 31 pg (27-31); Mean Corpuscular Volume 99 fL (80-97); Mean Platelet Volume 8.1 fL (7.4-10.4); Nucleated Red Blood Cells % 1.9; Platelet Count 260 10^3/uL (150-450); Red Blood Count 3.89 10^6 /uL (3.70-4.87); Red Cell Distribution Width 19 % (10-15); White Blood Count 14.9 10^3/uL (3.5-10.8)
[2019-09-08 10:44] LABS: Activated Partial Thrombo Time 29.6 seconds (26.0-38.0); INR 1.28 (0.82-1.09)
[2019-09-08 10:51] LABS: Influenza A Molecular Negative (Negative); Influenza B Molecular Negative (Negative)
[2019-09-08 10:54] LABS: ALT 14 U/L (7-52); AST 42 U/L (13-39); Albumin 2.4 g/dL (3.2-5.2); Albumin/Globulin Ratio 0.3 (1-3); Alkaline Phosphatase 78 U/L (34-104); BUN/Creatinine Ratio 11.8 (8-20); Blood Urea Nitrogen 20 mg/dL (6-24); CO2 Carbon Dioxide 33 mmol/L (22-32); Calcium 8.7 mg/dL (8.6-10.3); Chloride 96 mmol/L (101-111); EGFR African American 36.4 (>60); EGFR Non-African American 30.1 (>60); Glucose 105 mg/dL (70-100); Sodium 138 mmol/L (135-145); Total Protein 9.4 g/dL (6.4-8.9)
--- NOTE | 2019-09-08 10:54 | ED ---
Shortness of Breath - HPI Summary HPI Summary: Patient is a 64 y/o F presenting to the ED via EMS for a chief complaint of progressive shortness of breath and cough for the last few days. Patient is a poor historian. Per EMS, patient was brought to [facility] for low BP. Patient denies any fever, chills, erythema of eyes, sore throat, chest pain, abdominal pain, nausea, vomiting, dysuria, hematuria, myalgia, edema, rash, or dizziness. No aggravating or alleviating factors are reported. PMHx is significant for COPD. Per EMS, patient has been non-compliant with treatment. - History of Current Complaint Chief Complaint: EDShortnessOfBreath Hx Obtained From: Patient, EMS Onset/Duration: Sudden Onset, Still Present Timing: Constant Current Severity: Moderate Dyspnea At: Rest Aggravating Factors: Nothing Alleviating Factors: Nothing Related History: Obesity - Allergy/Home Medications Allergies/Adverse Reactions: Allergies Allergy/AdvReac Type Severity Reaction Status Date / Time erythromycin base Allergy Mild Rash Verified 04/28/19 08:37 Penicillins Allergy Mild Rash Verified 04/28/19 08:37 Home Medications: Home Medications Albuterol HFA INHALER* [Ventolin HFA Inhaler*] 1 - 2 puff INH Q4H PRN 09/17/17 [ History Confirmed 09/08/19] Levothyroxine TAB* [Synthroid 100 MCG TAB*] 100 mcg PO DAILY 09/17/17 [History Confirmed 09/08/19] Clobetasol Propionate/Emoll [Clobetasol Emollient 0.05% Crm] 1 applic TOPICAL BID 04/28/19 [History Confirmed 09/08/19] Cyanocobalamin TAB* [Vitamin B12 TAB*] 1,000 mcg PO DAILY 04/28/19 [History Confirmed 09/08/19] Gabapentin CAP(*) [Neurontin 300 CAP(*)] 300 mg PO BID 04/28/19 [History Confirmed 09/08/19] Ibuprofen TAB* [Advil TAB*] 600 mg PO BID PRN 04/28/19 [History Confirmed ] Loperamide CAP* [Imodium CAP*] 2 mg PO DAILY PRN MDD 4 caps 04/28/19 [History Confirmed 09/08/19] Menthol [Biofreeze] 1 applic TOPICAL BID 04/28/19 [History Confirmed 09/08/19] Methyl Salicylate/Menthol [Bengay Greaseless Cream] 1 applic TOPICAL BID [History Confirmed 09/08/19] Nystatin TOP POWDER* 1 applic TOPICAL BID 04/28/19 [History Confirmed 09/08/19] Tiotropium [place] [Spiriva Respimat] 1 puff INH DAILY 04/28/19 [History Confirmed 09/08/19] Furosemide TAB* [Lasix TAB*] 20 mg PO DAILY #30 tab 05/10/19 [Rx Confirmed 09/07] GuaiFENesin DM 100 mg/10 mg [Robitussin DM 100 mg/10 mg in 5 ml] 10 ml PO Q4H PRN #500 ml 05/10/19 [Rx Confirmed 09/08/19] Mometasone/Formoter 200/5 MDI* [Dulera 200/5 MDI*] 2 puff INH BID #1 mdi [Rx Confirmed 09/08/19] Bacitracin OINTMENT* 1 applic TOPICAL . DIRECTED 09/08/19 [History Confirmed 09/08/19] Ipratropium/Albuterol Sulfate [Iprat-Albut 0.5-3(2.5) mg/3 ml] 3 ml INH .2-4X/ DAY 09/08/19 [History Confirmed 09/08/19] Sennosides/Docusate Sodium [Senexon-S 50-8.6 mg Tablet] 1 each PO BEDTIME [History Confirmed 09/08/19] PMH/Surg Hx/FS Hx/Imm Hx Previously Healthy: Yes Endocrine/Hematology History: Reports: Hx Thyroid Disease Cardiovascular History: Reports: Hx Congestive Heart Failure Respiratory History: Reports: Hx Asthma, Hx Chronic Obstructive Pulmonary Disease (COPD), Hx Sleep Apnea Sensory History: Denies: Hx Contacts or Glasses, Hx Deafness, Hx Hearing Aid, Hx Hearing Problem Opthamlomology History: Denies: Hx Contacts or Glasses - Surgical History Surgical History: Yes Surgery Procedure, Year, and Place: Gallbladder, C sections Infectious Disease History: Yes Infectious Disease History: Reports: Hx of Known/Suspected MRSA Denies: Traveled Outside the [place] in Last 30 Days - Family History Known Family History: Positive: Other - Positive for RA. Father of PNA. Negative: Renal Disease, Respiratory Disease, Seizure Disorder - Social History Occupation: Disabled Alcohol Use: Rare Hx Substance Use: No Substance Use Type: Reports: None Hx Tobacco Use: Yes Smoking Status (MU): Former Smoker Type: Cigarettes Review of Systems Negative: Fever, Chills Negative: Erythema Negative: Sore Throat Negative: Chest Pain Positive: Shortness Of Breath, Cough Negative: Abdominal Pain, Vomiting, Nausea Negative: dysuria, hematuria Negative: Myalgia, Edema Negative: Rash Neurological/Mental Status: Other - Negative dizziness All Other Systems Reviewed And Are Negative: Yes Physical Exam - Summary Physical Exam Summary: Constitutional: Well-developed, Obese. Alert. (-) Distressed Skin: Warm, Dry HENT: Normocephalic; Atraumatic Eyes: Conjunctiva normal Neck: Musculoskeletal ROM normal neck. (-) JVD, (-) Stridor, (-) Tracheal deviation Cardio: Rhythm regular, rate normal, Heart sounds normal; Intact distal pulses; The pedal pulses are 2+ and symmetric. Radial pulses are 2+ and symmetric. (-) Murmur Pulmonary/Chest wall: Effort normal. (-) Wheezes, (-) Rales. Crackles diffusely , tachypneic. Abd: Soft, (-) tenderness, (-) Distension, (-) Guarding, (-) Rebound Musculoskeletal: (-) Edema Lymph: (-) Cervical adenopathy Neuro: Alert, Oriented x3 Psych: Mood and affect Normal Triage Information Reviewed: Yes Vital Signs On Initial Exam: Initial Vitals Temp Pulse Resp BP Pulse Ox 97.7 F 95 22 90/54 95 09/08/19 10:22 09/08/19 10:22 09/08/19 10:22 09/08/19 10:22 09/08/19 10:22 Vital Signs Reviewed: Yes Procedures - Sedation Patient Received Moderate/Deep Sedation with Procedure: No Diagnostics - Vital Signs Vital Signs Temp Pulse Resp BP Pulse Ox 09/08/19 10:29 22 09/08/19 10:22 97.7 F 95 22 90/54 95 - Laboratory Lab Results: Lab Results 09/08/19 09/08/19 09/08/19 Range/Units 10:15 10:15 10:15 WBC 14.9 H (3.5-10.8) 10^3/uL RBC 3.89 (3.70-4.87) 10^6 /uL Hgb 12.0 (12.0-16.0) g/dL Hct 39 (35-47) % MCV 99 H (80-97) fL MCH 31 (27-31) pg MCHC 31 (31-36) g/dL RDW 19 H (10-15) % Plt Count 260 (150-450) 10^3/uL MPV 8.1 (7.4-10.4) fL Neut % (Auto) 88.1 % Lymph % (Auto) 6.4 % [place] % (Auto) 5.0 % Eos % (Auto) 0.1 % Baso % (Auto) 0.4 % Absolute Neuts (auto) 13.1 H (1.5-7.7) 10^3/ul Absolute Lymphs (auto) 0.9 L (1.0-4.8) 10^3/ul Absolute Monos (auto) 0.7 (0-0.8) 10^3/ul Absolute Eos (auto) 0.0 (0-0.6) 10^3/ul Absolute Basos (auto) 0.1 (0-0.2) 10^3/ul Absolute Nucleated RBC 0.3 10^3/ul Nucleated RBC % 1.9 INR (Anticoag Therapy) 1.28 H (0.82-1.09) APTT 29.6 (26.0-38.0) seconds Influenza A (Rapid) Negative (Negative) Influenza B (Rapid) Negative (Negative) Result Diagrams: 09/08/19 10:15 09/08/19 10:15 Lab Statement: Any lab studies that have been ordered have been reviewed, and results considered in the medical decision making process. - Radiology Chest X-ray Radiology Interpretation Completed By: Radiologist Summary of Radiographic Findings: Chest X-ray IMPRESSION: CARDIOMEGALY WITH PULMONARY INTERSTITIAL EDEMA. Reviewed by Dr. Israel. - EKG 10:16 Cardiac Rate: NL - 91 BPM EKG Rhythm: Sinus Rhythm ST Segment: Normal Ectopy: None Summary of EKG Findings: EKG at 10:16 shows normal sinus rhythm with 91 BPM, RR 659, no STEMI. Reviewed and interpreted by Dr. Israel. Re-Evaluation - Re-Evaluation First Eval Re-Evaluation Time: 11:43 Change: Unchanged Comment: At 11:43, patient verbalized she would want to trial intubation if needed. Second Eval Re-Evaluation Time: 11:55 Change: Unchanged Comment: At 11:55, pannus is normal appearing. Patient is still tachypneic with her last BP in the 110s. Will give gentle diuresis. Course/Dx - Course Course Of Treatment: Patient is a 64 y/o F presenting to the ED via EMS for a chief complaint of progressive shortness of breath and cough for the last few days. Patient is a poor historian. Per EMS, patient was brought to [facility] for low BP. Patient denies any fever, chills, erythema of eyes, sore throat, chest pain, abdominal pain, nausea, vomiting, dysuria, hematuria, myalgia, edema, rash , or dizziness. PMHx is significant for COPD. Per EMS, patient has been non- compliant with treatment. On exam, obese, crackles diffusely, tachypneic. In the ED course, patient was given cefepime 50 mls IVPB, Flagyl 500 mg IVPB, and vancomycin 1000 mg IVPB. EKG at 10:16 shows normal sinus rhythm with 91 BPM, RR 659, no STEMI. Chest X-ray IMPRESSION: CARDIOMEGALY WITH PULMONARY INTERSTITIAL EDEMA. Laboratory abnormal findings: WBC 14.9, RDW 19, absolute neuts 13.1, creatinine 1.7, lactic acid 6.8, troponin 0.53, BNP 1025, globulin 7 , albumin/globulin ratio 0.3. Both influenza A and B are negative. At 11:43, patient verbalized she would want to trial intubation if needed. At 11:55, pannus is normal appearing. Patient is still tachypneic with her last BP in the 110s. Will give gentle diuresis. On medical record review, an ECG in 02/2015 showed an ejection fracture of 55%. Patient has no constitutional symptoms such as fever. Given her high BNP and diffuse crackles, CHF exacerbation is most likely. Pneumonia cannot be ruled out given the lactic acid. At 11:59, Dr. Ajay Mae reviewed the patient's case and agrees to admit the patient to [facility] with a diagnosis of CHF exacerbation and hypoxemia. Patient will be admitted to [facility] with a diagnosis of CHF exacerbation and hypoxemia. - Diagnoses Provider Diagnoses: CHF exacerbation, Hypoxemia - Physician Notifications Discussed Care of Patient With: Ajay Mae - At 11:59, Dr. Ajay Mae reviewed the patient's case and agrees to admit the patient to [facility] with a diagnosis of CHF exacerbation and hypoxemia. Time Discussed With Above Provider: 11:59 Instructed by Provider To: Admit As Inpatient - Critical Care Time Critical Care Time: 30-74 min - 60 minutes CCT Discharge ED - Sign-Out/Discharge Documenting (check all that apply): Patient Departure - Admit - Discharge Plan Condition: Stable Disposition: ADMITTED TO [facility] Referrals: Fabiana Payton MD [Primary Care Provider] - - Attestation Statements Document Initiated by Scribe: Yes Documenting Scribe: Lyndsay Zimmerman Provider For Whom Scribe is Documenting (Include Credential): Iam Israel MD Scribe Attestation: Lyndsay Mays, scribed for Iam Israel MD on 09/08/19 at 1217. Status of Scribe Document: Ready
[2019-09-08 10:58] LABS: Anion Gap 9 mmol/L (2-11); Potassium 5.5 mmol/L (3.5-5.0); Troponin I 0.53 ng/mL (<0.03)
--- OUTSIDE RECORDS SUMMARY | 2019-09-08 11:30 | XMS REPORT | Continuity of Care Document ---
:1955 External Reference #:[id number] Author Name Fabiana Payton M.D. Address [address] , [place] [address] Care Team Providers Name Role Phone Fabiana Payton MD - Internal Care Team Information Supervisor [employer] [phone] Medicine Shubham Deleon MD - Gastroenterology Care Team Information Supervisor [employer] [facility] Care Team Information Supervisor [employer] - Hospice Care, Community Based Problems Active Problems Provider Date Chronic respiratory failure Fabiana Payton M.D. 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 Onset: 03/12/2011 Degenerative joint disease involving Kaylynn Boucher M.D. Onset: 03/12/2011 multiple joints Anxiety state Kaylynn Boucher M.D. Onset: 03/12/2011 Developmental delay Fabiana Payton M.D. Onset: 06/27/2019 Social History Type Date Description Comments Sex Unknown Tobacco Use Start: Unknown Former Cigarette 3 ppd x 10 yr, End: Unknown Smoker currently smokes infrequently Tobacco Use Start: Unknown Currently smokes 1-5 Cigarettes Daily Smoking Status Reviewed: 01/20/19 Currently smokes 1-5 Cigarettes Daily ETOH Use rarely Recreational Drug Use Negative For Denies Drug Use Tobacco Use Start: Unknown Patient is a former End: Unknown smoker Allergies, Adverse Reactions, Alerts Active Allergies Reaction Severity Comments Date Penicillin hives 08/17/2009 Erythromycin rash 08/17/2009 Tramadol weakness, falling 02/20/2017 Medications Active Medications SIG Qnty Indications Ordering Date Provider Jacqueline 1 PO QHS [facility] 09/02/2019 8.6-50mg Flakito Payton Tablets Furosemide 1 by mouth every 30tabs [facility] 05/14/2019 20mg day Flakito Payton Tablets Dulera 2 puff twice a day 8.800gm [facility] 05/14/2019 200-5mcg/Act Flakito Payton Aerosol Ibuprofen 200 3 tabs twice a day [facility] 02/09/2019 200mg as needed Flakito Payton Tablets Clobetasol Apply bid prn [facility] 02/09/2019 Propionate Flakito Payton 0.05% Cream Biofreeze bid to shoulder [facility] 02/09/2019 4% Gel and knee Flakito Payton Jose E Lift 1units [facility] 02/09/2019 Flakito Payton Ventolin HFA 1 to 2 inhalations 18units Alcira Abernathy, 01/21/2019 every 4 hours as N.P. 108(90Base) mcg/Act needed Aerosol Bengay Cold Therapy apply twice a day 226gm Alcira Abernathy, 07/04/2017 N.P. 5% Gel Bacitracin apply to affected 85.2units Alcira Abernathy, 05/28/2017 (External) area(s) as N.P. 500Unit/GM directed Ointment Guaifenesin take 10 237units J44.9 Fabiana 04/04/2017 100mg/5ML milliliters by Flakito Payton Syrup mouth every 4 hours as needed Gabapentin take one po bid 60caps Alcira Michela, 04/02/2017 300mg N.P. Capsules Ipratropium via nebulizer 2-4 60units Alcira Michela, 02/07/2017 [place]/Albuterol times daily as N.P. Sulfate needed 0.5-2.5(3)mg/3ML Solution Spiriva Handihaler 1 inhalation once 30caps Alcira Abernathy, 01/24/2017 daily N.P. 18mcg Capsules Vitamin B-12 1 by mouth every 30tabs Alcira Abernathy, 12/27/2016 1000mcg day N.P. Tablets Loperamide HCL take one capsule 60caps Fabiana 02/15/2016 2mg by mouth after Flakito Payton Capsules each loose stool. do not take more than 4 capsules daily Levothyroxine Sodium take one tablet by 30tabs Alcira Abernathy, 10/24/2015 mouth every day N.P. 100mcg Tablets [place] Bed Pad for use nightly 1units R21 Alcira Abernathy, 11/30/2014 N.P. 36"X54" [facility] R32 Wipes for use with toileting 6-8 times daily QS R21 Alcira Abernathy, N.P. R32 Nystatin apply to affected 240units Alcira Abernathy, N.P. 10/06/2012 030524Rsbp/GM Powder area(s) two times a day Wheelchair bariatric 1units Kaylynn Boucher M.D. 08/11/2012 [facility] History Medications Lactobacillus 1 by mouth qd 60tabs Fabiana Fito, 05/14/2019 - Tablets M.D. 09/02/2019 Prednisone 2 tablets day Fabiana Fito, 05/14/2019 - 20mg Tablets one and two, 1 M.D. 06/27/2019 tablet day 3,4,5, then one half tablet day 6,7,8 and 9 Immunizations Description No Information Available Vital Signs Date Vital Result Comment 01/20/2019 2:09pm Height 63 inches 5'3" Weight 379.00 lb with a wheelchair Heart Rate 80 /min BP Systolic Sitting 120 mmHg BP Diastolic Sitting 65 mmHg Body Temperature 98.6 F O2 % BldC Oximetry 92 % on 2L O2 BMI (Body Mass Index) 67.1 kg/m2 04/04/2017 12:10pm Weight 362.00 lb Heart Rate 74 /min BP Systolic 118 mmHg BP Diastolic 60 mmHg Body Temperature 98.5 F O2 % BldC Oximetry 91 % Results Test Acquired Date Facility Test Result H/L Range Note Influenza A & B 04/28/2019 [facility] Flu AB (SEE NOTE) 1, [address] [place] [address] [phone] Influenza A Molecular NEGATIVE Negative 3 Influenza B Molecular NEGATIVE Negative Laboratory test 04/28/2019 [facility] Lactic Acid 1.7 mmol/L Normal 0.5-2.0 [address] [place] [address] [phone] B-Type Natriuretic Peptide BNP 264 pg/mL High <=100 Comp Metabolic 04/28/2019 [facility] Sodium 135 mmol/L Normal 135-[address] [place] [address] [phone] Potassium 4.1 mmol/L Normal 3.5-5.0 Chloride 98 mmol/L Low 101-111 Co2 Carbon Dioxide 33 mmol/L High 22-32 Anion Gap 4 mmol/L Normal 2-11 Glucose 103 mg/dL High 70-100 Blood Urea Nitrogen 16 mg/dL Normal 6-24 Creatinine 0.83 mg/dL Normal 0.51-0.95 BUN/Creatinine Ratio 19.3 Normal 8-20 Calcium 9.1 mg/dL Normal 8.6-10.3 Total Protein 9.6 g/dL High 6.4-8.9 Albumin 2.5 g/dL Low 3.2-5.2 Globulin 7.1 g/dL High 2-4 Albumin/Globulin Ratio 0.4 Low 1-3 Total Bilirubin 0.60 mg/dL Normal 0.2-1.0 Alkaline Phosphatase 77 U/L Normal 34-104 Alt 6 U/L Low 7-52 Ast 21 U/L Normal 13-39 Egfr Non- 69.0 >60 Egfr 83.5 >60 5 Laboratory test 04/28/2019 [facility] Magnesium 1.8 mg/dL Low 1.9-2.[address] [place] [address] [phone] C Reactive Protein 299.32 mg/L High <8.01 Troponin-I (TnI) 0.04 ng/mL Critical high <0.03 6 CBC Auto 04/28/2019 [facility] White Blood 13.1 10^3/uL High 3.5-10.[address] [place] [address] [phone] Red Blood Count 3.85 10^6/uL Normal 3.70-4.87 Hemoglobin 12.6 g/dL Normal 12.0-16.0 Hematocrit 38 % Normal 35-47 Mean Corpuscular Volume 100 fL High 80-97 Mean Corpuscular Hemoglobin 33 pg High 27-31 Mean Corpuscular HGB Conc 33 g/dL Normal 31-36 Red Cell Distribution Width 17 % High 10-15 Platelet Count 296 10^3/uL Normal 150-450 Mean Platelet Volume 8.0 fL Normal 7.4-10.4 Abs Neutrophils 10.7 10^3/uL High 1.5-7.7 Manual 04/28/2019 [facility] Immature 14.0 % High 0-[address] [place] [address] [phone] Neutrophil % 69.0 % Band % 14.0 % High 0-8 Lymphocytes % 8.0 % Monocytes % 7.0 % Eosinophils % 1.0 % Basophil % 1.0 % Abs Neutrophils 10.8 10^3/uL High 1.5-7.7 Abs Lymphocytes 1.0 10^3/uL Normal 1.0-4.8 Abs Monocytes 0.9 10^3/uL High 0-0.8 Abs Eosinophils 0.1 10^3/uL Normal 0-0.6 Abs Basophils 0.1 10^3/uL Normal 0-0.2 Macrocytosis 1+ Polychromasia 1+ Anisocytosis 1+ Laboratory test 04/28/2019 [facility] Blood Culture SEE RESULT [address] [place] [address] [phone] Protein 04/28/2019 [facility] Immunofixation See Comment [address] [place] [address] [phone] Total Protein(Pep) 9.5 g/dL Abnormal 6.3 - 7.9 Albumin 2.4 g/dL Abnormal 3.4-4.7 Alpha-1 Globulin 0.3 g/dL 0.1-0.3 Alpha-2 Globulin 1.0 g/dL 0.6-1.0 Beta Globulin 1.0 g/dL 0.7-1.2 Gamma Globulin 4.8 g/dL Abnormal 0.6-1.6 Albumin/Globulin Ratio 0.34 Impression See Comment 9 1 NASAL 2 Suboptimal collection technique may reduce sensitivity of test. Refer to the [facility] Test Catalog for collection information: [email or web address] As with all diagnostic procedures, the laboratory results obtained should be used in conjunction with other clinical information available to the physician, including confirmation by another method, as applicable. 3 Manager Welding: [id number] [facility] Severe Sepsis and Septic Shock Management Bundle Measure requires all lactic acids initially measuring >2.0 mmol/L be repeated. 5 Because ethnic data is not always readily available, this report includes an eGFR for both -Americans and non- Americans. The National Kidney Disease Education Program (NKDEP) does not endorse the use of the MDRD equation for patients that are not between the ages of 18 and 70, are , have extremes of body size, muscle mass, or nutritional status, or are non- or non-. According to the National Kidney Foundation, irrespective of diagnosis, the stage of the disease is based on the level of kidney function: Stage Description GFR(mL/min/1.73 m(2)) 1 Kidney damage with normal or decreased GFR 90 2 Kidney damage with mild decrease in GFR 60-89 3 Moderate decrease in GFR 30-59 4 Severe decrease in GFR 15-29 5 Kidney failure <15 (or dialysis) 6 Result TnIDx:0.04 Called to [id number] at: 09:28:50 by:[id number] Read back by: [id number] Troponin-I testing on Plasma Separator Tubes (PST) has a known false positive rate of 0.20-0.40%. All positive troponins reflex immediately to secondary confirmatory testing. Using the [employer] DxI 800 Access Immunoassay systems, the 99th percentile upper reference limit was demonstrated to be < 0.03 ng/mL. 7 SEE RESULT BELOW Name: LYNDSAY WHITMORE Aarti : [address]: Harpreet Maldonado MD Acct: [id number] Unit: [id number] AGE: 63 Location: [place] [address] Re04/28/19 SEX: F Status: ADM IN SPEC: [id number] PAWAN: 04/28/[address]: Elis SAMANO REQ: [id number] RECD: 04/28/19 STATUS: CAMILO ARRIAGA DR: Pteros aPyton MD _ SOURCE: BLOOD,VENO SPDESC: ORDERED: Blood Cult Procedure Result Reported Site Aerobic Culture Bottle Final 05/03/19925 ML No Growth Day 5 Anaerobic Culture Bottle Final 05/03/19925 ML No Growth Day 5 * ML - Main Lab . END OF REPORT DEPARTMENT OF PATHOLOGY, [address] [place] [address] Frank Watkins M.D. Director [facility] # [id number] RESULT: No monoclonal protein detected. Test Performed by: [facility] [place] [address] Supervisor [employer]: Anand Santos M.D. Ph.D.; CLIA# [id number] 9 Small abnormality in gamma fraction. Polyclonal hypergammaglobulinemia See Immunofixation. Test Performed by: [facility] [place] [address] Supervisor [employer]: Anand Santos M.D. Ph.D.; CLIA# [id number] Procedures Date Code Description Status 04/29/2019 21421 ECHO Transthorasic Realtime 2D W Doppler & Color Flow Completed Hosp 09/08/2009 16123693 Mammogram Completed Medical Devices Description No Information Available Encounters Type Date Location Provider Dx Diagnosis Office Visit 05/10/2019 [facility] Franchesca Armendariz.21 Acute and chronic 10:09a Assockeith respiratory Hospitalists failure with hypoxia J18.9 Pneumonia, unspecified organism J44.1 Chronic obstructive pulmonary disease w (acute) exacerbation E66.2 Morbid (severe) obesity with alveolar hypoventilation R60.0 Localized edema K58.0 Irritable bowel syndrome with diarrhea J45.909 Unspecified asthma, uncomplicated Office Visit 05/09/2019 10:09a [facility] Anand Sellers96.21 Acute and chronic Assoc,JAZMYNE Comer respiratory Hospitalists failure with hypoxia J18.9 Pneumonia, unspecified organism J44.1 Chronic obstructive pulmonary disease w (acute) exacerbation E66.2 Morbid (severe) obesity with alveolar hypoventilation Office Visit 05/08/2019 10:08a [facility] Anand Sellers96.21 Acute and chronic Assoc,JAZMYNE [place] respiratory Hospitalists failure with hypoxia J18.9 Pneumonia, unspecified organism J44.1 Chronic obstructive pulmonary disease w (acute) exacerbation E66.2 Morbid (severe) obesity with alveolar hypoventilation Office Visit 05/07/2019 10:07a [facility] Anand Sellers96.21 Acute and chronic Assoc,JAZMYNE [place] respiratory Hospitalists failure with hypoxia J18.9 Pneumonia, unspecified organism J44.1 Chronic obstructive pulmonary disease w (acute) exacerbation R60.0 Localized edema E66.2 Morbid (severe) obesity with alveolar hypoventilation Office Visit 05/06/2019 10:06a [facility] Anand Sellers96.21 Acute and chronic Assoc,JAZMYNE [place] respiratory Hospitalists failure with hypoxia J18.9 Pneumonia, unspecified organism J44.1 Chronic obstructive pulmonary disease w (acute) exacerbation E66.2 Morbid (severe) obesity with alveolar hypoventilation Office Visit 05/05/2019 10:06a [facility] Deja Fabian, J96.21 Acute and chronic Assoc,pc MANAGER EMERGENCY respiratory Hospitalists failure with hypoxia J18.9 Pneumonia, unspecified organism J44.1 Chronic obstructive pulmonary disease w (acute) exacerbation E66.2 Morbid (severe) obesity with alveolar hypoventilation Office Visit 05/04/2019 10:05a [facility] Deja Fabian, J96.21 Acute and chronic Assoc,pc MANAGER EMERGENCY respiratory Hospitalists failure with hypoxia J18.9 Pneumonia, unspecified organism J44.1 Chronic obstructive pulmonary disease w (acute) exacerbation R60.0 Localized edema E03.9 Hypothyroidism, unspecified R74.8 Abnormal levels of other serum enzymes E66.01 Morbid (severe) obesity due to excess calories Z68.43 Body mass index (BMI) 50.0-59.9, adult Office Visit 05/03/2019 10:05a [facility] Deja Fabian, J96.21 Acute and chronic Assoc,pc MANAGER EMERGENCY respiratory Hospitalists failure with hypoxia J18.9 Pneumonia, unspecified organism J44.1 Chronic obstructive pulmonary disease w (acute) exacerbation R60.0 Localized edema E66.01 Morbid (severe) obesity due to excess calories Z68.43 Body mass index (BMI) 50.0-59.9, adult Office Visit 05/02/2019 10:04a [facility] Deja Fabian, J96.21 Acute and chronic Assoc,pc MANAGER EMERGENCY respiratory Hospitalists failure with hypoxia J18.9 Pneumonia, unspecified organism R60.0 Localized edema J44.1 Chronic obstructive pulmonary disease w (acute) exacerbation E66.01 Morbid (severe) obesity due to excess calories Z68.43 Body mass index (BMI) 50.0-59.9, adult Office Visit 05/01/2019 10:04a [facility] Deja Fabian, J96.21 Acute and chronic Assoc,pc MANAGER EMERGENCY respiratory Hospitalists failure with hypoxia J18.9 Pneumonia, unspecified organism Office Visit 04/30/2019 10:04a [facility] Deja Fabian, J96.21 Acute and chronic Assoc,pc MANAGER EMERGENCY respiratory Hospitalists failure with hypoxia J18.9 Pneumonia, unspecified organism R60.0 Localized edema J44.1 Chronic obstructive pulmonary disease w (acute) exacerbation G31.84 Mild cognitive impairment, so stated E66.01 Morbid (severe) obesity due to excess calories Z68.43 Body mass index (BMI) 50.0-59.9, adult Office Visit 04/29/2019 10:03a [facility] Deja Fabian, J96.21 Acute and chronic Assoc,pc MANAGER EMERGENCY respiratory Hospitalists failure with hypoxia J44.1 Chronic obstructive pulmonary disease w (acute) exacerbation J18.9 Pneumonia, unspecified organism E66.01 Morbid (severe) obesity due to excess calories Z68.43 Body mass index (BMI) 50.0-59.9, adult Office Visit 04/28/2019 10:03a [facility] Harpreet Maldonado, R50.9 Fever, unspecified Assoc,pc MD Hospitalists D72.829 Elevated white blood cell count, unspecified J96.11 Chronic respiratory failure with hypoxia J44.9 Chronic obstructive pulmonary disease, unspecified Assessments Date Code Description Provider 09/02/2019 J44.1 Chronic obstructive pulmonary disease Fabiana Payton M.D. with (acute) exacerbation 09/02/2019 E03.9 Hypothyroidism, unspecified Fabiana Payton M.D. 09/02/2019 E11.9 Type 2 diabetes mellitus without Fabiana Payton M.D. complications 09/02/2019 R53.1 Weakness Fabiana Payton M.D. 05/10/2019 J96.21 Acute and chronic respiratory failure JAZMYNE Armendariz with hypoxia 05/10/2019 J18.9 Pneumonia, unspecified organism JAZMYNE Armendariz 05/10/2019 J44.1 Chronic obstructive pulmonary disease JAZMYNE Armendariz with (acute) exacerbation 05/10/2019 E66.2 Morbid (severe) obesity with alveolar JAZMYNE Armendariz hypoventilation 05/10/2019 R60.0 Localized edema JZAMYNE Armendariz 05/10/2019 K58.0 Irritable bowel syndrome with diarrhea JAZMYNE Armendariz 05/10/2019 J45.909 Unspecified asthma, uncomplicated JAZMYNE Armendariz 05/09/2019 J96.21 Acute and chronic respiratory failure Anand Mcnair PA with hypoxia 05/09/2019 J18.9 Pneumonia, unspecified organism Anand Mcnair, PA 05/09/2019 J44.1 Chronic obstructive pulmonary disease Anand Mcnair PA with (acute) exacerbation 05/09/2019 E66.2 Morbid (severe) obesity with alveolar Anand Mcnair, PA hypoventilation 05/08/2019 J96.21 Acute and chronic respiratory failure Anand Mcnair PA with hypoxia 05/08/2019 J18.9 Pneumonia, unspecified organism Anand Mcnair, PA 05/08/2019 J44.1 Chronic obstructive pulmonary disease Anand Mcnair PA with (acute) exacerbation 05/08/2019 E66.2 Morbid (severe) obesity with alveolar Anand Mcnair PA hypoventilation 05/07/2019 J96.21 Acute and chronic respiratory failure Anand Mcnair PA with hypoxia 05/07/2019 J18.9 Pneumonia, unspecified organism Anand Mcnair, PA 05/07/2019 J44.1 Chronic obstructive pulmonary disease JAZMYNE Armendariz with (acute) exacerbation 05/07/2019 R60.0 Localized edema Anand Mcnair PA 05/07/2019 E66.2 Morbid (severe) obesity with alveolar Anand Mcnair, PA hypoventilation 05/06/2019 J96.21 Acute and chronic respiratory failure Anand Mcnair PA with hypoxia 05/06/2019 J18.9 Pneumonia, unspecified organism Anand Mcnair, PA 05/06/2019 J44.1 Chronic obstructive pulmonary disease Anand Mcnair PA with (acute) exacerbation 05/06/2019 E66.2 Morbid (severe) obesity with alveolar Anand Mcnair, PA hypoventilation 05/05/2019 J96.21 Acute and chronic respiratory failure Deja Fabian, MANAGER EMERGENCY with hypoxia 05/05/2019 J18.9 Pneumonia, unspecified organism Deja Fabian, MANAGER EMERGENCY 05/05/2019 J44.1 Chronic obstructive pulmonary disease Deja Fabian, MANAGER EMERGENCY with (acute) exacerbation 05/05/2019 E66.2 Morbid (severe) obesity with alveolar Deja Fabian, MANAGER EMERGENCY hypoventilation 05/04/2019 J96.21 Acute and chronic respiratory failure Deja Fabian, MANAGER EMERGENCY with hypoxia 05/04/2019 J18.9 Pneumonia, unspecified organism Deja Fabian, MANAGER EMERGENCY 05/04/2019 J44.1 Chronic obstructive pulmonary disease Deja Fabian, MANAGER EMERGENCY with (acute) exacerbation 05/04/2019 R60.0 Localized edema Deja Fabian, MANAGER EMERGENCY 05/04/2019 E03.9 Hypothyroidism, unspecified Deja Fabian, MANAGER EMERGENCY 05/04/2019 R74.8 Abnormal levels of other serum enzymes Deja Fabian, MANAGER EMERGENCY 05/04/2019 E66.01 Morbid (severe) obesity due to excess Deja Fabian, MANAGER EMERGENCY calories 05/04/2019 Z68.43 Body mass index (BMI) 50.0-59.9, adult Deja Fabian, MANAGER EMERGENCY 05/03/2019 J96.21 Acute and chronic respiratory failure Deja Fabian, MANAGER EMERGENCY with hypoxia 05/03/2019 J18.9 Pneumonia, unspecified organism Deja Fabian, MANAGER EMERGENCY 05/03/2019 J44.1 Chronic obstructive pulmonary disease Deja Fabian, MANAGER EMERGENCY with (acute) exacerbation 05/03/2019 R60.0 Localized edema Deja Fabian, MANAGER EMERGENCY 05/03/2019 E66.01 Morbid (severe) obesity due to excess Deja Fabian, MANAGER EMERGENCY calories 05/03/2019 Z68.43 Body mass index (BMI) 50.0-59.9, adult Deja Fabian, MANAGER EMERGENCY 05/02/2019 J96.21 Acute and chronic respiratory failure Deja Fabian, MANAGER EMERGENCY with hypoxia 05/02/2019 J18.9 Pneumonia, unspecified organism Deja Fabian, MANAGER EMERGENCY 05/02/2019 R60.0 Localized edema Deja Fabian, MANAGER EMERGENCY 05/02/2019 J44.1 Chronic obstructive pulmonary disease Deja Fabian, MANAGER EMERGENCY with (acute) exacerbation 05/02/2019 E66.01 Morbid (severe) obesity due to excess Deja Fabian, MANAGER EMERGENCY calories 05/02/2019 Z68.43 Body mass index (BMI) 50.0-59.9, adult Deja Fabian, MANAGER EMERGENCY 05/01/2019 J96.21 Acute and chronic respiratory failure Deja Fabian, MANAGER EMERGENCY with hypoxia 05/01/2019 J18.9 Pneumonia, unspecified organism Deja Fabian, MANAGER EMERGENCY 04/30/2019 J96.21 Acute and chronic respiratory failure Deja Fabian, MANAGER EMERGENCY with hypoxia 04/30/2019 J18.9 Pneumonia, unspecified organism Deja Fabian, MANAGER EMERGENCY 04/30/2019 R60.0 Localized edema Deja Fabian, MANAGER EMERGENCY 04/30/2019 J44.1 Chronic obstructive pulmonary disease Deja Fabian, MANAGER EMERGENCY with (acute) exacerbation 04/30/2019 G31.84 Mild cognitive impairment, so stated Deja Fabian, MANAGER EMERGENCY 04/30/2019 E66.01 Morbid (severe) obesity due to excess Deja Fabian, MANAGER EMERGENCY calories 04/30/2019 Z68.43 Body mass index (BMI) 50.0-59.9, adult Deja Fabian, MANAGER EMERGENCY 04/29/2019 R06.02 Shortness of breath Justino Farnsworth, DO [facility] 04/29/2019 J96.21 Acute and chronic respiratory failure Deja Fabian, MANAGER EMERGENCY with hypoxia 04/29/2019 J44.1 Chronic obstructive pulmonary disease Deja Fabian, MANAGER EMERGENCY with (acute) exacerbation 04/29/2019 J18.9 Pneumonia, unspecified organism Deja Fabian, MANAGER EMERGENCY 04/29/2019 E66.01 Morbid (severe) obesity due to excess Deja Fabian, MANAGER EMERGENCY calories 04/29/2019 Z68.43 Body mass index (BMI) 50.0-59.9, adult Deja Fabian, MANAGER EMERGENCY 04/28/2019 R50.9 Fever, unspecified Harpreet Maldonado MD 04/28/2019 D72.829 Elevated white blood cell count, Harpreet Maldonado MD unspecified 04/28/2019 J96.11 Chronic respiratory failure with hypoxia Harpreet Maldonado MD 04/28/2019 J44.9 Chronic obstructive pulmonary disease, Harpreet Maldonado MD unspecified Plan of Treatment 09/02/2019 - Fabiana Payton M.D.J44.1 Chronic obstructive pulmonary disease with (acute) exacerbationComments:INHALERS:DULERA/STEROID INHALERI will refill the Dulera. Your insurance may want to switch it to another inhaler that does the same thingIt is important to take this regularly every Mannie will also order a spacer SPIRIVAStay on thisVENTOLIN:This is your "rescue" inhalerUse it when you feel wheezyYou can use this with the awvuipA15.9 Hypothyroidism, unspecifiedNew Labs:TSH (Thyroid Stim Horm), Ordered: 09/02/19E11.9 Type 2 diabetes mellitus without complicationsNew Labs:Comp Metabolic Panel, Ordered: 09/02/19Hemoglobin A1c (Glyco HGB), Ordered: 09/02/19Comments:You need labsWe will set up a home blood draw in the next weekFollow up:40 min video visit in 4 mayetzD91.1 WeaknessComments:Get out of bed and sit in the wheelchair if you can - this will help your breathingSit up in bed as much as you can during the day. Try to do this at least 15 minutes every hourWatch the skin on your back and bottom - call me if you see any red areas or sores Functional Status Description No Information Available Mental Status Description No Information Available Referrals Description No Information Available
--- OUTSIDE RECORDS SUMMARY | 2019-09-08 11:30 | XMS REPORT | Continuity of Care Document ---
:1955 External Reference #:[id number] Author Name Fabiana Payton M.D. (transmitted by agent of provider Siena Kwon) Address [address] [facility], [place] [address] Care Team Providers Name Role Phone Fabiana Payton MD - Internal Care Team Information [facility] [phone] Medicine Shubham Deleon MD - Gastroenterology Care Team Information [facility] Care Team Information [facility] [phone] - Hospice Care, Community Based Problems Active [...] Ordering Date Provider Jacqueline 1 PO QHS [facility] 09/02/2019 8.6-50mg Flakito Payton Tablets Furosemide 1 by mouth every 30tabs [facility] 05/14/2019 20mg day Flakito Payton Tablets Dulera 2 puff twice a day 8.800gm [facility] 05/14/2019 200-5mcg/Act Flakito Payton Aerosol Ibuprofen 200 3 tabs twice a day [facility] 02/09/2019 200mg as needed Flakito Payton Tablets Clobetasol Apply bid prn [facility] 02/09/2019 Propionate Flakito Payton 0.05% Cream Biofreeze bid to shoulder [facility] 02/09/2019 4% Gel and knee Flakito Payton Jose E Lift 1units [facility] 02/09/2019 Flakito Payton Ventolin HFA 1 to 2 inhalations 18units Alcira Abernathy, 01/21/2019 every 4 hours as N.P. 108(90Base) mcg/Act needed Aerosol Bengay Cold Therapy apply twice a day 226gm Alcira Abernathy, 07/04/2017 N.P. 5% Gel Bacitracin apply to affected 85.2units Alcira Varn, 05/28/2017 (External) area(s) as N.P. 500Unit/GM directed Ointment Guaifenesin take 10 237units J44.9 Fabiana 04/04/2017 100mg/5ML milliliters by Flakito Payton Syrup mouth every 4 hours as needed Gabapentin take one po bid 60caps Alcira Michela, 04/02/2017 300mg N.P. Capsules Ipratropium via nebulizer 2-4 60units Alcira Abernathy, 02/07/2017 Ralston/Albuterol times daily as N.P. Sulfate needed 0.5-2.5(3)mg/3ML [...] 10/24/2015 mouth every day N.P. 100mcg Tablets Elmer Bed Pad for use nightly 1units R21 Alcira Abernathy, 11/30/2014 N.P. 36"X54" [facility] [place]32 Wipes for use with toileting 6-8 times daily QS R21 Alcira Abernathy, N.P. R32 Nystatin apply to affected 240units Alcira Abenrathy, N.P. 10/06/2012 130666Qyfr/GM Powder area(s) two times a day Wheelchair bariatric 1units Kaylynn Boucher M.D. 08/11/2012 [facility] [place] Medications Lactobacillus 1 by mouth qd [...] Range Note Influenza A & B 04/28/2019 [facility] Flu AB (SEE NOTE) 1, [address] [place] [address] [phone] Influenza A Molecular NEGATIVE Negative 3 Influenza B Molecular NEGATIVE Negative Laboratory test 04/28/2019 [facility] Lactic Acid 1.7 mmol/L Normal 0.5-2.[address] [place] [address] [phone] B-Type Natriuretic Peptide BNP 264 pg/mL High <=100 Comp Metabolic 04/28/2019 [facility] Sodium 135 mmol/L Normal 135-[address] [place] [address] [phone] Potassium 4.1 mmol/L Normal 3.5-5.0 Chloride 98 [...] Egfr 83.5 >60 5 Laboratory test 04/28/2019 [facility] Magnesium 1.8 mg/dL Low 1.9-2.[address] [place] [address] [phone] C Reactive Protein 299.32 mg/L High <8.01 Troponin-I (TnI) 0.04 ng/mL Critical high <0.03 6 CBC Auto 04/28/2019 [facility] White Blood 13.1 10^3/uL High 3.5-10.[address] [place] [address] [phone] Red Blood Count 3.85 10^6/uL Normal 3.70-4.87 [...] Neutrophils 10.7 10^3/uL High 1.5-7.7 Manual 04/28/2019 [facility] Immature 14.0 % High 0-[address] [place] [address] [phone] Neutrophil % 69.0 % Band % 14.0 [...] Polychromasia 1+ Anisocytosis 1+ Laboratory test 04/28/2019 [facility] Blood Culture SEE RESULT [address] [place] [address] [phone] Protein 04/28/2019 [facility] Immunofixation See Comment [address] [place] [address] [phone] Total Protein(Pep) 9.5 g/dL Abnormal 6.3 - 7.9 Albumin 2.4 g/dL Abnormal 3.4-4.7 Alpha-1 Globulin 0.3 g/dL 0.1-0.3 Alpha-2 Globulin 1.0 g/dL 0.6-1.0 Beta Globulin 1.0 g/dL 0.7-1.2 Gamma Globulin 4.8 g/dL Abnormal 0.6-1.6 Albumin/Globulin Ratio 0.34 Impression See Comment 9 1 NASAL 2 Suboptimal collection technique may reduce sensitivity of test. Refer to the [facility] Test Catalog for collection information: [email or web address] As with all diagnostic procedures, the laboratory results obtained should be used in conjunction with other clinical information available to the physician, including confirmation by another method, as applicable. 3 Cashier General: [id number] 4 [facility] Severe Sepsis and Septic Shock Management [...] (or dialysis) 6 Result TnIDx:0.04 Called to [id number] at: 09:28:50 by:[id number] Read back by: [id number] Troponin-I testing on Plasma Separator Tubes (PST) has a known false positive rate of 0.20-0.40%. All positive troponins reflex immediately to secondary confirmatory testing. Using the [employer] DxI 800 Access Immunoassay systems, the 99th percentile upper reference limit was demonstrated to be < 0.03 ng/mL. 7 SEE RESULT BELOW Name: LYNDSAY WHITMORE Jh : [address]: Harpreet Maldonado MD Acct: [id number] Unit: [id number] AGE: 63 Location: [address] Re04/28/19 SEX: F Status: ADM IN SPEC: [id number] PAWAN: 04/28/[address]: Elis SAMANO REQ: [id number] RECD: 04/28/19 STATUS: CAMILO ARRIAGA DR: Petros Payton MD _ SOURCE: BLOOD,[facility]: ORDERED: Blood Cult Procedure Result Reported Site Aerobic Culture Bottle Final 05/03/19925 ML No Growth Day 5 Anaerobic Culture Bottle Final 05/03/19925 ML No Growth Day 5 * ML - Main Lab . END OF REPORT DEPARTMENT OF PATHOLOGY, [address] [place] [address] Frank Watkins M.D. Director [facility] # [id number] RESULT: No monoclonal protein detected. Test Performed by: [facility] [place] [address] Human Resources Hr Representative: Anand Santos M.D. Ph.D.; CLIA# [id number] 9 Small abnormality in gamma fraction. Polyclonal hypergammaglobulinemia See Immunofixation. Test Performed by: [facility] [place] [address] Human Resources Hr Representative: Anand Santos M.D. Ph.D.; CLIA# [id number] Procedures Date Code Description Status 04/29/2019 69946 ECHO Transthorasic Realtime 2D W Doppler & Color Flow Completed Hosp 09/08/2009 [id number] Mammogram Completed Medical Devices Description No Information Available Encounters Type Date Location Provider Dx Diagnosis Office Visit 09/02/2019 [facility] [employer] [facility] [employer] Fabiana Payton, J44.1 Chronic obstructive 9:20a Medicine - [facility] Fraga pulmonary disease w (acute) exacerbation E03.9 Hypothyroidism, unspecified E11.9 Type 2 diabetes mellitus without complications R53.1 Weakness Office Visit 05/10/2019 10:09a [facility] Anand J96.21 Acute and chronic Assoc,JAZMYNE Comer respiratory Hospitalists failure with hypoxia J18.9 Pneumonia, unspecified organism J44.1 Chronic obstructive pulmonary disease w (acute) exacerbation E66.2 Morbid (severe) obesity with alveolar hypoventilation R60.0 Localized edema K58.0 Irritable bowel syndrome with diarrhea J45.909 Unspecified asthma, uncomplicated Office Visit 05/09/2019 10:09a [facility] Anand J96.21 Acute and chronic Assoc,JAZMYNE Comer respiratory Hospitalists failure with hypoxia J18.9 Pneumonia, unspecified organism J44.1 Chronic obstructive pulmonary disease w (acute) exacerbation E66.2 Morbid (severe) obesity with alveolar hypoventilation Office Visit 05/08/2019 10:08a [facility] Anand J96.21 Acute and chronic Assoc,JAZMYNE Comer respiratory Hospitalists failure with hypoxia J18.9 Pneumonia, unspecified organism J44.1 Chronic obstructive pulmonary disease w (acute) exacerbation E66.2 Morbid (severe) obesity with alveolar hypoventilation Office Visit 05/07/2019 10:07a [facility] Anand J96.21 Acute and chronic Assoc,JAZMYNE Comer respiratory Hospitalists failure with hypoxia J18.9 Pneumonia, unspecified organism J44.1 Chronic obstructive pulmonary disease w (acute) exacerbation R60.0 Localized edema E66.2 Morbid (severe) obesity with alveolar hypoventilation Office Visit 05/06/2019 10:06a [facility] Anand J96.21 Acute and chronic Assoc,pc JAZMYNE Mcnair respiratory Hospitalists failure with hypoxia J18.9 Pneumonia, unspecified organism J44.1 Chronic obstructive pulmonary disease w (acute) exacerbation E66.2 Morbid (severe) obesity with alveolar hypoventilation Office Visit 05/05/2019 10:06a [facility] Deja Fabian, J96.21 Acute and chronic Assoc,pc [employer] respiratory Hospitalists failure with hypoxia J18.9 Pneumonia, unspecified organism J44.1 Chronic obstructive pulmonary disease w (acute) exacerbation E66.2 Morbid (severe) obesity with alveolar hypoventilation Office Visit 05/04/2019 10:05a [facility] Deja Fabian, J96.21 Acute and chronic Assoc,pc [employer] respiratory Hospitalists failure with hypoxia J18.9 Pneumonia, unspecified organism J44.1 Chronic obstructive pulmonary disease w (acute) exacerbation R60.0 Localized edema E03.9 Hypothyroidism, unspecified R74.8 Abnormal levels of other serum enzymes E66.01 Morbid (severe) obesity due to excess calories Z68.43 Body mass index (BMI) 50.0-59.9, adult Office Visit 05/03/2019 10:05a [facility] Deja Fabian, J96.21 Acute and chronic Assoc,pc [employer] respiratory Hospitalists failure with hypoxia J18.9 Pneumonia, unspecified organism J44.1 Chronic obstructive pulmonary disease w (acute) exacerbation R60.0 Localized edema E66.01 Morbid (severe) obesity due to excess calories Z68.43 Body mass index (BMI) 50.0-59.9, adult Office Visit 05/02/2019 10:04a [facility] Deja Fabian, J96.21 Acute and chronic Assoc,pc [employer] respiratory Hospitalists failure with hypoxia J18.9 Pneumonia, unspecified organism R60.0 Localized edema J44.1 Chronic obstructive pulmonary disease w (acute) exacerbation E66.01 Morbid (severe) obesity due to excess calories Z68.43 Body mass index (BMI) 50.0-59.9, adult Office Visit 05/01/2019 10:04a [facility] Deja Fabian, J96.21 Acute and chronic Assoc,pc [employer] respiratory Hospitalists failure with hypoxia J18.9 Pneumonia, unspecified organism Office Visit 04/30/2019 10:04a [facility] Deja Fabian, J96.21 Acute and chronic Assoc,pc [employer] respiratory Hospitalists failure with hypoxia J18.9 Pneumonia, unspecified organism R60.0 Localized edema J44.1 Chronic obstructive pulmonary disease w (acute) exacerbation G31.84 Mild cognitive impairment, so stated E66.01 Morbid (severe) obesity due to excess calories Z68.43 Body mass index (BMI) 50.0-59.9, adult Office Visit 04/29/2019 10:03a [facility] Deja Fabian, J96.21 Acute and chronic Assoc,pc [employer] respiratory Hospitalists failure with hypoxia J44.1 Chronic obstructive pulmonary disease w (acute) exacerbation J18.9 Pneumonia, unspecified organism E66.01 Morbid (severe) obesity due to excess calories Z68.43 Body mass index (BMI) 50.0-59.9, adult Office Visit 04/28/2019 10:03a [facility] Harpreet Maldonado, R50.9 Fever, unspecified Assoc,pc Hospitalists D72.829 Elevated white blood cell count, [...] 05/10/2019 E66.2 Morbid (severe) obesity with alveolar Anand [place], PA hypoventilation 05/10/2019 R60.0 Localized edema Anand Mcnair, PA 05/10/2019 K58.0 Irritable bowel syndrome with diarrhea Anand Mcnair PA 05/10/2019 J45.909 Unspecified asthma, uncomplicated Aannd Mcnair, PA 05/09/2019 J96.21 Acute and chronic respiratory failure [...] PA 05/07/2019 J44.1 Chronic obstructive pulmonary disease Anand Mcnair PA with (acute) exacerbation 05/07/2019 R60.0 Localized edema Anand Mcnair, PA 05/07/2019 E66.2 Morbid (severe) obesity with alveolar Anand Mcnair PA hypoventilation 05/06/2019 J96.21 Acute and chronic respiratory failure Anand Mcnair PA with hypoxia 05/06/2019 J18.9 Pneumonia, unspecified organism Anand Mcnair, PA 05/06/2019 J44.1 Chronic obstructive pulmonary disease Anand Mcnair PA with (acute) exacerbation 05/06/2019 E66.2 Morbid (severe) obesity with alveolar Anand Mcnair, PA hypoventilation 05/05/2019 J96.21 Acute and chronic respiratory failure Deja Fabian, [employer] with hypoxia 05/05/2019 J18.9 Pneumonia, unspecified organism Deja Fabian, [employer] 05/05/2019 J44.1 Chronic obstructive pulmonary disease Deja Fabian, [employer] with (acute) exacerbation 05/05/2019 E66.2 Morbid (severe) obesity with alveolar Deja Fabian, [employer] hypoventilation 05/04/2019 J96.21 Acute and chronic respiratory failure Deja Fabian, [employer] with hypoxia 05/04/2019 J18.9 Pneumonia, unspecified organism Deja Fabian, [employer] 05/04/2019 J44.1 Chronic obstructive pulmonary disease Deja Fabian, [employer] with (acute) exacerbation 05/04/2019 R60.0 Localized edema Deja Fabian, [employer] 05/04/2019 E03.9 Hypothyroidism, unspecified Deja Fabian, [employer] 05/04/2019 R74.8 Abnormal levels of other serum enzymes Deja Fabian, [employer] 05/04/2019 E66.01 Morbid (severe) obesity due to excess Deja Fabian, [employer] calories 05/04/2019 Z68.43 Body mass index (BMI) 50.0-59.9, adult Deja Fabian, [employer] 05/03/2019 J96.21 Acute and chronic respiratory failure Deja Fabian, [employer] with hypoxia 05/03/2019 J18.9 Pneumonia, unspecified organism Deja Fabian, [employer] 05/03/2019 J44.1 Chronic obstructive pulmonary disease Deja Fabian, [employer] with (acute) exacerbation 05/03/2019 R60.0 Localized edema Deja Fabian, [employer] 05/03/2019 E66.01 Morbid (severe) obesity due to excess Deja Fabian, [employer] calories 05/03/2019 Z68.43 Body mass index (BMI) 50.0-59.9, adult Deja Fabian, [employer] 05/02/2019 J96.21 Acute and chronic respiratory failure Deja Fabian, [employer] with hypoxia 05/02/2019 J18.9 Pneumonia, unspecified organism Deja Fabian, [employer] 05/02/2019 R60.0 Localized edema Deja Fabian, [employer] 05/02/2019 J44.1 Chronic obstructive pulmonary disease Deja Fabian, [employer] with (acute) exacerbation 05/02/2019 E66.01 Morbid (severe) obesity due to excess Deja Fabian, [employer] calories 05/02/2019 Z68.43 Body mass index (BMI) 50.0-59.9, adult Deja Fabian, [employer] 05/01/2019 J96.21 Acute and chronic respiratory failure Deja Fabian, [employer] with hypoxia 05/01/2019 J18.9 Pneumonia, unspecified organism Deja Fabian, [employer] 04/30/2019 J96.21 Acute and chronic respiratory failure Deja Fabian, [employer] with hypoxia 04/30/2019 J18.9 Pneumonia, unspecified organism Deja Fabian, [employer] 04/30/2019 R60.0 Localized edema Deja Fabian, [employer] 04/30/2019 J44.1 Chronic obstructive pulmonary disease Deja Fabian, [employer] with (acute) exacerbation 04/30/2019 G31.84 Mild cognitive impairment, so stated Deja Fabian, [employer]CH[employer] 04/30/2019 E66.01 Morbid (severe) obesity due to excess Deja Fabian, [employer] calories 04/30/2019 Z68.43 Body mass index (BMI) 50.0-59.9, adult Deja Fabian, [employer] 04/29/2019 R06.02 Shortness of breath Justino Farnsworth, DO [facility] 04/29/2019 J96.21 Acute and chronic respiratory failure Deja Fabian, [employer] with hypoxia 04/29/2019 J44.1 Chronic obstructive pulmonary disease Deja Fabian, [employer] with (acute) exacerbation 04/29/2019 J18.9 Pneumonia, unspecified organism Deja Fabian, [employer]CH[employer]IC 04/29/2019 E66.01 Morbid (severe) obesity due to excess Deja Fabian, [employer] calories 04/29/2019 Z68.43 Body mass index (BMI) 50.0-59.9, adult Deja Fabian, [employer] 04/28/2019 R50.9 Fever, unspecified Harpreet Maldonado MD [...] feel wheezyYou can use this with the mgsidwL38.9 Hypothyroidism, wqfzvwkqovdQ60.9 Type 2 diabetes mellitus without complicationsComments:You need labsWe will set up a home blood draw in the next weekFollow up:40 min video visit in 4 tjdlzvS05.1 WeaknessComments:Get out of bed and sit in [...]
[2019-09-08] MEDS ORDERED: metroNIDAZOLE IV 500 MG/100ML* 500 MG/100 ML BAG IVPB ONE (11:40)
[2019-09-08] MEDS ORDERED: Cefepime(*) 2 GM in NS 0.9% 50 ML* 50 ML IVPB ONE (11:40)
[2019-09-08] MEDS ORDERED: Furosemide IV* 10 MG/ML 2 ML VIAL (20 MG) IV SLOW PU ONE (11:54)
[2019-09-08] MEDS ORDERED: Cefepime 2 GM in Dextrose(*) 2 GM/50 ML BAG IV ONE (12:00)
[2019-09-08] MEDS ORDERED: Vancomycin(*) 1,000 MG VIAL IVPB SCH (12:00)
[2019-09-08] MEDS ORDERED: Vancomycin(*) 1,000 MG - ED ONCE IV ONE ×2 (12:30)
[2019-09-08] MEDS ORDERED: NS 0.9% 1000 ML** 1,000 ML IV SCH ×2 (12:30→15:30)
[2019-09-08 13:15] LABS: Troponin I 0.71 ng/mL (<0.03)
[2019-09-08 13:17] LABS: Urine Appearance Turbid; Urine Bilirubin Negative (Negative); Urine Blood 3+ (Negative); Urine Color Amber; Urine Glucose 1+(50 mg/dL) (Negative); Urine Ketones Negative (Negative); Urine Nitrite Negative (Negative); Urine Protein 2+(100 mg/dL) (Negative); Urine Specific Gravity 1.015 (1.010-1.030); Urine Urobilinogen Negative (Negative)
[2019-09-08 13:24] LABS: Urine Bacteria Absent (Absent); Urine Red Blood Cell 3+(>10/hpf) (Absent); Urine Squamous Epithelial Cell Present (Absent); Urine White Blood Cell 3+(>20/hpf) (Absent)
[2019-09-08] MEDS ORDERED: Enoxaparin(*) 40 MG/0.4 ML SYR SUBCUT SCH (14:00)
[2019-09-08] MEDS ORDERED: Perflutren Lipid Microsphere* 3 ML VIAL ONE (14:07)
--- NOTE | 2019-09-08 17:03 | HP ---
CRITICAL CARE ADMISSION NOTE: DATE OF ADMISSION: 09/08/19 HISTORY OF PRESENT ILLNESS: The patient is a 64-year-old female with past medical history significant for morbid obesity, COPD, with pulmonary fibrosis and chronic interstitial lung disease, who presents to the emergency department with complaints of productive cough of clear sputum and shortness of breath. In the ED, she was found to have a white count of 15 and a lactic acid of 6.8, ICU consultation is requested. Review of the remaining data shows she has hazy infiltrate throughout the left hemithorax. Additionally, she has a troponin of 0.5. She has acute kidney injury with a creatinine of 1.7 and a potassium of 5.5 and a BNP of 1000. At the bedside, she reports only the productive cough of copious clear sputum. Denies headache. Denies fever or chills. Denies not only sick contacts but contacts with anyone, and specifically offers up that she could not possibly have Coronavirus because she does not have contact with other people. She denies having had any fevers in recent days at home. She does have some mild shortness of breath. She reports she has occasionally had some mild chest pain associated with her coughing fits, but otherwise has been chest pain-free. PAST MEDICAL HISTORY: Significant for COPD, chronic interstitial lung disease, morbid obesity, hypothyroidism, probable obesity hypoventilation syndrome, sleep apnea, irritable bowel syndrome. She had a pulmonary embolism in 2006. She is maintained on Coumadin for a year at that time. She has a history of restless leg syndrome, depression, esophageal diverticulum. 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 MEDICATIONS: Her medications on admission include: 1. Ipratropium albuterol. 2. Senna. 3. Bacitracin ointment. 4. Guaifenesin. 5. Mometasone. 6. Formoterol 200/5 MDI. 7. Lasix 20 mg daily. 8. Ibuprofen 600 as needed. 9. Clobetasol. 10. Gabapentin 300 b.i.d. 11. B12 500 tabs 1000 mcg daily. 12. Spiriva 1 puff daily. 13. Loperamide as needed. 14. Nystatin to her folds topically b.i.d. 15. Albuterol inhaler q.4 as needed. 16. Levothyroxine 100 mcg daily. ALLERGIES: Drug allergies to PENICILLIN and ERYTHROMYCIN causing mild rash, TRAMADOL with unclear reaction. FAMILY HISTORY: Remarkable for her brother dying of what she describes as fluid in the lungs at the age of 25. SOCIAL HISTORY: She is a former smoker, 3 packs per day for 10 years. ICA prior. History of DNR, though she told Dr. Israel in the ED that she was full code. She lives with her daughter. REVIEW OF SYSTEMS: She denies focal motor weakness, visual change, headache or neck stiffness. Denies hemoptysis or hematemesis. Denies nausea, vomiting, or diarrhea. Denies any pain. She reports compliance with the medical regimen. PHYSICAL EXAMINATION GENERAL: She is a well-developed, morbidly obese white female, in no acute distress. VITAL SIGNS: She has temperature of 36.5 degrees, heart rate of 82, respiratory rate of 19, saturating 96% on nasal cannula oxygen with a presentation blood pressure of 79/57, which briefly came up to 108/77, but then again fell into the 90s. HEENT: She is normocephalic, atraumatic. Pupils are equal, reactive to light. NECK: Her neck is supple, nontender without JVD. LUNGS: Her lungs reveal rales bilaterally, left worse than right. HEART: She has S1, S2. Regular. ABDOMEN: Soft, obese. Intertriginous areas are somewhat raw but not grossly infected. Bowel sounds are intact. She is nontender. EXTREMITIES: Lower extremities without edema. NEUROLOGIC: She is alert and oriented and grossly nonfocal. DIAGNOSTIC STUDIES/LAB DATA: Laboratory evaluations revealing serum sodium 138 , potassium 5.5, chloride 96, bicarb 33, BUN and creatinine 20/1.7 with a glucose of 105, lactic acid 6.8, transaminases grossly normal, bilirubins normal , troponin 0.5, BNP is 1025. White count 14.9, hemoglobin 12, platelet count 260, 88% neutrophils, no bands. EKG: Sinus rhythm, right bundle, left anterior hemiblock, not grossly acutely ischemic nor has significantly changed from prior. Chest x-ray with hazy infiltrate on the left and what seems to be an odd mediastinal contour actually suggestive of dextrocardia, though there is likely a simpler explanation. ASSESSMENT AND PLAN: This 64-year-old female presents with shortness of breath and cough of productive clear sputum. She has no fever. She has had no sick contacts. She does have leukocytosis. She has significantly elevated lactic acid initially given that she had good indices of end organ perfusion clinically. I opted not to bolus with 30 cc/kg in the setting of possible decompensated heart failure, maintained her at a low IV fluid rate. Echocardiogram has now been performed. She has been on normal saline at 75 cc an hour over the last few hours. She has received broad antibiotics, her lactate is now in the 2s. She continues to breathe comfortably. Echocardiogram official read is pending, but to my eye the LV works quite well, the RV looks large and I am sure that is chronic between obesity, hypoventilation, and obstructive sleep apnea. With that in mind, I do not have to worry about putting her into congestive heart failure with some fluid. Her blood pressure is now down again into the 80s. I will give her a couple of liters and continue to follow her. There certainly is evidence here for a mixed bag and while she is generally doing well with lactic acid falling almost to normal from 6.8 in 3 hours after only receiving a couple of 100 cc of fluid, I am inclined to continue to be careful in that direction. Certainly I do not want her respiratory status to further deteriorate. Even if it is a primary pulmonary parenchymal process rather than heart failure, it will also worsen as we put more volume into the system. We will continue on community acquired pneumonia antibiotics. We will trend her lactate, it is just above normal at this time. Once it normalizes, we will discontinue. This is now my second time seeing her, initial evaluation was when Dr. Israel called me around noon and now my second evaluation just before the time of this dictation at approximately 3 p.m. Her skin is warm and dry. She has good pulses, her lactate has fallen, her heart rate is good in the 80s, it is only her blood pressure that has gone the wrong direction but everything else is better. She has plenty of reason to have mild demand ischemia, so we will see where those troponins take us, but I have no reason to believe this is acute coronary syndrome and her EKG is stable. These all have been discussed in detail with the patient at the bedside, who voiced understanding in appreciation for the care. Her primary concern was her thirst, which again supports giving her more fluid which we will do. TIME SPENT: The aggregate time providing critical care as well as personally interpreting multiple laboratory evaluations, imaging studies, reviewing the medical records, and discussing case with other physicians has thus far exceeded 40 minutes. [id number]/[facility] #: [id number] HUMAIRA
--- NOTE | 2019-09-08 17:33 | ECHO ---
*[facility]* [place] [address] Fax #: [phone] Transthoracic Echocardiogram Patient: Lyndsay Harris : 1955 Study Date: 09/08/2019 Age: 64 Gender: F HR: 79 bpm Height: 62 in /157.5 cm BSA: 2.27 m^2 Weight: 299.4 lb /136.1 kg BMI: 54.9 kg/m^2 *Import And Export Clerk: * Lyndsay Paige [facility] *Referring Physician: * Ajay Mae *Reading Physician: * Leslie Taylor MD Indications: Congestive Heart Failure. History: Right bundle branch block. Congestive heart failure. Chronic obstructive pulmonary disease. Risk factors: Morbidly obese. Conclusions Summary: - Left ventricle: The cavity size is normal. Wall thickness is mildly increased. Systolic function is normal. The estimated ejection fraction is 55-60%. Wall motion is normal; there are no regional wall motion abnormalities. - Right ventricle: Systolic function is moderately to severely reduced. - Right atrium: The atrium is mildly to moderately dilated. - Aortic valve: The valve is probably trileaflet. The leaflets are mildly thickened and mildly calcified. There is no evidence of stenosis. - Tricuspid valve: There is mild-moderate regurgitation. - Pulmonary arteries: Systolic pressure is mildly to moderately increased. Pulmonary artery pressure may be underestimated The peak pressure during systole by Doppler is 39.0 mm Hg. - Compared with prior echocardiogram of 04/29/19, LVEF is stable, right ventricle function has decreased further, previously mildly decreased, tricuspid regurgitation is new. Study data: Transthoracic echocardiogram. Procedure: Transthoracic echocardiography was performed. Image quality was adequate. Intravenous Definity , 2 mlswas administered. Complete 2D, spectral Doppler, and color flow Doppler. Location: ICU Patient status: Inpatient. Patient room number: 11. Rhythm: Normal sinus rhythm. Findings Left ventricle: The cavity size is normal. Wall thickness is mildly increased. Systolic function is normal. The estimated ejection fraction is 55-60%. Wall motion is normal; there are no regional wall motion abnormalities. Left ventricular diastolic function parameters are normal for the patient's age. Right ventricle: The cavity size is dilated. Systolic function is moderately to severely reduced. Left atrium: The atrium is normal in size. Right atrium: The atrium is mildly to moderately dilated. Mitral valve: The Mitral valve annulus appears mildly calcified. The leaflets are normal thickness. There is no evidence of stenosis. There is no significant regurgitation. Aortic valve: The valve is probably trileaflet. The leaflets are mildly thickened and mildly calcified. There is no evidence of stenosis. There is no significant regurgitation. Tricuspid valve: The leaflets are normal thickness. There is no evidence of stenosis. There is mild-moderate regurgitation. Pulmonic valve: The leaflets are normal thickness. There is no evidence of stenosis. There is no significant regurgitation. Aorta: The aortic root appears normal. The aortic arch appears normal. Pericardium: There is no significant pericardial effusion. Pulmonary arteries: Systolic pressure is mildly to moderately increased. Pulmonary artery pressure may be underestimated Systemic veins: Inferior vena cava: The vessel is normal in size. There is (< 50%) respiratory change in the IVC dimension. Measurements Left ventricle Value Ref Aortic valve continued Value Ref SHARON, LAX 4.0 cm 3.8 - 5.2 VTI, S 17.3 cm --------- ESD, LAX 2.5 cm 2.2 - 3.5 Mean grad, S 2.0 mm Hg --------- FS, LAX 36 % 27 - 45 Peak grad, S 5.0 mm Hg --------- PW, ED, LAX 0.9 cm 0.6 - 0.9 E', lat pj, TDI (L) 6.4 cm/sec >=10.0 Mitral valve Value R ef E/e', lat pj, 9 Peak E 0.61 m/sec ---- ----- TDI Peak A 0.54 m/sec --------- E', med pj, TDI (L) 4.9 cm/sec >=7.0 Decel time 193 ms - -------- E/e', med pj, 12 Peak E/A ratio 1.1 ---- ----- TDI E', avg, TDI 5.7 cm/sec Pulmonic valve Value Ref E/e', avg, TDI 11 <=14 Peak v, S 0.81 m/sec - -------- Peak grad, S 3.0 mm Hg --------- LVOT Value Ref Peak ivan, S 0.85 m/sec Tricuspid valve Value Ref Mean grad, S 2 mm Hg TR peak v 2.6 m/sec <=2.8 Peak RV-RA grad, 27 mm Hg --------- Ventricular septum Value Ref S IVS, ED (H) 1.1 cm 0.6 - 0.9 Aortic root Value Ref Right ventricle Value Ref Root diam 3.4 cm <4.3 SHARON, LAX 3.8 cm Root max 1.5 cm/m^2 1.4 - 2.2 SHARON minor ax, A4C (H) 3.6 cm 1.9 - 3.5 diam/bsa, ED mid Pressure, S 42 mm Hg Ascending aorta Value Ref AAo AP diam, S 3.0 cm --------- Left atrium Value Ref AAo AP diam/bsa, 1.3 cm/m^2 --------- AP dim, ES 3.00 cm 2.70 - S 3.80 ML dim, A4C 3.8 cm Aortic arch Value Ref SI dim, A4C 5.6 cm Arch diam 3.0 cm --------- Vol/bsa, ES, A/L 22 ml/m^2 16 - 34 Decending aorta Value Ref Right atrium Value Ref Mac peak ivan 0.69 m/sec --------- SI dim, ES (H) 5.6 cm 3.4 - 5.3 ML dim, ES, A4C 4.3 cm 2.6 - 4.4 Pulmonary artery Value Ref Estimated RAP 15 mm Hg Pressure, S 39.0 mm Hg --------- Aortic valve Value Ref Inferior vena cava Value Ref Pj diam, ED 2.0 cm Diam 1.9 cm --------- Peak v, S 1.08 m/sec Legend: (L) and (H) pau values outside specified reference range. Prepared and electronically signed by Leslie Taylor MD 09/08/2019 17:32
[2019-09-08 22:59] LABS: Troponin I 1.69 ng/mL (<0.03)
[2019-09-08] MEDS ORDERED: Heparin DRIP 25,000 UNITS(*) 25,000 UNITS/500 ML BAG IV SCH (23:45)
[2019-09-09] MEDS ORDERED: Heparin VIAL(*) 5000 UNITS/ML VIAL (FIVE THOUSAND) IV PRN (00:20)
[2019-09-09 03:46] LABS: Troponin I 2.13 ng/mL (<0.03)
[2019-09-09 06:37] LABS: Albumin 2.3 g/dL (3.2-5.2); Albumin/Globulin Ratio 0.3 (1-3); BUN/Creatinine Ratio 16.9 (8-20); Calcium 8.1 mg/dL (8.6-10.3); EGFR Non-African American 32.2 (>60); Globulin 6.6 g/dL (2-4); Phosphorus 6.4 mg/dL (2.5-5.0); Potassium 4.9 mmol/L (3.5-5.0); Total Bilirubin 0.5 mg/dL (0.2-1.0); Total Protein 8.9 g/dL (6.4-8.9)
[2019-09-09 08:02] LABS: ABS Eosinophils 0.1 10^3/ul (0-0.6); ABS Monocytes 1.3 10^3/ul (0-0.8); ABS Neutrophils 9.7 10^3/ul (1.5-7.7); ABS Nucleated RBC 0.2 10^3/ul; Eosinophil % 0.9 %; Hematocrit 41 % (35-47); Hemoglobin 11.8 g/dL (12.0-16.0); Lymphocyte % 15.1 %; Mean Corpuscular HGB Conc 29 g/dL (31-36); Mean Corpuscular Hemoglobin 31 pg (27-31); Mean Corpuscular Volume 105 fL (80-97); Mean Platelet Volume 8.1 fL (7.4-10.4); Nucleated Red Blood Cells % 1.7; Platelet Count 178 10^3/uL (150-450); Red Blood Count 3.84 10^6 /uL (3.70-4.87); Red Cell Distribution Width 20 % (10-15); White Blood Count 13.1 10^3/uL (3.5-10.8)
[2019-09-09] MEDS ORDERED: Calcium Gluconate INJ* 2 GM in NS 0.9% 100 ML* 100 ML IV ONE (09:07)
[2019-09-09] MEDS ORDERED: Albuterol HFA INHALER* 8 gm MDI INH PRN (09:07)
[2019-09-09] MEDS ORDERED: GuaiFENesin DM 100 mg/10 mg in 5 ML UDC PO PRN (09:09)
[2019-09-09] MEDS ORDERED: Loperamide CAP* 2 MG PO PRN (09:09)
[2019-09-09] MEDS ORDERED: Bacitracin OINTMENT* 0.5% 0.5 oz TUBE TOPICAL SCH (09:30)
[2019-09-09] MEDS ORDERED: Albuterol/Ipratropium NEB.SOL* Albuterol 2.5 MG/Ipratropium 0.5 MG 3 ML INH SCH (10:00)
[2019-09-09] MEDS: Nystatin TOP POWDER* 15 GM BTL TOPICAL SCH ×2 (11:19→20:03)
[2019-09-09] MEDS: Levothyroxine TAB* 100 MCG TAB PO SCH (11:22)
--- NOTE | 2019-09-09 11:22 | PN ---
Date of Service: 09/09/19 Critical Care Services: Steady improvement Vital Signs: Temp Pulse Resp BP SpO2 FiO2 37.2 C 72 15 109/57 96 09/09/19 09:02 09/09/19 09:00 09/09/19 09:00 09/09/19 09:00 09/09/19 09:00 Physical Exam: Gen: NAD laying flat HEENT: NCAT, PERRL Lungs: rales bilateraly Cardiac: S1S2 regular Abdomen: obese, NT Extremities: trace edema Neuro: grossly intact Fluid Balance (Past 24 Hours): I= O= Net Intake & Output 09/07/19 09/08/19 09/09/19 09/10/19 06:59 06:59 06:59 06:59 Intake Total 2960 Output Total 505 150 Balance 2455 -150 Weight 134.1 kg Intake: IV Fluids 1000 NS (0.9%) 1000 IVPB 1000 NS (0.9%) 1000 Oral 960 Output: Taylor 505 150 Other: Date of Last Bowel 09/08/2019 Movement # Bowel Movements 1 Estimated Stool Amount Small Labs: Laboratory Results - last 24 hr 09/08/19 09/08/19 09/08/19 10:15 12:25 12:43 WBC RBC Hgb Hct MCV MCH MCHC RDW Plt Count MPV Neut % (Auto) Lymph % (Auto) Republic % (Auto) Eos % (Auto) Baso % (Auto) Absolute Neuts (auto) Absolute Lymphs (auto) Absolute Monos (auto) Absolute Eos (auto) Absolute Basos (auto) Absolute Nucleated RBC Nucleated RBC % APTT Sodium Potassium Chloride Carbon Dioxide Anion Gap BUN Creatinine Est GFR ( Amer) Est GFR (Non-Af Amer) BUN/Creatinine Ratio Glucose Lactic Acid 2.5 H* Calcium Ionized Calcium Phosphorus Magnesium Total Bilirubin AST ALT Alkaline Phosphatase Troponin I B-Natriuretic Peptide 1025 H Total Protein Albumin Globulin Albumin/Globulin Ratio Urine Color Anna Marie Urine Appearance Turbid Urine pH 5.0 Ur Specific [place] 1.015 Urine Protein 2+(100 mg/dl) A Urine Ketones Negative Urine Blood 3+ A Urine Nitrate Negative Urine Bilirubin Negative Urine Urobilinogen Negative Ur Leukocyte Esterase 2+ A Urine WBC (Auto) 3+(>20/hpf) A Urine RBC (Auto) 3+(>10/hpf) A Ur Squamous Epith Cells Present A Urine Bacteria Absent Hyaline Casts Present A Urine Glucose 1+(50 mg/dl) A 09/08/19 09/08/19 09/08/19 12:43 22:25 22:25 WBC RBC Hgb Hct MCV MCH MCHC RDW Plt Count MPV Neut % (Auto) Lymph % (Auto) Republic % (Auto) Eos % (Auto) Baso % (Auto) Absolute Neuts (auto) Absolute Lymphs (auto) Absolute Monos (auto) Absolute Eos (auto) Absolute Basos (auto) Absolute Nucleated RBC Nucleated RBC % APTT Sodium Potassium Chloride Carbon Dioxide Anion Gap BUN Creatinine Est GFR ( Amer) Est GFR (Non-Af Amer) BUN/Creatinine Ratio Glucose Lactic Acid 2.5 H* Calcium Ionized Calcium Phosphorus Magnesium Total Bilirubin AST ALT Alkaline Phosphatase Troponin I 0.71 H* 1.69 H* B-Natriuretic Peptide Total Protein Albumin Globulin Albumin/Globulin Ratio Urine Color Urine Appearance Urine pH Ur Specific [place] Urine Protein Urine Ketones Urine Blood Urine Nitrate Urine Bilirubin Urine Urobilinogen Ur Leukocyte Esterase Urine WBC (Auto) Urine RBC (Auto) Ur Squamous Epith Cells Urine Bacteria Hyaline Casts Urine Glucose 09/09/19 09/09/19 09/09/19 03:00 06:00 06:00 WBC RBC Hgb Hct MCV MCH MCHC RDW Plt Count MPV Neut % (Auto) Lymph % (Auto) Republic % (Auto) Eos % (Auto) Baso % (Auto) Absolute Neuts (auto) Absolute Lymphs (auto) Absolute Monos (auto) Absolute Eos (auto) Absolute Basos (auto) Absolute Nucleated RBC Nucleated RBC % APTT Sodium 137 Potassium 4.9 Chloride 99 L Carbon Dioxide 37 H Anion Gap 1 L BUN 27 H Creatinine 1.60 H Est GFR ( Amer) 39.0 Est GFR (Non-Af Amer) 32.2 BUN/Creatinine Ratio 16.9 Glucose 113 H Lactic Acid Calcium 8.1 L Ionized Calcium 1.00 L Phosphorus 6.4 H Magnesium 2.0 Total Bilirubin 0.50 AST 51 H ALT 18 Alkaline Phosphatase 72 Troponin I 2.13 H* B-Natriuretic Peptide Total Protein 8.9 Albumin 2.3 L Globulin 6.6 H Albumin/Globulin Ratio 0.3 L Urine Color Urine Appearance Urine pH Ur Specific [place] Urine Protein Urine Ketones Urine Blood Urine Nitrate Urine Bilirubin Urine Urobilinogen Ur Leukocyte Esterase Urine WBC (Auto) Urine RBC (Auto) Ur Squamous Epith Cells Urine Bacteria Hyaline Casts Urine Glucose 09/09/19 09/09/19 09/09/19 06:16 06:16 08:25 WBC 13.1 H RBC 3.84 Hgb 11.8 L Hct 41 MCV 105 H MCH 31 MCHC 29 L RDW 20 H Plt Count 178 MPV 8.1 Neut % (Auto) 73.7 Lymph % (Auto) 15.1 Republic % (Auto) 10.0 Eos % (Auto) 0.9 Baso % (Auto) 0.3 Absolute Neuts (auto) 9.7 H Absolute Lymphs (auto) 2.0 Absolute Monos (auto) 1.3 H Absolute Eos (auto) 0.1 Absolute Basos (auto) 0.0 Absolute Nucleated RBC 0.2 Nucleated RBC % 1.7 APTT 171.7 H* Sodium Potassium Chloride Carbon Dioxide Anion Gap BUN Creatinine Est GFR ( Amer) Est GFR (Non-Af Amer) BUN/Creatinine Ratio Glucose Lactic Acid 1.2 Calcium Ionized Calcium Phosphorus Magnesium Total Bilirubin AST ALT Alkaline Phosphatase Troponin I B-Natriuretic Peptide Total Protein Albumin Globulin Albumin/Globulin Ratio Urine Color Urine Appearance Urine pH Ur Specific [place] Urine Protein Urine Ketones Urine Blood Urine Nitrate Urine Bilirubin Urine Urobilinogen Ur Leukocyte Esterase Urine WBC (Auto) Urine RBC (Auto) Ur Squamous Epith Cells Urine Bacteria Hyaline Casts Urine Glucose Studies: CXR with bilateral infiltrates consistent with pneumonia and pulmonary edema Nutrition: Taking PO Impression: Hypotension and lactic acidosis in the setting of pulmonary infiltrates but without significant hypoxia Plan: Hypotension - and lactic acidosis in the setting of pulmonary infiltrates but without significant hypoxia. Echocardiogram consistent with progressive Cor Pulmonale which is most certainly from OHS and JAUN. She is also at risk for thromboembolic disease with history of same and multiple risk factors but the most impressive part of her presentation is the absence of hypoxia even when the CXR shows diffuse infiltrates. Cor pulmonale - as above. Made some troponin which I was attributing to demand ischemia and had heparin started overnight but with no new EKG changes or anginal equivalents will not treat as ACS. Pneumonia - lactic acid has cleared, CAP Abx continue. She is and has been afebrile, WBC down from 15 to 13. Continue Abx, cultures negative thus far. COVID - pending. Extensive list of home medications restarted. Keep in ICU for now with an impressive CXR and high risk to deteriorate and still on airborne.
[2019-09-09] MEDS: SPIRIVA Respimat* (tiotropium) 2.5 mcg/inh Inhaler INH SCH (11:25)
[2019-09-09] MEDS: Mometasone/Formoter 200/5 MDI INH SCH (11:26)
[2019-09-09] MEDS: cefTRIAXone(*) 1 GM in NS 0.9% 50 ML* 50 ML IVPB SCH ×2 (11:29→14:00)
[2019-09-09] MEDS ORDERED: Buffered Lidocaine 1% SYRIN* 1 ML/SYRINGE INTRADERM ONE ×2 (14:05→14:25)
[2019-09-09] MEDS: Azithromycin 500 mg/250 ml NS 500 MG/250 ML BAG IVPB SCH (14:57)
[2019-09-09] MEDS: Senna TAB 8.6 mg* TAB PO SCH (20:00)
[2019-09-09] MEDS: Gabapentin CAP(*) 300 MG PO SCH (20:00)
[2019-09-09] MEDS: Docusate CAP* 100 MG PO SCH (20:00)
[2019-09-10] MEDS: Levothyroxine TAB* 100 MCG TAB PO SCH (05:57)
[2019-09-10] MEDS: Mometasone/Formoter 200/5 MDI INH SCH ×3 (06:15→20:29)
[2019-09-10] MEDS: Gabapentin CAP(*) 300 MG PO SCH ×2 (08:42→20:18)
[2019-09-10] MEDS: Cyanocobalamin TAB* 500 MCG PO SCH (08:42)
--- NOTE | 2019-09-10 09:01 | PN ---
Date of Service: 09/10/19 Critical Care Services: Ms. Harris is very difficult to arouse this morning. After much prodding, she does state her name and that she is in the hospital. She appears in no acute distress. Vital Signs: Temp Pulse Resp BP SpO2 FiO2 97 F 69 19 110/55 96 3 09/10/19 08:00 09/10/19 08:00 09/10/19 08:00 09/10/19 08:00 09/10/19 08:00 09/09 04:00 Physical Exam: General: No acute distress HEENT: Normocephalic, atraumatic, non-icteric sclera, moist oral mucosa Neck: soft, supple, no JVD CV: Regular rate and rhythm, no murmurs or rubs Pulm/Chest: Difficult to auscultate due to body habitus, good bilateral air entry, no rhonchi or rales, no wheeze Abdomen/GI: soft, nontender, nondistended, +BS noted MSK/Skin: warm, dry, intact, +2 pulses+, no edema or cyanosis Neuro: Lethargic. difficult to arouse, once aroused is oriented to self and place, not following commands Psych: Lethargic Fluid Balance (Past 24 Hours): I= 4258 O= 1397 Net = + 2861 Intake & Output 09/08/19 09/09/19 09/10/19 09/11/19 06:59 06:59 06:59 06:59 Intake Total 2960 1298 Output Total 505 892 42 Balance 2455 406 -42 Weight 295 lb 10.238 oz 299 lb 13.259 oz Intake: IV Fluids 1000 NS (0.9%) 1000 IVPB 1000 175 NS (0.9%) 1000 azithromycin 0 calcium gluconate 120 ceftrioxone 55 Medicated IV 283 Heparin 283 Oral 960 840 Output: Taylor 505 892 42 Other: Date of Last Bowel 09/08/2019 Movement # Bowel Movements 1 Estimated Stool Amount Small Labs: Laboratory Results - last 24 hr 09/09/19 08:25 APTT 171.7 H* Studies: Chest xray 09/08/19: IMPRESSION: CARDIOMEGALY WITH PULMONARY INTERSTITIAL EDEMA Transthoracic echo 09/08/19: Summary: Left ventricle: The cavity size is normal. Wall thickness is mildly increased. Systolic function is normal. The estimated ejection fraction is 55-60%. Wall motion is normal; there are no regional wall motion abnormalities. Right ventricle: Systolic function is moderately to severely reduced. Right atrium: The atrium is mildly to moderately dilated. Aortic valve: The valve is probably trileaflet. The leaflets are mildly thickened and mildly calcified. There is no evidence of stenosis. Tricuspid valve: There is mild-moderate regurgitation. Pulmonary arteries: Systolic pressure is mildly to moderately increased. Pulmonary artery pressure may be underestimated The peak pressure during systole by Doppler is 39.0 mm Hg. Compared with prior echocardiogram of 04/29/19, LVEF is stable right ventricle function has decreased further, previously mildly decreased, tricuspid regurgitation is new. Chest xray 09/09/19: IMPRESSION:The radiographic appearance is most concerning for bronchopneumonia. Chest xray 09/10/19: IMPRESSION: 1. CARDIOMEGALY. 2. PULMONARY INTERSTITIAL EDEMA. 3. PATCHY AIRSPACE DISEASE OF THE LUNG BASES BILATERALLY. Impression: Ms. Harris is a 64 yo F with a PMH of obesity hypoventilation, JUAN, COPD, chronic interstitial lung disease, and pulmonary embolism (2006) who was admitted on 09/08/19 with concern for SOB with suspected pneumonia with sepsis ( RULE OUT COVID-19) and acute on chronic diastolic CHF. Diagnoses: * Pneumonia with sepsis, rule out covid-19 * Acute on chronic diastolic CHF * NSTEMI (demand ischemia) * Acute kidney injury (resolved) * Hypotension (resolved) * Lactic acidosis (resolved) * Obesity hypoventilation syndrome * COPD, no evidence of exacerbation * Chronic interstitial lung disease * JUAN Plan: Neuro: - Lethargic, suspect due to CO2 retention, CPAP ordered - Oriented to self and place CVS: - Trop rising but no ischemic EKG changes or anginal equivalents, no evidence of ACS, suspect demand ischemia - Echocardiogram consistent with progressive cor pulmonale from obesity hypoventilation syndrome and JUAN - Fluid status remains positive, plan for lasix x 1 now - SBP 110s, had been hypotensive Resp: - O2 requirement decreased from 5L to 3L - Lactic acidosis resolved, afebrile - Chest xray today shows persistent patchy infiltrates and pulmonary edema - Continue to treat pneumonia and CHF - Chronic comorbidities of COPD, interstitial lung disease, obesity and JUAN ID: - Patchy infiltrates on chest xray - RULE OUT COVID-19, pending - Blood cultures negative thus far - Continue ceftriaxone and azithromycin GI: - Nutrition: consistent carb diet - No active issues Renal: - KATHERINE on arrival - Creatinine slightly improved 1.7 -> 1.6 - Monitor with diuresis for CHF Heme: - Continue vit B12 - No active issues Endo: - No hx of DM Musculsk/Skin: - Pressure ulcer prophylaxis. - PT/OT ordered Wounds: - none DVT prophylaxis: SCDs Taylor Catheter: continue for close monitoring of I/Os with CHF exacerbation Disposition: Patient stabilized Patient clinical status: Improved, stabilized Code Status: Full Code Total Critical Care time is 40 minutes, excluding procedures/teaching
[2019-09-10] MEDS ORDERED: Furosemide IV* 10 MG/ML 2 ML VIAL (20 MG) IV ONE (10:31)
[2019-09-10] MEDS: SPIRIVA Respimat* (tiotropium) 2.5 mcg/inh Inhaler INH SCH (11:15)
[2019-09-10] MEDS: cefTRIAXone(*) 1 GM in NS 0.9% 50 ML* 50 ML IVPB SCH (12:18)
[2019-09-10] MEDS: Nystatin TOP POWDER* 15 GM BTL TOPICAL SCH ×2 (12:19→20:19)
[2019-09-10] MEDS: Azithromycin 500 mg/250 ml NS 500 MG/250 ML BAG IVPB SCH (13:27)
[2019-09-10 20:16] LABS: Urine Appearance Turbid; Urine Bilirubin Negative (Negative); Urine Blood 2+ (Negative); Urine Color Yellow; Urine Glucose Negative (Negative); Urine Ketones Negative (Negative); Urine Nitrite Negative (Negative); Urine Protein Negative (Negative); Urine Specific Gravity 1.008 (1.010-1.030); Urine Urobilinogen Negative (Negative)
[2019-09-10] MEDS: Docusate CAP* 100 MG PO SCH (20:18)
[2019-09-10] MEDS: Senna TAB 8.6 mg* TAB PO SCH (20:18)
[2019-09-10 20:30] LABS: Urine Bacteria 1+ (Absent); Urine Granular Casts Present (Absent); Urine Red Blood Cell 2+(6-10/hpf) (Absent); Urine White Blood Cell 3+(>20/hpf) (Absent)
[2019-09-11] MEDS: Levothyroxine TAB* 100 MCG TAB PO SCH (06:12)
[2019-09-11 06:39] LABS: ABS Eosinophils 0.2 10^3/ul (0-0.6); ABS Lymphocytes 0.9 10^3/ul (1.0-4.8); ABS Monocytes 0.5 10^3/ul (0-0.8); ABS Neutrophils 7.1 10^3/ul (1.5-7.7); ABS Nucleated RBC 0.1 10^3/ul; Eosinophil % 2.4 %; Hematocrit 30 % (35-47); Hemoglobin 9.7 g/dL (12.0-16.0); Lymphocyte % 10.4 %; Mean Corpuscular HGB Conc 33 g/dL (31-36); Mean Corpuscular Hemoglobin 32 pg (27-31); Mean Corpuscular Volume 97 fL (80-97); Mean Platelet Volume 8.4 fL (7.4-10.4); Nucleated Red Blood Cells % 0.5; Platelet Count 167 10^3/uL (150-450); Red Blood Count 3.06 10^6 /uL (3.70-4.87); Red Cell Distribution Width 18 % (10-15); White Blood Count 8.7 10^3/uL (3.5-10.8)
[2019-09-11 06:56] LABS: BUN/Creatinine Ratio 25.6 (8-20); C Reactive Protein 50.24 mg/L (<8.01); Calcium 8.1 mg/dL (8.6-10.3); EGFR African American 48.3 (>60); EGFR Non-African American 39.9 (>60); Potassium 4.6 mmol/L (3.5-5.0)
[2019-09-11 07:03] LABS: Troponin I 0.78 ng/mL (<0.03)
[2019-09-11] MEDS: SPIRIVA Respimat* (tiotropium) 2.5 mcg/inh Inhaler INH SCH (08:08)
[2019-09-11] MEDS: Mometasone/Formoter 200/5 MDI INH SCH ×2 (08:08→20:19)
[2019-09-11] MEDS: Gabapentin CAP(*) 300 MG PO SCH ×3 (09:15→20:25)
[2019-09-11] MEDS: Cyanocobalamin TAB* 500 MCG PO SCH ×2 (09:16→09:57)
[2019-09-11] MEDS: Nystatin TOP POWDER* 15 GM BTL TOPICAL SCH (09:19)
[2019-09-11] MEDS: Azithromycin 500 mg/250 ml NS 500 MG/250 ML BAG IVPB SCH (12:34)
--- NOTE | 2019-09-11 13:36 | PN ---
Subjective Date of Service: 09/11/19 Interval History: Ms. Harris states that she feels at her baseline except that her arms feel weak. She denies chest pain, SOB, nausea, or abdominal pain. Objective Active Medications: Albuterol (Ventolin Hfa Inhaler*) 2 puff INH Q4H PRN Bacitracin (Bacitracin Ointment*) 1 applic TOPICAL . DIRECTED [facility] Cyanocobalamin (Vitamin B12 Tab*) 1,000 mcg PO DAILY DIMITRIOS Docusate Sodium (Colace Cap*) 100 mg PO BEDTIME DIMITRIOS Gabapentin (Neurontin Cap(*)) 300 mg PO BID DIMITRIOS Guaifenesin/Dextromethorphan (Robitussin Dm 100 Mg/10 Mg In 5 Ml) 10 ml PO Q4H PRN Heparin Sodium (Porcine) (Heparin Flush Picc/Ml/Cvc(*)) 1 - 3 ml FLUSH 0600, 1800 [facility]; Protocol Azithromycin (Zithromax 500 Mg/250 Ml) 500 mg in 250 mls @ 250 mls/hr IVPB Q24H DIMITRIOS Ceftriaxone Sodium 1 gm/ (Sodium Chloride) 50 mls @ 200 mls/hr IVPB Q24H DIMITRIOS Levothyroxine Sodium (Synthroid Tab*) 100 mcg PO 0600 DIMITRIOS Loperamide HCl (Imodium Cap*) 2 mg PO DAILY PRN Mometasone Furoate/Formoterol Fumar (Dulera 200/5 Mdi*) 2 puff INH BID DIMITRIOS Nystatin (Nystatin Top Powder*) 1 applic TOPICAL BID DIMITRIOS Senna (Senokot 8.6 Mg Tab*) 1 tab PO BEDTIME DIMITRIOS Tiotropium [place] (Spiriva Respimat 2.5 Mcg) 1 puff INH DAILY [facility] Vital Signs: Temp Pulse Resp BP Pulse Ox 98.2 F 74 20 108/80 91 09/11/19 07:45 09/11/19 08:09 09/11/19 11:39 09/11/19 07:45 09/11/19 08:09 Oxygen Devices in Use Now: Nasal Cannula Appearance: Female lying in bed in NAD Eyes: No Scleral Icterus Ears/Nose/Mouth/Throat: Mucous Membranes Moist Neck: Trachea Midline Respiratory: Symmetrical Chest Expansion and Respiratory Effort, Clear to Auscultation, - - Diminished due to body habitus Cardiovascular: NL Sounds; No Murmurs; No JVD, No Edema Abdominal: NL Sounds; No Tenderness; No Distention Extremities: No Edema Skin: No Rash or Ulcers Neurological: Alert and Oriented x 3, - - Generalized weakness Nutrition: Taking PO's Result Diagrams: 09/11/19 05:57 09/11/19 05:57 Additional Lab and Data: . Microbiology and Other Data: . Assess/Plan/Problems-Billing Assessment: Ms. Harris is a 64 yo F with a PMH of COPD, obesity hypoventilation syndrome, JUAN (noncompliant with cpap at home), morbid obesity, chronic interstitial lung disease, chronic diastolic CHF who was admitted on 09/08/19 with concern for worsening SOB with acute on chronic hypoxic respiratory failure due to suspected acute on chronic diastolic CHF and probable pneumonia. - Patient Problems (1) Cor pulmonale Comment: - Hypoxia improved with diuresis and tx for suspected pneumonia - Decreased RV function and new tricuspid regurg on echo,worsened from previous 04/29/19 - Leading to acute on chronic CHF - Relatively hypotensive, plan to resume home dose lasix only (2) Pneumonia Comment: - Presented with SOB, cough - Concern for pneumonia via cxray, likely with pulmonary edema - Continue ceftriaxone and azithromycin - COVID-19 negative (3) Acute and chronic respiratory failure with hypoxia Comment: - Down to baseline - 3L - Acute exacerbation secondary to pneumonia and CHF - Patient would benefit from cpap but has refused to wear inpatient - Plan in May 2019 had been for non-invasive ventilator at home, patient's daughter states that she has been wearing cpap only at home (has to be strongly encouraged) - Had been on hospice in 2018, was moved off hospice last year (4) Generalized weakness Comment: - Acute on chronic - Does not get out of bed at baseline - Patient's daughter states that she has behavioral issues and requires strong encouragement to continue to engage in her own care - Patient provides 24 hour care with support of aides for several hours in the home - Daughter hopes for home PT at discharge (5) COPD (chronic obstructive pulmonary disease) Comment: - No signs of acute exacerbation at this time. - Continue inhalers (6) Chronic interstitial lung disease Comment: - Noted - Oxygen to maintain sat >90% (baseline 2L) - Aim for low 90s due to risk for CO2 retention. (7) Sleep apnea Comment: - Has been non-compliant with CPAP/bipap (8) Anemia Current Visit: No Status: Acute Code(s): D64.9 - ANEMIA, UNSPECIFIED SNOMED Code(s): 118983925 Comment: - Acute on chronic anemia - Hx of iron deficiency anemia - Stool occult pending (9) KATHERINE (acute kidney injury) Comment: - Resolving with gentle diuresis - Monitor (10) Elevated troponin Comment: - Peaked at 2.13 - NSTEMI related to demand ischemia - No significant EKG changes, denies chest pain or anginal equivalent (11) Skin breakdown Current Visit: No Status: Acute Code(s): L90.9 - ATROPHIC DISORDER OF SKIN, UNSPECIFIED SNOMED Code(s): 189255648 Comment: Due to or exacerbated by urinary incontinence. Pt requires 2-3 people to transfer her in a Jose E, 3 people to turn her in bed. Taylor ordered as I don't think that in practice her skin will heal without it. (12) Hypothyroidism Current Visit: No Comment: - Continue levothyroxine (13) DVT prophylaxis Comment: - Lovenox (14) Full code status Comment: Status and Disposition: Inpatient, anticipate discharge to home when medically stable.
[2019-09-11] MEDS: cefTRIAXone(*) 1 GM in NS 0.9% 50 ML* 50 ML IVPB SCH (14:02)
[2019-09-11] MEDS: Senna TAB 8.6 mg* TAB PO SCH (20:27)
[2019-09-11] MEDS: Docusate CAP* 100 MG PO SCH (20:28)
[2019-09-12] MEDS: Nystatin TOP POWDER* 15 GM BTL TOPICAL SCH ×3 (00:16→20:15)
[2019-09-12] MEDS: Acetaminophen TAB* 325 MG PO PRN ×2 (01:52→20:15)
[2019-09-12 06:01] LABS: ABS Eosinophils 0.2 10^3/ul (0-0.6); ABS Lymphocytes 1.2 10^3/ul (1.0-4.8); ABS Monocytes 0.7 10^3/ul (0-0.8); ABS Neutrophils 6.6 10^3/ul (1.5-7.7); Eosinophil % 2.7 %; Hematocrit 30 % (35-47); Hemoglobin 9.4 g/dL (12.0-16.0); Lymphocyte % 13.6 %; Mean Corpuscular HGB Conc 32 g/dL (31-36); Mean Corpuscular Hemoglobin 31 pg (27-31); Mean Corpuscular Volume 96 fL (80-97); Mean Platelet Volume 8.1 fL (7.4-10.4); Nucleated Red Blood Cells % 0.1; Platelet Count 169 10^3/uL (150-450); Red Blood Count 3.07 10^6 /uL (3.70-4.87); Red Cell Distribution Width 18 % (10-15); White Blood Count 8.8 10^3/uL (3.5-10.8)
[2019-09-12] MEDS: Levothyroxine TAB* 100 MCG TAB PO SCH (06:13)
[2019-09-12 06:18] LABS: BUN/Creatinine Ratio 28.1 (8-20); Blood Urea Nitrogen 32 mg/dL (6-24); CO2 Carbon Dioxide 38 mmol/L (22-32); Calcium 8.4 mg/dL (8.6-10.3); Chloride 97 mmol/L (101-111); EGFR African American 57.7 (>60); EGFR Non-African American 47.7 (>60); Glucose 89 mg/dL (70-100); Potassium 4.6 mmol/L (3.5-5.0); Sodium 135 mmol/L (135-145)
[2019-09-12] MEDS: SPIRIVA Respimat* (tiotropium) 2.5 mcg/inh Inhaler INH SCH (07:33)
[2019-09-12] MEDS: Mometasone/Formoter 200/5 MDI INH SCH ×2 (07:34→21:07)
[2019-09-12] MEDS: Cyanocobalamin TAB* 500 MCG PO SCH (09:11)
[2019-09-12] MEDS: Gabapentin CAP(*) 300 MG PO SCH ×2 (09:12→20:14)
[2019-09-12] MEDS: Furosemide TAB* 20 MG PO SCH (09:13)
--- NOTE | 2019-09-12 10:57 | PN ---
Subjective Date of Service: 09/12/19 Interval History: Ms. Harris states that she is feeling better and is near her baseline. She feels that her breathing is better. She has no chest pain. She has no nausea, vomiting, or abdominal pain. Objective Active Medications: Acetaminophen (Tylenol Tab*) 650 mg PO Q6H PRN Albuterol (Ventolin Hfa Inhaler*) 2 puff INH Q4H PRN Bacitracin (Bacitracin Ointment*) 1 applic TOPICAL . DIRECTED DIMITRIOS Cyanocobalamin (Vitamin B12 Tab*) 1,000 mcg PO DAILY DIMITRIOS Docusate Sodium (Colace Cap*) 100 mg PO BEDTIME DIMITRIOS Furosemide (Lasix Tab*) 20 mg PO DAILY DIMITRIOS Gabapentin (Neurontin Cap(*)) 300 mg PO BID DIMITRIOS Guaifenesin/Dextromethorphan (Robitussin Dm 100 Mg/10 Mg In 5 Ml) 10 ml PO Q4H PRN Heparin Sodium (Porcine) (Heparin Flush Picc/Ml/Cvc(*)) 1 - 3 ml FLUSH 0600, 1800 DIMITRIOS; Protocol Azithromycin (Zithromax 500 Mg/250 Ml) 500 mg in 250 mls @ 250 mls/hr IVPB Q24H DIMITRIOS Ceftriaxone Sodium 1 gm/ (Sodium Chloride) 50 mls @ 200 mls/hr IVPB Q24H DIMITRIOS Levothyroxine Sodium (Synthroid Tab*) 100 mcg PO 0600 DIMITRIOS Loperamide HCl (Imodium Cap*) 2 mg PO DAILY PRN Mometasone Furoate/Formoterol Fumar (Dulera 200/5 Mdi*) 2 puff INH BID DIMITRIOS Nystatin (Nystatin Top Powder*) 1 applic TOPICAL BID DIMITRIOS Senna (Senokot 8.6 Mg Tab*) 1 tab PO BEDTIME DIMITRIOS Tiotropium [place] (Spiriva Respimat 2.5 Mcg) 1 puff INH DAILY [facility] Vital Signs: Temp Pulse Resp BP Pulse Ox 98.3 F 73 18 116/66 95 09/12/19 07:35 09/12/19 07:35 09/12/19 09:12 09/12/19 07:35 09/12/19 07:35 Oxygen Devices in Use Now: Nasal Cannula Appearance: Female lying in bed in NAD Eyes: No Scleral Icterus Ears/Nose/Mouth/Throat: Mucous Membranes Moist Neck: Trachea Midline Respiratory: Symmetrical Chest Expansion and Respiratory Effort, Clear to Auscultation Cardiovascular: NL Sounds; No Murmurs; No JVD, - - chronic lower extremity edema Abdominal: NL Sounds; No Tenderness; No Distention Skin: No Rash or Ulcers Neurological: Alert and Oriented x 3, NL Muscle Strength and Tone Nutrition: Taking PO's Result Diagrams: 09/12/19 05:38 09/12/19 05:38 Additional Lab and Data: . Microbiology and Other Data: . Assess/Plan/Problems-Billing Assessment: Ms. Harris is a 64 yo F with a PMH of COPD, obesity hypoventilation syndrome, JUAN (noncompliant with cpap at home), morbid obesity, chronic interstitial lung disease, chronic diastolic CHF who was admitted on 09/08/19 with concern for worsening SOB with acute on chronic hypoxic respiratory failure due to suspected acute on chronic diastolic CHF and probable pneumonia. - Patient Problems (1) Cor pulmonale Comment: - Hypoxia improved with diuresis and tx for suspected pneumonia - Decreased RV function and new tricuspid regurg on echo,worsened from previous 04/29/19, leading to acute on chronic CHF - Relatively hypotensive intermittently, plan to resume home dose lasix only (2) Pneumonia Comment: - Presented with SOB, cough - Concern for pneumonia via cxray, likely with pulmonary edema - Continue ceftriaxone and azithromycin (Day 4/5) - COVID-19 negative (3) Acute and chronic respiratory failure with hypoxia Comment: - Down to baseline - 3L - Acute exacerbation secondary to pneumonia and CHF - Patient would benefit from cpap but has refused to wear inpatient - Plan in May 2019 had been for non-invasive ventilator at home, patient's daughter states that she has been wearing cpap only at home (has to be strongly encouraged) - Had been on hospice in 2018, was moved off hospice last year (4) Generalized weakness Comment: - Acute on chronic - Does not get out of bed at baseline - Patient's daughter states that she has behavioral issues and requires strong encouragement to continue to engage in her own care - Patient provides 24 hour care with support of aides for several hours in the home - Daughter hopes for home PT at discharge (5) COPD (chronic obstructive pulmonary disease) Comment: - No signs of acute exacerbation at this time. - Continue inhalers (6) Chronic interstitial lung disease Comment: - Noted - Oxygen to maintain sat >90% (baseline 2L) - Aim for low 90s due to risk for CO2 retention. (7) Sleep apnea Comment: - Has been non-compliant with CPAP/bipap (8) Anemia Comment: - Acute on chronic, anemia since 2017 at least - Hx of iron deficiency anemia - Stool occult pending (9) KATHERINE (acute kidney injury) Comment: - Resolving with gentle diuresis - Monitor (10) Elevated troponin Comment: - Peaked at 2.13 - NSTEMI related to demand ischemia - No significant EKG changes, denies chest pain or anginal equivalent (11) Hypothyroidism Comment: - Continue levothyroxine (12) DVT prophylaxis Comment: - Lovenox (13) Full code status Comment: Status and Disposition: Inpatient, plan for discharge in AM if she remains stable
[2019-09-12] MEDS: cefTRIAXone(*) 1 GM in NS 0.9% 50 ML* 50 ML IVPB SCH (12:55)
[2019-09-12] MEDS: Azithromycin 500 mg/250 ml NS 500 MG/250 ML BAG IVPB SCH (13:20)
--- NOTE | 2019-09-12 19:18 | DS ---
CC: Dr. Payton * [facility] MEDICINE DISCHARGE SUMMARY: DATE OF ADMISSION: 09/08/19 DATE OF ANTICIPATED DISCHARGE: 09/13/19 PRIMARY CARE PHYSICIAN: Dr. Payton. ATTENDING PHYSICIAN: Dr. Kina Barros * (dictation provided by Robbie Saavedra NP ). PRIMARY DIAGNOSES: 1. Acute on chronic hypoxic respiratory failure (now resolved). 2. Acute on chronic diastolic congestive heart failure exacerbation (now resolved). 3. Probable pneumonia (status post 5 days of antibiotics). 4. Lactic acidosis. 5. Sepsis. 6. Pgx-MT-limufymhc myocardial infarction (demand ischemia). 7. Acute kidney injury (resolving). 8. Negative COVID-19 testing. SECONDARY DIAGNOSES: 1. End-stage chronic obstructive pulmonary disease, on 2 L nasal cannula, with chronic hypoxic/hypercapnic respiratory failure. 2. Interstitial lung disease. 3. Morbid obesity. 4. Obesity hypoventilation syndrome. 5. Hypothyroidism. 6. Sleep apnea. 7. Irritable bowel syndrome. 8. History of pulmonary embolism in 2006. 9. History of restless legs syndrome. 10. Depression. 11. Esophageal diverticulum. 12. History of methicillin-resistant Staphylococcus aureus positive status. 13. Degenerative disk disease. 14. Osteoarthritis. 15. Anxiety. 16. Insomnia. MEDICATIONS AT THE TIME OF DISCHARGE: 1. Nystatin 1 application topically b.i.d. 2. Loperamide 2 mg p.o. daily p.r.n. 3. Levothyroxine 100 mcg p.o. daily. 4. Tiotropium 1 puff inhaled daily. 5. Ipratropium/albuterol 3 mL inhaled 2 to 4 times daily. 6. Cyanocobalamin 1000 mcg p.o. daily. 7. Guaifenesin DM 10 mL p.o. q.4 hours p.r.n. 8. Gabapentin 300 mg p.o. b.i.d. 9. Bacitracin ointment 1 application topically as directed. 10. [place] cream as directed. 11. Albuterol 1 to 2 puffs via metered-dose inhaler p.r.n. 12. Menthol topical cream b.i.d. 13. Ibuprofen 600 mg p.o. b.i.d. p.r.n. 14. Clobetasol emollient 1 application topically b.i.d. 15. Sennosides/docusate 1 tab p.o. at bedtime. 16. Dulera 200/5 metered-dose inhaler 2 puffs inhaled b.i.d. 17. Furosemide 20 mg p.o. daily. HOSPITAL COURSE: Ms. Harris is a 64-year-old female with multiple chronic medical conditions including end-stage COPD, chronic interstitial lung disease, obesity hypoventilation syndrome, obstructive sleep apnea, who presented to the hospital on 09/08/19 with concern for productive cough and shortness of breath. In the emergency room, she had a white blood cell count of 15, lactic acid of 6.8, and she had a hazy infiltrate in the left hemithorax. She had troponin of 0.5. She had acute kidney injury with a creatinine of 1.7, a potassium of 5.5, and a BNP of 1000. She was admitted to the intensive care unit. Ms. Harris was treated initially with broad-spectrum antibiotics, which were transitioned over to ceftriaxone and azithromycin and has received 5 days of antibiotics for suspected pneumonia based on her symptoms and positive chest x- ray. It was also suspected that she likely had a component of acute on chronic diastolic congestive heart failure and was treated gently with Lasix due to relative hypotension intermittently while inpatient. With this, she is back to her baseline status. She is not mobile and requires 24-hour assistance from her daughter and aides at home. She is back on her 3 L nasal cannula. She states that her breathing feels that it is at baseline. Her laboratory derangements noted on admission have improved or resolved. Her BUN and creatinine are back down to 32 and 1.14 respectively. She had a peak of troponin of 2.13 with no evidence of ischemia on EKG or anginal equivalent per her report. She has no further cough, no further significant sputum production. Her lactic acidosis resolved. Ms. Harris is medically stable for discharge to home and to follow up closely with her primary care physician, Dr. Payton. I will note that the patient is evidencing an anemia and hemoglobin on discharge is 9.4. It appears that this has been intermittent and chronic for her likely secondary to chronic illness. I note her MCV is normal. She may need some slight adjustment of her diuretic outpatient, but I am hesitant to do this given her general fragile state and intermittent low blood pressure inpatient, but recommend consideration of this at followup appointment with her primary care doctor. Ms. Harris is medically stable for discharge to home on 09/13/19. DISPOSITION: Home. DIET: Low-fat, low-carb. ACTIVITY: As tolerated. FOLLOWUP PLANS: Please follow up with Dr. Payton. I encouraged the patient's daughter to call on Friday for a telemedicine appointment. TIME SPENT: Approximately 60 minutes was spent on the discharge of this patient , more than half the time was spent with the patient at the bedside reviewing the events leading up to this hospitalization, performing the physical examination, and reviewing my plan of care. ROBBIE SAAVEDRA NP [id number]/CPS #: [id number] HUMAIRA
[2019-09-12] MEDS: Docusate CAP* 100 MG PO SCH (20:14)
[2019-09-12] MEDS: Senna TAB 8.6 mg* TAB PO SCH (20:14)
[2019-09-13] MEDS: Levothyroxine TAB* 100 MCG TAB PO SCH (05:29)
[2019-09-13] MEDS: SPIRIVA Respimat* (tiotropium) 2.5 mcg/inh Inhaler INH SCH (07:44)
[2019-09-13] MEDS: Mometasone/Formoter 200/5 MDI INH SCH (07:51)
[2019-09-13] MEDS: Furosemide TAB* 20 MG PO SCH (09:49)
[2019-09-13] MEDS: Gabapentin CAP(*) 300 MG PO SCH (09:49)
[2019-09-13] MEDS: Nystatin TOP POWDER* 15 GM BTL TOPICAL SCH (09:51)
[2019-09-13] MEDS: Cyanocobalamin TAB* 500 MCG PO SCH (09:51)
[2019-09-13 19:19] VITALS: BP 106/48
== END 2019-09-13 18:30 | disposition home or self-care (01) | DRG 871 ==
LOC: ED 10:03 → ICU 12:20 → MEDTELE 09-10 15:34
PROVIDERS: ADMIT Internal Medicine Critical Care Medicine; ATTEND Internal Medicine
PROC: 05HY33Z Insertion of Infusion Device into Upper Vein, Percutaneous Approach (ICD-10-PCS; 2019-09-09)
PROC: 5A09457 Assistance with Respiratory Ventilation, 24-96 Consecutive Hours, Continuous Positive Airway Pressure (ICD-10-PCS; principal; 2019-09-11)
DX: A41.9 Sepsis, unspecified organism (principal); J96.21 Acute and chronic respiratory failure with hypoxia; I50.33 Acute on chronic diastolic (congestive) heart failure; I21.A1 Myocardial infarction type 2; J18.9 Pneumonia, unspecified organism; J96.12 Chronic respiratory failure with hypercapnia; E87.2 Acidosis; N17.9 Acute kidney failure, unspecified; J44.0 Chronic obstructive pulmonary disease with (acute) lower respiratory infection; E66.2 Morbid (severe) obesity with alveolar hypoventilation; Z68.43 Body mass index [BMI] 50.0-59.9, adult; I27.81 Cor pulmonale (chronic); Z99.81 Dependence on supplemental oxygen; I11.0 Hypertensive heart disease with heart failure; I95.9 Hypotension, unspecified; E03.9 Hypothyroidism, unspecified; K58.9 Irritable bowel syndrome, unspecified; G25.81 Restless legs syndrome; F32.9 Major depressive disorder, single episode, unspecified; K22.5 Diverticulum of esophagus, acquired; F41.9 Anxiety disorder, unspecified; M19.90 Unspecified osteoarthritis, unspecified site; R53.1 Weakness; R32 Unspecified urinary incontinence; I07.1 Rheumatic tricuspid insufficiency; M51.36 Other intervertebral disc degeneration, lumbar region; G47.00 Insomnia, unspecified; L90.9 Atrophic disorder of skin, unspecified; Z86.711 Personal history of pulmonary embolism; Z86.14 Personal history of Methicillin resistant Staphylococcus aureus infection; Z79.51 Long term (current) use of inhaled steroids; Z79.899 Other long term (current) drug therapy; Z88.1 Allergy status to other antibiotic agents; Z88.0 Allergy status to penicillin; Z88.8 Allergy status to other drugs, medicaments and biological substances; Z87.891 Personal history of nicotine dependence; Z91.19 Patient's noncompliance with other medical treatment and regimen
CPT/HCPCS: 36415; 71045; 80048; 80053; 81003; 81015; 82330; 83605; 83735; 83880; 84100; 84484; 85025; 85610; 85730; 86140; 87040; 87086; 87635; 87899; 93005; 93306; 94640; 94660; 99285; A9270-GY; C8929; J0456; J0610; J0692; J0696; J1644; J1650; J1940; J3370; J3535